=== PATIENT | male | born 1950 | race Caucasian/White ===

== ENCOUNTER 2020-05-01 17:50 | Emergency (ER) | payer OTHER ==
--- OUTSIDE RECORDS SUMMARY | 2020-05-01 17:53 | XMS REPORT | Continuity of Care Document ---
:1950 Author Organization [facility] Address [address] [place] [address] Care Team Providers Name Role Phone DO MARC ONEILL Primary Care Physician Allergies, Adverse Reactions, Alerts Allergen Type Severity Reaction Last Updated Verified Status Codeine Allergy Severe March 10, Yes Active ([id number]) 2015 Medications Medication Status Dose Units Route Sig Qty Days Start End Instruct ions Date Date Budesonide Active 0.5 RESPIRAT Twice 1 Septembe ORY Daily r 28th, (INHALAT For 2019 ION) Resp 5:20pm for Copd Dapagliflozin Active 1 ORAL Daily 30 30 * Docusate Active 1 ORAL Twice 60 30 Septembe Sodium A Day r 28, for 2019 Consti 5:20pm pation Doxycycline Active 1 ORAL Twice 20 10 Septembe Hyclate A Day r 28, for 2019 Pneumo 5:20pm chris Insulin Active 10 SUBCUTAN Bedtim Detemir EOUS e Ipratropium Active 1 RESPIRAT Every 30 Septembe Zahl/[place] ORY 6 r 7th, rol (INHALAT Hours 2015 ION) For 2:19pm Resp Losartan Active 1 ORAL Twice 60 30 Septembe Potassium A Day r 28, 2019 Hypert 5:20pm ension Metformin Hcl Active 500 ORAL Twice A Day Pantoprazole * Active 40 ORAL Daily 30 30 Pioglitazone Active 1 ORAL Daily 30 30 Hcl Tramadol Hcl Active 100 ORAL Every 15 30 6 Hours As Needed as needed for Pain Citalopram * Discontin 20 ORAL Daily Septemb ued er 2019 Glimepiride Discontin 2 ORAL Before Septemb ued Breakf er ast 2019 Lactulose Discontin 15 ORAL Once 300 Septembe Septemb ued Daily r 7th, er as 2015, 2:19pm 2019 for Consti pation Levofloxacin Discontin 500 ORAL Daily 7 Septembe Septem b ued r 7th, er 2015, 2:19pm 2019 Lisinopril Discontin 40 ORAL Daily Septemb ued er 2019 Losartan Discontin 1 ORAL Daily 30 30 Septemb Potassium & ued er Hydrochlo 2019 Metoprolol Discontin 100 ORAL Once Septemb Succinate ued Daily er 2019 Metoprolol Discontin 25 ORAL Twice [place] Tartrate ued A Day 2015 Nicotine Discontin 1 TOPICAL Once 21 Septembe Septemb ued Daily r 7th, er 2015, 2:19pm 2019 Olmesartan/Hct Discontin 1 ORAL Daily February z 20/12.5 Mg * ued 2015 Omeprazole Discontin 20 ORAL Once Septemb ued Daily er 2019 Pantoprazole Discontin 40 ORAL Twice 60 Septembe Septem b Sodium ued A Day r 7th, er 2015, 2:19pm 2019 Sulfamethoxazo Discontin 1 ORAL Every February le/Tmp 800/160 ued 07 04, Mg Hours 2015 Tramadol Hcl Discontin 50 ORAL Every 30 May Septem b ued 4 rd, er Hours 2014, 2:32pm 2019 Tramadol Hcl Discontin 50 ORAL Every 30 Septembe Septem b ued 4 r 7th, er Hours 2015, As 2:20pm 2019 Needed Problems Active Problems Medical Problem Onset Date Status Sebaceous cyst Active Ileus following gastrointestinal Active surgery Postoperative hypoxia Active Pleural effusion Active Pulmonary nodule/lesion, solitary Active Abdominal pain Active Obstipation Active COPD (chronic obstructive pulmonary Acti ve disease) HTN (hypertension) Active HLD (hyperlipidemia) Active CAD (coronary artery disease) Active DM (diabetes mellitus) Active Urine retention Active Hematuria Active SOB (shortness of breath) Active Hypertensive emergency Active Edema Active Hypokalemia Resolved Hypocalcemia Active [place] Active Hypophosphatemia Active Protein-calorie malnutrition, severe Act tracy UTI (urinary tract infection) Active Advanced care planning/counseling Active discussion Tobacco abuse Active Tobacco abuse counseling Active SANTINO on CPAP Active Weight loss, non-intentional Active Poor appetite Active Hepatitis C Active Dizziness Active Unsteady gait Active Urinary retention Active Loculated pleural effusion Active Hx laparoscopic cholecystectomy Active S/P laparoscopic cholecystectomy Active Inactive/Resolved Problems Medical Problem Onset Date Status Adrenal nodule Resolved Hyponatremia Resolved Chronic abdominal pain Resolved Pleural effusion on right Resolved Pneumonia Resolved Procedures Procedure Date Performed Status X-ray of chest, single view April 10, 2020 completed Computed tomography of thorax April 10, 2020 completed with contrast Computed tomography of abdomen April 10, 2020 complete d and pelvis with contrast Computed tomography of head April 10, 2020 completed without contrast US guided thoracentesis April 11, 2020 completed X-ray of chest, single view April 11, 2020 completed Magnetic resonance imaging of April 12, 2020 completed brain without contrast Relevant Diagnostic Tests and/or Laboratory Data Laboratory Results Test Date/Time Result Interpretation Reference Result Comment Performing Range Site White Blood March 6.9 4.0-12.3 [facility], [address] Count 2019 [place] [id number] 4:30am Red Blood March 3.91 3.80-5.80 [facility], [address] Count 2019 [facility] [address] 4:30am Hemoglobin March 10.5 11.7-17.2 [facility], [address] 2019 [facility] [address] 4:30am Hematocrit March 32.6 35.0-51.0 [facility], [address] 2019 [facility] [address]24 4:30am Mean March 83.4 83-100 [facility], [address] Corpuscular 2019 [facility] [address] Volume 4:30am Mean March 26.9 26.8-33.4 [facility], [address] Corpuscular 2019 [facility] [address] Hemoglobin 4:30am Mean March 32.2 30-35 [facility], [address] Corpuscular 2019 [facility] [address] Hemoglobin 4:30am Concent Red Cell March 14.5 12.0-14.0 [facility], [address] Distributio 2019 [facility] [address] n Width 4:30am Platelet March 225 175-450 [facility], [address] Count 2019 [place] [id number] 4:30am Mean Lin 8.1 9.4-12.6 [facility], [address] Platelet 2019 [place] [address] Volume 4:30am Neutrophils Lin 64.5 44.7-82.4 [facility], [address] (%) (Auto) 2019 [place] [address] 4:30am Immature Lin 0.7 0.0-0.4 [facility], [address] Granulocyte 2019 [place] [address] % (Auto) 4:30am Lymphocytes Lin 17.8 10.0-50.0 [facility], [address] (%) (Auto) 2019 [place] [address] 4:30am Monocytes Lin 14.9 3.9-13.4 [facility], [address] (%) (Auto) 2019 [place] [address] 4:30am Eosinophils Lin 1.8 0.0-6.4 [facility], [address] (%) (Auto) 2019 [place] [address] 4:30am Basophils Lin 0.3 0.2-1.2 [facility], [address] (%) (Auto) 2019 [place] [address] 4:30am Neutrophils Lin 4.42 1.78-5.38 [facility], [address] # (Auto) 2019 [place] [address] 4:30am Absolute Lin 0.1 0.0-0.03 [facility], [address] Immature 2019 [place] [address] Granulocyte 4:30am (auto Lymphocytes Lin 1.2 1.32-3.57 [facility], [address] # (Auto) 2019 [place] [address] 4:30am Monocytes # Lin 1.02 0.30-0.82 [facility], [address] (Auto) 2019 [place] [address] 4:30am Eosinophils Lin 0.12 0.04-0.54 [facility], [address] # (Auto) 2019 [place] [address] 4:30am Basophils # Lin 0.02 0.01-0.08 [facility], [address] (Auto) 2019 [place] [address] 4:30am Nucleated Lin 0 0-0.2 [facility], [address] Red Blood 2019 [place] [address] Cells % 4:30am Nucleated March 0 0 [facility], [address] Red Blood 2019 [facility] [address] Cells # 4:30am Erythrocyte March 57 0.00-20 [facility], [address] Sedimentati 2019 [facility] [place] [address] on Rate 7:17pm D-Dimer March 1588 <500 Results have [facility], [address] [place] [address] 3:44pm broadcasted to patient's location and called to (CAT IN E.R.). By ELKE SHELL 04/10/20 @1904 Prothrombin March 11.4 10.3-12.3 THERAPEUTIC [facility], [address] Time 2019 LEVEL: 1.5 to [place] [id number] 3:44pm 1.9 times normal range of PT Prothromb March 1.06 Recommended [facility], [address] Time 2019 [place] [address] Internation 3:44pm range for al Ratio patients receiving warfarin (coumadin) therapy: INR is 2.0 to 3.0Recommended range for patients with mechanical prosthetic heart valves: INR is 2.5 to 3.5 Activated March 36.4 22.5-37.0 [facility], [address] Partial 2019 [place] [address] Thromboplas 3:44pm t Time Body Fluid March 89 [facility], [address] Glucose 2019 [facility] 80116 5:09pm Body Fluid March 4.4 [facility], [address] Total 2019 [facility] [address] Protein 5:09pm Body Fluid Lin PLEURAL [facility], [address] Source 2019 [place] [address] 5:09pm Body Fluid March LIGHT YELLOW COLORLESS [facility], [address] Color 2019 [place] [address] 5:09pm Body Fluid March CLEAR CLEAR [facility], [address] Appearance 2019 [place] [address] 5:09pm Body Fluid March 2.851 [facility], [address] WBC 2019 [facility] 84458 5:09pm Body Fluid Lin 0.002 [facility], [address] RBC 2019 [facility] 43147 5:09pm Body Fluid Lin 15.8 [facility], [address] Polynuclear 2019 [facility] [place] [address] WBCs (%) 5:09pm Body Fluid Lin 0.5 [facility], [address] Polynuclear [address] [place] [address] WBCs (#) 5:09pm Body Fluid March 84.2 [facility], [address] [facility] [address] Mononuclear [address] [place] [address] WBCs (%) 5:09pm Body Fluid Lin 2.4 [facility], [address] Mononuclear [address] [place] [address] WBCs 5:09pm Fluid Total Lin 2.9 [facility], [address] Nucleated 2019 [facility] 395[address] Cells 5:09pm (Auto) Body Fluid March 18 [facility], [address] Neutrophils 2019 [place] [address] 5:09pm Body Fluid March 73 [facility], 104 [facility] Lymphocytes 2019 [facility] [place] [address] 5:09pm Body Fluid March 4 0-0 [facility], [address] [facility] [address] Eosinophils 2019 [facility] [place] [address] 5:09pm Body Fluid March 5 0-0 [facility], [address] Monocytes 2019 [place] [address] 5:09pm Body Fluid March YES [facility], 104 [facility] Diff 2019 [facility] [address] Pathologist 5:09pm Review Urine Color March LIGHT YELLOW [facility], [address] [facility] [address] 2019 [facility] 42557 5:47pm Urine March CLEAR CLEAR [facility], 104 [facility] Appearance 2019 [facility] 67206 5:47pm Urine March 4+ (1000 NEGATIVE [facility], 104 [facility] Glucose 2019 mg/dL) [facility] [address] (UA) 5:47pm Urine Lin NEGATIVE NEGATIVE [facility], 104 [facility] Bilirubin 2019 [facility] 61203 5:47pm Urine Lin NEGATIVE NEGATIVE [facility], 104 [facility] Ketones 2019 [facility] 81109 5:47pm Urine Lin 1.033 1.003-1.030 [facility], 10 4 [facility] Specific 2019 [facility] [address] [place] 5:47pm Urine Blood March NEGATIVE NEGATIVE [facility], 10 4 [facility] [address] 2019 [facility] [address]676 5:47pm Urine pH March 7.000 5-9 [facility], [address] 2019 [facility] 62841 5:47pm Urine Lin TRACE NEGATIVE [facility], [address] Protein 2019 [facility] 45566 5:47pm Urine Lin 2.0-3.0 0.2-1.0 [facility], [address] Urobilinoge 2019 [facility] 08184 n 5:47pm Urine Lin NEGATIVE NEGATIVE [facility], [address] Nitrate 2019 [facility] 43883 5:47pm Urine Lin NEGATIVE NEGATIVE [facility], [address] [facility] [address] Leukocyte 2019 [facility] [address] Esterase 5:47pm Urine RBC Lin <1 0-5 [facility], [address] [facility] [address] 2019 [facility] 29038 5:47pm Urine WBC Lin <1 0-5 [facility], [address] 2019 [facility] [address]807 5:47pm Urine Lin <1 0-5 [facility], [address] [facility] [address] Epithelial 2019 [facility] [address] Cells 5:47pm Urine Lin None None Detect [facility], [address] Bacteria 2019 Detected [facility] 67147 5:47pm Urine Casts March None None Detect [facility], [address] [facility] [address] 2019 Detected [facility] 34870 5:47pm Urine Lin NO [facility], 104 [facility] Culture 2019 [facility] [address] Reflexed 5:47pm POC March 124 70.0 - 110 [facility], [address] Capillary 2019 [facility] [address] Blood 4:39pm Glucose (Chem) Lactic Acid March 1.79 0.5-2.2 [facility], [address] Level 2019 [facility] 64523 6:50am Procalciton March 0.1 0.0-0.8 The change of [facility] , [address] in 2019 PCT [facility] [address]18[address] 3:44pm concentration over time providesprogno stic information about the risk of mortality [id number] days for patients diagnosed with severe sepsis or septicshock coming from the emergency department, ICU, othermedical wards, or directly from outside the hospital. Datasupports the use of PCT determinations from the day severesepsis or septic shock is first diagnosed (Day 0) or the daythereafter (Day 1) and the fourth day after diagnosis(Day 4) for the classification of patients into higher andlower risk for mortality within 28 days according to theworkflow below:PCT Day 0(or Day 1) - PCT Day 4delta PCT = ____ X 100%PCT Day 0 (or Day 1)A decrease of PCT levels below or equal to 80% defines apositive delta PCT test result representing a higherrisk for 28-day all-cause mortality of patients diagnosedwith severe sepsis or septic shock.A decreased of PCT levels of more than 80% defines anegative delta PCT result representing a lower risk [id number] all-cause mortality of patients diagnosed withsevere sepsis or septic shock.To determine delta PCT results from the absolute PCTconcentrati ons of a patient obtained on the day severesepsis or septic shock was first diagnosed (or 24 hourslater) and on Day 4, go to [email or web address] m. Random March 102 82-115 [facility], [address] Glucose 2019 [place] [id number] 4:30am Blood Urea March 13 8-23 [facility], [address] Nitrogen 2019 [facility] 95821 4:30am Serum March 265 280-300 [facility], [address] Osmolality 2019 [place] [id number] 4:30am Creatinine March 0.8 0.70-1.20 [facility], [address] 2019 [place] [address] 4:30am Glomerular March > 60.00 GFR RESULTS [facility], [address] Filtration 2019 ARE REPORTED [place] [id number] Rate Calc 4:30am IN mL/min/1.73m2. Normal GFR: >60mL/minModer ately decreased GFR: 30-59 mL/minSeverely decreased GFR: 15-29 mL/minKidney Failure (or Dialysis): <15 mL/minThe calculated eGFR is not valid for patients younger than 18 years or older than 75 years. BUN/Creatin March 16.3 12-20 [facility], [address] ine Ratio 2019 [place] [id number] 4:30am Sodium March 132 135-145 [facility], [address] Level 2019 [place] [address] 4:30am Potassium Lin 4.2 3.5-5.2 [facility], 104 [facility] Level 2019 [place] [address] 4:30am Chloride March 95 98-108 [facility], 104 [facility] Level 2019 [place] [address] 4:30am Carbon March 29 21-32 [facility], 104 [facility] Dioxide 2019 [place] [address] Level 4:30am Anion Gap Lin 12.2 12-20 [facility], 104 [facility] 2019 [place] [address] 4:30am Calcium Lin 9.3 8.8-10.2 [facility], 104 [facility] Level 2019 [place] [address] 4:30am Phosphorus Lin 2.9 2.5-4.5 [facility], 104 [facility] Level 2019 [place] [address] 3:25am Magnesium Lin 1.5 1.6-2.4 [facility], 104 [facility] Level 2019 [place] [address] 3:25am Total Lin 6.1 6.6-8.7 [facility], 104 [facility] Protein 2019 [place] [address] 3:25am Albumin Lin 3.2 3.5-5.2 [facility], [address] [place] [address] ST 2019 [place] [address] 3:25am Globulin Lin 2.9 [facility], [address] [place] [address] 2019 [place] [address] 3:25am Albumin/Angelina Lin 1.1 >1.0 [facility], [address] bulin Ratio 2019 [place] [id number] 3:25am Total Lin < 0.3 0.0-1.2 [facility], 104 [facility] Bilirubin 2019 [place] [address] 3:25am Direct Lin < 0.20 0.0-0.3 [facility], 104 [facility] Bilirubin 2019 [place] [address] 4:30am Aspartate March 13 15-40 [facility], 104 [facility] Amino 2019 [place] [address] Transf 3:25am (AST/SGOT) Alanine March 10 0-41 [facility], 104 [facility] Aminotransf 2019 [place] 6[address]374 erase 3:25am (ALT/SGPT) Lipase March 16 13-60 [facility], [address] 2019 [facility] [address]647 3:44pm Lactate March 122 135-225 [facility], [address] Dehydrogena 2019 [facility] [address] se 4:30am Ammonia Lin < 10.0 16-60 [facility], 104 [facility] 2019 [facility] 07445 4:25pm Hemoglobin March 5.4 4.0-6.0 [facility], [address] A1c 2019 [facility] 74303 4:30am NT-Pro-B-Ty March 125 0-125 [facility], [address] pe 2019 [facility] [address] Natriuretic 3:25am Peptide C-Reactive March 66.3 0.0-5.0 High [facility], [address] Protein 2019 Sensitivity [facility] [address] High 4:30am C-Reactive Sensitivity Protein (CCRP) Expected Values: < 1.0 mg/L Low risk1.0 - 3.0 mg/L Moderate risk> 3.0 mg/L High riskTo convert CCRP to CRP for use as an inflammatory marker, divide the CCRP by 10Normal range for CRP 0.0 - 0.7 mg/dL Total March 88 40-130 [facility], [address] Alkaline 2019 [facility] [address] Phosphatase 3:25am Cholesterol March 156 150-200 [facility], [address] Level 2019 [facility] 62503 4:30am Triglycerid March 139 <150 [facility], [address] es Level 2019 [facility] 44625 4:30am HDL March 46 >55 HDL EXPECTED [facility], 04 [facility] Cholesterol 2019 VALUES:FEMALES [facility] 46990 4:30am : >65 mg/dL NO RISK 45-65 mg/dL MODERATE RISK <45 mg/dL HIGH RISKMALES: >55 mg/dL NO RISK 35-55 mg/dL MODERATE RISK <35 mg/dL HIGH RISK LDL March <100 LDL Expected [facility], 07 22 [facility] Cholesterol 2019 Values:Optimal [facility] 30236 4:30am <100 mg/dLNear optimal/above optimal 100-129 mg/dLBorderlin e high 130-159 mg/dLHigh 160-189 mg/dLVery high >190 mg/dL Coronary Lin 3.391 [facility], [address] [place] [address] 2019 [facility] [address] Disease 4:30am CHOLESTEROL Risk Ratio [facility] ([facility]) guidelines for classificaton, testing and management of cholesterol levels in adults over 20 years of age. This new classification creates three categories of risk for coronary heart disease, regardless of age or sex, according to total and LDL cholesterols levels: Based on total cholesterol levelDesirable <200 mg/dlBorderlin e-high 200-239 mg/dlHigh >=240 mg/dl Based on cholesterol ratioCHD RISK CHOL/HDL RATIO--------- --------- MALE FEMALE0.5 x Average 3.4 3.31.0 x Average 5.0 4.42.0 x Average 9.6 7.13.0 x Average 13.5 11.0 Ferritin Lin 216.9 30-400 [facility], 104 [facility] 2019 [facility] 93437 4:30am Thyroid Lin 1.41 0.36-3.74 [facility], [address] [place] [address] 2019 [facility] [address] Hormone 6:40am (TSH) Rheumatoid Lin < 10 0-14 [facility], [address] [place] [address] 2019 [facility] 20286 7:17pm TB Test March . The [facility] A# [id number], [address] [place] [address] (QFT) 2019 QuantiFERON-TB [facility] [address] Positive 7:17pm Gold Plus Criteria result is determined bysubtracting the Nil value from either TB antigen (Ag) tube.The mitogen tube serves as a control for the test. TB Test March 0.04 . [facility] A# [id number], 1050 [facility] 145 (QFT) [address] [facility] [address] Antigen 7:17pm TB Test March 0.04 . [facility] A# [id number], [address] [place] [address] (QFT) [address] [facility] [address] Antigen 2 7:17pm TB Test March 0.03 . [facility] A# [id number], 1050 [facility], [address] (QFT) Nil [place] [address] 7:17pm TB Test March >10.00 . [facility] A# [id number], 10[address] [facility], [address] (QFT) [place] [address] Mitogen 7:17pm TB Test March Negative Negative The specimen [facility] A# [id number], [address] [facility], [address] (QFT) 2019 [place] [address] Interpretat 7:17pm QuantiFERON ion testing was incubatedby the ordering institution. Specific procedures outlinedin our Directory of Services and in the package insert forthe QuantiFERON Gold (In Tube) test must be followed toenable for proper stimulation of cells for the productionof interferon gamma.Performe d at: [facility] - [facility] [id number] [id number] Director: Darion Baird MD, Phone: [phone] Rapid March NONREACTIVE NONREACTIVE [facility], [address] Plasma 2019 [facility] [address] Reagin 9:13am Body Fluid March 197 NO ESTABLISHED [facility] , [address] Lactate 2019 [facility] [place] [address] Dehydrogena 5:09pm se Urine March Negative Negative Presumptive [facility] A# [id number], [address] [facility], [address] Legionella 2019 [place] [address] Antigen 5:47pm L. pneumophila serogroup 1 antigenin urine, suggesting no recent or current infection.Legi onnaires' disease cannot be ruled out since otherserogroup s and species may also cause disease.Perfor med at: - [facility] [id number] [place], [place] [id number] Director: Jose Vogt MD, Phone: [phone] Creatine March 79 20-200 [facility], [address] Kinase 2019 [facility] 62289 3:44pm Troponin I March < 0.30 0.0-0.5 Published [facility], [address] 2019 clinical [facility] [address]502 3:44pm studies have shown elevations of cTnI in patients with myocardial injury, as seen in unstable angina pectoris, cardiac contusions, and heart transplants. Elevations have also been seen in patients with rhabdomyolysis and polymyositis.E levated troponin levels point to myocardial injury, but are not necessarily indicative of an ischemic mechanism. The term GA should be used when there is evidence of cardiac damage, as detected by marker proteins in a clinical setting consistent with myocardial ischemia. If the clinical circumstance suggests that an ischemic mechanism is unlikely, other causes of cardiac injury should be considered.For diagnostic purposes, the results should always be assessed in conjunction with the patient's medical history, clinical examination and other findings. Microbiology Results Procedure Source Result Collection Result Result Performin g Date/Time Date/Time Comment Site Blood Culture BLOOD FINAL March [facility], [address] REPORT. 2019 [facility] [address] 4:25pm 4:27pm Diagnostic Imaging Reports Report Dictated Date/Time Dictated By Status April 10, 2020 MARTY TAO MD completed 4:06pm Patient: VEGA RAYO MR#: [id number] [birth year] : 1950 Order[address] DrPrieto: DAWN HACKETT Pt Status: [facility] ER Pt Location: ER Date/Time: 04/10/20 1544 Primary Care Physician: SIGRID ONEILL DO Technologist(s): GRACE PECK Procedure(s): [id number] RAD/CHEST 1 VIEW Signed EXAMINATION: XR CHEST 1 VIEW. INDICATION: 70-year-old male with dyspn ea. COMPARISON: Chest radiograph dated 03/28. FINDINGS: The cardiomediastinal silhouette appear s normal. Mild calcified atherosclerotic disease of the thoracic aorta. Interval development of right greater than left patchy opacities. Moderate right pleural effusion. No pneumothorax. Surgical anchors are noted in the right humeral h ead. Visualized soft tissues are unremarkable. IMPRESSION: Interval development of right greater t martino left patchy opacities and moderate right pleural effusion, concerning for p neumonia. Electronically signed by: Marty Tao MD 04/10/2020 4:06 PM CDT Transcribed By: [facility] [employer] SIGNED < electronically signed by MARTY TAO MD> [id number] MARTY TAO MD April 10, 2020 MARY LY MD completed 5:53pm Patient: VEGA RAYO MR#: [id number] 92 : 1950 Ordering DrPrieto: DAWN HACKETT Pt Status: REG ER Pt Location: M ER Date/Time: 04/10/20 1640 Primary Care Physician: SIGRID ONEILL DO Technologist(s): MIKA GALAVIZ Procedure(s): [id number] CT/CT ABD & PELVIS W Signed EXAM DESCRIPTION: CT ABD PELVIS W CLINICAL HISTORY: 70 years Male abd pain, abnormal ches t x-ray, hyponatremia COMPARISON: Prior study dated July 16, 2011. TECHNIQUE: Images were obtained in axial, sagittal , and coronal planes. Intravenous contrast was administered. This exam was performed according to our departmental dose-optimization program which includes use of Automated Exposure Control, adjustment of the mA and/or kV according to patient size and/ or use of iterative reconstruction technique. FINDINGS: Decreased attenuation involving liver i n region of ligamentum teres peripherally likely fatty replacement. S pleen is prominent in size measuring 12.7 cm in greatest dimension. Prior cho lecystectomy.. Lobular appearing adrenal glands bilaterally. 2.7 cm mass right ad renal gland. 2.4 cm mass left adrenal gland. Right pleural effusion with suspected p leural thickening and irregularity.. Infiltrate and consolidation as well as atelectatic change right lower lobe. Additional extensive ill-defined nodular infiltrates lower lungs bilaterally. Calcification abdominal aorta with no d ilatation seen. Unremarkable portal vein. No adenopathy or abnormal intraper itoneal fluid collections seen. No obstructing renal or ureteral calcul i bilaterally. No hydronephrosis bilaterally. Moderate perinephric strand ing bilaterally. Unremarkable bladder. Enlarged prostate gland. Appendix within normal limits. No bowel obstruction, perforation, or infla mmation. No acute osseous abnormality. IMPRESSION: Moderate perinephric stranding bilatera lly. Clinical correlation suggested to further exclude inflammatory process. Right pleural effusion with suspected p leural thickening and irregularity posteriorly. Right lower lobe infiltrate and atelectatic change as well as consolidation. Extensive infiltrates zara gs bilaterally. The findings are consistent with but not specific for aty pical pneumonia including viral infection. Bilateral adrenal nodules possibly myol ipomas. The findings are stable when correlated with the prior study dated 2010. Electronically signed by: Mary Ly MD 04/10/2020 5:53 PM CDT Transcribed By: RUTHIE MONTEIRO SIGNED < electronically signed by MARY LY MD> [id number] MARY LY MD April 10, 2020 ZION BONNER MD completed 7:57pm Patient: VEGA RAYO MR#: [id number] 92 : 1950 Ordering DrPrieto: DAWN HACKETT Pt Status: ADM IN Pt Location: M M2 Date/Time: 04/10/201849 Primary Care Physician: SIGRID ONEILL DO Technologist(s): CALIN BRADLEY Procedure(s): [id number] CT/CT HEAD W/O CONTRAST Signed CT HEAD WITHOUT IV CONTRAST HISTORY: Altered mental status. COMPARISON: None. TECHNIQUE: CT scan of the brain was per formed without IV contrast. This exam was performed according to our [facility] dose-optimization program, which includes automated exposure control, adj ustment of the mA and/or kV according to patient size and/or use of iterative rec onstruction technique. FINDINGS: There are scattered areas of hypoattenu ation within the periventricular white matter, which likely represent chronic m icrovascular ischemia. No evidence of acute infarction, intracranial hemorrhag e, extra-axial fluid collection, or midline shift. No air-fluid levels are s een in the paranasal sinuses to suggest acute sinusitis. No depressed skull frac ture. IMPRESSION: 1. No acute intracranial findings. 2. Senescent changes with chronic micr ovascular ischemia. Electronically signed by: Zion Bonner MD 04/10/2020 7:57 PM CDT - 9427 Transcribed By: RUTHIE MONTEIRO SIGNED < electronically signed by ZION BONNER MD> [id number] ZION BONNER MD April 11, 2020 MARTY TAO MD completed 1:58pm Patient: VEGA RAYO MR#: [id number] 92 : [address] ROHINI GRANT MD Pt Status: ADM IN Pt Location: M M2 Date/Time: 04/11/20 1321 Primary Care Physician: SIGRID ONEILL DO Technologist(s): TERESA SCHILLING Procedure(s): [id number] US/U/S GUIDANCE FOR THORACENTE SIS Signed EXAMINATION: US THORACENTESIS. INDICATION: 70-year-old male with pleur al effusion. COMPARISON: CT chest dated 04/10/2020. FINDINGS: Limited grayscale ultrasound of the terri ateral chest was performed. This demonstrates a highly loculated moderate right pleural effusion. No significant left pleural effusion. IMPRESSION: Highly loculated moderate right pleural effusion, suggestive of an exudative effusion. Correlation with thoracentesis is suggested. Electronically signed by: Marty Tao MD 04/11/2020 1:58 PM CDT Transcribed By: [employer] SIGNED < electronically signed by MARTY TAO MD> [id number] MARTY TAO MD April 12, 2020 MARY LY MD completed 12:04am Patient: VEGA RAYO MR#: [id number] 92 : [address] STEPHANIE VELÁSQUEZ MD Pt Status: ADM IN [facility]#: [id number] Pt Location: M2 Date/Time: 04/11/20 1709 Primary Care Physician: SIGRID ONEILL DO Technologist(s): MIKA GALAVIZ Procedure(s): [id number] RAD/CHEST 1 VIEW Signed EXAM DESCRIPTION: CHEST 1 VIEW CLINICAL HISTORY: 70 years Male thoracentesis COMPARISON: Prior study dated April 10, 2020 TECHNIQUE: AP view of the chest was obtained. FINDINGS: Cardiac silhouette is enlarged. Central vessels are indistinct. Interval right thoracentesis. Right ple ural effusion has decreased when correlated with the prior study. Residua l pleural fluid noted. No pneumothorax. Patchy airspace opacities lung gibson b ilaterally decreased on the right and unchanged on the left. No effusion on le ft. IMPRESSION: Interval right thoracentesis. Decreased right pleural effusion with improved aeration right lung. No pneumothorax. Remaining findings unchanged. Electronically signed by: Mary Ly MD 04/12/2020 12:04 AM CDT Transcribed By: RUTHIE MONTEIRO SIGNED < electronically signed by MARY LY MD> [id number] MARY LY MD April 12, 2020 CHANTALE JIM MD completed 3:28pm Patient: VEGA RAYO MR#: [id number] 92 : 1950 Ordering DrPrieto: AIMEE FRYE Pt Status: ADM IN Pt Location: M M2 Date/Time: 04/12/20 1117 Primary Care Physician: SIGRID ONEILL DO Technologist(s): MRI [employer]PERATIONS Procedure(s): [id number] MRI/MRI BRAIN WITHOUT CONTRAST Signed EXAM: MRI BRAIN WITHOUT CONTRAST HISTORY: dizziness, unsteady gait. COMPARISON: Head CT from 04/10/2020. TECHNIQUE: Multiplanar, multi-sequence MR imaging of the brain without contrast was performed. FINDINGS: Parenchyma: No mass, hemorrhage or acu te vascular insults. Mild periventri cular and deep white matter T2/FLAIR hyp erintensities are likely due to chronic small vessel ischemic changes. Mild system consultant marcos small vessel ischemic changes in the hina. Extra-axial spaces: No mass or fluid c ollection. Ventricles: Normal in size and configu ration. No hydrocephalus. Vessels: Normal flow voids in major art eries and veins. Sellar/Suprasellar region: No abnormal ities. Craniocervical junction: No abnormaliti es. Scalp: No abnormalities. Bone marrow: No signal abnormalities. Paranasal sinuses/Mastoids: Clear. IMPRESSION: 1. No acute intracranial abnormality. 2. Mild chronic small vessel ischemic c hanges. Electronically signed by: Chantale nixon MD 04/12/2020 3:28 PM CDT Transcribed By: RUTHIE MONTEIRO SIGNED < electronically signed by CHANTALE JIM MD> [id number] CHANTALE JIM MD Health Concerns Health Concerns may be documented in an alternate section. Advance Directives Advance Directive Response Recorded Date/Time Advance Directives Yes March 07, 2016 7: 22am Advance Directive on File No March 8:05pm Name of Surrogate/Decision SPOUSE-HILARY RAYO March 4:09pm Maker Patient/Family Given Education No April 10, 2020 8:05pm Material R/T Directives? Chief Complaint and Reason for Visit Chief Complaint PNEUMONIA,ADRENAL NODULE,HYP ONATREMIA,PLEURAL EFFU Reason for Visit COPD (chronic obstructive pu lmonary disease) HTN (hypertension) HLD (hyperlipidemia) CAD (coronary artery disease ) DM (diabetes mellitus) Sebaceous cyst Ileus following gastrointest inal surgery Postoperative hypoxia Pleural effusion Pulmonary nodule/lesion, vini itary Advanced care planning/couns james discussion Tobacco abuse Tobacco abuse counseling SANTINO on CPAP Weight loss, non-intentional Poor appetite Hepatitis C Dizziness Unsteady gait Urinary retention Loculated pleural effusion Encounters Encounter Location(s) Arrival/Admit Date Discharge/Depart Date Provider(s) Discharged [place] April 10, April 15, 2020 ELLIE Brooks , [place] [id number] 6:37pm 6:02pm ZENAIDA Johnson MD Ctr Recent Diagnosis Onset Date COPD (chronic obstructive pulmonary disease) HTN (hypertension) HLD (hyperlipidemia) CAD (coronary artery disease) DM (diabetes mellitus) Sebaceous cyst Ileus following gastrointestinal surgery Postoperative hypoxia Pleural effusion Pulmonary nodule/lesion, solitary Advanced care planning/counseling discussion Tobacco abuse Tobacco abuse counseling SANTINO on CPAP Weight loss, non-intentional Poor appetite Hepatitis C Dizziness Unsteady gait Urinary retention Loculated pleural effusion Assessments Diagnosis Onset Date Resolution Status COPD (chronic obstructive Active pulmonary disease) HTN (hypertension) Active HLD (hyperlipidemia) Active CAD (coronary artery Active disease) DM (diabetes mellitus) Active Sebaceous cyst Active Ileus following Active gastrointestinal surgery Postoperative hypoxia Active Pleural effusion Active Pulmonary nodule/lesion, Active solitary Advanced care Active planning/counseling discussion Tobacco abuse Active Tobacco abuse counseling Active SANTINO on CPAP Active Weight loss, non-intentional Act tracy Poor appetite Active Hepatitis C Active Dizziness Active Unsteady gait Active Urinary retention Active Loculated pleural effusion Activ e Functional Status No Functional Status information available Goals Acute Goals -OK TO DC IV AND DC HOME -FOLLOW-UP WITH PCP IN 1-2 WEEKS -FOLLOW-UP WITH PULMONARY IN 1-2 WEEKS -PLEASE MAKE SURE ALL DIAGNOSTIC STUDIES ARE AVAILABLE AND HAVE BEEN REVIEWED WITH PATIENT PRIOR TO DISCHARGE -RETURN TO THE ER IF symptoms worsen -CALL DR. FULLER AT [phone] IF ANY QU ESTIONS REGARDING HOSPITAL STAY -PLEASE CALL THE FLOOR AT [phone] I F ANY MEDICATION OR NURSING QUESTIONS Immunizations No Immunization Information Available Mental Status No Mental Status Information Available Medical Equipment No Medical Equipment Information available Insurance Providers Guarantor Vega Rayo Address [address] [place] [id number] Contact Info. Home Phone: Payer Policy Id Coverage Id Subscriber's Subscriber Id Effective E xpiration Name Date Date Medicare [id number] Vega Rayo [id number] 44 Plan of Treatment Future Tests Future scheduled test information is unavailable Pending Tests Test Name Date ordered Gram Stain April 10, 2020 6:35pm Differential Comment April 11, 2020 5:09pm Sputum Culture April 10, 2020 6:35pm Arterial Blood pH April 11, 2020 6:16pm Arterial Blood Partial Pressure CO2 April 11 6:16pm Arterial Blood Partial Pressure O2 April 11 0 6:16pm Arterial Blood HCO3 April 11, 2020 6:16pm Arterial Blood Base Excess April 11, 2020 6:16pm Arterial Blood Total CO2 April 11, 2020 6:16pm Arterial Blood Oxygen Saturation April 11, 2020 6:16pm Oxygen Content April 11, 2020 6:16pm STRAIGHT INOC,NO SLIDE April 12, 2020 11:30am TISSUE GRINDING April 12, 2020 11:30am CONCENTRATION April 12, 2020 11:30am TISSUE GRIND/DIGEST April 12, 2020 11:30am INTERNAL QC AFB POS April 12, 2020 11:30am AFB ID April 12, 2020 11:30am Future Visits Future appointment information is unavailable Referrals to Other Providers Referral information is unavailable Future Procedures Future procedure information is unavailable Future Medications Future medication information is unavailable Patient Instructions Doxycycline delayed-release tablets Budesonide; Formoterol Inhalation Losartan tablets Pleural Effusion Docusate capsules Community-Acquired Pneumonia, Adult Social History Smoking Status Status Date of Observation Smokes tobacco daily (finding) April 10, 2020 8: 05pm Observation Status Observation Response Date of Response Alcohol abuse April 12, 2020 10:05am Hx Alcohol Use Y - 4-5 BEERS PER WEEK, 4 March 8:16pm WHISKY DRINKS PER WEEK Hx Physical Abuse No April 10, 2020 8:16pm Assigned Sex Male Vital Signs Vital Reading Result Collection Date/Time Weight 163.50 [lb_av] April 12, 2020 5:17am BMI (Body Mass Index) 24.9 kg/m2 April 12 5:17am Hospital Discharge Instructions Additional Instructions Instructions Physician Documentation [place] follow up instructions * If you have any questions or concerns, please contact [phone] and ask for the hospitalist on duty. If you are having a medical emergency, please report to the nearest emergency room in your area. * Access your patient portal or follow up with your PCP regarding any procedures or tests that have not yet been resulted. Follow up with: PCP Follow up appointment in: 7 days Activity on discharge: as tolerated Diet on discharge: cardiac Condition on discharge: stable
--- NOTE | 2020-05-01 19:21 | RAD REPORT ---
EXAM DESCRIPTION: RADChest Single View05/01/2020 7:02 pm CLINICAL HISTORY: cough COMPARISON: 2016 FINDINGS: Consolidation mid and lower right lung. Mild patchy opacities within the left lung The heart is mildly enlarged IMPRESSION: Large consolidation right lung with moderate patchy left lung opacities probably pneumon ia
[2020-05-01 19:37] LABS: Absolute Lymphocytes (CBC) 1.3 K/uL (0.7-4.9); Basophils % 0.6 % (0-1.3); Hematocrit 31.2 % (39.6-49.0); Lymphocytes % 18.3 % (15.3-44.8); MPV 6.3 fL (7.6-11.3); RBC Red Blood Cell Count 3.97 M/uL (4.33-5.43)
[2020-05-01 19:49] LABS: ALT/SGPT 15 U/L (12-78); AST/SGOT 12 U/L (15-37); Albumin 2.7 g/dL (3.4-5.0); Alkaline Phosphatase 104 U/L (45-117); BUN Blood Urea Nitrogen 13 mg/dL (7-18); Bicarbonate 28 mmol/L (21-32); Bilirubin Direct 0.2 mg/dL (0-0.2); Bilirubin Total 0.5 mg/dL (0.2-1.0); Glucose Level 95 mg/dL (74-106); Magnesium 1.5 mg/dL (1.8-2.4); NT PRO-BNP 396 pg/mL (<125); Potassium 3.8 mmol/L (3.5-5.1); Sodium Level 137 mmol/L (136-145); Troponin (Emerg Dept Use Only) < 0.02 ng/mL (0.0-0.045)
[2020-05-01 19:57] LABS: Protime INR 1.09
[2020-05-01 20:14] LABS: Urine Blood NEGATIVE (NEG); Urine Glucose 2+ (NEG); Urine Protein 1+ (NEG)
--- NOTE | 2020-05-01 20:23 | RAD REPORT ---
EXAM DESCRIPTION: CT - Chest For Pe Angio - 05/01/2020 8:04 pm CLINICAL HISTORY: Shortness of breath COMPARISON: None. TECHNIQUE: Dynamically enhanced axial 3 mm thick images of the chest were obtained during administra tion of <100> mL Isovue 370 IV contrast. Coronal and oblique reconstruction images were generated and reviewed. Exam utilizes a protocol for optimal evaluation of pulmonary arterial tree. Maximum intensity projections 3D imaging was utilized All CT scans are performed using dose optimization technique as appropriate and may include automated exposure control or mA/KV adjustment according to patient size. FINDINGS: A pulmonary embolus is not seen. A thoracic aortic aneurysm is not noted. . A pericardial effusion is not seen. Right lower lobe consolidation. Additional patchy alveolar opacities the lungs bilaterally. Moderate loculated right pleural effusion. Minimal left pleural effusion IMPRESSION: Negative for a pulmonary embolism. Right lower lobe consolidation. Additional moderate alveolar opacities bilaterally consistent with pn eumonia Moderate loculated right pleural effusion
[2020-05-01] MEDS ORDERED: PIPER/TAZO/NS 3.375gm 3.375 GM/100 ML BAG ONE (21:04)
[2020-05-01 21:05] LABS: Urine Bacteria <20 /HPF (NONE SEEN); Urine RBC <5 /HPF (NONE SEEN); Urine Urothelial Cells <5 /HPF (NONE SEEN)
[2020-05-01 21:06] LABS: Urine Culture Reflex Order NOT NEEDED
--- NOTE | 2020-05-01 21:38 | ER ---
Nurse's Notes [facility] Name: Vega Rayo Age: 70 yrs Sex: Male : 1950 Arrival Date: 05/01/2020 Time: 17:54 Bed 19 Private MD: Diagnosis: Pleural effusion in conditions classified elsewhere-right lung;Pneumonia due to other specified bacteria Presentation: 05/01 18:12 Chief complaint: Spouse and/or significant other states: Scheduled for Endoscopy ca1 Wednesday. He said it is hard for him to breathe since Wednesday and today. Went to a physician today to get cleared for the procedure on Wednesday. The doctor listened to his lungs and said you need to go to the ER. No cough out of the ordinary and he had pneumonia on 04/14/2020, but negative with Covid-19. Last Covid-19 test was 04/29/2020, negative. The abdominal pain and has been going on since November and Wednesday's endoscopy would be the 2nd one. Coronavirus screen: Client denies travel out of the [place] in the last 14 days. shortness of breath, Client presents with at least one sign or symptom that may indicate coronavirus-19. Standard/surgical mask placed on the client. Provider contacted for isolation considerations. The client reports previous COVID testing was negative. Date of collection: April 29, 2020. Ebola Screen: Patient negative for fever greater than or equal to 101.5 degrees Fahrenheit, and additional compatible Ebola Virus Disease symptoms Patient denies exposure to infectious person. Patient denies travel to an Ebola-affected area in the 21 days before illness onset. No symptoms or risks identified at this time. Initial Sepsis Screen: Does the patient meet any 2 criteria? No. Patient's initial sepsis screen is negative. Does the patient have a suspected source of infection? No. Patient's initial sepsis screen is negative. Risk Assessment: Do you want to hurt yourself or someone else? Patient reports no desire to harm self or others. Onset of symptoms was May 01, 2020. 18:12 Method Of Arrival: Wheelchair ca1 18:12 Acuity: DAYRON 3 ca1 Historical: - Allergies: 18:20 Codeine; ca1 - PMHx: 18:20 Diabetes - NIDDM; Hypertension; GI Bleed; ca1 - PSHx: 18:20 Cholecystectomy; ca1 - Immunization history:: Adult Immunizations up to date, Pneumococcal vaccine is up to date, Flu vaccine is up to date. - Social history:: Smoking status: Patient reports the use of cigarette tobacco products, smokes one-half pack cigarettes per day. Screenin:58 Abuse screen: Denies threats or abuse. Nutritional screening: No deficits noted. em Tuberculosis screening: No symptoms or risk factors identified. Fall Risk None identified. Assessment: 18:55 General: Appears in no apparent distress. comfortable, Behavior is calm, cooperative, em appropriate for age, Denies fever. Pain: Denies pain. Neuro: Level of Consciousness is awake, alert, obeys commands, Oriented to person, place, time, situation, Appropriate for age. Cardiovascular: Capillary refill < 3 seconds Patient's skin is warm and dry. Respiratory: Airway is patent Respiratory effort is even, unlabored, Respiratory pattern is regular, symmetrical. GI: Bowel sounds present X 4 quads. Abd is soft and non tender X 4 quads. Derm: Skin is intact, is healthy with good turgor, Skin is pink, warm \T\ dry. Musculoskeletal: Capillary refill < 3 seconds, Range of motion: intact in all extremities. 20:00 Reassessment: Patient and/or family updated on plan of care and expected duration. Pain fu level reassessed. Patient is alert, oriented x 3, equal unlabored respirations, skin warm/dry/pink. still complaining of SOB with exertion. 21:00 Reassessment: Patient appears in no apparent distress at this time. Patient and/or fu family updated on plan of care and expected duration. Pain level reassessed. Patient is alert, oriented x 3, equal unlabored respirations, skin warm/dry/pink. 22:15 Reassessment: Report called to Liza Tesfaye RN at [facility]. fu Vital Signs: 18:12 BP 130 / 79; Pulse 100; Resp 18 S; Temp 97(TE); Pulse Ox 93% on R/A; Weight 76.2 kg ca1 (R); Height 5 ft. 8 in. (172.72 cm) (R); Pain 0/10; 20:08 BP 156 / 78; Pulse 100; Resp 16; Temp 98.8; Pulse Ox 89% on R/A; Pain 0/10; fu 21:00 BP 135 / 63; Pulse 98; Resp 18; Pulse Ox 91% on R/A; Pain 0/10; fu 22:00 BP 127 / 70; Pulse 114; Resp 16; Pulse Ox 93% on NC; Pain 0/10; fu 18:12 Body Mass Index 25.54 (76.20 kg, 172.72 cm) ca1 ED Course: 17:54 Patient arrived in ED. ds1 18:19 Triage completed. ca1 18:20 Jones Sanchez PA is PHCP. cp 18:20 Sarbjit Mcguire MD is Attending Physician. cp 18:20 Arm band placed on right wrist. ca1 18:40 Deshaun June, [facility] is Primary Nurse. em 18:58 Patient has correct armband on for positive identification. Placed in gown. Bed in low em position. Call light in reach. Pulse ox on. NIBP on. 19:02 XRAY Chest (1 view) In Process Unspecified. EDMS 19:15 Initial lab(s) drawn, by me, sent to lab. Inserted saline lock: 20 gauge in right jp3 antecubital area, using aseptic technique. Blood collected. 19:15 Urine collected: clean catch specimen, clear, colette colored. Patient maintains SpO2 jp3 saturation greater than 95% on room air. 19:21 Warm blanket given. Verbal reassurance given. jp3 20:04 CT Chest For PE Angio In Process Unspecified. EDMS 20:51 initiated transfer with Deepa Herrera from [facility]. 2 21:31 administrative approval given by Deepa Herrera/ patient has been accepted to [address] 10 tower bed 22/ Dr. Burnette has accepted the patient in transfer/ report to be called to [phone]. 21:53 Mahad Ortega MD is Attending Physician. cp 22:00 No provider procedures requiring assistance completed. fu 22:30 Patient transferred, IV remains in place. fu Administered Medications: 20:58 Drug: Zosyn 3.375 grams Route: IVPB; Infused Over: 60 mins; Site: right antecubital; fu 21:58 Follow up: Response: No adverse reaction fu Outcome: 21:38 ER care complete, transfer ordered by . cp 22:30 Transferred by ground EMS to [facility]. fu 22:30 Condition: good 22:30 Instructed on the need for transfer, Demonstrated understanding of instructions. 22:49 Patient left the ED. mw2 Signatures: Dispatcher [employer] Deshaun Junior, RN RN Kaur Borja ds1 Jones Sanchez PA PA cp Umadhay, Felix, RN RN fu [place], MyKena mw2 Juan Triplett jp3 Kristy Carreon RN RN ca1
--- NOTE | 2020-05-01 21:38 | EDPHYS ---
Physician Documentation [facility] Name: Vega Rayo Age: 70 yrs Sex: Male : 1950 Arrival Date: 05/01/2020 Time: 17:54 Bed 19 Private MD: ED Physician Mahad Ortega HPI: 05/01 18:45 This 70 yrs old Male presents to ER via Wheelchair with complaints of cp Shortness of breath. 18:45 The patient presents with abdominal pain. cp 18:45 Onset: The symptoms/episode began/occurred chronic. Associated signs and symptoms: cp Pertinent positives: shortness of breath. Patient reports he was referred to ED for evaluation by physician's office after being evaluated for scheduled endoscopy. Patient reports increasing shortness of breath with exertion. Patient reports recent hospitalization 04-14-2020 for pneumonia with right lung pleural effusion. Patient was hospitalized at [facility] where pleural effusion was drained. Historical: - Allergies: 18:20 Codeine; ca1 - PMHx: 18:20 Diabetes - NIDDM; Hypertension; GI Bleed; ca1 - PSHx: 18:20 Cholecystectomy; ca1 - Immunization history:: Adult Immunizations up to date, Pneumococcal vaccine is up to date, Flu vaccine is up to date. - Social history:: Smoking status: Patient reports the use of cigarette tobacco products, smokes one-half pack cigarettes per day. ROS: 18:50 Constitutional: Negative for body aches, chills, fever, poor PO intake. cp 18:50 Eyes: Negative for injury, pain, redness, and discharge. cp 18:50 ENT: Negative for ear pain, sore throat, difficulty swallowing, difficulty handling secretions. 18:50 Cardiovascular: Negative for chest pain, edema, palpitations. 18:50 Respiratory: Positive for shortness of breath, on exertion. Negative for cough, wheezing. 18:50 Abdomen/GI: Negative for abdominal pain, nausea, vomiting, and diarrhea. 18:50 Back: Negative for pain at rest, pain with movement. 18:50 Skin: Negative for rash. 18:50 Neuro: Negative for altered mental status, headache, syncope, weakness. 18:50 All other systems are negative. Exam: 18:55 Constitutional: The patient appears in no acute distress, alert, awake, cp non-diaphoretic, non-toxic, well developed, well nourished. 18:55 Head/Face: Normocephalic, atraumatic. cp 18:55 Eyes: Periorbital structures: appear normal, Conjunctiva: normal, no exudate, no injection, Sclera: no appreciated abnormality, Lids and lashes: appear normal, bilaterally. 18:55 ENT: External ear(s): are unremarkable, Nose: is normal, Mouth: Lips: moist, Oral mucosa: moist, Posterior pharynx: Airway: no evidence of obstruction, patent. 18:55 Neck: ROM/movement: is normal, is supple, without pain, no range of motions limitations. 18:55 Chest/axilla: Inspection: normal, Palpation: is normal, no crepitus, no tenderness. 18:55 Cardiovascular: Rate: tachycardic, Rhythm: regular, Edema: is not appreciated, JVD: is not appreciated. 18:55 Respiratory: the patient does not display signs of respiratory distress, Respirations: normal, no use of accessory muscles, no retractions, labored breathing, is not present, Breath sounds: decreased breath sounds, that are severe, are heard in the right posterior middle lobe and right posterior lower lobe, stridor, is not appreciated, wheezing: is not appreciated. 18:55 Abdomen/GI: Inspection: abdomen appears normal, Palpation: abdomen is soft and non-tender, in all quadrants. 18:55 Back: pain, is absent, ROM is normal. 18:55 Skin: no rash present. 18:55 Neuro: Orientation: to person, place \T\ time. Mentation: is normal, Motor: moves all fours, strength is normal. 19:45 ECG was reviewed by the Attending Physician. cp Vital Signs: 18:12 BP 130 / 79; Pulse 100; Resp 18 S; Temp 97(TE); Pulse Ox 93% on R/A; Weight 76.2 kg ca1 (R); Height 5 ft. 8 in. (172.72 cm) (R); Pain 0/10; 20:08 BP 156 / 78; Pulse 100; Resp 16; Temp 98.8; Pulse Ox 89% on R/A; Pain 0/10; fu 21:00 BP 135 / 63; Pulse 98; Resp 18; Pulse Ox 91% on R/A; Pain 0/10; fu 22:00 BP 127 / 70; Pulse 114; Resp 16; Pulse Ox 93% on NC; Pain 0/10; fu 18:12 Body Mass Index 25.54 (76.20 kg, 172.72 cm) ca1 MDM: 18:25 Patient medically screened. 20:00 Differential diagnosis: sepsis, pneumonia, pleural effusion, pneumothorax. 21:23 Data reviewed: vital signs, nurses notes, lab test result(s), EKG, radiologic studies, CT scan, plain films. 21:35 Physician consultation: was contacted at 21:35, regarding regarding transfer, to [facility]. patient's condition, will accept patient as transfer to cardiothoracic services. 05/01 19:04 Order name: Basic Metabolic Panel; Complete Time: 20:10 05/01 19:04 Order name: CBC with Diff; Complete Time: 20:10 05/01 20:10 Interpretation: Normal except: RBC 3.97; HGB 10.3; HCT 31.2; MCV 78.8; MCH 26.1; RDW cp 15.7; MPV 6.3; MN% 15.4. 05/01 19:04 Order name: LFT's; Complete Time: 20:10 05/01 20:21 Interpretation: Normal except: AST 12; ALB 2.7; GLOB 4.3; A/G 0.6. 05/01 19:04 Order name: Magnesium; Complete Time: 20:10 05/01 19:04 Order name: NT PRO-BNP; Complete Time: 20:10 05/01 20:10 Interpretation: Abnormal: NT PRO-BNP 396. 05/01 19:04 Order name: PT-INR; Complete Time: 20:10 05/01 18:43 Order name: XRAY Chest (1 view); Complete Time: 19:28 05/01 19:28 Interpretation: Report review. 05/01 19:04 Order name: Troponin (emerg Dept Use Only); Complete Time: 20:10 05/01 19:04 Order name: EKG; Complete Time: 19:05 05/01 19:04 Order name: Cardiac monitoring; Complete Time: 19:21 05/01 19:29 Order name: CT Chest For PE Angio; Complete Time: 20:32 05/01 19:32 Order name: Urine Dipstick--Ancillary (enter results); Complete Time: 20:21 mw2 05/01 20:21 Interpretation: Normal except: UKET 2+; UPROT 1+. 05/01 19:49 Order name: Urine Microscopic Only; Complete Time: 21:06 fu 05/01 21:06 Interpretation: Reviewed. 05/01 19:04 Order name: EKG - Nurse/Tech; Complete Time: 19:21 cp 05/01 19:04 Order name: IV Saline Lock; Complete Time: 19:21 cp 05/01 19:04 Order name: Labs collected and sent; Complete Time: 19:21 cp 05/01 19:04 Order name: O2 Per Protocol; Complete Time: 19:21 cp 05/01 19:04 Order name: O2 Sat Monitoring; Complete Time: 19:21 cp EC:45 Rate is 103 beats/min. Rhythm is regular. NV interval is normal. QRS interval is cp normal. QT interval is normal. Interpreted by me. Reviewed by me. Administered Medications: 20:58 Drug: Zosyn 3.375 grams Route: IVPB; Infused Over: 60 mins; Site: right antecubital; fu 21:58 Follow up: Response: No adverse reaction fu Disposition: 05/02 07:06 Co-signature as Attending Physician, Mahad Ortega MD. [email or web address] Disposition: 05/01/20 21:38 Transfer ordered to [facility]. Diagnosis are Pleural effusion in conditions classified elsewhere - right lung, Pneumonia due to other specified bacteria. - Reason for transfer: Higher level of care. - Accepting physician is DR Kwon. - Condition is Stable. - Problem is an ongoing problem. - Symptoms have improved. Signatures: Dispatcher [employer] EDMS Jones Sanchez PA PA cp Umadhay, Felix RN Lexie Carpio [email or web address] Kristy Carreon RN RN ca1 Holmes, Maurice, MD MD 7 Corrections: (The following items were deleted from the chart) 05/01 22:49 21:38 05/01/2020 21:38 Transfer ordered to [facility]. mw2 Diagnosis is Pleural effusion in conditions classified elsewhere - right lung; Pneumonia due to other specified bacteria. Reason for transfer: Higher level of care. Accepting physician is DR Kwon. Condition is Stable. Problem is an ongoing problem. Symptoms have improved. cp
[2020-05-01 23:12] VITALS: BP 156/78; TEMP 98.8; O2SAT 89
--- NOTE | 2020-05-02 07:04 | EKG ---
Test Date: 2020-05-01 Test Time: 19:38:17 Email Producer: HUSEYIN MEASUREMENT RESULTS: Intervals: Rate: 103 NM: 132 QRSD: 72 QT: 338 QTc: 442 [place]: P: 50 NM: 132 QRS: 13 T: 78 INTERPRETIVE STATEMENTS: Sinus tachycardia Otherwise normal ECG Compared to ECG 04/11/2016 10:48:00 Sinus rhythm no longer present ST (T wave) deviation no longer present Electronically Signed On 05-02-20 07:03:30 CDT by Angel Patel
== END 2020-05-01 22:49 | disposition short-term general hospital (02) ==
LOC: ER 17:50
DX: J15.8 Pneumonia due to other specified bacteria (principal); J91.8 Pleural effusion in other conditions classified elsewhere; I10 Essential (primary) hypertension; F17.210 Nicotine dependence, cigarettes, uncomplicated; Z88.5 Allergy status to narcotic agent
CPT/HCPCS: 93005; 85025; 80048; 36415; 83735; 85610; 80076; 84484; 83880; 71275; 71045; 96374; 99285; Q9967; J2543; 81003; 81015

== ENCOUNTER 2020-06-07 14:50 | Day surgery (SDC) | payer OTHER ==
--- OUTSIDE RECORDS SUMMARY | 2020-06-07 14:54 | XMS REPORT | Clinical Summary ---
:1950 Author Organization [facility] Address [address] [place] [address] Care Team Providers Name Role Phone Drew Adams Unavailable Allergies Active Allergy Reactions Severity Noted Date Comments Codeine Rash Medium 05/02/2020 Medications Medication Sig Dispensed Refills Start Date End Date Status traMADoL (ULTRAM) Take 50 mg by mouth 0 03/12/2020 Active 50 mg tablet every 4 (four) hours as needed. pantoprazole Take 40 mg by mouth 0 02/23/2020 Active (PROTONIX) 40 MG 2 (two) times daily. tablet metoprolol tartrate Take 25 mg by mouth 0 02/15/2020 Active (LOPRESSOR) 100 MG 2 (two) times daily. tablet metFORMIN Take 500 mg by mouth 0 04/30/2020 Active (GLUCOPHAGE) 1000 2 (two) times daily. MG tablet docusate sodium Take 100 mg by mouth 0 04/15/2020 Active (COLACE) 100 MG as needed. capsule citalopram (CeleXA) Take 20 mg by mouth 0 02/27/2020 Active 20 MG tablet daily. nitroglycerin Take 0.4 mg by mouth 0 Active (NITROSTAT) 0.4 MG as needed. SL tablet dapagliflozin Take 10 mg by mouth 0 Active (Farxiga) 10 mg daily. tablet insulin detemir Inject 5 Units 0 Active U-100 (LEVEMIR) 100 subcutaneously unit/mL nightly. injectionIndication s: type 2 diabetes mellitus nicotine (NICODERM Place 1 patch onto 0 Active CQ) 21 mg/24 hr the skin daily. patchIndications: smoking cessation acetaminophen Take 2 tablets 30 tablet 0 05/16/2020 (TYLENOL) 500 MG (1,000 mg total) by 0 tablet mouth every 6 (six) hours for 10 days. gabapentin Take 1 capsule (300 30 capsule 0 05/16/2020 02 (NEURONTIN) 300 MG mg total) by mouth 3 0 capsule (three) times daily for 10 days. traMADoL (ULTRAM) Take 1 tablet (50 mg 30 tablet 0 05/16/2020 50 mg tablet total) by mouth 0 every 6 (six) hours as needed for up to 10 days. Max Daily Amount: 200 mg furosemide (LASIX) Take 1 tablet (20 mg 5 tablet 0 05/16/2020 20 MG tablet total) by mouth 0 daily for 5 days. potassium chloride Take 1 tablet (20 10 tablet 0 05/16/2020 SA (K-DUR,KLOR-CON) mEq total) by mouth 0 20 MEQ tablet 2 (two) times daily for 5 days. Active Problems Problem Noted Date Fluid overload 05/11/2020 Acute blood loss anemia 05/10/2020 Nicotine addiction 05/10/2020 Hypokalemia 05/10/2020 Hypomagnesemia 05/10/2020 Acute post-operative pain 05/10/2020 Anxiety 05/10/2020 Acute respiratory insufficiency 05/09/2020 Acute respiratory acidosis 05/09/2020 Empyema 05/02/2020 Encounters Date Type Specialty Care Team Description 05/27/2020 Hospital Encounter Radiology [place] Bustos Empyema (HCC) [place] 05/17/2020 Outside Orders Central Scheduling eGneva Bustos Empyem a (HCC) (Primary [place]aria Dx) 05/09/2020 Surgery Emmett Burnette THORACOSCOPY MD [place] (VATS),DECORTIC ATION 05/09/2020 Anesthesia Event Basilio Hodges MD Tra, Lorie Campuzano 05/09/2020 Orders Only General Internal Medicine 05/02/2020 Travel 05/01/2020 - Hospital Encounter Intensive Care Emmett Burnette Empyema ([facility]); 05/16/2020 MD [place] Preoperative ca rdiovascular examination; Essential hyper tension; Smoking; Periumbilical a bdominal pain; Acute respirato ry acidosis; Acute respirato ry insufficiency; Abnormal CT of the abdomen; Acute blood los s anemia; Acute post-oper ative pain; Hyperglycemia; Anxiety after 06/07/2019 Family History Medical History Relation Name Comments Hypertension Brother Alcohol abuse Father Cancer Father Hypertension Father Stroke Paternal Grandfather Relation Name Status Comments Brother Father Paternal Grandfather Social History Tobacco Use Types Packs/Day Years Used Date Former Smoker 50 Quit: 07/19/19 20 Smokeless Tobacco: Never Used Tobacco Cessation: Counseling Given: No Alcohol Use Drinks/Week oz/Week Comments Not Currently drank since 1964 stopped this september Sex Assigned at Date Recorded Not on file Last Filed Vital Signs Vital Sign Reading Time Taken Comments Blood Pressure 121/64 05/16/2020 2:00 PM CDT Pulse 90 05/16/2020 3:10 PM CDT Temperature 36.9 C (98.5 F) 05/16/2020 12:00 PM CDT Respiratory Rate 20 05/16/2020 3:10 PM CDT Oxygen Saturation 93% 05/16/2020 3:10 PM CDT Inhaled Oxygen Concentration 40% 05/10/2020 11:00 AM CDT Weight 76.7 kg (169 lb 1.5 oz) 05/16/2020 6:00 AM CDT Height 175.3 cm (5' 9") 05/02/2020 8:53 AM CDT Body Mass Index 24.97 05/02/2020 8:53 AM CDT Plan of Treatment Health Maintenance Due Date Last Done Comments PNEUMOCOCCAL 65+ YRS (1 of 1 - 2015 [id number]) MEDICARE ANNUAL WELLNESS (YEAR 2 or 03/20/2016 FIRST YEAR if no IPPE) INFLUENZA VACCINE (#1) 2020 05/14/2017, 04/23/2015, 07/10/2014 COLON CANCER SCREENING COLONOSCOPY 09/16/2021 09/17/2011 Procedures Procedure Name Priority Date/Time Associated Comments Diagnosis XR CHEST 2 VIEWS Routine 05/27/2020 10:10 Empyema (HCC) Result s for this AM [employer] procedure are i n the results section. XR CHEST 1 VIEW Routine 05/16/2020 12:04 Results for this PORTABLE/BEDSIDE PM CDT procedure a re in the results section. POCT-GLUCOSE METER Routine 05/16/2020 11:42 Resul ts for this AM CDT procedure are i n the results section. POCT-GLUCOSE METER Routine 05/16/2020 7:26 Resul ts for this AM CDT procedure are i n the results section. CBC W/PLT COUNT & Routine 05/16/2020 7:03 Result s for this AUTO DIFFERENTIAL AM CDT procedure are in the results section. CBC W/PLT COUNT & Routine 05/16/2020 7:03 Result s for this AUTO DIFFERENTIAL AM CDT procedure are in the results section. XR CHEST 1 VIEW Routine 05/16/2020 4:44 Results for this PORTABLE/BEDSIDE AM CDT procedure a re in the results section. MAGNESIUM Routine 05/16/2020 4:28 Results for this AM CDT procedure are i n the results section. BASIC METABOLIC PANEL Routine 05/16/2020 4:28 Re sults for this (7) AM CDT procedure are i n the results section. SARS-COV2/RT-PCR BALJINDER 05/16/2020 4:27 Results for this ([facility]) AM CDT procedure are in the results section. POCT-GLUCOSE METER Routine 05/15/2020 9:57 Resul ts for this PM CDT procedure are i n the results section. POCT-GLUCOSE METER Routine 05/15/2020 4:30 Resul ts for this PM CDT procedure are i n the results section. XR CHEST 1 VIEW Routine 05/15/2020 1:00 Results for this PORTABLE/BEDSIDE PM CDT procedure a re in the results section. POCT-GLUCOSE METER Routine 05/15/2020 11:23 Resul ts for this AM CDT procedure are i n the results section. ECG 12-LEAD Routine 05/15/2020 10:02 AM CDT Procedure Note - Interface, External Ris In - 05/15/2020 11:07 AM CDT Ventricular Rate 91 BPM Atrial Rate 91 BPM P-R Interval 136 ms QRS Duration 68 ms Q-T Interval 364 ms QTC Calculation(Bazett) 447 ms P Chatham 41 degrees R Chatham 11 degrees T Chatham 26 degrees Sinus rhythm with Premature supraventricular complexes Otherwise normal ECG When compared with ECG of 15:59, Previous ECG has undetermine d rhythm, needs review ECG 12-LEAD Routine 05/15/2020 10:02 AM CDT Resu lts for this procedure are i n the results section . POCT-GLUCOSE METER Routine 05/15/2020 7:28 AM CDT Results for this procedure are i n the results section . CBC W/PLT COUNT & AUTO Routine 05/15/2020 4:09 AM CDT Results for this DIFFERENTIAL procedure are i n the results section . MAGNESIUM Routine 05/15/2020 4:09 AM CDT Resu lts for this procedure are i n the results section . BASIC METABOLIC PANEL (7) Routine 05/15/2020 4:09 AM CDT Results for this procedure are i n the results section . CBC W/PLT COUNT & AUTO Routine 05/15/2020 4:09 AM CDT Results for this DIFFERENTIAL procedure are i n the results section . POCT-GLUCOSE METER Routine 05/14/2020 9:46 PM CDT Results for this procedure are i n the results section . POCT-GLUCOSE METER Routine 05/14/2020 4:47 PM CDT Results for this procedure are i n the results section . XR CHEST 1 VIEW STAT 05/14/2020 10:07 AM CDT R esults for this PORTABLE/BEDSIDE procedure a re in the results section . CBC W/PLT COUNT & AUTO Routine 05/14/2020 3:28 AM CDT Results for this DIFFERENTIAL procedure are i n the results section . MAGNESIUM Routine 05/14/2020 3:28 AM CDT Resu lts for this procedure are i n the results section . BASIC METABOLIC PANEL (7) Routine 05/14/2020 3:28 AM CDT Results for this procedure are i n the results section . CBC W/PLT COUNT & AUTO Routine 05/14/2020 3:28 AM CDT Results for this DIFFERENTIAL procedure are i n the results section . POCT-GLUCOSE METER Routine 05/13/2020 10:10 PM CDT Results for this procedure are i n the results section . POCT-GLUCOSE METER Routine 05/13/2020 4:29 PM CDT Results for this procedure are i n the results section . POCT-GLUCOSE METER Routine 05/13/2020 11:28 AM CDT Results for this procedure are i n the results section . POCT-GLUCOSE METER Routine 05/13/2020 9:14 AM CDT Results for this procedure are i n the results section . XR CHEST 1 VIEW Routine 05/13/2020 7:00 AM CDT R esults for this PORTABLE/BEDSIDE procedure a re in the results section . CBC W/PLT COUNT & AUTO Routine 05/13/2020 3:41 AM CDT Results for this DIFFERENTIAL procedure are i n the results section . PROTEIN, TOTAL Routine 05/13/2020 3:41 AM CDT Re sults for this procedure are i n the results section . ALBUMIN Routine 05/13/2020 3:41 AM CDT Resu lts for this procedure are i n the results section . PREALBUMIN Routine 05/13/2020 3:41 AM CDT Resu lts for this procedure are i n the results section . MAGNESIUM Routine 05/13/2020 3:41 AM CDT Resu lts for this procedure are i n the results section . BASIC METABOLIC PANEL (7) Routine 05/13/2020 3:41 AM CDT Results for this procedure are i n the results section . CBC W/PLT COUNT & AUTO Routine 05/13/2020 3:41 AM CDT Results for this DIFFERENTIAL procedure are i n the results section . MAGNESIUM Routine 05/13/2020 12:52 AM CDT Resu lts for this procedure are i n the results section . POTASSIUM Routine 05/13/2020 12:52 AM CDT Resu lts for this procedure are i n the results section . POCT-GLUCOSE METER Routine 05/12/2020 10:16 PM CDT Results for this procedure are i n the results section . MAGNESIUM Routine 05/12/2020 5:00 PM CDT Resu lts for this procedure are i n the results section . POTASSIUM Routine 05/12/2020 5:00 PM CDT Resu lts for this procedure are i n the results section . POCT-GLUCOSE METER Routine 05/12/2020 4:41 PM CDT Results for this procedure are i n the results section . POCT-GLUCOSE METER Routine 05/12/2020 8:41 AM CDT Results for this procedure are i n the results section . XR CHEST 1 VIEW Routine 05/12/2020 5:14 AM CDT R esults for this PORTABLE/BEDSIDE procedure a re in the results section . CBC W/PLT COUNT & AUTO Routine 05/12/2020 3:09 AM CDT Results for this DIFFERENTIAL procedure are i n the results section . BLOOD GAS, ARTERIAL Routine 05/12/2020 3:09 AM CDT Results for this procedure are i n the results section . MAGNESIUM Routine 05/12/2020 3:09 AM CDT Resu lts for this procedure are i n the results section . BASIC METABOLIC PANEL (7) Routine 05/12/2020 3:09 AM CDT Results for this procedure are i n the results section . CBC W/PLT COUNT & AUTO Routine 05/12/2020 3:09 AM CDT Results for this DIFFERENTIAL procedure are i n the results section . PREPARE LEUKO-REDUCED RBC Routine 05/11/2020 11:54 PM CDT Results for this procedure are i n the results section . POCT-GLUCOSE METER Routine 05/11/2020 9:14 PM CDT Results for this procedure are i n the results section . POCT-GLUCOSE METER Routine 05/11/2020 11:55 AM CDT Results for this procedure are i n the results section . MAGNESIUM Routine 05/11/2020 11:51 AM CDT Resu lts for this procedure are i n the results section . POTASSIUM Routine 05/11/2020 11:51 AM CDT Resu lts for this procedure are i n the results section . POCT-GLUCOSE METER Routine 05/11/2020 8:01 AM CDT Results for this procedure are i n the results section . BLOOD GAS, ARTERIAL Routine 05/11/2020 3:03 AM CDT Results for this procedure are i n the results section . CBC W/PLT COUNT & AUTO Routine 05/11/2020 2:57 AM CDT Results for this DIFFERENTIAL procedure are i n the results section . MAGNESIUM Routine 05/11/2020 2:57 AM CDT Resu lts for this procedure are i n the results section . BASIC METABOLIC PANEL (7) Routine 05/11/2020 2:57 AM CDT Results for this procedure are i n the results section . CBC W/PLT COUNT & AUTO Routine 05/11/2020 2:57 AM CDT Results for this DIFFERENTIAL procedure are i n the results section . XR CHEST 1 VIEW Routine 05/11/2020 1:37 AM CDT R esults for this PORTABLE/BEDSIDE procedure a re in the results section . POCT-GLUCOSE METER Routine 05/10/2020 9:12 PM CDT Results for this procedure are i n the results section . POCT-GLUCOSE METER Routine 05/10/2020 5:52 PM CDT Results for this procedure are i n the results section . BLOOD GAS, ARTERIAL STAT 05/10/2020 3:49 PM CDT Results for this procedure are i n the results section . POCT-GLUCOSE METER Routine 05/10/2020 12:33 PM CDT Results for this procedure are i n the results section . CBC W/PLT COUNT & AUTO BALJINDER 05/10/2020 10:29 AM CDT Results for this DIFFERENTIAL procedure are i n the results section . BLOOD GAS, ARTERIAL Routine 05/10/2020 10:29 AM CDT Results for this procedure are i n the results section . CBC W/PLT COUNT & AUTO BALJINDER 05/10/2020 10:29 AM CDT Results for this DIFFERENTIAL procedure are i n the results section . TRANSFUSE LEUKO-REDUCED RED Routine 05/10/2020 9:21 AM CDT BLOOD CELLS CBC W/PLT COUNT & AUTO Routine 05/10/2020 3:34 AM CDT Results for this DIFFERENTIAL procedure are i n the results section . BLOOD GAS, ARTERIAL Routine 05/10/2020 3:34 AM CDT Results for this procedure are i n the results section . MAGNESIUM Routine 05/10/2020 3:34 AM CDT Resu lts for this procedure are i n the results section . CBC W/PLT COUNT & AUTO Routine 05/10/2020 3:34 AM CDT Results for this DIFFERENTIAL procedure are i n the results section . COMPREHENSIVE METABOLIC STAT 05/10/2020 3:34 AM CDT Results for this PANEL procedure are i n the results section . XR CHEST 1 VIEW Routine 05/10/2020 2:35 AM CDT R esults for this PORTABLE/BEDSIDE procedure a re in the results section . POCT-GLUCOSE METER Routine 05/10/2020 1:21 AM CDT Results for this procedure are i n the results section . POCT-GLUCOSE METER Routine 05/09/2020 9:50 PM CDT Results for this procedure are i n the results section . XR ABDOMEN / KUB 1 VIEW STAT 05/09/2020 5:33 PM CDT Results for this procedure are i n the results section . BLOOD GAS, ARTERIAL Timed 05/09/2020 5:01 PM CDT Results for this procedure are i n the results section . ECG 12-LEAD Routine 05/09/2020 3:59 PM CDT Procedure Note - Interface, External Ris In - 05/09/2020 4:16 PM CDT Ventricular Rate 97 BPM Atrial Rate 153 BPM P-R Interval 136 ms QRS Duration 68 ms Q-T Interval 370 ms QTC Calculation(Bazett) 469 ms P Chatham 32 degrees R Chatham 28 degrees T Chatham 56 degrees Sinus tachycardia with 2nd d egree A-V block (Mobitz II) with Premature supraventricular complexes ST abnormality, possible dig italis effect Abnormal ECG When compared with ECG of 06:10, Previous ECG has undetermine d rhythm, needs review ST no longer depressed in An terior leads ECG 12-LEAD STAT 05/09/2020 3:59 PM Results for this CDT procedure are i n the results section. XR CHEST 1 VIEW STAT 05/09/2020 3:33 PM Resul ts for this PORTABLE/BEDSIDE CDT procedure a re in the results section. BLOOD GAS, ARTERIAL STAT 05/09/2020 3:31 PM R esults for this CDT procedure are i n the results section. CBC W/PLT COUNT & STAT 05/09/2020 3:30 PM Res ults for this AUTO DIFFERENTIAL CDT procedure are in the results section. BASIC METABOLIC PANEL STAT Add-on 05/09/2020 3:30 PM Results for this (7) CDT procedure are i n the results section. TROPONIN I Routine 05/09/2020 3:30 PM Results for this CDT procedure are i n the results section. APTT STAT 05/09/2020 3:30 PM Results for this CDT procedure are i n the results section. PROTHROMBIN TIME/INR STAT 05/09/2020 3:30 PM Results for this CDT procedure are i n the results section. CBC W/PLT COUNT & STAT 05/09/2020 3:30 PM Res ults for this AUTO DIFFERENTIAL CDT procedure are in the results section. CALCIUM, IONIZED STAT 05/09/2020 3:30 PM Resu lts for this CDT procedure are i n the results section. PHOSPHORUS STAT 05/09/2020 3:30 PM Results for this CDT procedure are i n the results section. MAGNESIUM STAT 05/09/2020 3:30 PM Results for this CDT procedure are i n the results section. HGB/HCT (H&H) - STAT STAT 05/09/2020 12:10 PM Results for this LAB CDT procedure are i n the results section. GLUCOSE-STAT LAB STAT 05/09/2020 12:10 PM Resu lts for this CDT procedure are i n the results section. POTASSIUM-STAT LAB STAT 05/09/2020 12:10 PM Re sults for this CDT procedure are i n the results section. SODIUM NA-STAT LAB STAT 05/09/2020 12:10 PM Re sults for this CDT procedure are i n the results section. BLOOD GAS, ARTERIAL STAT 05/09/2020 12:10 PM R esults for this CDT procedure are i n the results section. BLOOD GAS, ARTERIAL STAT 05/09/2020 12:10 PM R esults for this CDT procedure are i n the results section. CALCIUM, IONIZED STAT 05/09/2020 12:10 PM Resu lts for this CDT procedure are i n the results section. AFB CULTURE + SMEAR Routine 05/09/2020 11:56 AM (NON-SPUTUM) CDT SURGICALLY OBTAINED Routine 05/09/2020 11:56 AM R esults for this CULTURE + GRAM STAIN CDT procedu re are in the results section. FUNGUS CULTURE + Routine 05/09/2020 11:56 AM Resu lts for this SMEAR CDT procedure are i n the results section. AFB CULTURE + SMEAR Routine 05/09/2020 11:28 AM (NON-SPUTUM) CDT SURGICALLY OBTAINED Routine 05/09/2020 11:28 AM R esults for this CULTURE + GRAM STAIN CDT procedu re are in the results section. FUNGUS CULTURE + Routine 05/09/2020 11:28 AM Resu lts for this SMEAR CDT procedure are i n the results section. TISSUE EXAM AP Routine 05/09/2020 11:28 AM Results for this CDT procedure are i n the results section. THORACOSCOPY 05/09/2020 9:37 AM Acute empyema (VATS),DECORTICATION CDT ([facility]) Special Needs (ICU BED) POCT-GLUCOSE METER Routine 05/09/2020 8:08 AM CDT Results for this procedure are i n the results section . CBC W/PLT COUNT & AUTO Routine 05/09/2020 3:53 AM CDT Results for this DIFFERENTIAL procedure are i n the results section . MAGNESIUM Routine 05/09/2020 3:53 AM CDT Resu lts for this procedure are i n the results section . BASIC METABOLIC PANEL (7) Routine 05/09/2020 3:53 AM CDT Results for this procedure are i n the results section . CBC W/PLT COUNT & AUTO Routine 05/09/2020 3:53 AM CDT Results for this DIFFERENTIAL procedure are i n the results section . POCT-GLUCOSE METER Routine 05/08/2020 9:20 PM CDT Results for this procedure are i n the results section . TYPE AND SCREEN, AUTOMATED Routine 05/08/2020 9:01 PM CDT Results for this procedure are i n the results section . POCT-GLUCOSE METER Routine 05/08/2020 10:02 AM CDT Results for this procedure are i n the results section . SARS-COV2/RT-PCR ([facility] BALJINDER 05/08/2020 8:34 AM CDT Results for this REF LABS) procedure are i n the results section . POCT-GLUCOSE METER Routine 05/08/2020 8:18 AM CDT Results for this procedure are i n the results section . XR CHEST 1 VIEW Routine 05/08/2020 7:04 AM CDT R esults for this PORTABLE/BEDSIDE procedure a re in the results section . H. PYLORI ANTIGEN, STOOL Routine 05/08/2020 4:30 AM CDT Results for this procedure are i n the results section . CBC W/PLT COUNT & AUTO Routine 05/08/2020 3:38 AM CDT Results for this DIFFERENTIAL procedure are i n the results section . CARBOHYDRATE ANTIGEN 19-9 Routine 05/08/2020 3:38 AM CDT Results for this (CA 19-9) procedure are i n the results section . MAGNESIUM Routine 05/08/2020 3:38 AM CDT Resu lts for this procedure are i n the results section . BASIC METABOLIC PANEL (7) Routine 05/08/2020 3:38 AM CDT Results for this procedure are i n the results section . CBC W/PLT COUNT & AUTO Routine 05/08/2020 3:38 AM CDT Results for this DIFFERENTIAL procedure are i n the results section . POCT-GLUCOSE METER Routine 05/07/2020 9:02 PM CDT Results for this procedure are i n the results section . CT ABDOMEN/PELVIS WITH & Routine 05/07/2020 3:00 PM CDT Results for this WITHOUT IV CONTRAST procedur e are in the results section . POCT-GLUCOSE METER Routine 05/07/2020 12:53 PM CDT Results for this procedure are i n the results section . XR CHEST 1 VIEW Routine 05/07/2020 8:07 AM CDT R esults for this PORTABLE/BEDSIDE procedure a re in the results section . POCT-GLUCOSE METER Routine 05/07/2020 7:13 AM CDT Results for this procedure are i n the results section . CBC W/PLT COUNT & AUTO Routine 05/07/2020 3:40 AM CDT Results for this DIFFERENTIAL procedure are i n the results section . MAGNESIUM Routine 05/07/2020 3:40 AM CDT Resu lts for this procedure are i n the results section . BASIC METABOLIC PANEL (7) Routine 05/07/2020 3:40 AM CDT Results for this procedure are i n the results section . CBC W/PLT COUNT & AUTO Routine 05/07/2020 3:40 AM CDT Results for this DIFFERENTIAL procedure are i n the results section . POCT-GLUCOSE METER Routine 05/06/2020 8:10 PM CDT Results for this procedure are i n the results section . POCT-GLUCOSE METER Routine 05/06/2020 4:33 PM CDT Results for this procedure are i n the results section . POCT-GLUCOSE METER Routine 05/06/2020 11:02 AM CDT Results for this procedure are i n the results section . XR ABDOMEN / KUB 1 VIEW BALJINDER 05/06/2020 9:33 AM CDT Results for this procedure are i n the results section . POCT-GLUCOSE METER Routine 05/06/2020 7:24 AM CDT Results for this procedure are i n the results section . XR CHEST 1 VIEW Routine 05/06/2020 6:57 AM CDT R esults for this PORTABLE/BEDSIDE procedure a re in the results section . CBC W/PLT COUNT & AUTO Routine 05/06/2020 3:38 AM CDT Results for this DIFFERENTIAL procedure are i n the results section . FERRITIN Add-On 05/06/2020 3:38 AM CDT Resu lts for this procedure are i n the results section . IRON, TIBC, % SAT. (WITHOUT Add-On 05/06/2020 3:38 AM CDT Results for this FERRITIN) procedure are i n the results section . PROTEIN, TOTAL Routine 05/06/2020 3:38 AM CDT Re sults for this procedure are i n the results section . ALBUMIN Routine 05/06/2020 3:38 AM CDT Resu lts for this procedure are i n the results section . PREALBUMIN Routine 05/06/2020 3:38 AM CDT Resu lts for this procedure are i n the results section . MAGNESIUM Routine 05/06/2020 3:38 AM CDT Resu lts for this procedure are i n the results section . BASIC METABOLIC PANEL (7) Routine 05/06/2020 3:38 AM CDT Results for this procedure are i n the results section . CBC W/PLT COUNT & AUTO Routine 05/06/2020 3:38 AM CDT Results for this DIFFERENTIAL procedure are i n the results section . POCT-GLUCOSE METER Routine 05/05/2020 9:25 PM CDT Results for this procedure are i n the results section . POCT-GLUCOSE METER Routine 05/05/2020 4:45 PM CDT Results for this procedure are i n the results section . 2D ECHO W/ DOPPLER BALJINDER 05/05/2020 1:55 PM CDT Results for this (CW/PW/COLOR) procedure are in the results section . POCT-GLUCOSE METER Routine 05/05/2020 11:51 AM CDT Results for this procedure are i n the results section . POCT-GLUCOSE METER Routine 05/05/2020 7:47 AM CDT Results for this procedure are i n the results section . XR CHEST 1 VIEW Routine 05/05/2020 7:19 AM CDT R esults for this PORTABLE/BEDSIDE procedure a re in the results section . CBC W/PLT COUNT & AUTO Routine 05/05/2020 5:18 AM CDT Results for this DIFFERENTIAL procedure are i n the results section . LACTATE DEHYDROGENASE (LDH) Add-On 05/05/2020 5:18 AM CDT Results for this procedure are i n the results section . PROTEIN, TOTAL Add-On 05/05/2020 5:18 AM CDT Re sults for this procedure are i n the results section . MAGNESIUM Routine 05/05/2020 5:18 AM CDT Resu lts for this procedure are i n the results section . BASIC METABOLIC PANEL (7) Routine 05/05/2020 5:18 AM CDT Results for this procedure are i n the results section . CBC W/PLT COUNT & AUTO Routine 05/05/2020 5:18 AM CDT Results for this DIFFERENTIAL procedure are i n the results section . POCT-GLUCOSE METER Routine 05/04/2020 8:50 PM CDT Results for this procedure are i n the results section . POCT-GLUCOSE METER Routine 05/04/2020 4:54 PM CDT Results for this procedure are i n the results section . CT CHEST WITHOUT IV Routine 05/04/2020 3:50 PM CDT Results for this CONTRAST procedure are i n the results section . CYTOLOGY AP Routine 05/04/2020 11:17 AM CDT Resu lts for this procedure are i n the results section . URINALYSIS W/ REFLEX URINE Routine 05/04/2020 11:15 AM CDT Results for this CULTURE procedure are i n the results section . BODY FLUID CELL COUNT WITH BALJINDER 05/04/2020 11:15 AM CDT Results for this DIFFERENTIAL procedure are i n the results section . POCT-GLUCOSE METER Routine 05/04/2020 7:28 AM CDT Results for this procedure are i n the results section . XR CHEST 1 VIEW STAT 05/04/2020 6:57 AM CDT R esults for this PORTABLE/BEDSIDE procedure a re in the results section . CBC W/PLT COUNT & AUTO Routine 05/04/2020 4:55 AM CDT Results for this DIFFERENTIAL procedure are i n the results section . MAGNESIUM Routine 05/04/2020 4:55 AM CDT Resu lts for this procedure are i n the results section . BASIC METABOLIC PANEL (7) Routine 05/04/2020 4:55 AM CDT Results for this procedure are i n the results section . CBC W/PLT COUNT & AUTO Routine 05/04/2020 4:55 AM CDT Results for this DIFFERENTIAL procedure are i n the results section . POCT-GLUCOSE METER Routine 05/03/2020 9:00 PM CDT Results for this procedure are i n the results section . POCT-GLUCOSE METER Routine 05/03/2020 4:26 PM CDT Results for this procedure are i n the results section . LACTATE DEHYDROGENASE (LD), Routine 05/03/2020 1:12 PM CDT Results for this PLEURAL FLUID procedure are in the results section . PROTEIN, TOTAL, PLEURAL Routine 05/03/2020 1:12 PM CDT Results for this FLUID procedure are i n the results section . BODY FLUID CULTURE + GRAM Routine 05/03/2020 1:12 PM CDT Results for this STAIN procedure are i n the results section . CBC W/PLT COUNT & AUTO Routine 05/03/2020 11:23 AM CDT Results for this DIFFERENTIAL procedure are i n the results section . MAGNESIUM Routine 05/03/2020 11:23 AM CDT Resu lts for this procedure are i n the results section . BASIC METABOLIC PANEL (7) Routine 05/03/2020 11:23 AM CDT Results for this procedure are i n the results section . CBC W/PLT COUNT & AUTO Routine 05/03/2020 11:23 AM CDT Results for this DIFFERENTIAL procedure are i n the results section . LIPASE Routine 05/03/2020 11:23 AM CDT Resu lts for this procedure are i n the results section . AMYLASE Routine 05/03/2020 11:23 AM CDT Resu lts for this procedure are i n the results section . XR CHEST 1 VIEW STAT 05/03/2020 10:24 AM CDT R esults for this PORTABLE/BEDSIDE procedure a re in the results section . US DRAINAGE CHEST WITH TUBE BALJINDER 05/03/2020 9:45 AM CDT Results for this INSERTION procedure are i n the results section . POCT-GLUCOSE METER Routine 05/02/2020 9:08 PM CDT Results for this procedure are i n the results section . CT CHEST WITH IV CONTRAST STAT 05/02/2020 8:40 PM CDT Results for this procedure are i n the results section . CT ABDOMEN/PELVIS WITH IV STAT 05/02/2020 8:40 PM CDT Results for this CONTRAST procedure are i n the results section . POCT-GLUCOSE METER Routine 05/02/2020 5:01 PM CDT Results for this procedure are i n the results section . POCT-GLUCOSE METER Routine 05/02/2020 12:53 PM CDT Results for this procedure are i n the results section . SARS-COV2/RT-PCR ([facility] & BALJINDER 05/02/2020 7:19 AM CDT Results for this REF LABS) procedure are i n the results section . ECG 12-LEAD Routine 05/02/2020 6:10 AM CDT Resu lts for this procedure are i n the results section . ABORH, MANUAL STAT 05/02/2020 3:17 AM CDT Res ults for this procedure are i n the results section . CBC W/PLT COUNT & AUTO Routine 05/02/2020 1:30 AM CDT Results for this DIFFERENTIAL procedure are i n the results section . TYPE AND SCREEN, AUTOMATED Routine 05/02/2020 1:30 AM CDT Results for this procedure are i n the results section . PT/APTT Routine 05/02/2020 1:30 AM CDT Resu lts for this procedure are i n the results section . HEMOGLOBIN A1C Routine 05/02/2020 1:30 AM CDT Re sults for this procedure are i n the results section . CBC W/PLT COUNT & AUTO Routine 05/02/2020 1:30 AM CDT Results for this DIFFERENTIAL procedure are i n the results section . PHOSPHORUS Routine 05/02/2020 1:30 AM CDT Resu lts for this procedure are i n the results section . COMPREHENSIVE METABOLIC Routine 05/02/2020 1:30 AM CDT Results for this PANEL procedure are i n the results section . MAGNESIUM Routine 05/02/2020 1:30 AM CDT Resu lts for this procedure are i n the results section . XR CHEST 1 VIEW STAT 05/02/2020 12:52 AM CDT R esults for this PORTABLE/BEDSIDE procedure a re in the results section . 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 Less extensive patchy airspace opacities are again seen on the left. PLEURA: Opacity at the right lung base c ompatible with pleural effusion, increased from last exam. No p neumothorax. HEART AND MEDIASTINUM: Heart size normal . BONES AND SOFT TISSUES: No acute finding s. Surgical anchors again seen in the right humeral head. Upper ab domen unremarkable. IMPRESSION: Stable airspace opacities in both lungs, greater on the right. Small right pleural effusion is increased sinc e last exam. No pneumothorax. Signed: Eriberto Junior MD Report Verified Date/Time: 05/27/2020 12:06:04 Reading Location: [facility] Reading [place] [address] Procedure Note Interface, External Ris In - 05/27/2020 12:08 PM MOBILE ELECTRONICS INSTALLER FINAL REPORT EXAM: RAD, CHEST, 2 VIEWS, PA and latera l INDICATION: Empyema COMPARISON: Chest x-ray, 05/16/2020 FINDINGS: LINES/TUBES: None LUNGS: There are extensive airspace opac ities in the right lung. Less extensive patchy airspace opacities are again seen on the left. PLEURA: Opacity at the right lung base c ompatible with pleural effusion, increased from last exam. No p neumothorax. HEART AND MEDIASTINUM: Heart size normal . BONES AND SOFT TISSUES: No acute finding s. Surgical anchors again seen in the right humeral head. Upper ab domen unremarkable. IMPRESSION: Stable airspace opacities in both lungs, greater on the right. Small right pleural effusion is increased sinc e last exam. No pneumothorax. Signed: Eriberto Junior MD Report Verified Date/Time: 05/27/2020 1 2:06:04 Reading Location: [facility] Reading Michelle m 3 - B01.625 Performing Organization Address [facility] Phone Number GE RIS XR chest 1 view portable / bedside (05/16/2020 12:04 PM CDT)Only the most recent of16 resultswithin the time period is included. Specimen Narrative Performed At FINAL REPORT [employer] RAD, CHEST, 1 VIEW, NON DEPT INDICATION: CT removal COMPARISON: Prior day's exam FINDINGS: Portable frontal view of the c hest. IMPRESSION: Support Lines: Interval removal of chest tube Lungs and pleura: Unchanged airspace and pleural opacities. No pneumothorax. Heart and mediastinum: Stable contours. Stable surgical changes. Additional findings: None. Signed: Katie Ritter MD Report Verified Date/Time: 05/16/2020 12:35:56 Reading Location: [facility] Reading Room Procedure Note Interface, External Ris In - 05/16/2020 12:38 PM CDT FINAL REPORT RAD, CHEST, 1 VIEW, NON DEPT INDICATION: CT removal COMPARISON: Prior day's exam FINDINGS: Portable frontal view of the c hest. IMPRESSION: Support Lines: Interval removal of chest tube Lungs and pleura: Unchanged airspace and pleural opacities. No pneumothorax. Heart and mediastinum: Stable contours. Stable surgical changes. Additional findings: None. Signed: Katie Ritter MD Report Verified Date/Time: 05/16/2020 1 2:35:56 Reading Location: [facility] Reading Room Performing Organization Address City/[facility] Phone Number GE vidIQ POC-Glucose meter (05/16/2020 11:42 AM CDT)Only the most recent of46 results within the time period is included. POC-Glucose Meter 120 (H) 70 - 110 mg/dL [facility] Comment: [facility] : TESTED AT [facility] [address] [facility], [address] CENTER : Block And Case Maker/Junior Bookkeeper ID = [id number] for ZORAN SPENCER Specimen Blood Performing Organization Address City/State/Zipcode Phone Number [address] [phone] CENTER CBC with platelet count + automated diff (05/16/2020 7:03 AM CDT)Only the most recent of17 resultswithin the time period is included. Pathologist Sig nature WBC 9.6 3.5 - 10.5 [facility] K/L [facility] RBC 3.80 (L) 4.63 - 6.08 [facility] M/L [facility] Hemoglobin 9.7 (L) 13.7 - 17.5 [facility] GM/DL [facility] Hematocrit 31.7 (L) 40.1 - 51.0 % [facility] MCV 83.4 79.0 - 92.2 fL [facility] MCH 25.5 (L) 25.7 - 32.2 pg [facility] MCHC 30.6 (L) 32.3 - 36.5 [facility] GM/DL [facility] RDW 15.9 (H) 11.6 - 14.4 % [facility] Platelets 348 150 - 450 K/CU [facility] MPV 7.9 (L) 9.4 - 12.4 fL [facility] nRBC 0 0 - 0 /100 WBC [facility] % Neutros 66 % [facility] % Lymphs 19 % [facility] % Monos 13 % [facility] % Eos 1 % [facility] % Baso 0 % [facility] # Neutros 6.34 (H) 1.78 - 5.38 [facility] # Lymphs 1.79 1.32 - 3.57 [facility]/L [facility] # Monos 1.26 (H) 0.30 - 0.82 [facility]/L [facility] # Eos 0.07 0.04 - 0.54 [facility]/L [facility] # Baso 0.03 0.01 - 0.08 [facility] Immature 1 0 - 1 % [facility] Granulocytes-Relative [facility] Specimen Blood Performing Organization Address City/[facility]/Zipcode Phone Number [address] [address] CENTER Magnesium (05/16/2020 4:28 AM CDT)Only the most recent of19 resultswithin the time period is included. Pathologist Sig nature Magnesium 1.8Comment: Specimen 1.6 - 2.6 mg/dL [facility] slightly hemolyzed [facility] Specimen Blood Narrative Performed At Block And Case Maker SARAH Solis [facility] Performing Organization Address City/[facility]/Zipcode Phone Number [address] [address] CENTER Basic Metabolic Panel (05/16/2020 4:28 AM CDT)Only the most recent of14 results within the time period is included. Sodium 137 136 - 145 meq/L [facility] Potassium 4.2Comment: Specimen 3.5 - 5.1 meq/L [facility] Chloride 103 98 - 107 meq/L [facility] CO2 21 (L) 22 - 29 meq/L [facility] BUN 11 7 - 21 mg/dL [facility] Creatinine 0.72Comment: 0.57 - 1.25 [facility] Specimen slightly mg/dL [facility] hemolyzed [place] Glucose 103 70 - 105 mg/dL [facility] Calcium 8.7 8.4 - 10.2 [facility] mg/dL [facility] EGFR 108Comment: mL/min/1.[address] [facility] ESTIMATED GFR IS NOT [facility] ACCURATE CENTER CREATININE CLEARANCE IN PREDICTING GLOMERULAR FILTRATION RATE. ESTIMATED GFR IS NOT APPLICABLE FOR DIALYSIS PATIENTS. Specimen Blood Narrative Performed At Block And Case Maker ID - BRYAN M [facility] Performing Organization Address City/State/Zipcode Phone Number [facility] [address] [place] [address] CENTER SARS-CoV2/RT-PCR (Asymptomatic ONLY) (05/16/2020 4:27 AM CDT)Only the most recent of3 resultswithin the time period is included. SARS-COV2/RT-PCR Not Detected Not Detected, [facility] Negative, See NON-INTERFACED external report REFERENCE LABS for linked test SARS-COV-2 [facility] PERFORMING LAB NON-INTERFACED REFERENCE LABS Specimen Other - Nasopharyngeal wall structure (b sofía structure) Narrative Performed At This result has an attachment that is no t available. Negative results do not preclude SARS-CoV-2 infection and should not be used as the sole basis for [facility] NON-INTERFACED REFERENCE LABS tient management decisions. Negative res ults must be combined with clinical observations, patient history, and epidemiological information. A false negative result may occur if a specimen is improperly collected, transported or handled. The limit of detection for this assay is 250 copies/mL . This SARS CoV-2 test is a rapid, real-ti me RT-PCR test intended for the qualitative detection of nucleic acid from SARS-CoV-2 in a nasopharyngeal swab specimen collected from individuals suspected of COVID-19 by their healthcare provider. This test has not been Food and Drug Adm inistration (FDA) cleared or approved and has been authorized by FDA under an Emergency Use Authorization (EUA). This EUA will be effective until the declaration that circumstances exist justifying the authorization of the emergency use of in vitro diagnostic tests for detection and/or diagnosis of COVID-19 is terminated under Section 564(b)(2) of the Act or the EUA is revoked under Section 564(g) of the Act. Fact Sheet for Healthcare Providers: https://www.SeeMore Interactive/Documents/Xpert%20Xpress%20SARS%20CoV-2/Fact%20Sheets/30 2-3802%72GBNP-GMH-5%20HEALTHCARE%20PROVIDERS%20FACT%20SHEET.pdf Fact Sheet for Healthcare Patients: https://www.SeeMore Interactive/Documents/Xpert%20Xpress%20SARS%20CoV-2/Fact%20Sheets/30 2-3801%67FWIK-OZC-9%20PATIENT%20FACT%20SHEET.pdf Performing Laboratory: [facility] [address] [place] [address]. [place] [address] Performing Organization Address City/State/Zipcode Phone Number [facility] NON-INTERFACED REFERENCE LABS ECG 12 lead (05/15/2020 10:02 AM CDT)Only the most recent of3 resultswithin the time period is included. Specimen Narrative Performed At This result has an attachment that is no t available. Ventricular Rate 91 BPM GE MUSE Atrial Rate 91 BPM P-R Interval 136 ms QRS Duration 68 ms Q-T Interval 364 ms QTC Calculation(Bazett) 447 ms P Chatham 41 degrees R Chatham 11 degrees T Chatham 26 degrees Sinus rhythm with Premature supraventricular complexes Otherwise normal ECG When compared with ECG of 09-MAY-2020 15:59, Previous ECG has undetermined rhythm, needs review Confirmed by MD Ocampo Roberto ([id number]) on 04/19 1:45:01 PM Procedure Note Interface, External Ris In - 05/15/2020 1:45 PM CDT Ventricular Rate 91 BPM Atrial Rate 91 BPM P-R Interval 136 ms QRS Duration 68 ms Q-T Interval 364 ms QTC Calculation(Bazett) 447 ms P [place]atham 41 degrees R Chatham 11 degrees T [place] 26 degrees Sinus rhythm with Premature supraventric ular complexes Otherwise normal ECG When compared with ECG of 09-MAY-2020 15 :59, Previous ECG has undetermined rhythm, ne eds review Confirmed by MD Ocampo Roberto ([id number]) on 05/15/2020 1:45:01 PM Performing Organization Address City/[facility]/Zipcode Phone Number GE MUSE Protein, total (05/13/2020 3:41 AM CDT)Only the most recent of3 resultswithin the time period is included. Pathologist Sig nature Protein, Total 5.3 (L) 6.0 - 8.3 gm/dL [facility] Specimen Blood Narrative Performed At Block And Case Maker ID - [facility] Performing Organization Address [facility] Phone Number [address] [address] CENTER Prealbumin (05/13/2020 3:41 AM CDT)Only the most recent of2 resultswithin the time period is included. Pathologist Sig nature Prealbumin 8 (L) 14 - 45 mg/dL [facility] [place] Specimen Blood Narrative Performed At Block And Case Maker ID - VASILIY Owens [facility] Performing Organization Address [facility] Phone Number [address] [address] CENTER Albumin (05/13/2020 3:41 AM CDT)Only the most recent of2 resultswithin the time period is included. Pathologist Sig nature Albumin 2.6 (L) 3.5 - 5.0 g/dL [facility] Specimen Blood Narrative Performed At Block And Case Maker ID - VASILIY L [facility] Performing Organization Address [facility] Centercode Phone Number [address] [address] CENTER Potassium (05/13/2020 12:52 AM CDT)Only the most recent of3 resultswithin the time period is included. Pathologist Sig nature Potassium 3.6 3.5 - 5.1 meq/L [facility] Specimen Blood Narrative Performed At Block And Case Maker ID - PIAYA L [facility] Performing Organization Address City/State/Zipcode Phone Number [facility] [address] [place] [address] CENTER Blood gas, arterial (05/12/2020 3:09 AM CDT)Only the most recent of8 results within the time period is included. Pathologist Sig nature pH, Arterial 7.49 (H) 7.35 - 7.45 [facility] pCO2, Arterial 38 35 - 45 mm Hg [facility] pO2, Arterial 106 (H) 80 - 90 mm Hg [facility] O2 Sat, Arterial 98.2 (H) 96.0 - 97.0 % [facility] HCO3, Arterial 28 21 - 29 mmol/L [facility] Base Excess, Arterial 4.2 (H) -2.0 - 3.0 [facility] mmol/L [facility] Patient Temperature 36.9 [facility] FIO2 36.0 [facility] Specimen Blood, Arterial Performing Organization Address City/[facility] Centercode Phone Number [address] [address] [place] Prepare Leuko-Red RBC (05/11/2020 11:54 PM CDT) Pathologist Sig nature CROSSMATCH COMPATIBLE SAFETRACE TX Unit ABO O Neg SAFETRACE TX UNIT NUMBER [id number] SAFETRACE TX Status TX_TIMEINCHART SAFETRACE TX Blood Bank Product RED BLOOD CELLS SAFETRACE TX PRODUCT CODE [id number] [facility] [place] Specimen Other Performing Organization Address City/State/Zipcode Phone Number SAFETRACE TX Transfuse Leuko-Red RBC (05/10/2020 9:21 AM CDT)Comprehensive metabolic panel (05/10/2020 3:34 AM CDT)Only the most recent of2 resultswithin the time period is included. Protein, Total 4.5 (L) 6.0 - 8.3 [facility] gm/dL [facility] Albumin 2.5 (L) 3.5 - 5.0 [facility] g/dL [facility] Alkaline 59 40 - 150 U/L [facility] Phosphatase [facility] Total Bilirubin 0.6 0.2 - 1.2 [facility] mg/dL [facility] Sodium 136 136 - 145 [facility] meq/L [facility] Potassium 4.3 3.5 - 5.1 [facility] meq/L [facility] Chloride 103 98 - 107 [facility] meq/L [facility] CO2 24 22 - 29 meq/L [facility] BUN 11 7 - 21 mg/dL [facility] Creatinine 0.67 0.57 - 1.25 [facility] mg/dL [facility] Glucose 104 70 - 105 [facility] mg/dL [facility] Calcium 8.1 (L) 8.4 - 10.2 [facility] mg/dL [facility] AST 11 5 - 34 U/L [facility] ALT 8 6 - 55 U/L [facility] EGFR 117Comment: mL/min/1.73 [facility] ESTIMATED GFR IS sq [facility] NOT [facility] CREATININE CLEARANCE IN PREDICTING GLOMERULAR FILTRATION RATE. ESTIMATED GFR IS NOT APPLICABLE FOR DIALYSIS PATIENTS. Specimen Blood Narrative Performed At Block And Case Maker ID - LANAMK [facility] Performing Organization Address City/State/Zipcode Phone Number [facility] [address] [place] [address] CENTER XR abdomen / KUB 1 view (05/09/2020 5:33 PM CDT)Only the most recent of2 resultswithin the time period is included. Specimen Narrative Performed At FINAL REPORT GE RIS TECHNIQUE: RAD, ABDOMEN/KUB, 1 VIEW AP INDICATION: ogt COMPARISON: None. FINDINGS: OG tube tip terminates over the gastric fundus. Bowel gas pattern is nonobstructive. There are bibasilar pleu ral-parenchymal opacities. There are right-sided chest tubes.. IMPRESSION: OG tube tip terminates over the gastric fundus.. Signed: Liban Cohen MD Report Verified Date/Time: 05/09/2020 19:02:01 Reading Location: [address] Reading Room Procedure Note Interface, External Ris In - 05/09/2020 7:04 PM CDT FINAL REPORT TECHNIQUE: RAD, ABDOMEN/KUB, 1 VIEW AP INDICATION: ogt COMPARISON: None. FINDINGS: OG tube tip terminates over the gastric fundus. Bowel gas pattern is nonobstructive. There are bibasilar pleu ral-parenchymal opacities. There are right-sided chest tubes.. IMPRESSION: OG tube tip terminates over the gastric fundus.. Signed: Liban Cohen MD Report Verified Date/Time: 05/09/2020 1 9:02:01 Reading Location: [address] Reading Room Performing Organization Address City/[facility]/Zipcode Phone Number [facility] Calcium, Ionized (05/09/2020 3:30 PM CDT)Only the most recent of2 resultswithin the time period is included. Pathologist Sig nature Calcium, Ion 1.12 1.12 - 1.27 mmol/L [facility] pH, Blood 7.27 [facility] Specimen Blood Performing Organization Address City/[facility]/Zipcode Phone Number [facility] [address] [place] [address] CENTER Troponin I (05/09/2020 3:30 PM CDT) Pathologist Sig nature Troponin I <0.01 0.00 - 0.03 ng/mL [facility] Specimen Blood Narrative Performed At Troponin I (TnI) levels must be interpreted [facility] in the context of the presenting symptoms and the clinical findings. Elevated TnI levels indicate myocardial damage, but are not specific for ischemic heart disease. Elevated TnI levels are seen in patients with other cardiac conditions (including myocarditis and congestive heart failure), and slight TnI elevations occur in patients with other conditions, including sepsis, renal failure, acidosis, acute neurological disease, and persistent tachyarrhythmia. Block And Case Maker ID - BS Performing Organization Address [facility] Centercode Phone Number [address] [address] CENTER aPTT (05/09/2020 3:30 PM CDT) Pathologist Sig nature PTT 33.5 22.5 - 36.0 seconds [facility] Specimen Blood Performing Organization Address [facility] Phone Number [address] [address] [place] Prothrombin time/INR (05/09/2020 3:30 PM CDT) Pathologist Sig nature Protime 14.5 (H) 11.9 - 14.2 seconds [facility] INR 1.16 <=5.90 [facility] Specimen Blood Narrative Performed At Effective 12/14/2018: PT Reference Range [facility] Change New: 11.9-14.2 Previous: 11.7-14.7 RECOMMENDED COUMADIN/WARFARIN INR THERAPY RANGES STANDARD DOSE: 2.0-3.0 Includes: PROPHYLAXIS for venous thrombosis, systemic embolization; TREATMENT for venous thrombosis and/or pulmonary embolus. HIGH RISK: Target INR is 2.5-3.5 for patients wiht mechanical heart valves. Performing Organization Address [facility] Phone Number [address] [address] CENTER Phosphorus (05/09/2020 3:30 PM CDT)Only the most recent of2 resultswithin the time period is included. Pathologist Sig nature Phosphorus 4.9 (H) 2.3 - 4.7 mg/dL [facility] Specimen Blood Narrative Performed At Block And Case Maker ID - BS [facility] Performing Organization Address City/[facility] Centercode Phone Number [address] [address] CENTER Potassium-Stat Lab (05/09/2020 12:10 PM CDT) Pathologist Sig nature Potassium 4.0 3.6 - 5.5 meq/L [facility] Specimen Blood, Arterial Performing Organization Address City/[facility] Phone Number [address] [address] CENTER Sodium Na-Stat Lab (05/09/2020 12:10 PM CDT) Pathologist Sig nature Sodium 132 (L) 136 - 145 meq/L [facility] Specimen Blood, Arterial Performing Organization Address [facility] Campus/[facility] Phone Number [address] [address] [place] Glucose-Stat Lab (05/09/2020 12:10 PM CDT) Pathologist Sig nature Glucose 132 (H) 70 - 110 mg/dL [facility] Specimen Blood, Arterial Performing Organization Address [facility] Phone Number [address] [address] [place] HGB/HCT (H&H)-Stat Lab (05/09/2020 12:10 PM CDT) Pathologist Sig nature Hemoglobin 9.2 (L) 13.0 - 16.8 GM/DL [facility] Hematocrit 27.0 (L) 40.0 - 50.0 % [facility] Specimen Blood, Arterial Performing Organization Address [facility] Phone Number [address] [address] C[place] Surgically obtained culture + gram stain (05/09/2020 11:56 AM CDT)Only the most recent of2 resultswithin the time period is included. Result No growth [facility] Gram Stain Result <1+ WBCs [facility] Gram Stain Result No organisms seen [facility] Specimen Tissue - Pleural membrane structure (bod y structure) Performing Organization Address City/State/Zipcode Phone Number [facility] [address] [place] [address] [place] Fungus culture + smear (05/09/2020 11:56 AM CDT)Only the most recent of2 resultswithin the time period is included. Pathologist Sig nature Result No fungus isolated [facility] in 28 days [facility] Fungus Smear <1+ budding yeast [facility] Specimen Tissue - Pleural membrane structure (bod y structure) Narrative Performed At Possible artifact seen [facility] Performing Organization Address City/[facility] Phone Number [address] [address] [place] Tissue Exam (05/09/2020 11:28 AM CDT) Case Report Surgical Pathology Report Case: [id number] [facility] Authorizing Provider: Emmett Burnette MD Collected: 05/09/2020 11:28 AM [facility] Ordering Location: [facility] Received: 05/09/2020 03:32 PM [facility] PERIOPERATIVE SERVICES Pathologist: Omkar Castellanos MD Specimens: A) - Pleura, R IGHT PARIETAL PLEURA B) - Pleu ra, RIGHT PARIETAL PLEURA #2 C) - Pleu ra, VICERAL PLEURA ADDENDUM REASON FOR ADDENDUM: TO REPO RT IMMUNOSTAIN PERFORMED AT PROPATH LABORATORY [facility] electronically RESULT: [facility] signed by PAM Mendenhall-A: NEGATIVE. Vick mendoza MD on 05/22/2020 at 11 :11 The diagnosis remains unchanged. AM DIAGNOSIS A. PARIETAL PLEURA, RIGHT, PLEURECTOMY: C [facility] Electronically - METASTATIC ADENOCARCINOMA, PRIMARY SITE UNDE TERMINED (SEE COMMENT) [facility] signed by KATHYA Castellanos [place] Will Espitia on B. PARIETAL PLEURA, RIGHT#2, PLEURECTOMY: 05/14/2020 at 12:16 - METASTATIC ADENOCARCINOMA, PRIMARY SITE UNDETERMIN ED (SEE COMMENT) PM C. VISCERAL PLEURA, DECORTICATION: - METASTATIC ADENOCARCINOMA, PRIMARY SITE UNDETERMIN ED (SEE COMMENT) Signing Pathologist Direct Phone Line: COMMENT A-C. 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 Immunostains show the tumor to be positive for CK7, CDX2(weak, patchy), Napsin-A(nonspecific staining; will be repeat [facility] ed at [facility] laboratory); while negative for TTF1 and CK20. [facility] The immunoprofile is non-spe cific. Potential primary sites include lung, pancreatico-biliary tract, upper GI tract amongst others. Clinical and radiologic correlation is recommended to determine the primary site. CPT Code(s) 23285V7 [facility] [address] [facility] [id number] MEDICAL CENTER CLINICAL HISTORY Acute empyema [facility] SPECIMEN SOURCE A, B and C. Pleura [facility] GROSS DESCRIPTION A. Received in formalin labe led with the patient's name, accession number and "right parietal pleura" is a 2.5 x 1.4 x 0.2 cm benton-white fibromembranous soft tissue, which is entirely submitted in A1. [facility] B. Received in formalin labe led with the patient's name, accession number and "right parietal pleura #2" is a 6.3 x 4.0 x 1.0 cm aggregate of benton-white, focally hemorrhagic fibromembranous tissue. Rn Intake sections are submitted in B1-B3. [facility] C. Received in formalin labe led with the patient's name, accession number and "visceral pleura" is a 6.2 x 3.5 x 0.3 cm benton-white, focally hemorrhagic fibromembranous tissue. Rn Intake sections are submitted in C1-C3. PA/pl MICROSCOPIC Performed. [facility] The interpretation of this c ase included the use of immunohistochemistry or special stains. [facility] Control Slides Examined: In -house known positive controls were evaluated along with the test tissue. These control slides run alongside of the patients sample show appropriate staining. [facility] tracy and negative controls when available are evaluated Immunohistochemistry dottie cruz testing was performed at [facility], Pathology Laboratory where it was developed and its performance characteristics were determined. It has not be en cleared or approved by [facility] U.S. Food and Drug Administration. The FDA has determined that such clearance or approval is not necessary. The test is used for clinical purposes. It should not be regarde d as investigational or for research. This laboratory is certified under the Clinical Laboratory Improvement Amendments of 1988 (CLIA-88) as qualified to perform high complexity clinical laboratory testing. Specimen Tissue - Pleural membrane structure (bod y structure) Tissue specimen (specimen) - Pleural mem brane structure (body structure) Tissue specimen (specimen) - Pleural mem brane structure (body structure) Performing Organization Address City/State/Zipcode Phone Number [facility] [address] [place] [address] C[place] Type and screen, automated (05/08/2020 9:01 PM CDT)Only the most recent of2 resultswithin the time period is included. Pathologist Sig nature ABO/RH AUTOMATED O NEGATIVE [facility] Ab Scrn NEGATIVE [facility] Specimen Blood Performing Organization Address City/[facility]/Zipcode Phone Number [facility] [address] [place] [address] [facility] H. pylori antigen, stool (05/08/2020 4:30 AM CDT) H. pylori Not detected Not detected [facility] Antigen Comment: [facility]POR[facility] Antimicrobials, proton pump inhibitors, and bismuth p reparations inhibit H. pylori and ingestion up to two weeks prior to testing may cause false negative results. If clinically indica ace the test should be repeated on a new specimen obtained two weeks after discontinuing treatment. Specimen Stool - Rectum structure (body structure ) Narrative Performed At Performing Lab [facility] *[facility], [address] [place] [id number] Aquilino Horne MD, PhD Performing Organization Address City/[facility]/Zipcode Phone Number [place] [address] [facility] Carbohydrate antigen 19-9 (CA 19-9) (05/08/2020 3:38 AM CDT) CA 19-9 5924 (H) <34 U/mL [facility] Comment: INCORPORATED This test was performed using the Siemens Chemilumines cent method. Values obtained from different assay methods cannot be used interchangeably. CA19-9 levels, regardless of value, should not be inte rpreted as absolute evidence of the presence or absence of disease. Specimen Blood Narrative Performed At Performing Lab [facility] EZ [facility] [address] [place] [address] Augusto Henao MD, PhD, MAGAN Performing Organization Address [facility] Cent[facility] Phone Number [place] [address] [address] [facility] CT abdomen/pelvis without & with IV contrast (05/07/2020 3:00 PM CDT) Specimen Narrative Performed At FINAL REPORT [facility] TECHNIQUE: CT of the abdomen and pelvis WITHOUT and WITH intravenous contrast and WITHOUT oral contrast. Dose modulation, iterative reconstruction, and/or weight-based adju stment of the mA/kV was utilized to reduce the radiation dose to as low as reasonably achievable. INDICATION: Unlisted Reason for Exam adrenal mass noted on CT. COMPARISON: Chest CTs dating back to . FINDINGS: LOWER THORAX: A small right pleural effu levi with some intermixed gas is unchanged. There is hypoenhancement o f the right lower lobe. The multiple patchy opacities in the left soheila ng are concerning for pneumonia as well. HEPATOBILIARY: No focal hepatic lesions. Cystectomy. No biliary ductal dilatation . SPLEEN: 13.2 cm splenomegaly. PANCREAS: No focal masses or ductal dila tation. ADRENALS: A right adrenal nodule measure s 1.4 cm and less than 10 Hounsfield units, consistent with an shruti noma. A left adrenal nodule measures less than 10 Hounsfield units a nd 2 cm, consistent with an adenoma. KIDNEYS/URETERS: No hydronephrosis, ston es, or masses. 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 PELVIC ORGANS/BLADDER: Unremarkable. PERITONEUM/RETROPERITONEUM: There is mil d fat stranding in the upper abdomen with fluid which extends down th e peritoneal reflections into the pelvis. This may be due to volume ov erload and/or anasarca. Small, fat filled left direct inguinal h ernia. LYMPH NODES: No lymphadenopathy. There a re prominent but nonenlarged periportal lymph nodes. VESSELS: Moderate severe aortoiliac athe rosclerosis with at least moderate narrowing at the origin of the right common iliac artery. GI TRACT: No distention or wall thickeni ng. BONES AND SOFT TISSUES: Diffuse anasarca . IMPRESSION: 1.The bilateral adrenal nodules measure up to 2 cm and are consistent with adenomas. 2.The hypoenhancement of the right lower lobe and patchy opacities in the left lung are concerning for pneumon ia. 3.Mild splenomegaly. 4.The prominent periportal lymph nodes a re nonspecific but most likely reactive. Signed: Edmond Beltre MD Report Verified Date/Time: 05/07/2020 14:57:19 Reading Location: [facility] [employer] Reading Room - [place] [address] Procedure Note Interface, External Ris In - 05/07/2020 3:01 PM CDT FINAL REPORT TECHNIQUE: CT of the abdomen and pelvis WITHOUT and WITH intravenous contrast and WITHOUT oral contrast. Dose modulation, iterative reconstruction, and/or weight-based adju stment of the mA/kV was utilized to reduce the radiation dose to as low as reasonably achievable. INDICATION: Unlisted Reason for Exam adrenal mass noted on CT. COMPARISON: Chest CTs dating back to . FINDINGS: LOWER THORAX: A small right pleural effu levi with some intermixed gas is unchanged. There is hypoenhancement o f the right lower lobe. The multiple patchy opacities in the left soheila ng are concerning for pneumonia as well. HEPATOBILIARY: No focal hepatic lesions. Cystectomy. No biliary ductal dilatation . SPLEEN: 13.2 cm splenomegaly. PANCREAS: No focal masses or ductal dila tation. ADRENALS: A right adrenal nodule measure s 1.4 cm and less than 10 Hounsfield units, consistent with an shruti noma. A left adrenal nodule measures less than 10 Hounsfield units a nd 2 cm, consistent with an adenoma. KIDNEYS/URETERS: No hydronephrosis, ston es, or masses. 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 PELVIC ORGANS/BLADDER: Unremarkable. PERITONEUM/RETROPERITONEUM: There is mil d fat stranding in the upper abdomen with fluid which extends down th e peritoneal reflections into the pelvis. This may be due to volume ov erload and/or anasarca. Small, fat filled left direct inguinal h ernia. LYMPH NODES: No lymphadenopathy. There a re prominent but nonenlarged periportal lymph nodes. VESSELS: Moderate severe aortoiliac athe rosclerosis with at least moderate narrowing at the origin of the right common iliac artery. GI TRACT: No distention or wall thickeni ng. BONES AND SOFT TISSUES: Diffuse anasarca . IMPRESSION: 1.The bilateral adrenal nodules measure up to 2 cm and are consistent with adenomas. 2.The hypoenhancement of the right lower lobe and patchy opacities in the left lung are concerning for pneumon ia. 3.Mild splenomegaly. 4.The prominent periportal lymph nodes a re nonspecific but most likely reactive. Signed: Edmond Beltre MD Report Verified Date/Time: 05/07/2020 1 4:57:19 Reading Location: [facility] Reading Room - [place] [address] Performing Organization Address City/[facility]/Zipcode Phone Number [facility] Iron, TIBC, % sat. (without ferritin) (05/06/2020 3:38 AM CDT) Pathologist Sig nature Iron 25.0 (L) 40.0 - 160.0 [facility] ug/dL [facility] TIBC 230 (L) 250 - 450 ug/dL [facility] Iron % Saturation 11 (L) 20 - 55 % [facility] Specimen Blood Narrative Performed At Block And Case Maker ID - EDASI [facility] Performing Organization Address City/[facility]/Zipcode Phone Number [address] [place] [address] CENTER Ferritin (05/06/2020 3:38 AM CDT) Pathologist Sig nature Ferritin 218.48 5.00 - 275.00 ng/mL [facility] Specimen Blood Narrative Performed At Block And Case Maker ID - OMEGA [facility] Performing Organization Address City/State/Zipcode Phone Number [address] [address] [place] 2D Echo W/Doppler(CW/PW/Color) (05/05/2020 1:55 PM CDT) Pathologist Sig nature Ejection Fraction [facility] ECHO HEARTLAB [employer]CK [facility] Specimen Narrative Performed At Transthoracic Echocardiography Report (T TE) [facility] Demographics Patient Name VEGA RAYO Date of Study 05/05/2020 Gender Male Visit Number [id number] Race Unknown Room Number 1022 Number Date of 1950 Referring Physician Emmett Burnette MD Age 70 year(s) 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 Clinical History Diabetes Hypertension Tobacco abuse HGB 10 HCT 32.6 % Contrast Medium: Definity. Amount - 3 ml Height: 69 inches Weight: 76.2 kg (168 lbs) BSA: 1.92 m^2 BMI: 24.81 kg/m^2 HR: 69 bpm BP: 141/67 mmHg Summary 1. Normal left ventricular chamber size. Normal wall thickness. Normal overall left ventricular systolic function. No apparent segmental wall motion abnormalities. Estimated LVEF by qualitative assessment is normal (>60%) . LA size is normal . 2. Normal right ventricle structure and function. RA cavity size is normal . Unable to estimate peak systolic PA pressure; inadequate TR velocity signal. 3. Aortic valve sclerosis without stenosis. Mild AoV cusp thickening. Mild AoV cusp calcification. AoV calcification primarily involves the non- coronary cusp(s). Previous Study No prior exam available for comparison. Signature Findings Left Ventricle LV endocardium is adequately visualized with IV ultrasound enhancing agent. Normal left ventricular chamber size. Normal wall thickness. Normal overall left ventricular systolic function. No appare nt segmental wall motion abnormalities. Estimated LVEF by qualitative assessment is normal (>60%) . Left Atrium LA size is normal . Right Ventricle Normal right ventricle structure and function. Right Atrium RA cavity size is normal . Aortic Valve Mild AoV cusp thickening. Mild AoV cusp calcification. AoV calcification primarily involves the non - coronary cusp(s). No evidence of aortic regurgitation. Mitral Valve Mild MV leaflet thickening. Trace mitral regurgitation. Tricuspid Valve A trace of tricuspid regurgitation. Unable to estimate peak systolic PA pressure; inadequate TR velocity signal. Pulmonic Valve Normal PV structure and function by limited views and Doppler. Aorta Aortic root size (SInus of Valsalva diameter) is norm al . Pericardium No evidence of pericardial effusion. IVC/SVC/PA/PV/Pleural The estimated RA pressure by IVC dynamics 5-10mmHg . Chambers/Structures Left Atrium LA Volume: 41.31 ml LA Area: 15.68 cm^2 LA Vol. Index: 22 ml/m^2 Left Ventricle LVIDd: 4.2 cm LVEDV:78.71 ml LV Septum Diastolic: 0.69 cm LV PW Diastolic: 0.63 cm LVEDV Hill's:87.74 ml LVESV Hill's:22.93 ml LVEF Hill's: 73.9 % LVEDVI: 46 ml/m^2 LVESVI: 12 ml/m^ 2 LVOT Diameter: 2.05 cm Doppler/Quantitative Measurements Mitral Valve MV Peak E-Wave: 0.84 m/s MV Peak A-Wave: 0.64 m/s E/A Ratio: 1.32 Peak Gradient: 2.85 mmHg Deceleration Time: 178.9 msec MV Robbie. Peak: Tissue Doppler E' Lateral Velocity: 0.06 m/s Aortic Valve Peak Velocity: 1.03 m/s Mean Velocity: 0.64 m/s Peak Gradient: 4.23 mmHg Mean Gradient: 1.91 mmHg AV Area (continuity): 3.59 cm^2 AV VTI: 19.19 cm AV DVI: 1.09 LVOT Peak Velocity: 1.09 m/s Peak Gradient: 4.74 mmHg Mean Velocity: 0.66 m/s Mean Gradient: 2.25 mmHg LVOT Diameter: 2.05 cm LVOT VTI: 20.89 cm LVOT Area: 3.3 cm^2 LVOT SV:68.92 ml LVOT CO: 4.76 l/min LVOT CI: 2.48 l/min/m^2 Procedure Note Interface, External Ris In - 05/06/2020 11:31 AM CDT Transthoracic Echocardiography Report (TTE) Demographics Patient Name VEGA RAYO Date of S ayleendy 05/05/2020 Gender Male Visit Number [id number] Race Unknown Room Numb er 1022 Number Date of 1950 Referring Physician Emmett Burnette MD Age 70 year(s) 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 Clinical History Diabetes Hypertension Tobacco abuse HGB 10 HCT 32.6 % Contrast Medium: Definity. Amount - 3 ml Height: 69 inches Weight: 76.2 kg (168 l bs) BSA: 1.92 m^2 BMI: 24.81 kg/m^2 HR: 69 bpm BP: 141/67 mmHg Summary 1. Normal left ventricular chamber size . Normal wall thickness. Normal overall left ventricular systolic funct ion. No apparent segmental wall motion abnormalities. Estimated LVEF by qualitative assessment is normal (>60%) . LA size is normal . 2. Normal right ventricle structure and function. RA cavity size is normal . Unable to estimate peak systolic PA p ressure; inadequate TR velocity signal. 3. Aortic valve sclerosis without steno sis. Mild AoV cusp thickening. Mild AoV cusp calcification. AoV calcificati on primarily involves the non- coronary cusp(s). Previous Study No prior exam available for comparison. Signature Findings Left Ventricle LV endocardium i s adequately visualized with IV ultrasound enhan cing agent. Normal left ventricular chamber size. No rmal wall thickness. Normal overall left ventricular systolic function. No apparent segmental wall m otion abnormalities. Estimated LVEF by qualitative a ssessment is normal (>60%) . Left Atrium LA size is yvonne l . Right Ventricle Normal right chelsea tricle structure and function. Right Atrium RA cavity size i s normal . Aortic Valve Mild AoV cusp th ickening. Mild AoV cusp ca lcification. AoV calcificatio n primarily involves the non- coronary cusp(s) . No evidence of a ortic regurgitation. Mitral Valve Mild MV leaflet thickening. Trace mitral reg urgitation. Tricuspid Valve A trace of tricu spid regurgitation. Unable to estima te peak systolic PA pressure; inadequate TR ve locity signal. Pulmonic Valve Normal PV struct ure and function by limited views and Doppler. Aorta Aortic root size (SInus of Valsalva diameter) is normal . Pericardium No evidence of p ericardial effusion. IVC/SVC/PA/PV/Pleural The estimated RA pressure by IVC dynamics 5-10mmHg . Chambers/Structures Left Atrium LA Volume: 41.31 ml LA Area: 15.68 cm^2 LA Vol. Index: 22 ml/m^2 Left Ventricle LVIDd: 4.2 cm LVEDV:78.71 ml LV Septum Diastolic: 0.69 cm LV PW Diastolic: 0.63 cm LVEDV Hill's:87.74 ml LVESV Hill's:22.93 ml LVEF Hill's: 73.9 % LVEDVI: 46 ml/m^2 LVESVI: 12 ml/m^2 LVOT Diameter: 2.05 cm Doppler/Quantitative Measurements Mitral Valve MV Peak E-Wave: 0.84 m/s M V Peak A-Wave: 0.64 m/s E /A Ratio: 1.32 P eak Gradient: 2.85 mmHg D eceleration Time: 178.9 msec MV Robbie. Peak: Tissue Doppler E' Lateral Velocity: 0.06 m/s Aortic Valve Peak Velocity: 1.03 m/s Mean Velocity: 0.64 m/s Peak Gradient: 4.23 mmHg Mean Gradient: 1.91 mmHg AV Area (continuity): 3.59 cm^2 AV VTI: 19.19 cm AV DVI: 1.09 LVOT Peak Velocity: 1.09 m/s Pea k Gradient: 4.74 mmHg Mean Velocity: 0.66 m/s Rea n Gradient: 2.25 mmHg LVOT Diameter: 2.05 cm LVO T VTI: 20.89 cm LVOT Area: 3.3 cm^2 LVO T SV:68.92 ml LVOT CO: 4.76 l/min LVO T CI: 2.48 l/min/m^2 Performing Organization Address City/[facility]/Zipcode Phone Number [facility] ECHO HEARTLAB [facility] CPACS Lactate dehydrogenase (LDH) (05/05/2020 5:18 AM CDT) Pathologist Sig nature LDH 449 (H) 125 - 220 U/L [facility] Specimen Blood - Entire right upper arm (body str ucture) Narrative Performed At Block And Case Maker ID - OMEGA [facility] Performing Organization Address City/State/Zipcode Phone Number [facility] [address] [place] [address] chest without IV contrast (05/04/2020 3:50 PM CDT) Specimen Narrative Performed At FINAL REPORT GE RIS CT of the Chest dated 05/04/2020 COMPARISON: May 02, 2020 CLINICAL INFORMATION: Unlisted Reason fo r Exam eval for trapped lung after pleural effu levi drainage - ChT on water seal during exam Comment: Axial images of the chest wer e obtained from thoracic inlet to the upper abdomen without intravenous contrast. This exam was performed according to our departmental dose-optimization program, which include s automated exposure control, adjustment of the mA and/or kV according to patient size and/or use of interactive reconstruction technique. Since prior examination, there is interv al placement of a pigtail chest tube in the right pleural space. T here is interval decrease in size of a loculated right pleural effusi on. Air bubbles are seen in the right pleural space. There is trace left pleural effusion. Heart is normal in size. Great vessels are unremarkable. No adenopathy in the mediastinum or perihil ar region. Trachea and mainstem bronchi are patent. Numerous of groundglass and airspace dis ease are seen in both lungs suggestive of infectious process. This i s stable as compared to the prior study. Subsegmental atelectasis is seen in the right mid and both lobes. Visualized upper abdomen demonstrates no focal lesion. Impression: 1. Interval placement of a right chest t ube with interval decrease in size of the loculated right pleural effu levi. 2. Free air in the right lower pleural s pace thought to represent post procedure changes. 3. Trace left pleural effusion. 4. Stable groundglass and airspace disea se in both lungs. Signed: Drew Wilson MD Report Verified Date/Time: 05/04/2020 16:45:07 Reading Location: [facility] [id number] [facility] Reading Room Procedure Note Interface, External Ris In - 05/04/2020 4:47 PM CDT FINAL REPORT CT of the Chest dated 05/04/2020 COMPARISON: May 02, 2020 CLINICAL INFORMATION: Unlisted Reason fo r Exam eval for trapped lung after pleural effu levi drainage - ChT on water seal during exam Comment: Axial images of the chest were obtained from thoracic inlet to the upper abdomen without intravenous contrast. This exam was performed according to our departmental dose-optimization program, which include s automated exposure control, adjustment of the mA and/or kV according to patient size and/or use of interactive reconstruction technique. Since prior examination, there is interv al placement of a pigtail chest tube in the right pleural space. T here is interval decrease in size of a loculated right pleural effusi on. Air bubbles are seen in the right pleural space. There is trace left pleural effusion. Heart is normal in size. Great vessels are unremarkable. No adenopathy in the mediastinum or perihil ar region. Trachea and mainstem bronchi are patent. Numerous of groundglass and airspace dis ease are seen in both lungs suggestive of infectious process. This i s stable as compared to the prior study. Subsegmental atelectasis is seen in the right mid and both lobes. Visualized upper abdomen demonstrates no focal lesion. Impression: 1. Interval placement of a right chest t ube with interval decrease in size of the loculated right pleural effu levi. 2. Free air in the right lower pleural s pace thought to represent post procedure changes. 3. Trace left pleural effusion. 4. Stable groundglass and airspace disea se in both lungs. Signed: Drew Wilson MD Report Verified Date/Time: 05/04/2020 1 6:45:07 Reading Location: [address] Reading Room Performing Organization Address City/State/Zipcode Phone Number [facility] Cytology (05/04/2020 11:17 AM CDT) Case Report Medical Cytology Report Case: [id number] [facility] Authorizing Provider: Katie Calzada, Collected: 05/04/2020 11:17 AM [facility] Ordering Location: [address] Received: 05/06/2020 09:04 AM Service Pathologist: Randy Pickard MD Specimen: Pleural, Righ t DIAGNOSIS PLEURAL, RIGHT, FLUID (CYTOSPINS): [facility] Electronically - 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) [facility] signed by Melly, - NEGATIVE FOR [facility] Randy Wesley MD Signing Pathologist Direct Phone Line: [phone] on 05/06/2020 at 12:21 PM CPT Code(s) [address] [facility] CLINICAL DATA Right pleural [facility] effusion [facility] SPECIMEN SOURCE PLEURAL, RIGHT, [facility] FLUID [facility] GROSS DESCRIPTION Received 5 ml yellow [facility] fluid; prepared 4 [facility] cytospins [facility] [place] [facility] Performed. [facility] DESCRIPTION [facility] STATEMENT OF Satisfactory [facility] ADEQUACY [facility] Gross assessment [facility] was performed at [facility] Department of MEDICAL CENTER Pathology, [address] [place] [id number], Technical component [facility] was performed at [facility] Department of MEDICAL CENTER Pathology, [address] [place] [id number], Professional [facility] component was [facility] performed at Department of MEDICAL CENTER Pathology, [address] [place] [id number], Specimen Body Fluid - Structure of right pleural cavity (body structure) Narrative Performed At This result has an attachment that is no t available. Performing Organization Address City/State/Zipcode Phone Number [address] [phone] CENTER Urinalysis w/Microscopic + Reflex to Culture (05/04/2020 11:15 AM CDT) Color, UA Yellow [facility] Clarity, UA Clear [facility] Specific Prole, 1.024 1.001 - 1.035 [facility] pH, UA 5.5 5.0 - 8.0 [facility] Protein, UA 20 mg/dL (A) Negative [facility] Glucose, UA >1000 mg/dL (A) Negative [facility] Ketones, UA 20 mg/dL (A) Negative [facility] Bilirubin, UA Negative Negative [facility] Blood, UA Negative Negative [facility] Nitrite, UA Negative Negative [facility] Leukocytes, UA Negative Negative [facility] Urobilinogen, UA 0.2 0.2 - 1.0 mg/dL [facility] RBC, UA 0 /HPF [facility] WBC, UA 2 /HPF [facility] Mucus Rare [facility] Hyaline Casts, UA 1 /LPF [facility] Specimen Source [facility] Specimen Urine - Urine specimen collection, clean catch (procedure) Narrative Performed At Block And Case Maker ID - [auto] [facility] Block And Case Maker ID - tech Performing Organization Address City/State/Zipcode Phone Number [facility] [address] [place] [address] CENTER Body fluid cell count with differential (05/04/2020 11:15 AM CDT) Appearance Slightly Hazy (A) Clear [facility] Color Yellow (A) Colorless, [facility] RBCs 398 (H) <=1 /cu mm [facility] Adjusted WBC Count 84 (H) <=5 /cu mm [facility] Lining Cells 0 <=1 /cu mm [facility] % Segs 28 % [facility] % Lymphs 37 % [facility] % Monos 36 % [facility] % Eos 0 % [facility] % Baso 0 % [facility] Container Body EDTA Tube [facility] Specimen Body Fluid - Structure of right pleural cavity (body structure) Narrative Performed At Degenerated WBCs present [facility] Performing Organization Address City/State/Zipcode Phone Number [facility] [address] [place] [address] CENTER Protein, Total, Pleural Fluid (05/03/2020 1:12 PM CDT) Pathologist Sig nature PROTEIN, TOTAL, 3.4 g/dL [facility] Specimen Body Fluid - Structure of right pleural cavity (body structure) Performing Organization Address City/[facility] Phone Number [place] [address] [address] [facility] Lactate Dehydrogenase (LD), Pleural Fluid (05/03/2020 1:12 PM CDT) Lactate 484 See Note: [facility] Dehydrogenase (LD), Comment: U/L [facility] Pleural Fluid Reference Range: TRANSUDATE: <113 EXUDATE: >113 Specimen Body Fluid - Structure of right pleural cavity (body structure) Narrative Performed At Performing Lab [facility] EZ [facility] [address] [place] [address] Augusto Henao MD, PhD, MAGAN Performing Organization Address [facility] Centerconm Phone Number [place] [address] [address] [facility] Body fluid culture + gram stain (05/03/2020 1:12 PM CDT) Result No growth [facility] Gram Stain Result 1+ WBCs [facility] Gram Stain Result No organisms seen [facility] Specimen Body Fluid - Structure of right pleural cavity (body structure) Performing Organization Address City/[facility]/Zipcode Phone Number [address] [address] CENTER Lipase (05/03/2020 11:23 AM CDT) Pathologist Sig nature Lipase 5 (L) 8 - 78 U/L [facility] Specimen Blood Narrative Performed At Block And Case Maker ID - PABLO [facility] Performing Organization Address City/[facility] Centercode Phone Number [facility] [address] [place] [address] [place] Amylase (05/03/2020 11:23 AM CDT) Pathologist Sig nature Amylase 31 25 - 125 U/L [facility] Specimen Blood Narrative Performed At Block And Case Maker ID - [email or web address] [facility] Performing Organization Address [facility] Centercode Phone Number [facility] [address] [place] [address] [place] US drainage chest with tube insertion (05/03/2020 9:45 AM CDT) Specimen Narrative Performed At FINAL REPORT [facility] Ultrasound guided right chest tube place ment Clinical History: Right pleural effusi on/empyema. Modality: Ultrasound. Sedation: None. District Fire Management Officer: Mary Fierro PA-C Supervising physician: Stefanie Owens M.D. Estimated Blood Loss: 1cc Specimen: clear yellow fluid. Technique: Informed consent was obtain ed. The risks of pain, bleeding, infection, lung collapse/pneum othorax, injury to adjacent structures, and adverse medication react ions were discussed with the patient. The patient's right hemithora x was scanned from the back, with the patient in a left lateral decub itus position. After the largest fluid pocket area was marked, th e skin was prepped and draped in the usual sterile manner. The area was anesthetized with 2% lidocaine, a 8 Hungarian drain was advanced into the pleural space under ultrasound guidance. The catheter was at tached to chest tube, secured with a suture, and bandage placed. There was no evidence of immediate complication. Post procedure chest x-r ay is pending. Impression: Successful and uncomplicated ultrasound guided right chest tube placement. Signed: Stefanie Owens MD Report Verified Date/Time: 05/03/2020 11:26:06 Reading Location: [facility] B1 [id number] [facility] Procedure Note Interface, External Ris In - 05/03/2020 11:28 AM CDT FINAL REPORT Ultrasound guided right chest tube place ment Clinical History: Right pleural effusio n/empyema. Modality: Ultrasound. Sedation: None. District Fire Management Officer: Mary Fierro PA-C Supervising physician: Stefanie Owens M.D. Estimated Blood Loss: 1cc Specimen: clear yellow fluid. Technique: Informed consent was obtaine d. The risks of pain, bleeding, infection, lung collapse/pneum othorax, injury to adjacent structures, and adverse medication react ions were discussed with the patient. The patient's right hemithorax was scanned from the back, with the patient in a left lateral decub itus position. After the largest fluid pocket area was marked, th e skin was prepped and draped in the usual sterile manner. The area w as anesthetized with 2% lidocaine, a 8 Hungarian drain was advanced into the pleural space under ultrasound guidance. The catheter was at tached to chest tube, secured with a suture, and bandage placed. There was no evidence of immediate complication. Post procedure chest x-ra y is pending. Impression: Successful and uncomplicated ultrasound guided right chest tube placement. Signed: Stefanie Owens MD Report Verified Date/Time: 05/03/2020 1 1:26:06 Reading Location: [facility] [id number] [facility] Reading Room Performing Organization Address City/State/Zipcode Phone Number [facility] CT abdomen/pelvis with IV contrast (05/02/2020 8:40 PM CDT) Specimen Narrative Performed At FINAL REPORT [facility] CLINICAL HISTORY: Recurrent right pleura l effusion, history of pneumonia, abdominal pain FINDINGS: Multiple axial images of the chest, abdo men and pelvis were performed after the uncomplicated administration o f IV contrast. Oral contrast was given. This exam was performed according to our departmental dose-optimization program, which include s automated exposure control, adjustment of the mA and/or kV according to patient size and/or use of the iterative reconstruction techniqu e. Comparison: None. Chest: Lung parenchyma and pleural spaces: Ther e is a moderate right pleural effusion with regions of thickened pleur al enhancement and lobulation/nondependent accumulation sug gesting loculation. There is heterogeneous consolidation of a significant portion of the right mid and lower lung along with patc hy groundglass and consolidative opacification elsewhere th roughout both lungs. There are multiple subsolid /groundglass nodul es throughout both lungs. An example in the left upper lobe measures 7 to 8 mm. There is diffuse, mild interstitial coar sening. Tracheobronchial tree: There is mild per ibronchial thickening in the perihilar lungs. Pulmonary vasculature: No significant fi ndings. Cardiac contours and great vessels: Athe rosclerotic calcifications of the coronary arteries, aorta and great v essels arising from the arch. Mediastinum: No significant findings. Lymph Nodes: No adenopathy in the medias tinum or rock. There are several slightly prominent but subcentim eter mediastinal lymph nodes. Skeleton: No acute abnormality. No lytic or blastic lesions in the thoracic skeleton. Abdomen and pelvis: Liver: No significant findings. Gallbladder and biliary tree: Previous c holecystectomy Spleen: No significant findings. Adrenal Glands: Indeterminate density, 2 .4 x 2.0 cm left adrenal nodule. Kidneys and ureters: No significant find ings. Stomach and Duodenum: Subtle fat strandi ng adjacent to the pancreatic head and second portion of the duodenum. Pancreas: There is subtle fat stranding adjacent to the pancreatic head and second portion of the duodenum. No retroperitoneal organized fluid collection. There are some promine nt lymph nodes in the peripancreatic/portal hepatic region. An example has a short axis diameter of 1.3 cm. Bowel: No bowel obstruction or pneumatos is intestinalis. There is mild circumferential mural thickening of the rectum. Appendix: Normal. Bladder: No significant findings. Major vascular structures: Atherosclerot ic calcifications Reproductive organs: No significant find ings. Other: Mild perinephric fat stranding an d nonorganized fluid with extension to the dependent pelvis. Fat filled inguinal hernias. Skeleton: No acute bony abnormality. No lytic or blastic skeletal lesions. IMPRESSION: Moderate, complex right pleural effusion with evidence of pleural thickening and suspected loculation. Thi s may reflect an empyema or malignant effusion. Bilateral pulmonary opacities, including subcentimeter nodular opacification, possibly reflecting multi focal infection. Alternative considerations include a neoplastic or i nflammatory process. Nonspecific interstitial coarsening and peribronchial thickening, possibly interstitial edema or secondary to an infectious or inflammatory process. Lymphangitic carci nomatosis is an alternative consideration. - - Comparison to recent previous outsid e chest imaging would be helpful, if available. 2.4 x 2.0 cm indeterminate density left adrenal nodule. Given the above described findings metastatic dise ase is not definitively excluded. Evaluation with adrenal mass p rotocol CT or MRI is recommended if old examinations are not available elsewhere to demonstrate stability over time. Subtle peripancreatic and periduodenal f at stranding, nonspecific. This could reflect pancreatitis or duode nitis given the patient's history of abdominal pain. Please correl ate with serology. Endoscopy can be performed if duodenitis is favore d. Prominent peripancreatic and shawanda hepat ic lymph nodes are nonspecific and may be reactive though m etastatic disease is a consideration. These can be followed up, as indicated. Mild circumferential mural thickening of the rectum may relate to relative decompression. An infectious or inflammatory process are considerations. An underlying neoplastic process can be excluded with colonoscopy. Signed: Paul Skaggs MD Report Verified Date/Time: 05/02/2020 21:55:07 Procedure Note Interface, External Ris In - 05/02/2020 9:57 PM CDT FINAL REPORT CLINICAL HISTORY: Recurrent right pleura l effusion, history of pneumonia, abdominal pain FINDINGS: Multiple axial images of the chest, abdo men and pelvis were performed after the uncomplicated administration o f IV contrast. Oral contrast was given. This exam was performed according to our departmental dose-optimization program, which include s automated exposure control, adjustment of the mA and/or kV according to patient size and/or use of the iterative reconstruction techniqu e. Comparison: None. Chest: Lung parenchyma and pleural spaces: Ther e is a moderate right pleural effusion with regions of thickened pleur al enhancement and lobulation/nondependent accumulation sug gesting loculation. There is heterogeneous consolidation of a significant portion of the right mid and lower lung along with patc hy groundglass and consolidative opacification elsewhere th roughout both lungs. There are multiple subsolid /groundglass nodul es throughout both lungs. An example in the left upper lobe measures 7 to 8 mm. There is diffuse, mild interstitial coar sening. Tracheobronchial tree: There is mild per ibronchial thickening in the perihilar lungs. Pulmonary vasculature: No significant fi ndings. Cardiac contours and great vessels: Athe rosclerotic calcifications of the coronary arteries, aorta and great v essels arising from the arch. Mediastinum: No significant findings. Lymph Nodes: No adenopathy in the medias tinum or rock. There are several slightly prominent but subcentim eter mediastinal lymph nodes. Skeleton: No acute abnormality. No lytic or blastic lesions in the thoracic skeleton. Abdomen and pelvis: Liver: No significant findings. Gallbladder and biliary tree: Previous c holecystectomy Spleen: No significant findings. Adrenal Glands: Indeterminate density, 2 .4 x 2.0 cm left adrenal nodule. Kidneys and ureters: No significant find ings. Stomach and Duodenum: Subtle fat strandi ng adjacent to the pancreatic head and second portion of the duodenum. Pancreas: There is subtle fat stranding adjacent to the pancreatic head and second portion of the duodenum. No retroperitoneal organized fluid collection. There are some promine nt lymph nodes in the peripancreatic/portal hepatic region. An example has a short axis diameter of 1.3 cm. Bowel: No bowel obstruction or pneumatos is intestinalis. There is mild circumferential mural thickening of the rectum. Appendix: Normal. Bladder: No significant findings. Major vascular structures: Atherosclerot ic calcifications Reproductive organs: No significant find ings. Other: Mild perinephric fat stranding an d nonorganized fluid with extension to the dependent pelvis. Fat filled inguinal hernias. Skeleton: No acute bony abnormality. No lytic or blastic skeletal lesions. IMPRESSION: Moderate, complex right pleural effusion with evidence of pleural thickening and suspected loculation. Thi s may reflect an empyema or malignant effusion. Bilateral pulmonary opacities, including subcentimeter nodular opacification, possibly reflecting multi focal infection. Alternative considerations include a neoplastic or i nflammatory process. Nonspecific interstitial coarsening and peribronchial thickening, possibly interstitial edema or secondary to an infectious or inflammatory process. Lymphangitic carci nomatosis is an alternative consideration. - - Comparison to recent previous outsid e chest imaging would be helpful, if available. 2.4 x 2.0 cm indeterminate density left adrenal nodule. Given the above described findings metastatic dise ase is not definitively excluded. Evaluation with adrenal mass p rotocol CT or MRI is recommended if old examinations are not available elsewhere to demonstrate stability over time. Subtle peripancreatic and periduodenal f at stranding, nonspecific. This could reflect pancreatitis or duode nitis given the patient's history of abdominal pain. Please correl ate with serology. Endoscopy can be performed if duodenitis is favore d. Prominent peripancreatic and shawanda hepat ic lymph nodes are nonspecific and may be reactive though m etastatic disease is a consideration. These can be followed up, as indicated. Mild circumferential mural thickening of the rectum may relate to relative decompression. An infectious or inflammatory process are considerations. An underlying neoplastic process can be excluded with colonoscopy. Signed: Paul Skaggs MD Report Verified Date/Time: 05/02/2020 2 1:55:07 Performing Organization Address City/State/Zipcode Phone Number [facility] chest with IV contrast (05/02/2020 8:40 PM CDT) Specimen Narrative Performed At FINAL REPORT [facility] [employer] CLINICAL HISTORY: Recurrent right pleura l effusion, history of pneumonia, abdominal pain FINDINGS: Multiple axial images of the chest, abdo men and pelvis were performed after the uncomplicated administration o f IV contrast. Oral contrast was given. This exam was performed according to our departmental dose-optimization program, which include s automated exposure control, adjustment of the mA and/or kV according to patient size and/or use of the iterative reconstruction techniqu e. Comparison: None. Chest: Lung parenchyma and pleural spaces: Ther e is a moderate right pleural effusion with regions of thickened pleur al enhancement and lobulation/nondependent accumulation sug gesting loculation. There is heterogeneous consolidation of a significant portion of the right mid and lower lung along with patc hy groundglass and consolidative opacification elsewhere th roughout both lungs. There are multiple subsolid /groundglass nodul es throughout both lungs. An example in the left upper lobe measures 7 to 8 mm. There is diffuse, mild interstitial coar sening. Tracheobronchial tree: There is mild per ibronchial thickening in the perihilar lungs. Pulmonary vasculature: No significant fi ndings. Cardiac contours and great vessels: Athe rosclerotic calcifications of the coronary arteries, aorta and great v essels arising from the arch. Mediastinum: No significant findings. Lymph Nodes: No adenopathy in the medias tinum or rock. There are several slightly prominent but subcentim eter mediastinal lymph nodes. Skeleton: No acute abnormality. No lytic or blastic lesions in the thoracic skeleton. Abdomen and pelvis: Liver: No significant findings. Gallbladder and biliary tree: Previous c holecystectomy Spleen: No significant findings. Adrenal Glands: Indeterminate density, 2 .4 x 2.0 cm left adrenal nodule. Kidneys and ureters: No significant find ings. Stomach and Duodenum: Subtle fat strandi ng adjacent to the pancreatic head and second portion of the duodenum. Pancreas: There is subtle fat stranding adjacent to the pancreatic head and second portion of the duodenum. No retroperitoneal organized fluid collection. There are some promine nt lymph nodes in the peripancreatic/portal hepatic region. An example has a short axis diameter of 1.3 cm. Bowel: No bowel obstruction or pneumatos is intestinalis. There is mild circumferential mural thickening of the rectum. Appendix: Normal. Bladder: No significant findings. Major vascular structures: Atherosclerot ic calcifications Reproductive organs: No significant find ings. Other: Mild perinephric fat stranding an d nonorganized fluid with extension to the dependent pelvis. Fat filled inguinal hernias. Skeleton: No acute bony abnormality. No lytic or blastic skeletal lesions. IMPRESSION: Moderate, complex right pleural effusion with evidence of pleural thickening and suspected loculation. Thi s may reflect an empyema or malignant effusion. Bilateral pulmonary opacities, including subcentimeter nodular opacification, possibly reflecting multi focal infection. Alternative considerations include a neoplastic or i nflammatory process. Nonspecific interstitial coarsening and peribronchial thickening, possibly interstitial edema or secondary to an infectious or inflammatory process. Lymphangitic carci nomatosis is an alternative consideration. - - Comparison to recent previous outsid e chest imaging would be helpful, if available. 2.4 x 2.0 cm indeterminate density left adrenal nodule. Given the above described findings metastatic dise ase is not definitively excluded. Evaluation with adrenal mass p rotocol CT or MRI is recommended if old examinations are not available elsewhere to demonstrate stability over time. Subtle peripancreatic and periduodenal f at stranding, nonspecific. This could reflect pancreatitis or duode nitis given the patient's history of abdominal pain. Please correl ate with serology. Endoscopy can be performed if duodenitis is favore d. Prominent peripancreatic and shawanda hepat ic lymph nodes are nonspecific and may be reactive though m etastatic disease is a consideration. These can be followed up, as indicated. Mild circumferential mural thickening of the rectum may relate to relative decompression. An infectious or inflammatory process are considerations. An underlying neoplastic process can be excluded with colonoscopy. Signed: Paul Skaggs MD Report Verified Date/Time: 05/02/2020 21:55:07 Procedure Note Interface, External Ris In - 05/02/2020 9:57 PM CDT FINAL REPORT CLINICAL HISTORY: Recurrent right pleura l effusion, history of pneumonia, abdominal pain FINDINGS: Multiple axial images of the chest, abdo men and pelvis were performed after the uncomplicated administration o f IV contrast. Oral contrast was given. This exam was performed according to our departmental dose-optimization program, which include s automated exposure control, adjustment of the mA and/or kV according to patient size and/or use of the iterative reconstruction techniqu e. Comparison: None. Chest: Lung parenchyma and pleural spaces: Ther e is a moderate right pleural effusion with regions of thickened pleur al enhancement and lobulation/nondependent accumulation sug gesting loculation. There is heterogeneous consolidation of a significant portion of the right mid and lower lung along with patc hy groundglass and consolidative opacification elsewhere th roughout both lungs. There are multiple subsolid /groundglass nodul es throughout both lungs. An example in the left upper lobe measures 7 to 8 mm. There is diffuse, mild interstitial coar sening. Tracheobronchial tree: There is mild per ibronchial thickening in the perihilar lungs. Pulmonary vasculature: No significant fi ndings. Cardiac contours and great vessels: Athe rosclerotic calcifications of the coronary arteries, aorta and great v essels arising from the arch. Mediastinum: No significant findings. Lymph Nodes: No adenopathy in the medias tinum or rock. There are several slightly prominent but subcentim eter mediastinal lymph nodes. Skeleton: No acute abnormality. No lytic or blastic lesions in the thoracic skeleton. Abdomen and pelvis: Liver: No significant findings. Gallbladder and biliary tree: Previous c holecystectomy Spleen: No significant findings. Adrenal Glands: Indeterminate density, 2 .4 x 2.0 cm left adrenal nodule. Kidneys and ureters: No significant find ings. Stomach and Duodenum: Subtle fat strandi ng adjacent to the pancreatic head and second portion of the duodenum. Pancreas: There is subtle fat stranding adjacent to the pancreatic head and second portion of the duodenum. No retroperitoneal organized fluid collection. There are some promine nt lymph nodes in the peripancreatic/portal hepatic region. An example has a short axis diameter of 1.3 cm. Bowel: No bowel obstruction or pneumatos is intestinalis. There is mild circumferential mural thickening of the rectum. Appendix: Normal. Bladder: No significant findings. Major vascular structures: Atherosclerot ic calcifications Reproductive organs: No significant find ings. Other: Mild perinephric fat stranding an d nonorganized fluid with extension to the dependent pelvis. Fat filled inguinal hernias. Skeleton: No acute bony abnormality. No lytic or blastic skeletal lesions. IMPRESSION: Moderate, complex right pleural effusion with evidence of pleural thickening and suspected loculation. Thi s may reflect an empyema or malignant effusion. Bilateral pulmonary opacities, including subcentimeter nodular opacification, possibly reflecting multi focal infection. Alternative considerations include a neoplastic or i nflammatory process. Nonspecific interstitial coarsening and peribronchial thickening, possibly interstitial edema or secondary to an infectious or inflammatory process. Lymphangitic carci nomatosis is an alternative consideration. - - Comparison to recent previous outsid e chest imaging would be helpful, if available. 2.4 x 2.0 cm indeterminate density left adrenal nodule. Given the above described findings metastatic dise ase is not definitively excluded. Evaluation with adrenal mass p rotocol CT or MRI is recommended if old examinations are not available elsewhere to demonstrate stability over time. Subtle peripancreatic and periduodenal f at stranding, nonspecific. This could reflect pancreatitis or duode nitis given the patient's history of abdominal pain. Please correl ate with serology. Endoscopy can be performed if duodenitis is favore d. Prominent peripancreatic and shawanda hepat ic lymph nodes are nonspecific and may be reactive though m etastatic disease is a consideration. These can be followed up, as indicated. Mild circumferential mural thickening of the rectum may relate to relative decompression. An infectious or inflammatory process are considerations. An underlying neoplastic process can be excluded with colonoscopy. Signed: Paul Skaggs MD Report Verified Date/Time: 05/02/2020 2 1:55:07 Performing Organization Address City/State/Zipcode Phone Number helene LOMBARDO (05/02/2020 3:17 AM CDT) Pathologist Sig nature ABO Grouping O [facility] [place] Rh Factor NEG [facility] Spec[facility] Blood Performing Organization Address City/State/Zipcode Phone Number [facility] [address] [place] [phone] PT/aPTT (05/02/2020 1:30 AM CDT) Pathologist Sig nature Protime 14.3 (H) 11.9 - 14.2 seconds [facility] INR 1.14 <=5.90 [facility] PTT 31.3 22.5 - 36.0 seconds [facility] Specimen Blood Narrative Performed At Effective 12/14/2018: PT Reference Range [facility] Change New: 11.9-14.2 Previous: 11.7-14.7 RECOMMENDED COUMADIN/WARFARIN INR THERAPY RANGES STANDARD DOSE: 2.0-3.0 Includes: PROPHYLAXIS for venous thrombosis, systemic embolization; TREATMENT for venous thrombosis and/or pulmonary embolus. HIGH RISK: Target INR is 2.5-3.5 for patients wiht mechanical heart valves. Performing Organization Address City/State/Zipcode Phone Number [address] [address] [facility] Hemoglobin A1c (05/02/2020 1:30 AM CDT) Pathologist Sig nature Hemoglobin A1C 5.0 4.3 - 6.1 % [facility] Specimen Blood Narrative Performed At Block And Case Maker ID - ADMIN [facility] Performing Organization Address City/State/Zipcode Phone Number [facility] [address] [place], [place] [phone] after 06/07/2019 Insurance Payer Benefit Plan / Subscriber ID Effective Dates Phone Addre ss Type Group MEDICARE MEDICARE A B [id number] 2015-Present Medicare [employer] [place] [id number] 2019-Present Medigap SUPPLEMENT/INDIV IDUAL [id number] (Home) ANNA SNYDER [id number] Advance Directives For more information, please contact: [phone] Code Status Date Activated Date Inactivated Comments Full Code 05/02/2020 12:38 AM 05/16/2020 6:26 PM This code status was determined by: Patient
--- OUTSIDE RECORDS SUMMARY | 2020-06-07 14:58 | XMS REPORT | Continuity of Care Document ---
:1950 Author Organization [facility] t Address [address] [place] [address] Care Team Providers Name Role Phone Daria Bustos Attending Clinician Vasile JACKSON Attending Clinician ADRIANNA STARKS Attending Clinician Unavailable Adrianna Starks MD Attending Clinician Moose Hodges MD Attending Clinician Tatianna Ospina Attending Clinician Unavailable ADRIANNA STARKS Admitting Clinician Unavailable Payers Payer Name Policy Type Policy Effective Date Expiration Date Sour ce Number MEDICAREMEDICARE A [id number] 2015 NEGRITA Maravilla [id number] 2014-P 00:00:00 - [facility] [id number] 2019 NEGRITA Gamboa SUPPLEMENT/INDIVIDUALM 00:00:00 - Medical [facility] [id number] 2019- PresentMedigap Problems Condition Condition Condition Status Onset Resolution Last Treating Co mments Source Name Details Category Date Date Treatment Clinician Date Fluid Fluid Disease Active 2019-[address] [facility] overload [facility] 0-24 [facility] [place] Acute Acute Disease Active 2019-[address] [facility] blood loss blood loss 0-23 [facility] kes - anemia anemia 00:00: Medical 00 [place] Nicotine Nicotine Disease Active 2019-[facility] addiction addiction [facility] - 00[facility]: Medical 00 [place] Hypokalemi Hypokalemi Disease Active 2019-[address] a a 0-23 [facility] Medical 00 [place] Hypomagnes Hypomagnes Disease Active 2019-[address] emia emia 0-23 [facility] - 00:[facility]: Medical 00 [place] Acute Acute Disease Active 2019-[address] [facility] post-opera post-opera 0-23 She kes - tive pain tive pain 00:00: Medi moira 00 [place] Anxiety Anxiety Disease Active 2019-[address] [facility] 0-23 [facility] - [facility]: Medical 00 [place] Acute Acute Disease Active 2019-[address] [facility] respirator respirator 0-22 She kes - y y 00:00: Medical insufficie insufficie 00 Ce nter ncy ncy Acute Acute Disease Active 2019-[address] [facility] respirator respirator 0-22 She kes - y acidosis y acidosis 00:00: Me dical 00 [place] Empyema Empyema Disease Active 2019-[address] [facility] 0-15 [facility] - 00:[facility]: Medical 00 Center Allergies, Adverse Reactions, Alerts Allergy Allergy Status Severity Reaction(s) Onset Inactive Treating Comm ents Source Name Type Date Date Clinician Codeine Drug Active Rash 2019-[address] [facility] Allergy 0-15 [facility]: Medical 00 [place] Family History Family Member Diagnosis Comments Start Date Stop Date Source Natural brother Hypertension [facility] Natural father Alcohol abuse [facility] Natural father Cancer [facility] Natural father Hypertension [facility] Paternal grandfather Stroke [facility] Social History Social Habit Start Date Stop Date Quantity Comments Source Sex Assigned At [facility] Tobacco use and 2020-05-10 2020-05-10 Never used [facility] - exposure 00:00:00 00:00:00 Medical [place] Alcohol intake 2020-05-10 2020-05-10 Ex-drinker [facility] es - 00:00:00 00:00:00 (finding) Medical Center Alcohol Comment 2020-05-02 2020-05-02 drank since [address] [facility] - 00:[facility]00 00[facility] er september History of 2019-07-[address] [facility] es - tobacco use 00:00:00 Medical Lash[place] r Smoking Status Start Date Stop Date Source Former smoker 2020-05-10 00:00:00 2020-05-10 00:00:[address] [facility] Medications Ordered Filled Start Stop Current Ordering Indication Dosage Frequency Signature Comments Components Source Medication Medication Date Date Medication? Clinician (SIG) Name Name nitroglycer 2019-07 Yes .4mg Take 0.[address] in 0-29 mg by [facility] - (NITROSTAT) 16:26: mouth as Me dical 0.4 MG SL 51 needed. Center tablet dapaglifloz 2019-07 Yes 10mg QD Take [address] in 0-29 by mouth [facility] - (Farxiga) 16:26: daily. Medica l 10 mg 51 Center tablet insulin 2019-07 Yes type 2 5U QD Inject [address] detemir 0-29 diabetes Units [facility] - U-100 16:26: mellitus subcutaneo Me dical (LEVEMIR) 51 usly Center 100 unit/mL nightly. injection nicotine 2019-07 Yes smoking 1{patch Q24H Place [address] (NICODERM 0-29 cessation } patch onto [facility] - CQ) 21 16:26: the skin Medical mg/24 hr 51 daily. Center patch acetaminoph 2019-07- No 1000mg Take [address] en -08 tablets [facility] - (TYLENOL) 00:00: 23:59 (1,000 mg Me dical 500 MG 00 :00 total) by Center tablet mouth every 6 (six) hours for 10 days. gabapentin 2019-07- No 300mg [id number] Take [address] (NEURONTIN) 005-26 [id number] capsule [facility] - 300 MG 00:00: 23:59 3D (300 mg Medical capsule 00 :00 total) by Center mouth 3 (three) times daily for 10 days. traMADoL 2019-07- No 50mg Take [address] [facility] (ULTRAM) 50 05-26 tablet (50 L ukes - mg tablet 00:00: 23:59 mg total) Me dical 00 :00 by mouth Center every 6 (six) hours as needed for up to 10 days. Max Daily Amount: 200 mg furosemide 2019-07- No 20mg QD Take [address] [facility] (LASIX) 20 0-16 06-03 tablet (20 She kes - MG tablet 00:00: 23:59 mg total) Me dical 00 :00 by mouth Center daily for 5 days. potassium 2019-07- No 20meq Q.5D Take [address] chloride SA 0-16 06- tablet (20 L ukes - (K-DUR,KLOR 00:00: 23:59 mEq total) Medical -CON) 20 00 :00 by mouth 2 Cente r MEQ tablet (two) times daily for 5 days. metFORMIN 2019-07 Yes 500mg Q.5D Take [address] (GLUCOPHAGE 0-13 mg by [facility] - ) 1000 MG 00:00: mouth 2 Medic al tablet 00 (two) Center times daily. docusate 2020-0 Yes 100mg Take [address] [facility] sodium 9-28 mg by [facility] - (COLACE) 00:00: mouth as Medic al 100 MG 00 needed. Center capsule traMADoL 2020-0 Yes 50mg Take [address] (ULTRAM) 50 8-25 by mouth Luke s - mg tablet 00:00: every 4 Medic al 00 (four) Center hours as needed. citalopram 2020-0 Yes 20mg QD Take [address] (CeleXA) 20 8-11 by mouth Luke s - MG tablet 00:00: daily. Medica l 00 Center pantoprazol 2020-0 Yes 40mg Q.5D Take [address] [facility] e 8-07 by mouth 2 [facility] - (PROTONIX) 00:00: (two) Medica l 40 MG 00 times Center tablet daily. metoprolol 2020-0 Yes 25mg Q.5D Take [address] tartrate 7-30 by mouth 2 [facility] - (LOPRESSOR) 00:00: (two) Medic al 100 MG 00 times Center tablet daily. Vital Signs Vital Name Observation Time Observation Value Comments Source Heart rate 2020-05-16 15:10:00 90 /min [facility] Respiratory rate 2020-05-16 15:10:00 20 /min [facility] Oxygen saturation in 2020-05-16 15:10:00 93 /min [facility] Arterial blood by Medical Ce nter Pulse oximetry Systolic blood 2020-05-16 14:00:00 121 mm[Hg] [facility] Diastolic blood 2020-05-16 14:00:00 64 mm[Hg] [facility] Body temperature 2020-05-16 12:00:00 36.94 Pati [facility] Body weight 2020-05-16 06:00:00 76.7 kg [facility] BMI 2020-05-16 06:00:00 24.97 kg/m2 [facility] Body height 2020-05-02 08:53:00 175.3 cm [facility] Procedures Procedure Date / Time Performing Clinician Source Performed XR CHEST 2 VIEWS 2020-05-27 10:10:00 Geneva Bustos [facility] XR CHEST 1 VIEW 2020-05-16 12:04:00 Lee Ann Gee [facility]/BEDSIDE [facility] POCT-GLUCOSE METER 2020-05-16 11:42:00 Emmett Starks [facility] POCT-GLUCOSE METER 2020-05-16 07:26:00 Emmett Starks [facility] CBC W/PLT COUNT & AUTO 2020-05-16 07:03:[address] [facility] XR CHEST 1 VIEW 2020-05-16 04:44:00 Lee Ann Gee [facility]/BEDSIDE [facility] BASIC METABOLIC PANEL (7) 2020-05-16 04:28:00 Juan Carlos Nash [facility] MAGNESIUM 2020-05-16 04:28:00 Juan Carlos Nash [facility] SARS-COV2/RT-PCR ([facility] & 2020-05-16 04:27:00 Juan Carlos Nash [facility] - REF LABS) [facility] POCT-GLUCOSE METER 2020-05-15 21:57:00 Emmett Starks [facility] POCT-GLUCOSE METER 2020-05-15 16:30:00 Emmett Starks [facility] XR CHEST 1 VIEW 2020-05-15 13:00:[address] [facility] PORTABLE/BEDSIDE [facility] POCT-GLUCOSE METER 2020-05-15 11:23:00 Emmett Starks [facility] ECG 12-LEAD 2020-05-15 10:02:40 Unknown, Hl7 Doctor [facility] POCT-GLUCOSE METER 2020-05-15 07:28:00 Emmett Starks [facility] BASIC METABOLIC PANEL (7) 2020-05-15 04:09:00 Gul [facility] MAGNESIUM 2020-05-15 04:09:00 Gul [facility] CBC W/PLT COUNT & AUTO 2020-05-15 04:09:00 Guchiquis [facility] POCT-GLUCOSE METER 2020-05-14 21:46:00 Emmett Starks [facility] POCT-GLUCOSE METER 2020-05-14 16:47:00 Emmett Starks [facility] XR CHEST 1 VIEW 2020-05-14 10:07:[address] [facility] PORTABLE/BEDSIDE [facility] BASIC METABOLIC PANEL (7) 2020-05-14 03:28:00 Gul [facility] MAGNESIUM 2020-05-14 03:28:00 Gul, [facility] CBC W/PLT COUNT & AUTO 2020-05-14 03:28:00 Guchiquis [facility] POCT-GLUCOSE METER 2020-05-13 22:10:00 Emmett Starks [facility] POCT-GLUCOSE METER 2020-05-13 16:29:00 Emmett Starks [facility] POCT-GLUCOSE METER 2020-05-13 11:28:00 Emmett Starks [facility] POCT-GLUCOSE METER 2020-05-13 09:14:00 Emmett Starks [facility] XR CHEST 1 VIEW 2020-05-13 07:00:00 Jacy Morrell [facility] - PORTABLE/BEDSIDE [facility] BASIC METABOLIC PANEL (7) 2020-05-13 03:41:00 Gul, [facility] MAGNESIUM 2020-05-13 03:41:00 Gul, [facility] PREALBUMIN 2020-05-13 03:41:00 Gul, [facility] ALBUMIN 2020-05-13 03:41:00 Gul, [facility] PROTEIN, TOTAL 2020-05-13 03:41:00 Gul, [facility] CBC W/PLT COUNT & AUTO 2020-05-13 03:41:00 Jim Sage [facility] POTASSIUM 2020-05-13 00:52:00 Gul, [facility] MAGNESIUM 2020-05-13 00:52:00 Gul, [facility] POCT-GLUCOSE METER 2020-05-12 22:16:00 Emmett Starks [facility] POTASSIUM 2020-05-12 17:00:00 Gul, [facility] MAGNESIUM 2020-05-12 17:00:00 Gul, [facility] POCT-GLUCOSE METER 2020-05-12 16:41:00 Emmett Starks [facility] POCT-GLUCOSE METER 2020-05-12 08:41:00 Emmett Starks [facility] XR CHEST 1 VIEW 2020-05-12 05:14:00 Jacy Morrell [facility] - PORTABLE/BEDSIDE [facility] BASIC METABOLIC PANEL (7) 2020-05-12 03:09:00 [facility] 2020-05-12 03:09[facility]00 [facility]LOOD [facility], ARTERIAL 2020-05-12 03:09:00 Chu [facility] CBC W/PLT COUNT & AUTO 2020-05-12 03:09:00 Jim Sage Rodriguez [facility] [place] [place] PREPARE LEUKO-REDUCED RBC 2020-05-11 23:54:00 Jacy Morrell [facility] POCT-GLUCOSE METER 2020-05-11 21:14:00 Emmett Starks [facility] POCT-GLUCOSE METER 2020-05-11 11:55:00 Emmett Starks [facility] POTASSIUM 2020-05-11 11:51:[facility] 2020-05[facility]11 11:51[facility]00 [facility] PO[facility]-GLUCOSE METER 2020-05-11 08:01:00 Emmett Starks [facility] BLOOD GAS, ARTERIAL 2020-05-11 03:03:00 Chu [facility] BASIC METABOLIC PANEL (7) 2020-05-11 02:57:00 MatheuschiquisJuan Carlos [facility] MAGNESIUM 2020-05-11 02:57:00 Charity [facility] CBC W/PLT COUNT & AUTO 2020-05-11 02:57:00 Jim Sage Rodriguez [facility] [place] XR CHEST 1 VIEW 2020-05-11 01:37:[address] [facility] PORTABLE/BEDSIDE [facility] POCT-GLUCOSE METER 2020-05-10 21:12:00 Emmett Starks [facility] POCT-GLUCOSE METER 2020-05-10 17:52:00 Emmett Starks [facility] BLOOD GAS, ARTERIAL 2020-05-10 15:49:00 Yeni Bass [facility] POCT-GLUCOSE METER 2020-05-10 12:33:00 Emmett Starks [facility] BLOOD GAS, ARTERIAL 2020-05-10 10:29:00 Jayden Neftalisasha Morris [facility] CBC W/PLT COUNT & AUTO 2020-05-10 10:29:[address] [facility] TRANSFUSE LEUKO-REDUCED 2020-05-10 09:21:55 Jacy Morrell [facility] - RED BLOOD CELLS [facility] COMPREHENSIVE METABOLIC 2020-05-10 03:34:[address] [facility] MAGNESIUM 2020-05-10 03:34:00 Juan Carlos Nash [facility] BLOOD GAS, ARTERIAL 2020-05-10 03:34:00 Jim Sage [facility] CBC W/PLT COUNT & AUTO 2020-05-10 03:34:00 Jim Sage [facility] XR CHEST 1 VIEW 2020-05-10 02:35:00 Jacy Morrell [facility] - PORTABLE/BEDSIDE [facility] POCT-GLUCOSE METER 2020-05-10 01:21:00 Emmett Starks [facility] POCT-GLUCOSE METER 2020-05-09 21:50:00 Emmett Starks [facility] XR ABDOMEN / KUB 1 VIEW 2020-05-09 17:33:00 Yeni Bass [facility] BLOOD GAS, ARTERIAL 2020-05-09 17:01:00 [facility]AD 2020-05-09 15:59:36 Unknown, Hl7 [facility] XR CHEST 1 VIEW 2020-05-09 15:33:00 Jim Sage [facility] - PORTABLE/BEDSIDE [facility] BLOOD GAS, ARTERIAL 2020-05-09 15:31:00 [facility] 2020-05-09 15:30:00 Chu, [facility] PHOSPHORUS 2020-05-09 15:30:00 Chu, [facility] CALCIUM, IONIZED 2020-05-09 15:30:00 Chu, [facility] PROTHROMBIN TIME/INR 2020-05-09 15:30:00 Chu, [facility] APTT 2020-05-09 15:30:00 Chu, [facility] TROPONIN I 2020-05-09 15:30:00 Piero Gigi [facility] BASIC METABOLIC PANEL (7) 2020-05-09 15:30:00 Gigi Harry [facility] CBC W/PLT COUNT & AUTO 2020-05-09 15:30:00 Chu [facility] CALCIUM, IONIZED 2020-05-09 12:10:45 Basilio Hodges [facility] BLOOD GAS, ARTERIAL 2020-05-09 12:10:45 [facility] Hodges [facility] SODIUM NA-STAT LAB 2020-05-09 12:10:45 Basilio Hodges [facility] POTASSIUM-STAT LAB 2020-05-09 12:10:45 Basilio Hodges [facility] GLUCOSE-STAT LAB 2020-05-09 12:10:45 Basilio Hodges [facility] HGB/HCT (H&H) - STAT LAB 2020-05-09 12:10:45 Basilio Hodges Perfec to [facility] FUNGUS CULTURE + SMEAR 2020-05-09 11:56:07 Emmett Starks [facility] SURGICALLY OBTAINED 2020-05-09 11:56:07 Emmett Starks [facility] - CULTURE + GRAM STAIN Medical [facility] ter [employer] CULTURE + SMEAR 2020-05-09 11:56:07 Emmett Starks [facility] - (NON-SPUTUM) [facility] FUNGUS CULTURE + SMEAR 2020-05-09 11:28:12 Emmett Starks [facility] SURGICALLY OBTAINED 2020-05-09 11:28:12 Vasile, Emmett Wesley [facility] - CULTURE + GRAM STAIN [facility] [employer] CULTURE + SMEAR 2020-05-09 11:28:12 Emmett Starks [facility] (NON-SPUTUM) [facility] TISSUE EXAM 2020-05-09 11:28:00 Vasile, Emmett Wesley [facility] THORACOSCOPY 2020-05-09 09:37:00 Vasile, Emmett Wesley [facility] - (VATS),DECORTICATION [facility] POCT-GLUCOSE METER 2020-05-09 08:08:00 Emmett Starks [facility] BASIC METABOLIC PANEL (7) 2020-05-09 03:53:00 GulJuan [facility] MAGNESIUM 2020-05-09 03:53:00 Gul, [facility] CBC W/PLT COUNT & AUTO 2020-05-09 03:53:00 Yeni Bass [facility] - DIFFERENTIAL [facility] POCT-GLUCOSE METER 2020-05-08 21:20:00 Emmett Starks [facility] TYPE AND SCREEN, 2020-05-08 21:01:00 Emmett Starks [facility] POCT-GLUCOSE METER 2020-05-08 10:02:00 Emmett Starks [facility] SARS-COV2/RT-PCR ([facility] & 2020-05-08 08:34:00 Yeni Bass I [facility] - REF LABS) [facility] POCT-GLUCOSE METER 2020-05-08 08:18:00 Emmett Starks [facility] XR CHEST 1 VIEW 2020-05-08 07:04:00 Jim Sage [facility] - PORTABLE/BEDSIDE Medical Center H. PYLORI ANTIGEN, STOOL 2020-05-08 04:30:00 Nadiya Harry [facility] BASIC METABOLIC PANEL (7) 2020-05-08 03:38:00 Gul, Juan Carlos [facility] MAGNESIUM 2020-05-08 03:38:00 Gul, [facility] CARBOHYDRATE ANTIGEN 19-9 2020-05-08 03:38:[address] [facility] (CA 19-9) [facility] CBC W/PLT COUNT & AUTO 2020-05-08 03:38:[address] [facility] DIFFERENTIAL [facility] POCT-GLUCOSE METER 2020-05-07 21:02:00 Emmett Starks [facility] CT ABDOMEN/PELVIS WITH & 2020-05-07 15:00:[address] [facility] WITHOUT IV CONTRAST Medical Cent er POCT-GLUCOSE METER 2020-05-07 12:53:00 Emmett Starks [facility] XR CHEST 1 VIEW 2020-05-07 08:07:00 Jim Sage [facility] - PORTABLE/BEDSIDE [facility] Center POCT-GLUCOSE METER 2020-05-07 07:13:00 Emmett Starks [facility] BASIC METABOLIC PANEL (7) 2020-05-07 03:40:00 Guchiquis, [facility] MAGNESIUM 2020-05-07 03:40:00 Charity [facility] CBC W/PLT COUNT & AUTO 2020-05-07 03:40:[address] [facility] DIFFERENTIAL [facility] POCT-GLUCOSE METER 2020-05-06 20:10:00 Emmett Starks [facility] POCT-GLUCOSE METER 2020-05-06 16:33:00 Emmett Starks [facility] POCT-GLUCOSE METER 2020-05-06 11:02:00 Vasile Emmett [facility] XR ABDOMEN / KUB 1 VIEW 2020-05-06 09:33:00 Nadiya Harry [facility] POCT-GLUCOSE METER 2020-05-06 07:24:00 Emmett Starks [facility] XR CHEST 1 VIEW 2020-05-06 06:57:00 Jim Sage [facility] PORTABLE/BEDSIDE [facility] BASIC METABOLIC PANEL (7) 2020-05-06 03:38:00 Gul, [facility] MAGNESIUM 2020-05-06 03:38:00 Gul, [facility] PREALBUMIN 2020-05-06 03:38:00 Gul, [facility] ALBUMIN 2020-05-06 03:38:00 Gul, [facility] PROTEIN, TOTAL 2020-05-06 03:38:00 Gul, [facility] IRON, TIBC, % SAT. 2020-05-06 03:38:[address] [facility] (WITHOUT FERRITIN) [facility] r FERRITIN 2020-05-06 03:38:00 Nadiya Harry [facility] CBC W/PLT COUNT & AUTO 2020-05-06 03:38:00 Yeni Bass [facility] POCT-GLUCOSE METER 2020-05-05 21:25:00 Emmett Starks [facility] POCT-GLUCOSE METER 2020-05-05 16:45:00 Emmett Starks [facility] 2D ECHO W/ DOPPLER 2020-05-05 13:55:02 Jim Sage [facility] (CW/PW/COLOR) [facility] POCT-GLUCOSE METER 2020-05-05 11:51:00 Emmett Starks [facility] POCT-GLUCOSE METER 2020-05-05 07:47:00 Emmett Starks [facility] XR CHEST 1 VIEW 2020-05-05 07:19:00 Jim Sage [facility] PORTABLE/BEDSIDE [facility] BASIC METABOLIC PANEL (7) 2020-05-05 05:18:00 Gul, [facility] MAGNESIUM 2020-05-05 05:18:00 Gul, [facility] PROTEIN, TOTAL 2020-05-05 05:18:00 Chu, [facility] LACTATE DEHYDROGENASE 2020-05-05 05:18:00 Chu, [facility] ([facility]) [facility] CBC W/PLT COUNT & AUTO 2020-05-05 05:18:00 Yeni Bass [facility] - DIFFERENTIAL [facility] POCT-GLUCOSE METER 2020-05-04 20:50:00 Emmett Starks [facility] POCT-GLUCOSE METER 2020-05-04 16:54:00 Emmett Starks [facility] CT CHEST WITHOUT IV 2020-05-04 15:50:00 [facility] CYTOLOGY 2020-05-04 11:17:00 [facility] BODY FLUID CELL COUNT 2020-05-04 11:15:00 Yeni Bass [facility] - WITH DIFFERENTIAL [facility] URINALYSIS W/ REFLEX 2020-05-04 11:15:[address] [facility] URINE [facility] POCT-GLUCOSE METER 2020-05-04 07:28:00 Emmett Starks [facility] XR CHEST 1 VIEW 2020-05-04 06:57:00 Yeni Bass [facility] PORTABLE/BEDSIDE [facility] BASIC METABOLIC PANEL (7) 2020-05-04 04:55:00 [facility] 2020-05-04 04:55:00 Gul [facility] CBC W/PLT COUNT & AUTO 2020-05-04 04:55:00 Yeni Bass [facility] - DIFFERENTIAL [facility] POCT-GLUCOSE METER 2020-05-03 21:00:00 Emmett Starks [facility] POCT-GLUCOSE METER 2020-05-03 16:26:00 Emmett Starks [facility] BODY FLUID CULTURE + GRAM 2020-05-03 13:12:00 Emmett Starks [facility] PROTEIN, TOTAL, PLEURAL 2020-05-03 13:12:00 Emmett Starks [facility] LACTATE DEHYDROGENASE 2020-05-03 13:12:00 Emmett Starks I [facility] - (LD), PLEURAL FLUID Medical [facility] er AMYLASE 2020-05-03 11:23:[facility] 2020-05-03 11:23:00 [facility] BASIC METABOLIC PANEL (7) 2020-05-03 11:23:00 GulJuan Carlos [facility] MAGNESIUM 2020-05-03 11:23:00 GulJuan Carlos [facility] CBC W/PLT COUNT & AUTO 2020-05-03 11:23:00 Shelia [facility] XR CHEST 1 VIEW 2020-05-03 10:24:[address] [facility] PORTABLE/BEDSIDE Medical [place] US DRAINAGE CHEST WITH 2020-05-03 09:45:[address] [facility] TUBE INSERTION [facility] POCT-GLUCOSE METER 2020-05-02 21:08:00 Emmett Starks [facility] CT ABDOMEN/PELVIS WITH IV 2020-05-02 20:40:[address] [facility] CONTRAST [facility] CHEST WITH IV CONTRAST 2020-05-02 20:40:00 Lee Ann Gee [facility] POCT-GLUCOSE METER 2020-05-02 17:01:00 Emmett Starks [facility] POCT-GLUCOSE METER 2020-05-02 12:53:00 Emmett Starks [facility] SARS-COV2/RT-PCR ([facility] & 2020-05-02 07:19:00 Juan Carlos Nash [facility] - REF LABS) [facility] ECG 12-LEAD 2020-05-02 06:10:13 Cekmecelioglu, [facility] ABORH, MANUAL 2020-05-02 03:17:00 Sosa Edwards [facility] MAGNESIUM 2020-05-02 01:30:00 [facility]se[facility] COMPREHENSIVE METABOLIC 2020-05-02 01:30:00 Fannieupper [facility] medical centermarylinseiling [facility] seiling[facility]essica [facility] PANEL [facility] PHOSPHORUS 2020-05-02 01:30:[address] [facility] [facility] HEMOGLOBIN A1C 2020-05-02 01:30:00 [facility] PT/APTT 2020-05-02 01:30:00 [facility] TYPE AND SCREEN, 2020-05-02 01:30:[address] [facility] [facility] AUTOMATED [facility] CBC W/PLT COUNT & AUTO 2020-05-02 01:30:00 [facility] DIFFERENTIAL [facility] XR CHEST 1 VIEW 2020-05-02 00:52:00 [facility] PORTABLE/BEDSIDE [facility] Center Plan of Care Planned Activity Planned Date Details Comments Source Future Scheduled 2021-09-[address] [facility] - Test 00:00:00 malignant neoplasm of Medica l Center colon (procedure) [code = 263581760] Future Scheduled 2020-03-19 INFLUENZA VACCINE (#1) [facility] 00:00:00 [code = INFLUENZA Medical Ce nter VACCINE (#1)] Future Scheduled 2016-03-[address] [facility] - Test 00:00:00 WELLNESS (YEAR 2 or Medical Center FIRST YEAR if no IPPE) [code = MEDICARE ANNUAL WELLNESS (YEAR 2 or FIRST YEAR if no IPPE)] Future Scheduled 2015 PNEUMOCOCCAL 65+ YRS [facility] - Test 00:00:00 (1 of 1 - Medical Center [id number] PCV13) [code = PNEUMOCOCCAL 65+ YRS (1 of 1 - [id number]_Pgbfxzc PCV13)] Encounters Start End Encounter Admission Attending Care Care Encounter Source Date/Time Date/Time Type Type Clinicians Facility Department ID 2020-05-27 2020-05-27 Office Emmett Starks [facility] [id number] 10:28:37 12:23:36 Visit AMBULATOR [id number] Y [id number] Results Test Description Test Time Test Comments Results Result Comments Source Fungus culture + smear 2020-06-07 09:54:00 Test Item Value Reference Range Interpretation Comme nts Result (test code = 6463-4) No fungus isolated in 28 days Fungus Smear (test code = 1406) <1+ budding yeast GREG (test code = GREG) Possible artifact [facility] [id number] 09:54:00 Test Item Value Reference Range Interpretation Comments CULTURE (BEAKER) (test No fungus isolated in code = 1095) 28 days FUNGUS SMEAR (BEAKER) <1+ budding yeast (test code = 1406) Possible artifact seenFUNGUS CULTURE + [id number] 09:50:00 Test Item Value Reference Range Interpretation Comments CULTURE (BEAKER) (test No fungus isolated in code = 1095) 28 days FUNGUS SMEAR (BEAKER) No fungal elements seen (test code = 1406) SARS-CoV2/RT-PCR (Asymptomatic ONLY)2020-05-28 08:24:00 Test Item Value Reference Range Interpretation Comments SARS-COV2/RT-PCR Not Detected Not Detected, (test code = Negative, See 21462-5) external report for linked test SARS-COV-2 [facility] PERFORMING LAB (test code = 05913-7) GREG (test code = Negative results do not GREG) preclude SARS-CoV-2 infection and should not be used as the sole basis for patient management decisions. Negative results must be combined with clinical observations, patient history, and epidemiological information. A false negative result may occur if a specimen is improperly collected, transported or handled. The limit of detection for this assay is 250 copies/mL. This SARS CoV-2 test is a rapid, real-time RT-PCR test intended for the qualitative detection of nucleic acid from SARS-CoV-2 in a nasopharyngeal swab specimen collected from individuals suspected of COVID-19 by their healthcare provider. This test has not been Food and Drug Administration (FDA) cleared or approved and has been [...] of the Act. Fact Sheet for Healthcare Providers:https://www.YouTube/Documents/Xper t%20Xpress%20SARS%20CoV- 2/Fact%20Sheets/3023802 %98XHKO-PEA-5%20HEALTHCA RE%20PROVIDERS%20FACT%20 SHEET.pdf Fact Sheet for Healthcare Patients:https://www.SERPs/Documents/Xpert %20Xpress%20SARS%20CoV-2 /Fact%20Sheets/3023801% 34MXYH-MSS-2%20PATIENT%2 0FACT%20SHEET.pdf Performing Laboratory:[address]/RT-PCR ([facility])2020-05-28 08:24:00 Test Item Value Reference Range Interpretation Comments SARS-COV2/RT-PCR (test Not Detected Not Detected, Negative, code = 9217751) See external report for linked test SARS-COV-2 PERFORMING LAB [facility] (test code = 4436536) Negative results do not preclude SARS-CoV-2 infection and should not be used as the sole basis for patient management decisions. Negative results must be combined with clinical observations, patient history, and epidemiological information. A false negative result may occur if a specimen is improperly collected, transported or handled.The limit of detection for this assay is 250 copies/mL.This SARS CoV-2 test is a rapid, real-time RT-PCR test intended for the qualitative detection of nucleic acid from SARS-CoV-2 in a nasopharyngeal swab specimen collected from individuals suspected of COVID-19 by their healthcare provider.This test has not been Food and Drug Administration (FDA) cleared or approved and has been authorized by FDA under an Emergency Use Authorization (EUA). This EUA will be effective until the declaration that circumstances exist justifying the authorization of the emergency use of in vitro diagnostic tests for detection and/or diagnosis of COVID-19 is terminated under Section 564(b)(2) of the Act or the EUA is revoked under Section 564(g) of the Act.Fact Sheet for Healthcare Pro viders:https://www.Flyr/Documents/Xpert%20Xpress%20SARS%20CoV-2/Fact%20Sh eets/302-3802%46GMBS-WKW-6%20HEALTHCARE%20PROVIDERS%20FACT%20SHEET.pdfFact Sheet for Healthcare Patients:https://www.Artvalue.com/Documents/Xpert%20Xpress%20SARS%20CoV-2/Fact%20Sheets/302-3801%20SARS-COV -2%20PATIENT%20FACT%20SHEET.pdfPerforming Laboratory:[facility], [place] [address]MVC, CHEST, 2 [id number] 12:06:00 Reason for Exam:->Empyema [facility] : 1950 Sex: MFINAL REPORT EXAM: RAD, CHEST, 2 VIEWS, PA and lateralINDICATION: EmpyemaCOMPARISON: Chest x-ray, 05/16/2020 FINDINGS:LINES/TUBES: None LUNGS: There are extensive airspace opacities in the right lung. Less extensive patchy airspace opacities are again seen on the left. PLEURA: Opacity at the right lung base compatible with pleural effusion, increased from last exam. No pneu mothorax. HEART AND MEDIASTINUM: Heart size normal. BONES AND SOFT TISSUES: No acute findings. Surgical anchors again seen in the right humeral head. Upper abdomen unremarkable. IMPRESSION:Stable airspace opacities in both lungs, greater on the right. Small right pleural effusion is increased since last exam. No pneumothorax. Signed: John Junior MDReport Verified Date/Time: 05/27/2020 12:06:04 Reading Location: [facility] Reading Room [address] [place] [address] Electronically signed by: JOHN JUNIOR MDon 05/27/2020 12:06 PMXR Chest 2 [id number] 12:06:00Interface, External Ris In - 05/27/2020 12:08 PM CSTFINAL REPORT EXAM: RAD, CHEST, 2 VIEWS, PA and lateralINDICATION: EmpyemaCOMPARISON: Chest x-ray, 05/16/2020 FINDINGS:LINES/TUB ES: None LUNGS: There are extensive airspace opacities in the right lung. Less extensive patchy airspace opacities are again seen on the left. PLEURA: Opacity at the right lung base compatible with pleural effusion, increased from last exam. No pneumothorax. HEART AND MEDIASTINUM: Heart size normal. BONES AND SOFT TISSUES: No acute findings. Surgical anchors again seen in the right humeral head. Upper abdomen unremarkable. IMPRESSION:Stable airspace opacities in both lungs, greater on the right. Small right pleural effusion is increased since last exam. No pneumothorax. Signed: John Junior MDReport Verified Date/Time: 05/27/2020 12:06:04 Reading Location: [facility] Reading Room [address] [place] [address] [facility] CenterTissu [id number] 11:11:00 Test Item Value Reference Range Interpretation Comments Case Report (test code Surgical Pathology = 104) Report Case: [id number] Authorizing Provider: Emmett Starks MD Collected: 05/09/2020 11:28 AM Ordering Location: [facility] Received: 05/09/2020 03:32 PM PERIOPERATIVE SERVICES Pathologist: Omkar Castellanos MD Specimens: A) - Pleura, RIGHT PARIETAL PLEURA B) - Pleura, RIGHT PARIETAL PLEURA #2 C) - Pleura, VICERAL PLEURA ADDENDUM (test code = [id number] 3381) ct3qzx3WsqOFuzHEeFWrytB UaifIurq93tSE7wK96XP5aE SCvRzK1EYNdswW7Qvk2PWIk PJDycNBwS753w9mdc2zeyuW cfVE3uGmaKMSzQHOkCEfrSQ FqUmGvJzKYF74XZOKDAfXAM YQRZoSWAIjpZL7rWsQJD1LD AWnRKMOJY0PEXYxOIJLZCqQ YAe2XGDKNPBTOQo1RVOLHKK cSXd2NKFRUSmsgyKRxVJQzh mVKAKKKVTX5ODChzeKGUHLB GZ8pORmcEoJELUZBGpJwPMP hclxwYXJcYiBUaGUgZGlhZ2 2zd9liDKEbjQDhsdWykP1ev CPxU2RfTxprRGDhXxEydINd fQ== DIAGNOSIS (test code = s5cwuEQeNOKux0rdGKIotUZ 3220) uZzEwMzNcZnRuYmpcdWMxIH tccnRmMVxlcGljOTIwMFxhb oPtJAUqdLVpU5LwlrbhQFzk FF5oME6hfTrvmSIvqEXiOVL sLoJab8tkz644jXYck7maVN BNdiaklHw7cQaxV37tw4N0V fgxR25zqIXmUHjjbCZhyvmc czIwIEEuIFBBUklFVEFMIFB MRVVSQSwgUklHSFQsIFBMRV RDGSGXU87EGdzkNYRoSF2pT O8BARIYXSYQNQPpUGPOYf9S ZWGDOT9XSIGjRQPTKZ7QRiq oW2gWXWLFJbIOTVMWLHeEZO EyOMEOUUZQZ28ZOP6DTCqwA XJccGFyIEIuIFBBUklFVEFM IFBMRVVSQSwgUklHSFQjMiw rMIsFGKQMD7LJFSs7GZPbfc AgLSAgTUVUQVNUQVRJQyBBR YGPL9OVCcUTXq6QRDodIAEE TUFSWSBTSVRFIFVOREVURVJ FAQ7LXLUsM8LVBODSRT8XBb QpXHBhclxwYXJkXHBhciBDL iBWSVNDRVJBTCBQTEVVUkEs LUMLO43IIVoDOTJNB530IFA hciAgLSAgTUVUQVNUQVRJQy SEKJXRL4VSCoYNAv8LFMdaY FJJTUFSWSBTSVRFIFVOREVU GSYVBK7DBNOmC7ABHETVJC5 UAvFcXLGihf36YNP3LtHmi7 B9VKD0LENqSVFnj6rcKOKyl GFuZzEwMzNcZnRuYmpcdWMx AFUzCfFmj8ltx333bSRlo3q tOWGkQnQ3aXNsMYPmyNCmG2 73SEZkZUrxi6ygi8KtTPHuu BNck7K9ICZEfyuzbHe3zQwl O67hf2A6CthyW4xpKFXaUEA uL5TbIC6bCIVhWfd3QGZ3UD R8LXEqSQVtG6MrOA9aPDJmq HQiOCl9n3oygXpsEBBqLIH1 b2gjJXwbhnTiWF1qwg8acEi 7s5qudwYsTENdXDUipVMLTD RmA2UmlSadDz5aaMc9lUrfE zsmYUB8Szw8VV3gcd07isw8 fUaxNLErhkmkKtB2JRenXIB xzxibLYl1ZKneSPBmdXA3TU FyaXXiV1LfYCFrQD7hwfs2S HC7JCbxXEEpCpY9PANmmQCm WJZciMoyZCgbp930NNR9OgZ bBW0kG3Fbc9X6pL6xvAJfIX XaxDLiXfOqKRHucr0mcXQeY Mkmy9QpXLM2eoX5wFTbxTIp RHGjUiY1MAckAC7iyr00LAO oRXF0pc5bpYTfaDthuaDerV CtVMqmE9OrENDrj960WBKiR 2ZlFQZmn2K8hcSlVnSgHZNo zQM5thK1OYBgYC0gvjhkj5x oOVreJVnzXZRvbhZ2tiD4HW RwlOXsI1LqjA4oNMJvPS0bu qhbr0chWOK5ZKeoEOVzOVU0 WfIgYOJxr3Kznzz5JrHhu6P rlMYhZAqkT62ns857BLOuyy KiB6mxhRAvurdzfPBqaumvR UyjwmC3RGIgARxfsakbEPKs YVprK8loUnGeFZPeeUjcLHr vf2XkDTXhAVLuMvGpzNErWE RaMks9VQTbrBErPSFbBfPxR 5nhwhjkOePCEPXqi0rxX6fa xZXQvHPnQ2SfAKjiqcTvJAh gQCvrDNOiOQV5OP8uASChHK Bhcn19 COMMENT (test code = l2ffaKVyFPImzOQ0FtHfUZP 3352) du3igj0RgjKXmaEFySLodtB PefqZuur04aRY8eJ19MP4jG VMlIlT6BUHbkyI6Sio6ANYc RNZwcKAuT208f0dda0ptoyJ rlSG5uDygIJEbSOFfWYzzGB PmZnSlQT8KUaWJYMT5zH2rg iMydX58AKWtXG6qS9AeN4hx w09sFUnzmUgrGm4oEZjoiDR hrY1ygCIrPfYzgXQaNDEkaF 48x6b5gV7yAIApONObgGF1p wBnSEmoeGYjy1J5DRzwgdFo mE25BINxVOX9kP5airE9ozE kFXUjb6NocGc8NTWag2HoZ7 j3XGUGWThgSUngBXjrAFWrt PEvdFkuRI6edICunl6SPQ6v fsZmTRXpXsilJFI8LYnjvF7 sOoX1eHziHMHcSECxsNOlzH QuAUZ4IPPcv8TstKpndJMgq 7BezY8kmEy6EHaxlUdxEP1b W5Z1aQWuPWAjrmGZHYRsPHJ uZCBDSzIwLiBccGFyXHBhci LTfSOmrE7qlI5niIQdOvdkP POqepVzn13fe1UqK5yslSBb IFBvdGVudGlhbCBwcmltYXJ 8SSEqeGBzEUvjE8u1FZOqcO XxOxhadBLdS9GrZLSnP25rI xecuULhaZZ0tfEniZetwIVw ZSNaX2tpzPUvY5CvEX6ksym jhPYprBwsrgMtDFCedM0cQ3 AvERJkOITgAIZau8koG4ffY GSaqqGxfIJ5bP2qMDpuCUCl S65qaUJpHRWcBBDmRAMsmPM bqXraTRU0oNHphWWvjWSngB BzaXRlLlxwYXJ9 CPT Code(s) (test code j9obwMPyRHOisMS1DwOxIJH = 3357) wp6ixe5LvdFUaeSPeGPczdN KgvsNxgy36yUH3rI02AB2pU SAyKlU7KFJqyxI1Fvq5DCXn KPTmkBIaP080t4dic0wagrL waWI7xMqxQMXrTDRgCPbeOJ EiMpQkDOqzVZFHX2exJVSwG HdoRXMifYNdEHd2UpMprNFe cGFyfQ== CLINICAL HISTORY (test s0osvGPeDAIqwBG0SaGaPHL code = 3356) dw7kmq6EvaQSkdAOuOIvtjT PpikXpce97vTC8oS10CA1qR IFzHcE8HREvejN0Wiz0PDYf NMApfIAuQ320t4oao8mythC tfFH9hVkhQYHlLROcIFcfSO MpAdNiEYR7bFIdNZ6jwYMlR SBccGFyfQ== SPECIMEN SOURCE (test j0lplERaZQNmySR7YfRvTAX code = 3377) jv7yts7XngXBhcHRyPNfinR OkgqJxmu33hVK2eH85WQ8dJ NJiOpF6JXZgfpI1Ebn9MAIc OAXbfWGbI919y8apr1bjotN lgKB5cXznUKUdTLBtAGxfWN PuRlIfJKjdLbColiToEy3wZ GxldXJhXHBhcn0= GROSS DESCRIPTION x8xopECaMQDauAW4NxMqYQD (test code = 3366) kn1ibt1IflJTqkAJdNUsmlD RnqpJagf24oIV4cR70AI7kG XHgPpP6BQNcbvA6Huh5KRMz UYWsgUUbV787k3ejc8tzuxX cpHO7sUtgPODcIDOeYJluWK QrHbWaYC8zKxWlQCv4NSAmw C6aRt2fiLJbtB9myCGiRBrk TTF1zQLpGUZpTCQzSROiTS9 1A6YrjxCkKLquIOHzFPMmbN 3cLV11qSUotuBcvcRgEtXsE 5j9HHPtiyfohVKtQZEsXDSr YSIgaXMgYSAyLjUgeCAxLjQ qjTInGrMvK58rD5AkwL28qQ i4SVXyuTFrt73xmORvDZ8im BEuc02szVD0cUIxrJUyVTif qHYqGAvuPYIajSwxQPp2YXW 5Ll8hlBVeREFbucGDJM3rCM XkeihwEQUsHx9uGdFbSXv9J HXpyG3bJe8npJLxvK4hqZBz KNntMJK8jQQvFJFkNFGkOGW uHJ99A7FlwfBfTBdtARIhMH IrhJ3eGC14lPAiezVthsDaA hYiJ5e6SJMlphntnKYqHRSp EKTyFBWhKqRwgMGpKRK2QkW idOI7CoDszMYjNjCsL87hZN ghxmNtDFHeDE9uAYudIUcmg 5tfeEUbVHNdM2XfpYbaxDWs p0NgvEFpxKEtKtkfjm8hJQ5 aqvBll6UxCHZxy1X5RJ4cOc OldlRvMU42NYIvduUfx6Drq HzpdnLhNDFoHYG4Ow4mkHYm MGWrtcJXKB7CRc0tGIeqARA kjHBiZXUtKNWwU7RtbvSgWF axGDLbqx9blRrwDDhhCwHiH RZjy8o7mMF9uPBueZA5mZIp mKyaEB9foZYrKKMfO9Aua6f eueYstK7rXKLvDU7oZCV1eP RlNGFmeCTpkKH7sdVqCXoqB CSpRw7wAOtyJs28NTvaUK5t UBMoQKbiUYcxt8dwmFWnCQP oB7TzqCtveWWqd4AwzLTueE SmYppdhr9xVC9zmvCur0OvA ZRxy5T6VY9kTjFuzqYtEF51 SVYoazCxh5TmeGalpfNmBIX kAPC0Ed5piJEbAZTkogKFTX 4OKx4rCFEOB4OaATyoWHX4 MICROSCOPIC l7ixdXUgRHMyjUF8SmXrKSP DESCRIPTION (test code gy2hjk0IdvZVuaVXrGHomxY = 3371) LgwhPyxp36cVS6dV41IX9fA USgBjH4KDLlzkW5Wye9DIEs FEVasNIaI343u2yhr5rhyaN dlLH5dBvtYRInFYKoTXwqPH IwHpBlKXIwMz7vnJKoLkhzK XJccGFyfQ== SPECIAL STUDIES (test u3khfKTcCBGsi0vwOQZtfNI code = 3376) uZzEwMzNcZnRuYmpcdWMxIH gcufTxPVcsw4YsR6ZnXrArK FxhbnNpXGRlZmxhbmcxMDMz DSJ7dzEmFLDuUPvqTNRiFEj wZo0fnXAxeKofBdIuJSEyy3 drnoTCsnilkWn7r0thHEExA cC8mBHaJOhbU2fpavOifMIp A5RtiOHvaTb7z0qrHlZpQhK 4iALbIZjmM7noysCtrLOdIK TdUZd6oK62OFAslM1ykOJnK XqcgqNsOiG9OZguSKEkMrA6 VNBfeTXkKLPtV3ktGDAnWSb pKPMwLZsseTPcEID2uJetv0 A0dPKoaPGdhJbsKjTbWpPeX jCFi3OxPMs6cCshJ7WkOCAs NvY7gMCiZRMwVIsjVORdSPE akvM2qHybluRqv69vrXUaMO YwXGZzMjBcbGkwXHJpMCBDb 7OoqDavXJQ1oHr5zUjcUpjf LVC9Uho5KY2kiy27cly7oZx kBETnmotaAqH1FUqjOUUrng fyYFq8GXtjUGUwbWC9XMTji CPoB3CqKREeOB2qkdp3JMD4 KZimCIFqXcA9LEIwvCQkMPV doCbjMIwui248LUL8NeUeSQ 2pX8Qmb8D1nV7uuQUqSJVmh QLcExDzNALfze2odIXqLBdi b6LgGPO4tjN9rVOhgSYnQBI zON64Zqvax2EzWggxx1IeW0 7bfLT3VWpzp9hwUJ8zLdN9k uFfRLlao7mcyD3bUdY2OSal DS5yTD3iSXOcjW8ldydjVLX nYnJkcmhlYWRccGdicmRyZm 2yjAlfFXX8OErnA2eilX6wO gX7EZhdV1xesC9nGNi6VYdp jVN2YHMsmK7gVL3penbzf0m aABugPSftRAFptzP7xfO9OI HecPQtY2EecN8kNIVaEP7cw rgxw8hkOGP6SXjpLYBdYIZ7 TxEoAZBel3Uwvaj3PyHft3L ohKNbNItyX95jj536UUCznm HdB2knjYRmmjdzqHQncilhA LkukoF5REHzNBFrXNraEQWf XGZzMjJcbGFuZzEwMzNcaGl jaFxmMVxkYmNoXGYxXGxvY2 hjShVbL0WsXMHrSyIkZPbmU HupvOQolQCfvSL7bP1gZQ5p XPZsiAJvN8PrMNGwfxUwbPW pCSZ2gBTbuMZoOW8oHQxnhK Qoa2iti9XcE4nfaUfeuKI9B K2qBKRiDHWvEUaqe3PfmS7v LlxwbGFpblxmMVxmczIyXGx xaeoqBCKiRIfiT3iwWvBkDO XeiYpkFLhfn8IsESLhSSFwM llbldMjRDz2otWkIASzgljc SUWmpXbuzJ6uLlEoRcOpTlm kAJ9nRXVlF0souQLcESJyGD RhS8vzTfRlqY9usHrrLSvdT bFaKcEpMpWXm499jn4kWRXe pEHyhdYEtBXapE5qFKrmESi rZEtonPTeLEklh9tsZCHzz4 l5dDFpFOZcckNwf9hhLAslj wAsIZCubKPgwXPtZYNwg84r QCbfvAbvuHslLVEuj0TvhCi ae3IjHpDvVHpho0SkP44wrW JvbCBzbGlkZXMgcnVuIGFsb 47tj1zePLRcNxX4kWUtvMB3 mYJvyOObm1JjiKfqNIObd0q uJVEbvt2uyxfgvSCtw0QvpU 5pbmcuIEludGVybmFsIHBvc 5h7lUOiLRAvLIFnEIwnbPx1 GOLzp105bj6aiiK0rICjXOO 2YWlsYWJsZSBhcmUgZXZhbH VhdGVkXHBsYWluXGYxXGZzM jJcbGFuZzEwMzNcaGljaFxm OCiqTsKpRQAeVDueG4orAuT vM7ReJLChRePjmJWbI0brcM FyXHBsYWluXGYxXGZzMjJcb GFuZzEwMzNcaGljaFxmMVxk OiXfEVFlQHdpB7jtLqKbC0D yXGZzMjIgIFxwbGFpblxmMV xmczIyXGxhbmcxMDMzXGhpY 0wlFgHkMTLqcWlhQEdme4Vz YNThUMIcRmmdcbIkLPu8caP oXHBhclxwbGFpblxmMVxmcz WrSWvhvtghPHMeEDxfK0frF iKaEWKvfOkkBEgqj6GrEEMm OYOiVfghjsXkTRfhlXGkz4b xf0DmC1wopCtjkBC5DLUrK7 kjkFGemJN6DXO0sS1hSLzmy fAhHWYqv8XdCJZgMQZvMsD7 aR6tSDU7WmNAnXkkUFMuWCw uXGYxXGZzMjJcbGFuZzEwMz NcaGljaFxmMVxkYmNoXGYxX JxtT5gsUcEsU9GwNONxPuCq iRjfHTrnKXk4CkjlkOFhdnm mMVxmczIyXGxhbmcxMDMzXG puW7bqHaKwNHBdwJxeNXcwu 2NoXGYxXGNmMlxmczIyIHMg OVEhvAMeeJDVWV80IYOvZMJ scMydyQ2yoNVOECQkajQ4i9 N7MXvjRJFsJQt3OGufluQjK AQjcX9pMSSlHT9uUTc2hkNw KXPhj7CtIW2yGXQvcJKyCGC 1ETWnd5UtO4Lhr1MwYWQsGA Lnuz0gccLyYyVAjRUmHIBzq x17KVLlWH9tD3nhAPLyZDOv ynQnxZZem1VsORHcdZC6gSJ mLS6HLiMSt27dXPFlURNAch BhQUXbwOmmrBE3kbB0vH4dS iBUaGUgRkRBIGhhcyBkZXRl tu8rfzPfSFRwCTHat2BzqRO kqKMaxuHkP5Nxy7TzCIZdki 28OGnxiHDzyt66CY9rT9Kus 0XjpC6bNSegOZLuq5JdoEXc cQJkJBGgw2OpY6vcimymHSh opUYreH3ySNUhDDu5YPYtf2 WwIYVqx3ThRwBlwuVaMCXaC DFsAUOrvE67QJM8lAzjbRqh ioYbPE8aANNeurAeHMQjNNQ ifK6sKEwokhRrTPUrupT0x6 N9TGotRPJakfVqBjvyKGE5g mSedgY1rSTdF1hicfxwRSpd FCXlc7BsfH1utILLsAQpn3O xnDQobMULmHDiNX6cdnLtEX 4bRIY1AVjxFDKYIYHiKTjqI EPmVKC4USviYebxQUP7teEq NPEqc1VmEZirT1adP76zrUk zvLt2bLNmoRiudRZeaGWpPZ NicpG7e6U3IVRkg8YjarknO HBsYWluXGYyXGZzMjJcbGFu ZzEwMzNcaGljaFxmMlxkYmN qJZTsAAhaV7xcIrTiLsHsYm hjDIM8gA== [facility] [id number] 11:11:00Surgical Pathology Report Case: [id number] Authorizing Provider: Emmett Starks MD Collected: 05/09/2020 11:28 AM Ordering Location: [facility] Received: 05/09/2020 03:32 PM PERIOPERATIVE SERVICES Pathologist: Omkar Castellanos MD Specimens: A) - Pleura, RIGHT PARIETAL PLEURA B) -Pleura, RIGHT PARIETAL PLEURA #2 C) - Pleura, VICERAL PLEURA REASON FOR ADDENDUM: TOREPORT IMMUNOSTAIN PERFORMED AT [facility] LABORATORYRESULT:NAPSIN-A: NEGATIVE.The diagnosis remains unchanged.Addendum electronically signed by Omkar Castellanos MD on 05/22/2020 at 11:11 AMA. PARIETAL PLEURA, RIGHT, PLEURECTOMY: - METASTATIC ADENOCARCINOMA, PRIMARY SITE UNDETERMINED (SEE COMMENT)B.PARIETAL PLEURA, RIGHT#2, PLEURECTOMY: - METASTATIC ADENOCARCINOMA, PRIMARY SITE UNDETERMINED (SEE COMMENT)C. VISCERAL PLEURA, DECORTICATION: - METASTATIC ADENOCARCINOMA, PRIMARY SITE UNDETERMINED (SEE COMMENT) Signing Pathologist Direct Phone Line: [phone] signed by Omkar Castellanos MD on 05/14/2020 at 12:16 PMA-C. Sections show adenocarcinoma with focal mucinous features involving the pleura. Immunostains show the tumor to be positive for CK7, CDX2(weak, patchy), Napsin-A(nonspecific staining; will be repeated at [facility] laboratory); while negative for TTF1 and CK20. The immunoprofile is non- specific. Potential primary sites include lung, pancreatico-biliary tract,upper GI tract amongst others. Clinical and radiologic correlation is recommended to determine the primary site.[id number] empyema A, B and C. PleuraA. Received in formalin labeled with the patient's name, accession number and "right parietal pleura" is a 2.5 x 1.4 x 0.2 cm benton-white fibromembranous soft tissue, which is entirely submitted in A1. B. Received in formalin labeled with the patient's name, accession number and "right parietal pleura #2" is a 6.3 x 4.0 x 1.0 cm aggregate of benton-white, focally hemorrhagic fibromembranous tissue. Telephone Interceptor Operator sections are submitted in B1-B3. C. Received in formalin labeled with the patient's name, accession number and "visceral pleura"is a 6.2 x 3.5 x 0.3 cm benton-white, focally hemorrhagic fibromembranous tissue. Telephone Interceptor Operator sections are submitted in C1-C3. PA/pl Performed.The interpretation of this case included the use of immunohistochemistry or special stains.Control Slides Examined: In-house known positive controls were evaluated along with the test tissue. These control slides run alongside of the patients sample show appropriate staining. Internal positive and negative controls when available are evaluated Immunohistochemistry technical testing was performed at [facility], Pathology Laboratory where it was developed and its performance characteristics were determined. It has not been cleared or approved by the U.S. Food and Drug Administration. The FDA has determined that such clearance or approval is not necessary. The test is used for clinical purposes. It should not be regarded as investigational or for research. This laboratory is certified under the Clinical Laboratory Improvement Amendments of 1988 (CLIA-88) as qualified to perform high complexity clinical laboratory testing.RAD, CHEST, 1 VIEW, NON [id number] 12:35:00Reason for exam:->[facility]ST[facility] : 1950 Sex: MFINAL REPORT RAD, CHEST, 1 VIEW, NON DEPT INDICATION: CT removal COMPARISON: Prior day's exam FINDINGS: Portable frontal view of the chest. IMPRESSION: Support Lines: Interval removal of chest tube Lungs and pleura: Unchanged airspace and pleural opacities. No pneumothorax.Heart and mediastinum: Stable contours. Stable surgical changes.Additional findings: None. Signed: Yeni Crabtree Verified Date/Time: 05/16/2020 12:35:56 Reading Location: [facility] Radiology Reading Room XR chest 1 view portable / bedside 2020-05-16 12:35:00Interface, External Ris In - 05/16/2020 12:38 PM CDTFINAL REPORT RAD, CHEST, 1 VIEW, NON DEPT INDICATION: CT removal COMPARISON: Prior day's exam FINDINGS: Portable frontal view of the chest. IMPRESSION: Support Lines: Interval removal of chest tube Lungs and pleura: Unchanged airspace and pleural opacities. No pneumothorax.Heart and mediastinum: Stable contours. Stable surgical changes.Additional findings: None. Signed: Yeni Buckley Verified Date/Time: 05/16/2020 12:35:56 Reading Location: [facility] Radiology Reading [facility] [id number] 11:54:00 Test Item Value Reference Range Interpretation Comments POC-Glucose Meter (test 120 mg/dL 70-110 H : TE STED AT [facility] code = 1538) [address] [facility], 770 30: Stove Mounter/Techni sherri ID = [id number] for ZORAN SPENCER Lab Interpretation (test Abnormal code = 06011-3) [facility] [id number] 11:54:00 Test Item Value Reference Range Interpretation Comments POC-GLUCOSE METER 120 mg/dL 70-110 H : TESTED A T [facility] 6720 (BEAKER) (test code = ZANE Maynard [facility], 1538) [address]: Stove Mounter/Techni sherri ID = [id number] for ZORAN HERRMANN POCT-GLUCOSE [id number] 07:37:00 Test Item Value Reference Range Interpretation Comments POC-GLUCOSE METER 107 mg/dL 70-110 : TESTED A T [facility] 67[address] (BEAKER) (test code = ZANE Maynard [facility], 1538) [address]25: Stove Mounter/Techni sherri ID = [id number] for ZORAN HERRMANN CBC with platelet count + automated [id number] 07:17:00 Test Item Value Reference Range Interpretation Comments WBC (test code = 6690-2) 9.6 3.5- 10.5 K/L RBC (test code = 789-8) 3.80 4.63- 6.08 M/L L MCHC (test code = 786-4) 30.6 32.3- 36.5 GM/DL L Hematocrit (test code = 4544-3) 31.7 % 40.1-51 L MCV (test code = 787-2) 83.4 fL 79-92.2 MCH (test code = 785-6) 25.5 pg 25.7-32.2 L RDW (test code = 788-0) 15.9 % 11.6-14.4 H Platelets (test code = 777-3) 348 150- 450 K/CU MM MPV (test code = 08734-2) 7.9 fL 9.4-12.4 L nRBC (test code = 413) 0 0- 0 /100 WBC % Neutros (test code = 429) 66 % % Lymphs (test code = 430) 19 % % Monos (test code = 431) 13 % % Eos (test code = 432) 1 % % Baso (test code = 437) 0 % # Neutros (test code = 670) 6.34 1.78- 5.38 K/L H # Lymphs (test code = 414) 1.79 1.32- 3.57 K/L # Monos (test code = 415) 1.26 0.30- 0.82 K/L H # Eos (test code = 416) 0.07 0.04- 0.54 K/L # Baso (test code = 417) 0.03 0.01- 0.08 K/L Immature Granulocytes-Relative 1 % 0-1 (test code = 2801) Lab Interpretation (test code = Abnormal 69066-5) [facility]/PLT [facility] & AUTO [id number] 07:17:00 Test Item Value Reference Range Interpretation Comments WHITE BLOOD CELL COUNT (BEAKER) 9.6 K/ L 3.5-10.5 (test code = 775) RED BLOOD CELL COUNT (BEAKER) 3.80 M/ L 4.63-6.08 L (test code = 761) HEMOGLOBIN (BEAKER) (test code = 9.7 GM/DL 13.7-17.5 L 410) HEMATOCRIT (BEAKER) (test code = 31.7 % 40.1-51.0 L 411) MEAN CORPUSCULAR VOLUME (BEAKER) 83.4 fL 79.0-92.2 (test code = 753) MEAN CORPUSCULAR HEMOGLOBIN 25.5 pg 25.7-32.2 L (BEAKER) (test code = 751) MEAN CORPUSCULAR HEMOGLOBIN CONC 30.6 GM/DL 32.3-36.5 L (BEAKER) (test code = 752) RED CELL DISTRIBUTION WIDTH 15.9 % 11.6-14.4 H (BEAKER) (test code = 412) PLATELET COUNT (BEAKER) (test 348 K/CU MM 150-450 code = 756) MEAN PLATELET VOLUME (BEAKER) 7.9 fL 9.4-12.4 L (test code = 754) NUCLEATED RED BLOOD CELLS 0 /100 WBC 0-0 (BEAKER) (test code = 413) NEUTROPHILS RELATIVE PERCENT 66 % (BEAKER) (test code = 429) LYMPHOCYTES RELATIVE PERCENT 19 % (BEAKER) (test code = 430) MONOCYTES RELATIVE PERCENT 13 % (BEAKER) (test code = 431) EOSINOPHILS RELATIVE PERCENT 1 % (BEAKER) (test code = 432) BASOPHILS RELATIVE PERCENT 0 % (BEAKER) (test code = 437) NEUTROPHILS ABSOLUTE COUNT 6.34 K/ L 1.78-5.38 H (BEAKER) (test code = 670) LYMPHOCYTES ABSOLUTE COUNT 1.79 K/ L 1.32-3.57 (BEAKER) (test code = 414) MONOCYTES ABSOLUTE COUNT (BEAKER) 1.26 K/ L 0.30-0.82 H (test code = 415) EOSINOPHILS ABSOLUTE COUNT 0.07 K/ L 0.04-0.54 (BEAKER) (test code = 416) BASOPHILS ABSOLUTE COUNT (BEAKER) 0.03 K/ L 0.01-0.08 (test code = 417) IMMATURE GRANULOCYTES-RELATIVE 1 % 0-1 PERCENT (BEAKER) (test code = 2801) Basic Metabolic [id number] 05:35:00 Test Item Value Reference Range Interpretation Comments Sodium (test code = 137 meq/L 899-206 9624-2) Potassium (test code = 4.2 meq/L 3.5-5.1 Speci men slightly 2823-3) hemolyzed Chloride (test code = 103 meq/L 98-107 2075-0) CO2 (test code = 21 meq/L 22-29 L 2028-9) BUN (test code = 11 mg/dL 7-21 3094-0) Creatinine (test code 0.72 mg/dL 0.57-1.25 Specim en slightly = 2160-0) hemolyzed Glucose (test code = 103 mg/dL 70-105 2345-7) Calcium (test code = 8.7 mg/dL 8.4-10.2 53653-8) EGFR (test code = 108 mL/min/1.73 [place] [address]-4) NOT ACCURATE CREATININE CLEARANCE IN PREDICTING GLOMERULAR FILTRATION RATE . ESTIMATED GFR I S NOT APPLICABLE FOR DIALYSIS PATIENTS. GREG (test code = GREG) Stove Mounter ID - BRYAN Lab Interpretation Abnormal (test code = 35189-0) [facility]00 Test Item Value Reference Range Interpretation Comments Magnesium (test code = 1.8 mg/dL 1.6-2.6 Speci men 24301-6) slightly hemolyzed GREG (test code = GREG) Stove Mounter ID - BRYAN Lab Interpretation Normal (test code = 71549-2) [facility] 05:35[facility]00 Test Item Value Reference Range Interpretation Comments MAGNESIUM (BEAKER) 1.8 mg/dL 1.6-2.6 Specimen slightly (test code = 627) hemolyzed Stove Mounter ID - BRYAN MBASIC METABOLIC [id number] 05:35:00 Test Item Value Reference Range Interpretation Comments SODIUM (BEAKER) 137 meq/L 136-145 (test code = 381) POTASSIUM (BEAKER) 4.2 meq/L 3.5-5.1 Specimen slightly (test code = 379) hemolyzed CHLORIDE (BEAKER) 103 meq/L 98-107 (test code = 382) CO2 (BEAKER) (test 21 meq/L 22-29 L code = 355) BLOOD UREA NITROGEN 11 mg/dL 7-21 (BEAKER) (test code = 354) CREATININE (BEAKER) 0.72 mg/dL 0.57-1.25 Specimen slightly (test code = 358) hemolyzed GLUCOSE RANDOM 103 mg/dL 70-105 (BEAKER) (test code = 652) CALCIUM (BEAKER) 8.7 mg/dL 8.4-10.2 (test code = 697) EGFR (BEAKER) (test 108 mL/min/1.73 ESTIM ATED GFR IS code = 1092) sq m NOT ACCURATE CREATININE CLEARANCE IN PREDICTING GLOMERULAR FILTRATION RATE . ESTIMATED GFR I S NOT APPLICABLE FOR DIALYSIS PATIEN TS. Stove Mounter ID - BRYAN MRAD, CHEST, 1 VIEW, NON [id number] 04:47:00Reason for exam:->chest tube [facility] : 1950 Sex: MFINAL REPORT CLINICAL INDICATION: Chest tube Comparison: 05/15/2020 The cardiomediastinal contours are stable. Central pulmonary vascular prominence and right greater than left parenchymal and pleural opacities are unchanged. There is no pneumothorax. A right chest tube remains in place. Signed: Jaxon Riosepkodi Verified Date/Time: 05/16/2020 04:47:16 POCT-GLUCOSE METER 2020-05-15 22:09:00 Test Item Value Reference Range Interpretation Comments POC-GLUCOSE METER 104 mg/dL 70-110 : TESTED A T [facility] 67[address] (GUNNER) (test code = ZANE [place], 1538) [address]: Stove Mounter/Techni sherri ID = [id number] for Negrita Gabriel POCT-GLUCOSE [id number] 16:44:00 Test Item Value Reference Range Interpretation Comments POC-GLUCOSE METER 140 mg/dL 70-110 H : TESTED A T [facility] [address] (GUNNER) (test code = ZANE May[place], 1538) [address]: Stove Mounter/Techni sherri ID = [id number] for LISA ENCARNACION ECG 12 [id number] 13:45:03Interface, External Ris In - 05/15/2020 1:45 PM CDTVentricular Rate 91 BPMAtrial Rate 91 BPMP-R Interval 136 msQRS Duration 68 msQ-T Interval 364 msQTC Calculation(Elin) 447 msP Burnett 41 degreesR Burnett 11 degreesT Burnett 26 degreesSinus rhythm with Premature supraventricular complexesOtherwise normal ECGWhen compared with ECG of 09-MAY-2020 15:59,Previous ECG has undetermined rhythm, needs reviewConfirmed by MD Terrence, Froy ([id number]) on 05/15/2020 1:45:01 [facility], 1 V[facility], NON [id number] 13:06:00Reason for exam:->CT clampedST[facility] : 1950 Sex: MFINAL REPORT RAD, CHEST, 1 VIEW, NON DEPT INDICATION: CT clamped COMPARISON: Prior day's exam FINDINGS: Portable frontal view of the chest. IMPRESSION: Support Lines: Rightchest tube. Lungs and pleura: Bibasilar airspace disease, slightly decreased in the interim small right basilar pneumothorax.Heart and mediastinum: Stable contours. Stable surgical changes.Additional findings: None. Signed: Yeni Buckley Verified Date/Time: 05/15/2020 13:06:55 Reading Location: [facility] Radiology Reading Room POCT-GLUCOSE [id number] 11:37:00 Test Item Value Reference Range Interpretation Comments POC-GLUCOSE METER 144 mg/dL 70-110 H : TESTED A T [facility] 6720 (BEAKER) (test code = [facility] [employer] [facility], 1538) [address]: Stove Mounter/Techni sherri ID = [id number] for DE NNIS, LISA POCT-GLUCOSE [id number] 07:41:00 Test Item Value Reference Range Interpretation Comments POC-GLUCOSE METER 134 mg/dL 70-110 H : TESTED A T [facility] 6720 (BEAKER) (test code = [employer] [facility], 1538) [address]: Stove Mounter/Techni sherri ID = [id number] for DE NNIS, LISA BASIC METABOLIC [id number] 05:01:00 Test Item Value Reference Range Interpretation Comments SODIUM (BEAKER) 139 meq/L 136-145 (test code = 381) POTASSIUM (BEAKER) 4.0 meq/L 3.5-5.1 (test code = 379) CHLORIDE (BEAKER) 102 meq/L 98-107 (test code = 382) CO2 (BEAKER) (test 26 meq/L 22-29 code = 355) BLOOD UREA NITROGEN 11 mg/dL 7-21 (BEAKER) (test code = 354) CREATININE (BEAKER) 0.77 mg/dL 0.57-1.25 (test code = 358) GLUCOSE RANDOM 131 mg/dL 70-105 H (BEAKER) (test code = 652) CALCIUM (BEAKER) 8.6 mg/dL 8.4-10.2 (test code = 697) EGFR (BEAKER) (test 100 mL/min/1.73 ESTIM ATED GFR IS code = 1092) sq m NOT ACCURATE CREATININE CLEARANCE IN PREDICTING GLOMERULAR FILTRATION RATE . ESTIMATED GFR I S NOT APPLICABLE FOR DIALYSIS PATIEN TS. Stove Mounter ID - [id number] 05:01:00 Test Item Value Reference Range Interpretation Comments MAGNESIUM (BEAKER) (test code = 1.7 mg/dL 1.6-2.6 627) Stove Mounter ID - EDASICBC W/PLT COUNT & AUTO [id number] 04:28:00 Test Item Value Reference Range Interpretation Comments WHITE BLOOD CELL COUNT (BEAKER) 6.5 K/ L 3.5-10.5 (test code = 775) RED BLOOD CELL COUNT (BEAKER) 3.31 M/ L 4.63-6.08 L (test code = 761) HEMOGLOBIN (BEAKER) (test code = 8.6 GM/DL 13.7-17.5 L 410) HEMATOCRIT (BEAKER) (test code = 27.8 % 40.1-51.0 L 411) MEAN CORPUSCULAR VOLUME (BEAKER) 84.0 fL 79.0-92.2 (test code = 753) MEAN CORPUSCULAR HEMOGLOBIN 26.0 pg 25.7-32.2 (BEAKER) (test code = 751) MEAN CORPUSCULAR HEMOGLOBIN CONC 30.9 GM/DL 32.3-36.5 L (BEAKER) (test code = 752) RED CELL DISTRIBUTION WIDTH 15.5 % 11.6-14.4 H (BEAKER) (test code = 412) PLATELET COUNT (BEAKER) (test 337 K/CU MM 150-450 code = 756) MEAN PLATELET VOLUME (BEAKER) 7.9 fL 9.4-12.4 L (test code = 754) NUCLEATED RED BLOOD CELLS 0 /100 WBC 0-0 (BEAKER) (test code = 413) NEUTROPHILS RELATIVE PERCENT 61 % (BEAKER) (test code = 429) LYMPHOCYTES RELATIVE PERCENT 21 % (BEAKER) (test code = 430) MONOCYTES RELATIVE PERCENT 15 % (BEAKER) (test code = 431) EOSINOPHILS RELATIVE PERCENT 1 % (BEAKER) (test code = 432) BASOPHILS RELATIVE PERCENT 0 % (BEAKER) (test code = 437) NEUTROPHILS ABSOLUTE COUNT 3.96 K/ L 1.78-5.38 (BEAKER) (test code = 670) LYMPHOCYTES ABSOLUTE COUNT 1.33 K/ L 1.32-3.57 (BEAKER) (test code = 414) MONOCYTES ABSOLUTE COUNT (BEAKER) 0.96 K/ L 0.30-0.82 H (test code = 415) EOSINOPHILS ABSOLUTE COUNT 0.09 K/ L 0.04-0.54 (BEAKER) (test code = 416) BASOPHILS ABSOLUTE COUNT (BEAKER) 0.02 K/ L 0.01-0.08 (test code = 417) IMMATURE GRANULOCYTES-RELATIVE 1 % 0-1 PERCENT (BEAKER) (test code = 2801) POCT-GLUCOSE [id number] 21:59:00 Test Item Value Reference Range Interpretation Comments POC-GLUCOSE METER 129 mg/dL 70-110 H : TESTED A T [facility] 6720 (BEAKER) (test code = [facility], 1538) [address]: Stove Mounter/Techni sherri ID = [id number] for Negrita Gabriel POCT-GLUCOSE [id number] 16:59:00 Test Item Value Reference Range Interpretation Comments POC-GLUCOSE METER 132 mg/dL 70-110 H : TESTED A T [facility] 67[address] (BEAKER) (test code = [facility], 1538) [address]: Stove Mounter/Techni sherri ID = [id number] for LISA ENCARNACION RAD, CHEST, 1 VIEW, NON [id number] 10:33:00Reason for exam:->Chest [facility] 1950 Sex: MFINAL REPORT RAD, CHEST, 1 VIEW, NON DEPT INDICATION: Chest tube COMPARISON: 05/13/2020 FINDINGS: Portable frontal view of the chest. IMPRESSION: Support Lines: Right chest tube. Lungs and pleura: Bibasilar airspace disease, slightly decreased in the interim small right basilar pneumothorax.Heart and mediastinum: Stable contours. Stable surgical changes.Additional findings: None. Signed: Yeni Buckleyeport Verified Date/Time: 05/14/2020 10:33:42 Reading Location:[facility] Radiology Reading Room BASIC METABOLIC [id number] 04:08:00 Test Item Value Reference Range Interpretation Comments SODIUM (BEAKER) 139 meq/L 136-145 (test code = 381) POTASSIUM (BEAKER) 4.2 meq/L 3.5-5.1 (test code = 379) CHLORIDE (BEAKER) 102 meq/L 98-107 (test code = 382) CO2 (BEAKER) (test 28 meq/L 22-29 code = 355) BLOOD UREA NITROGEN 12 mg/dL 7-21 (BEAKER) (test code = 354) CREATININE (BEAKER) 0.72 mg/dL 0.57-1.25 (test code = 358) GLUCOSE RANDOM 96 mg/dL 70-105 (BEAKER) (test code = 652) CALCIUM (BEAKER) 9.1 mg/dL 8.4-10.2 (test code = 697) EGFR (BEAKER) (test 108 mL/min/1.73 ESTIM ATED GFR IS code = 1092) sq m NOT ACCURATE CREATININE CLEARANCE IN PREDICTING GLOMERULAR FILTRATION RATE . ESTIMATED GFR I S NOT APPLICABLE FOR DIALYSIS PATIEN TS. Stove Mounter ID - [id number] 04:08:00 Test Item Value Reference Range Interpretation Comments MAGNESIUM (BEAKER) (test code = 1.8 mg/dL 1.6-2.6 627) Stove Mounter ID - edasiCBC W/PLT COUNT & AUTO [id number] 03:39:00 Test Item Value Reference Range Interpretation Comments WHITE BLOOD CELL COUNT (BEAKER) 6.6 K/ L 3.5-10.5 (test code = 775) RED BLOOD CELL COUNT (BEAKER) 3.37 M/ L 4.63-6.08 L (test code = 761) HEMOGLOBIN (BEAKER) (test code = 8.9 GM/DL 13.7-17.5 L 410) HEMATOCRIT (BEAKER) (test code = 29.1 % 40.1-51.0 L 411) MEAN CORPUSCULAR VOLUME (BEAKER) 86.4 fL 79.0-92.2 (test code = 753) MEAN CORPUSCULAR HEMOGLOBIN 26.4 pg 25.7-32.2 (BEAKER) (test code = 751) MEAN CORPUSCULAR HEMOGLOBIN CONC 30.6 GM/DL 32.3-36.5 L (BEAKER) (test code = 752) RED CELL DISTRIBUTION WIDTH 15.5 % 11.6-14.4 H (BEAKER) (test code = 412) PLATELET COUNT (BEAKER) (test 335 K/CU MM 150-450 code = 756) MEAN PLATELET VOLUME (BEAKER) 8.0 fL 9.4-12.4 L (test code = 754) NUCLEATED RED BLOOD CELLS 0 /100 WBC 0-0 (BEAKER) (test code = 413) NEUTROPHILS RELATIVE PERCENT 59 % (BEAKER) (test code = 429) LYMPHOCYTES RELATIVE PERCENT 24 % (BEAKER) (test code = 430) MONOCYTES RELATIVE PERCENT 14 % (BEAKER) (test code = 431) EOSINOPHILS RELATIVE PERCENT 2 % (BEAKER) (test code = 432) BASOPHILS RELATIVE PERCENT 0 % (BEAKER) (test code = 437) NEUTROPHILS ABSOLUTE COUNT 3.88 K/ L 1.78-5.38 (BEAKER) (test code = 670) LYMPHOCYTES ABSOLUTE COUNT 1.55 K/ L 1.32-3.57 (BEAKER) (test code = 414) MONOCYTES ABSOLUTE COUNT (BEAKER) 0.92 K/ L 0.30-0.82 H (test code = 415) EOSINOPHILS ABSOLUTE COUNT 0.13 K/ L 0.04-0.54 (BEAKER) (test code = 416) BASOPHILS ABSOLUTE COUNT (BEAKER) 0.01 K/ L 0.01-0.08 (test code = 417) IMMATURE GRANULOCYTES-RELATIVE 1 % 0-1 PERCENT (BEAKER) (test code = 2801) POCT-GLUCOSE [id number] 22:24:00 Test Item Value Reference Range Interpretation Comments POC-GLUCOSE METER 178 mg/dL 70-110 H : TESTED A T [facility] 67[address] (BEAKER) (test code = [place], 153) [address]: Stove Mounter/Techni sherri ID = [id number] for JAMIA OSPINA POCT-GLUCOSE [id number] 17:00:00 Test Item Value Reference Range Interpretation Comments POC-GLUCOSE METER 106 mg/dL 70-110 : TESTED A T [facility] 6720 (BEAKER) (test code = ZANE Maynard [facility], 153) [address]: Stove Mounter/Techni sherri ID = [id number] for CHELSEY MIGUEL H. pylori antigen, [id number] 13:25:00 Test Item Value Reference Range Interpretation Comments H. pylori Not detected Not detected Antimicrobial s, proton Antigen (test pump inhibitor s, and code = bismuth 2055617) preparationsinh ibit H. pylori and masoud stion up to two weeks pr ior to testing may cau se false negative result s. If clinically al cated the test should be repeated on a new specim en obtained two we eks after discontinuing t reatment. GREG (test Performing Lab code = GREG) *[facility], [address] [place] [id number] Aquilino Horne MD, PhD [facility] DiegoPOCT-GLUCOSE [id number] 11:42:00 Test Item Value Reference Range Interpretation Comments POC-GLUCOSE METER 169 mg/dL 70-110 H : TESTED A T [facility] 6720 (BEAKER) (test code = ZANE Maynard [facility], 153) [address]: Stove Mounter/Techni sherri ID = [id number] for CHELSEY MIGUEL POCT-GLUCOSE [id number] 10:06:00 Test Item Value Reference Range Interpretation Comments POC-GLUCOSE METER 94 mg/dL 70-110 : TESTED A T [facility] 6720 (BEAKER) (test code = ZANE Maynard [facility], 153) [address]: Stove Mounter/Techni sherri ID = [id number] for CHELSEY MARC RAD, CHEST, 1 VIEW, NON [id number] 07:44:00Reason for exam:->Support LinesShould this be performed at the bedside?->Yes [facility] : 1950 Sex: MFINAL REPORT RAD, CHEST, 1 VIEW, NON DEPT INDICATION: Support Lines COMPARISON: Prior day's exam FINDINGS: Portable frontal view of the chest. IMPRESSION: Support Lines: Right chest tube Lungs and pleura: Bilateral interstitial and airspace disease is unchanged. Small bilateral effusions. Small right lateral and basilar pneumothorax is unchangedHeart and mediastinum: Stable contours. Stable surgical changes.Additional findings: None. Signed: Yeni Buckley MDReport Verified Date/Time: 05/13/2020 07:44:36 Reading Location: [facility] Radiology Reading Room [id number] 04:42:00 Test Item Value Reference Range Interpretation Comments Prealbumin (test code = 8 mg/dL 14-45 L 11882-4) GREG (test code = GREG) Stove Mounter ID - PIAYA L Lab Interpretation (test Abnormal code = 48856-1) [facility] DiegoPREALBUMIN2020-10-26 04:42:00 Test Item Value Reference Range Interpretation Comments PREALBUMIN (BEAKER) (test code = 586) 8 mg/dL 14-45 L Stove Mounter ID - PIAYA [id number] 04:32:00 Test Item Value Reference Range Interpretation Comments Albumin (test code = 2.6 g/dL 3.5-5 L 85865-1) GREG (test code = GREG) Stove Mounter ID - PIAYA L Lab Interpretation (test Abnormal code = 92671-5) [facility] DiegoProtein, [id number] 04:32:00 Test Item Value Reference Range Interpretation Comments Protein, Total (test code 5.3 6.0- 8.3 gm/dL L = 2885-2) GREG (test code = GREG) Stove Mounter ID - JANINA L Lab Interpretation (test Abnormal code = 80274-1) [facility] DiegoBASIC METABOLIC [id number] 04:32:00 Test Item Value Reference Range Interpretation Comments SODIUM (BEAKER) 139 meq/L 136-145 (test code = 381) POTASSIUM (BEAKER) 3.6 meq/L 3.5-5.1 (test code = 379) CHLORIDE (BEAKER) 101 meq/L 98-107 (test code = 382) CO2 (BEAKER) (test 28 meq/L 22-29 code = 355) BLOOD UREA NITROGEN 12 mg/dL 7-21 (BEAKER) (test code = 354) CREATININE (BEAKER) 0.70 mg/dL 0.57-1.25 (test code = 358) GLUCOSE RANDOM 118 mg/dL 70-105 H (BEAKER) (test code = 652) CALCIUM (BEAKER) 8.5 mg/dL 8.4-10.2 (test code = 697) EGFR (BEAKER) (test 111 mL/min/1.73 ESTIM ATED GFR IS code = 1092) sq m NOT ACCURATE CREATININE CLEARANCE IN PREDICTING GLOMERULAR FILTRATION RATE . ESTIMATED GFR I S NOT APPLICABLE FOR DIALYSIS PATIEN TS. Stove Mounter ID - JANINA [id number] 04:32:00 Test Item Value Reference Range Interpretation Comments MAGNESIUM (BEAKER) (test code = 2.1 mg/dL 1.6-2.6 627) Stove Mounter ID - JANINA LPROTEIN, [id number] 04:32:00 Test Item Value Reference Range Interpretation Comments TOTAL PROTEIN (BEAKER) (test code = 5.3 gm/dL 6.0-8.3 L 770) Stove Mounter ID - JANINA [id number] 04:32:00 Test Item Value Reference Range Interpretation Comments ALBUMIN (BEAKER) (test code = 1145) 2.6 g/dL 3.5-5.0 L Stove Mounter ID - JANINA LCBC W/PLT COUNT & AUTO [id number] 04:18:00 Test Item Value Reference Range Interpretation Comments WHITE BLOOD CELL COUNT (BEAKER) 5.8 K/ L 3.5-10.5 (test code = 775) RED BLOOD CELL COUNT (BEAKER) 3.06 M/ L 4.63-6.08 L (test code = 761) HEMOGLOBIN (BEAKER) (test code = 7.9 GM/DL 13.7-17.5 L 410) HEMATOCRIT (BEAKER) (test code = 25.4 % 40.1-51.0 L 411) MEAN CORPUSCULAR VOLUME (BEAKER) 83.0 fL 79.0-92.2 (test code = 753) MEAN CORPUSCULAR HEMOGLOBIN 25.8 pg 25.7-32.2 (BEAKER) (test code = 751) MEAN CORPUSCULAR HEMOGLOBIN CONC 31.1 GM/DL 32.3-36.5 L (BEAKER) (test code = 752) RED CELL DISTRIBUTION WIDTH 15.7 % 11.6-14.4 H (BEAKER) (test code = 412) PLATELET COUNT (BEAKER) (test 316 K/CU MM 150-450 code = 756) MEAN PLATELET VOLUME (BEAKER) 8.3 fL 9.4-12.4 L (test code = 754) NUCLEATED RED BLOOD CELLS 0 /100 WBC 0-0 (BEAKER) (test code = 413) NEUTROPHILS RELATIVE PERCENT 60 % (BEAKER) (test code = 429) LYMPHOCYTES RELATIVE PERCENT 22 % (BEAKER) (test code = 430) MONOCYTES RELATIVE PERCENT 15 % (BEAKER) (test code = 431) EOSINOPHILS RELATIVE PERCENT 2 % (BEAKER) (test code = 432) BASOPHILS RELATIVE PERCENT 0 % (BEAKER) (test code = 437) NEUTROPHILS ABSOLUTE COUNT 3.50 K/ L 1.78-5.38 (BEAKER) (test code = 670) LYMPHOCYTES ABSOLUTE COUNT 1.28 K/ L 1.32-3.57 L (BEAKER) (test code = 414) MONOCYTES ABSOLUTE COUNT (BEAKER) 0.86 K/ L 0.30-0.82 H (test code = 415) EOSINOPHILS ABSOLUTE COUNT 0.11 K/ L 0.04-0.54 (BEAKER) (test code = 416) BASOPHILS ABSOLUTE COUNT (BEAKER) 0.02 K/ L 0.01-0.08 (test code = 417) IMMATURE GRANULOCYTES-RELATIVE 1 % 0-1 PERCENT (BEAKER) (test code = 2801) [id number] 01:29:00 Test Item Value Reference Range Interpretation Comments Potassium (test code = 3.6 meq/L 3.5-5.1 2823-3) GREG (test code = GREG) Stove Mounter ID - JANINA L Lab Interpretation (test Normal code = 50064-8) [facility] DiegoMAGNESIUM2020-10-26 01:29:00 Test Item Value Reference Range Interpretation Comments MAGNESIUM (BEAKER) (test code = 2.1 mg/dL 1.6-2.6 627) Stove Mounter ID - JANINA [id number] 01:29:00 Test Item Value Reference Range Interpretation Comments POTASSIUM (BEAKER) (test code = 3.6 meq/L 3.5-5.1 379) Stove Mounter ID - JANINA LPOCT-GLUCOSE [id number] 22:29:00 Test Item Value Reference Range Interpretation Comments POC-GLUCOSE METER 185 mg/dL 70-110 H : TESTED A T [facility] 6720 (BEAKER) (test code = [facility], 1538) [address]: Stove Mounter/Techni sherri ID = [id number] for EUGENIO BRITT [id number] 17:50:00 Test Item Value Reference Range Interpretation Comments MAGNESIUM (BEAKER) (test code = 1.9 mg/dL 1.6-2.6 627) Stove Mounter ID - [id number] 17:50:00 Test Item Value Reference Range Interpretation Comments POTASSIUM (BEAKER) (test code = 3.8 meq/L 3.5-5.1 379) Stove Mounter ID - DBPOCT-GLUCOSE [id number] 17:50:00 Test Item Value Reference Range Interpretation Comments POC-GLUCOSE METER 210 mg/dL 70-110 H : TESTED A T [facility] 6720 (BEAKER) (test code = [facility], 1538) [address]: Stove Mounter/Techni sherri ID = [id number] for VAISHALI CINTRON Surgically obtained culture + gram [id number] 17:36:00 Test Item Value Reference Range Interpretation Comments Result (test code = 6463-4) No growth Gram Stain Result (test No organisms seen code = 1123) [facility] GRAM [id number] 17:36:00 Test Item Value Reference Range Interpretation Comments CULTURE (BEAKER) (test code No growth = 1095) GRAM STAIN RESULT (BEAKER) <1+ WBCs (test code = 1123) GRAM STAIN RESULT (BEAKER) No organisms seen (test code = 70840) SURGICALLY OBTAINED CULTURE + GRAM [id number] 11:30:00 Test Item Value Reference Range Interpretation Comments CULTURE (BEAKER) (test code No growth = 1095) GRAM STAIN RESULT (BEAKER) <1+ WBCs (test code = 1123) GRAM STAIN RESULT (BEAKER) No organisms seen (test code = 05807) POCT-GLUCOSE [id number] 10:24:00 Test Item Value Reference Range Interpretation Comments POC-GLUCOSE METER 129 mg/dL 70-110 H : TESTED A T [facility] 6720 (BEAKER) (test code = [place], 1538) [address]: Stove Mounter/Techni sherri ID = [id number] for Miles vargas (V), Neena RAD, CHEST, 1 VIEW, NON [id number] 05:32:00Reason for exam:->Evaluate pulmonary congestionShould this be performed at the bedside?->Yes [facility] 1950 Sex: MFINAL REPORT CLINICAL INDICATION: Support lines. Comparison: 05/11/2020 The cardiomediastinal contours are stable. The lung volumes remain low. Central pulmonary vascular prominence and right greater than left parenchymal and right pleural opacities are unchanged. There is no pneumothorax. Right-sided chest tubes remain in place. Signed: Jaxon Rios MDReport Verified Date/Time: 05/12/2020 05:32:56 BASIC METABOLIC [id number] 04:03:00 Test Item Value Reference Range Interpretation Comments SODIUM (BEAKER) 136 meq/L 136-145 (test code = 381) POTASSIUM (BEAKER) 3.5 meq/L 3.5-5.1 (test code = 379) CHLORIDE (BEAKER) 101 meq/L 98-107 (test code = 382) CO2 (BEAKER) (test 25 meq/L 22-29 code = 355) BLOOD UREA NITROGEN 12 mg/dL 7-21 (BEAKER) (test code = 354) CREATININE (BEAKER) 0.69 mg/dL 0.57-1.25 (test code = 358) GLUCOSE RANDOM 133 mg/dL 70-105 H (BEAKER) (test code = 652) CALCIUM (BEAKER) 8.1 mg/dL 8.4-10.2 L (test code = 697) EGFR (BEAKER) (test 113 mL/min/1.73 ESTIM ATED GFR IS code = 1092) sq m NOT ACCURATE CREATININE CLEARANCE IN PREDICTING GLOMERULAR FILTRATION RATE . ESTIMATED GFR I S NOT APPLICABLE FOR DIALYSIS PATIEN TS. Stove Mounter ID - PIAYA [id number] 04:03:00 Test Item Value Reference Range Interpretation Comments MAGNESIUM (BEAKER) (test code = 1.7 mg/dL 1.6-2.6 627) Stove Mounter ID - PIAYA LCBC W/PLT COUNT & AUTO [id number] 03:32:00 Test Item Value Reference Range Interpretation Comments WHITE BLOOD CELL COUNT (BEAKER) 7.8 K/ L 3.5-10.5 (test code = 775) RED BLOOD CELL COUNT (BEAKER) 2.95 M/ L 4.63-6.08 L (test code = 761) HEMOGLOBIN (BEAKER) (test code = 7.7 GM/DL 13.7-17.5 L 410) HEMATOCRIT (BEAKER) (test code = 24.2 % 40.1-51.0 L 411) MEAN CORPUSCULAR VOLUME (BEAKER) 82.0 fL 79.0-92.2 (test code = 753) MEAN CORPUSCULAR HEMOGLOBIN 26.1 pg 25.7-32.2 (BEAKER) (test code = 751) MEAN CORPUSCULAR HEMOGLOBIN CONC 31.8 GM/DL 32.3-36.5 L (BEAKER) (test code = 752) RED CELL DISTRIBUTION WIDTH 15.4 % 11.6-14.4 H (BEAKER) (test code = 412) PLATELET COUNT (BEAKER) (test 311 K/CU MM 150-450 code = 756) MEAN PLATELET VOLUME (BEAKER) 8.5 fL 9.4-12.4 L (test code = 754) NUCLEATED RED BLOOD CELLS 0 /100 WBC 0-0 (BEAKER) (test code = 413) NEUTROPHILS RELATIVE PERCENT 63 % (BEAKER) (test code = 429) LYMPHOCYTES RELATIVE PERCENT 20 % (BEAKER) (test code = 430) MONOCYTES RELATIVE PERCENT 15 % (BEAKER) (test code = 431) EOSINOPHILS RELATIVE PERCENT 1 % (BEAKER) (test code = 432) BASOPHILS RELATIVE PERCENT 0 % (BEAKER) (test code = 437) NEUTROPHILS ABSOLUTE COUNT 4.93 K/ L 1.78-5.38 (BEAKER) (test code = 670) LYMPHOCYTES ABSOLUTE COUNT 1.57 K/ L 1.32-3.57 (BEAKER) (test code = 414) MONOCYTES ABSOLUTE COUNT (BEAKER) 1.13 K/ L 0.30-0.82 H (test code = 415) EOSINOPHILS ABSOLUTE COUNT 0.09 K/ L 0.04-0.54 (BEAKER) (test code = 416) BASOPHILS ABSOLUTE COUNT (BEAKER) 0.01 K/ L 0.01-0.08 (test code = 417) IMMATURE GRANULOCYTES-RELATIVE 1 % 0-1 PERCENT (BEAKER) (test code = 2801) Blood gas, [id number] 03:24:00 Test Item Value Reference Range Interpretation Comments pH, Arterial (test code = 2744-1) 7.49 7.35-7.45 H pCO2, Arterial (test code = 38 35- 45 mm Hg 2019-02) pO2, Arterial (test code = 2703-7) 106 80- 90 mm Hg H O2 Sat, Arterial (test code = 98.2 % 96-97 H 2707-6) HCO3, Arterial (test code = 28 mmol/L 21-29 1959-) Base Excess, Arterial (test code = 4.2 mmol/L -2-3 H 1925-01) Patient Temperature (test code = 36.9 8310-5) FIO2 (test code = 1819) 36 Lab Interpretation (test code = Abnormal 21872-6) [facility] [id number] 03:24:00 Test Item Value Reference Range Interpretation Comments PH ARTERIAL (BEAKER) (test code = 7.49 7.35-7.45 H 383) PCO2 ARTERIAL (BEAKER) (test code 38 mm Hg 35-45 = 384) PO2 ARTERIAL (BEAKER) (test code = 106 mm Hg 80-90 H 385) O2 SATURATION ARTERIAL (BEAKER) 98.2 % 96.0-97.0 H (test code = 386) HCO3 ARTERIAL (BEAKER) (test code 28 mmol/L 21-29 = 388) BASE EXCESS ARTERIAL (BEAKER) 4.2 mmol/L -2.0-3.0 H (test code = 387) PATIENT TEMPERATURE (BEAKER) (test 36.9 code = 1818) FIO2 (BEAKER) (test code = 1819) 36.0 Prepare Leuko-Red [id number] 23:54:00 Test Item Value Reference Range Interpretation Comments CROSSMATCH (test code = 2264) COMPATIBLE Unit ABO (test code = O Neg 1961903) UNIT NUMBER (test code = [id number] 934-0) Status (test code = 6647380) [facility]AN[facility] Product (test code RED BLOOD CELLS = 2263) PRODUCT CODE (test code = F6077J52 933-2) [facility] Diego[facility] [id number] 21:27:00 Test Item Value Reference Range Interpretation Comments POC-GLUCOSE METER 167 mg/dL 70-110 H : Notified RN/MD: (GUNNER) (test code = TESTED AT [facility] 2793 9786) [facility] [place] [place], [address]: Stove Mounter/Techni sherri ID = [id number] for Bryn Rodriguez Carbohydrate antigen 19-9 (CA 19-9)2020-05-11 19:41:00 Test Item Value Reference Interpretation Comments Range CA 19-9 (test code 5924 U/mL <34 H This fely t was = 51374-4) performed using the Siemens Chemiluminescen t method.Values obtained from different assay methods cannot be used interchangeably .CA19- 9 levels, regar dless of value, shoul d not be interpreted as absoluteevidenc e of the presence or absence of dise ase. GREG (test code = Performing Lab GREG) EZ [employer] [facility] [address] [place] [address] Augusto Henao MD, PhD, MAGAN Lab Interpretation Abnormal (test code = 02622-4) [facility] Diego[facility] [id number] 12:24:00 Test Item Value Reference Range Interpretation Comments POC-GLUCOSE METER 127 mg/dL 70-110 H : TESTED A T [facility] 6720 (BEAKER) (test code = [facility], 1538) [address]: Stove Mounter/Techni sherri ID = [id number] for Miles vargas (V)Neena [id number] 12:19:00 Test Item Value Reference Range Interpretation Comments MAGNESIUM (BEAKER) (test code = 2.0 mg/dL 1.6-2.6 627) Stove Mounter ID - JULIEN [id number] 12:19:00 Test Item Value Reference Range Interpretation Comments POTASSIUM (BEAKER) (test code = 4.2 meq/L 3.5-5.1 379) Stove Mounter ID - JULIEN CPOCT-GLUCOSE [id number] 08:16:00 Test Item Value Reference Range Interpretation Comments POC-GLUCOSE METER 121 mg/dL 70-110 H : TESTED A T [facility] 6720 (BEAKER) (test code = [facility] [place], 153) [address]: Stove Mounter/Techni sherri ID = [id number] for Miles vargas (V), Neena BASIC METABOLIC [id number] 03:46:00 Test Item Value Reference Range Interpretation Comments SODIUM (BEAKER) 135 meq/L 136-145 L (test code = 381) POTASSIUM (BEAKER) 3.9 meq/L 3.5-5.1 (test code = 379) CHLORIDE (BEAKER) 101 meq/L 98-107 (test code = 382) CO2 (BEAKER) (test 29 meq/L 22-29 code = 355) BLOOD UREA NITROGEN 9 mg/dL 7-21 (BEAKER) (test code = 354) CREATININE (BEAKER) 0.64 mg/dL 0.57-1.25 (test code = 358) GLUCOSE RANDOM 104 mg/dL 70-105 (BEAKER) (test code = 652) CALCIUM (BEAKER) 8.2 mg/dL 8.4-10.2 L (test code = 697) EGFR (BEAKER) (test 124 mL/min/1.73 ESTIM ATED GFR IS code = 1092) sq m NOT ACCURATE CREATININE CLEARANCE IN PREDICTING GLOMERULAR FILTRATION RATE . ESTIMATED GFR I S NOT APPLICABLE FOR DIALYSIS PATIEN TS. Stove Mounter ID - [id number] 03:46:00 Test Item Value Reference Range Interpretation Comments MAGNESIUM (BEAKER) (test code = 1.8 mg/dL 1.6-2.6 627) Stove Mounter ID - EDASICBC W/PLT COUNT & AUTO [id number] 03:39:00 Test Item Value Reference Range Interpretation Comments WHITE BLOOD CELL COUNT (BEAKER) 8.8 K/ L 3.5-10.5 (test code = 775) RED BLOOD CELL COUNT (BEAKER) 2.93 M/ L 4.63-6.08 L (test code = 761) HEMOGLOBIN (BEAKER) (test code = 7.8 GM/DL 13.7-17.5 L 410) HEMATOCRIT (BEAKER) (test code = 24.3 % 40.1-51.0 L 411) MEAN CORPUSCULAR VOLUME (BEAKER) 82.9 fL 79.0-92.2 (test code = 753) MEAN CORPUSCULAR HEMOGLOBIN 26.6 pg 25.7-32.2 (BEAKER) (test code = 751) MEAN CORPUSCULAR HEMOGLOBIN CONC 32.1 GM/DL 32.3-36.5 L (BEAKER) (test code = 752) RED CELL DISTRIBUTION WIDTH 15.2 % 11.6-14.4 H (BEAKER) (test code = 412) PLATELET COUNT (BEAKER) (test 283 K/CU MM 150-450 code = 756) MEAN PLATELET VOLUME (BEAKER) 8.7 fL 9.4-12.4 L (test code = 754) NUCLEATED RED BLOOD CELLS 0 /100 WBC 0-0 (BEAKER) (test code = 413) NEUTROPHILS RELATIVE PERCENT 70 % (BEAKER) (test code = 429) LYMPHOCYTES RELATIVE PERCENT 16 % (BEAKER) (test code = 430) MONOCYTES RELATIVE PERCENT 13 % (BEAKER) (test code = 431) EOSINOPHILS RELATIVE PERCENT 1 % (BEAKER) (test code = 432) BASOPHILS RELATIVE PERCENT 0 % (BEAKER) (test code = 437) NEUTROPHILS ABSOLUTE COUNT 6.13 K/ L 1.78-5.38 H (BEAKER) (test code = 670) LYMPHOCYTES ABSOLUTE COUNT 1.38 K/ L 1.32-3.57 (BEAKER) (test code = 414) MONOCYTES ABSOLUTE COUNT (BEAKER) 1.17 K/ L 0.30-0.82 H (test code = 415) EOSINOPHILS ABSOLUTE COUNT 0.05 K/ L 0.04-0.54 (BEAKER) (test code = 416) BASOPHILS ABSOLUTE COUNT (BEAKER) 0.01 K/ L 0.01-0.08 (test code = 417) IMMATURE GRANULOCYTES-RELATIVE 1 % 0-1 PERCENT (BEAKER) (test code = 2801) RAD, CHEST, 1 VIEW, NON [id number] 03:38:00Reason for exam:- >IntubatedShould this be performed at the bedside?->Yes [facility] 1950 Sex: MFINAL REPORT CLINICAL INDICATION: Support lines. Comparison: 05/10/2020 The cardiomediastinal contours are stable. Central pulmonary vascular congestion and bilateral parenchymal and pleural opacities are unchanged after extubation. There is no pneumothorax. Remaining support lines are stable. Signed: Jaxon Rios Verified Date/Time: 05/11/2020 03:38:25 BLOOD GAS, [id number] 03:36:00 Test Item Value Reference Range Interpretation Comments PH ARTERIAL (BEAKER) (test code = 7.46 7.35-7.45 H 383) PCO2 ARTERIAL (BEAKER) (test code 37 mm Hg 35-45 = 384) PO2 ARTERIAL (BEAKER) (test code = 94 mm Hg 80-90 H 385) O2 SATURATION ARTERIAL (BEAKER) 97.5 % 96.0-97.0 H (test code = 386) HCO3 ARTERIAL (BEAKER) (test code 26 mmol/L 21-29 = 388) BASE EXCESS ARTERIAL (BEAKER) 1.7 mmol/L -2.0-3.0 (test code = 387) PATIENT TEMPERATURE (BEAKER) (test 37.0 code = 1818) FIO2 (BEAKER) (test code = 1819) 36.0 POCT-GLUCOSE [id number] 21:27:00 Test Item Value Reference Range Interpretation Comments POC-GLUCOSE METER 152 mg/dL 70-110 H : TESTED A T [facility] 6720 (BEAKER) (test code = [facility], 1538) [address]: Stove Mounter/Techni sherri ID = [id number] for DO GILMORE JAMIA POCT-GLUCOSE [id number] 20:32:00 Test Item Value Reference Range Interpretation Comments POC-GLUCOSE METER 157 mg/dL 70-110 H : TESTED A T [facility] 6720 (BEAKER) (test code = [facility], 1538) [address]: Stove Mounter/Techni sherri ID = [id number] for THOMAS SRINIVAS MANUELIANNA BLOOD GAS, [id number] 15:57:00 Test Item Value Reference Range Interpretation Comments PH ARTERIAL (BEAKER) (test code = 7.41 7.35-7.45 383) PCO2 ARTERIAL (BEAKER) (test code 40 mm Hg 35-45 = 384) PO2 ARTERIAL (BEAKER) (test code = 75 mm Hg 80-90 L 385) O2 SATURATION ARTERIAL (BEAKER) 95.0 % 96.0-97.0 L (test code = 386) HCO3 ARTERIAL (BEAKER) (test code 25 mmol/L 21-29 = 388) BASE EXCESS ARTERIAL (BEAKER) 0.2 mmol/L -2.0-3.0 (test code = 387) PATIENT TEMPERATURE (BEAKER) (test 37.5 code = 1818) FIO2 (BEAKER) (test code = 1819) 36.0 POCT-GLUCOSE [id number] 12:50:00 Test Item Value Reference Range Interpretation Comments POC-GLUCOSE METER 120 mg/dL 70-110 H : TESTED A T [facility] 6720 (BEAKER) (test code = [facility] [place], 1538) [address]: Stove Mounter/Techni sherri ID = [id number] for [place] ANTONINA MANUEL CBC W/PLT COUNT & AUTO [id number] 10:44:00 Test Item Value Reference Range Interpretation Comments WHITE BLOOD CELL COUNT (BEAKER) 11.6 K/ L 3.5-10.5 H (test code = 775) RED BLOOD CELL COUNT (BEAKER) 3.20 M/ L 4.63-6.08 L (test code = 761) HEMOGLOBIN (BEAKER) (test code = 8.6 GM/DL 13.7-17.5 L 410) HEMATOCRIT (BEAKER) (test code = 26.8 % 40.1-51.0 L 411) MEAN CORPUSCULAR VOLUME (BEAKER) 83.8 fL 79.0-92.2 (test code = 753) MEAN CORPUSCULAR HEMOGLOBIN 26.9 pg 25.7-32.2 (BEAKER) (test code = 751) MEAN CORPUSCULAR HEMOGLOBIN CONC 32.1 GM/DL 32.3-36.5 L (BEAKER) (test code = 752) RED CELL DISTRIBUTION WIDTH 15.1 % 11.6-14.4 H (BEAKER) (test code = 412) PLATELET COUNT (BEAKER) (test 329 K/CU MM 150-450 code = 756) MEAN PLATELET VOLUME (BEAKER) 8.9 fL 9.4-12.4 L (test code = 754) NUCLEATED RED BLOOD CELLS 0 /100 WBC 0-0 (BEAKER) (test code = 413) NEUTROPHILS RELATIVE PERCENT 80 % (BEAKER) (test code = 429) LYMPHOCYTES RELATIVE PERCENT 7 % (BEAKER) (test code = 430) MONOCYTES RELATIVE PERCENT 12 % (BEAKER) (test code = 431) EOSINOPHILS RELATIVE PERCENT 0 % (BEAKER) (test code = 432) BASOPHILS RELATIVE PERCENT 0 % (BEAKER) (test code = 437) NEUTROPHILS ABSOLUTE COUNT 9.33 K/ L 1.78-5.38 H (BEAKER) (test code = 670) LYMPHOCYTES ABSOLUTE COUNT 0.81 K/ L 1.32-3.57 L (BEAKER) (test code = 414) MONOCYTES ABSOLUTE COUNT (BEAKER) 1.41 K/ L 0.30-0.82 H (test code = 415) EOSINOPHILS ABSOLUTE COUNT 0.02 K/ L 0.04-0.54 L (BEAKER) (test code = 416) BASOPHILS ABSOLUTE COUNT (BEAKER) 0.02 K/ L 0.01-0.08 (test code = 417) IMMATURE GRANULOCYTES-RELATIVE 0 % 0-1 PERCENT (BEAKER) (test code = 2801) BLOOD GAS, [id number] 10:35:00 Test Item Value Reference Range Interpretation Comments PH ARTERIAL (BEAKER) (test code = 7.40 7.35-7.45 383) PCO2 ARTERIAL (BEAKER) (test code 42 mm Hg 35-45 = 384) PO2 ARTERIAL (BEAKER) (test code = 71 mm Hg 80-90 L 385) O2 SATURATION ARTERIAL (BEAKER) 94.2 % 96.0-97.0 L (test code = 386) HCO3 ARTERIAL (BEAKER) (test code 25 mmol/L 21-29 = 388) BASE EXCESS ARTERIAL (BEAKER) 0.1 mmol/L -2.0-3.0 (test code = 387) PATIENT TEMPERATURE (BEAKER) (test 37.0 code = 1818) FIO2 (BEAKER) (test code = 1819) 36.0 Comprehensive metabolic [id number] 05:00:00 Test Item Value Reference Range Interpretation Comments Protein, Total (test 4.5 6.0- 8.3 gm/dL L code = 2885-2) Albumin (test code = 2.5 g/dL 3.5-5 L 02989-6) Alkaline Phosphatase 59 U/L 40-150 (test code = 6768-6) Total Bilirubin (test 0.6 mg/dL 0.2-1.2 code = 1975-2) Sodium (test code = 136 meq/L 300-136 0480-2) Potassium (test code = 4.3 meq/L 3.5-5.1 2823-3) Chloride (test code = 103 meq/L 98-107 5-0) CO2 (test code = 24 meq/L 22-29 8-9) BUN (test code = 11 mg/dL 7-21 3094-0) Creatinine (test code 0.67 mg/dL 0.57-1.25 = 2160-0) Glucose (test code = 104 mg/dL 70-105 2345-7) Calcium (test code = 8.1 mg/dL 8.4-10.2 L 15503-4) AST (test code = 11 U/L 5-34 1920-8) ALT (test code = 8 U/L 6-55 1742-6) EGFR (test code = 117 mL/min/1.73 [place] [address]-1) NOT ACCURATE CREATININE CLEARANCE IN PREDICTING GLOMERULAR FILTRATION RATE . ESTIMATED GFR I S NOT APPLICABLE FOR DIALYSIS PATIENTS. GREG (test code = GREG) Stove Mounter ID - EDASI Lab Interpretation Abnormal (test code = 40363-7) [facility] Diego[facility]PREHENSIVE METABOLIC [id number] 05:00:00 Test Item Value Reference Range Interpretation Comments TOTAL PROTEIN 4.5 gm/dL 6.0-8.3 L (BEAKER) (test code = 770) ALBUMIN (BEAKER) 2.5 g/dL 3.5-5.0 L (test code = 1145) ALKALINE PHOSPHATASE 59 U/L 40-150 (BEAKER) (test code = 346) BILIRUBIN TOTAL 0.6 mg/dL 0.2-1.2 (BEAKER) (test code = 377) SODIUM (BEAKER) (test 136 meq/L 136-145 code = 381) POTASSIUM (BEAKER) 4.3 meq/L 3.5-5.1 (test code = 379) CHLORIDE (BEAKER) 103 meq/L 98-107 (test code = 382) CO2 (BEAKER) (test 24 meq/L - code = 355) BLOOD UREA NITROGEN 11 mg/dL 7-21 (BEAKER) (test code = 354) CREATININE (BEAKER) 0.67 mg/dL 0.57-1.25 (test code = 358) GLUCOSE RANDOM 104 mg/dL 70-105 (BEAKER) (test code = 652) CALCIUM (BEAKER) 8.1 mg/dL 8.4-10.2 L (test code = 697) AST (SGOT) (BEAKER) 11 U/L 5-34 (test code = 353) ALT (SGPT) (BEAKER) 8 U/L 6-55 (test code = 347) EGFR (BEAKER) (test 117 ESTIMATE D GFR IS code = 1092) mL/min/1.73 sq NOT ACCURA TE m CREATININE CLEARANCE IN PREDICTING GLOMERULAR FILTRATION RATE . ESTIMATED GFR I S NOT APPLICABLE FOR DIALYSIS PATIEN TS. Stove Mounter ID - [id number] 05:00:00 Test Item Value Reference Range Interpretation Comments MAGNESIUM (BEAKER) (test code = 1.5 mg/dL 1.6-2.6 L 627) Stove Mounter ID - EDASICBC W/PLT COUNT & AUTO [id number] 04:17:00 Test Item Value Reference Range Interpretation Comments WHITE BLOOD CELL COUNT (BEAKER) 8.4 K/ L 3.5-10.5 (test code = 775) RED BLOOD CELL COUNT (BEAKER) 2.64 M/ L 4.63-6.08 L (test code = 761) HEMOGLOBIN (BEAKER) (test code = 6.7 GM/DL 13.7-17.5 L 410) HEMATOCRIT (BEAKER) (test code = 21.6 % 40.1-51.0 L 411) MEAN CORPUSCULAR VOLUME (BEAKER) 81.8 fL 79.0-92.2 (test code = 753) MEAN CORPUSCULAR HEMOGLOBIN 25.4 pg 25.7-32.2 L (BEAKER) (test code = 751) MEAN CORPUSCULAR HEMOGLOBIN CONC 31.0 GM/DL 32.3-36.5 L (BEAKER) (test code = 752) RED CELL DISTRIBUTION WIDTH 15.0 % 11.6-14.4 H (BEAKER) (test code = 412) PLATELET COUNT (BEAKER) (test 250 K/CU MM 150-450 code = 756) MEAN PLATELET VOLUME (BEAKER) 8.4 fL 9.4-12.4 L (test code = 754) NUCLEATED RED BLOOD CELLS 0 /100 WBC 0-0 (BEAKER) (test code = 413) NEUTROPHILS RELATIVE PERCENT 72 % (BEAKER) (test code = 429) LYMPHOCYTES RELATIVE PERCENT 14 % (BEAKER) (test code = 430) MONOCYTES RELATIVE PERCENT 14 % (BEAKER) (test code = 431) EOSINOPHILS RELATIVE PERCENT 0 % (BEAKER) (test code = 432) BASOPHILS RELATIVE PERCENT 0 % (BEAKER) (test code = 437) NEUTROPHILS ABSOLUTE COUNT 6.01 K/ L 1.78-5.38 H (BEAKER) (test code = 670) LYMPHOCYTES ABSOLUTE COUNT 1.15 K/ L 1.32-3.57 L (BEAKER) (test code = 414) MONOCYTES ABSOLUTE COUNT (BEAKER) 1.14 K/ L 0.30-0.82 H (test code = 415) EOSINOPHILS ABSOLUTE COUNT 0.03 K/ L 0.04-0.54 L (BEAKER) (test code = 416) BASOPHILS ABSOLUTE COUNT (BEAKER) 0.01 K/ L 0.01-0.08 (test code = 417) IMMATURE GRANULOCYTES-RELATIVE 1 % 0-1 PERCENT (BEAKER) (test code = 2801) BLOOD GAS, [id number] 04:03:00 Test Item Value Reference Range Interpretation Comments PH ARTERIAL (BEAKER) (test code = 7.50 7.35-7.45 H 383) PCO2 ARTERIAL (BEAKER) (test code 32 mm Hg 35-45 L = 384) PO2 ARTERIAL (BEAKER) (test code = 125 mm Hg 80-90 H 385) O2 SATURATION ARTERIAL (BEAKER) 98.7 % 96.0-97.0 H (test code = 386) HCO3 ARTERIAL (BEAKER) (test code 24 mmol/L 21-29 = 388) BASE EXCESS ARTERIAL (BEAKER) 1.1 mmol/L -2.0-3.0 (test code = 387) PATIENT TEMPERATURE (BEAKER) (test 37.2 code = 1818) FIO2 (BEAKER) (test code = 1819) 40.0 RAD, CHEST, 1 VIEW, NON [id number] 03:49:00Reason for exam:- >IntubatedShould this be performed at the bedside?->Yes [facility] : 1950 Sex: MFINAL REPORT RAD, CHEST, 1 VIEW, NON DEPT INDICATION: Intubated COMPARISON: 10 hours prior. FINDINGS: Portable frontal view of the chest. IMPRESSION: Support Lines: New enteric tube tip overlies the gastric fundus. ET tube terminates 5 cm above the tristen. Otherwise stable support apparatus. Lungs and pleura: Extensive bilateral airspace disease increased within the leftlung. Small layering pleural effusions are stable. No pneumothorax.Heart and mediastinum: Stable contours. Additional findings: None. Signed: Hossein Chaudhry MDReport Verified Date/Time: 05/10/2020 03:49:04 POCT-GLUCOSE [id number] 01:34:00 Test Item Value Reference Range Interpretation Comments POC-GLUCOSE METER 113 mg/dL 70-110 H : Notified RN/: (GUNNER) (test code = TESTED AT [facility] 6720 1538) [facility], [address]: Stove Mounter/Techni sherri ID = [id number] for Bryn Rodriguez POCT-GLUCOSE [id number] 22:02:00 Test Item Value Reference Range Interpretation Comments POC-GLUCOSE METER 115 mg/dL 70-110 H : TESTED A T [facility] 6720 (GUNNER) (test code = [facility], 1538) [address]: Stove Mounter/Techni sherri ID = [id number] for Kristine Butler RAD, ABDOMEN/KUB, 1 VIEW [id number] 19:02:00Reason for exam:->ogtShould this be performed at the bedside?->Yes [facility] : 1950 Sex: MFINAL REPORT TECHNIQUE: RAD, ABDOMEN/KUB, 1 VIEW AP INDICATION: ogt COMPARISON: None. FINDINGS:OG tube tip terminates over the gastric fundus. Bowel gas pattern is nonobstructive. There are bibasilar pleural-parenchymal opacities. There are right-sided chest tubes.. IMPRESSION:OG tube tip terminates over the gastric fundus.. Signed: Liban Cohen Verified D ate/Time: 05/09/2020 19:02:01 Reading Location: [facility] C013 Transitional Reading Room XR abdomen / KUB 1 [id number] 19:02:00Interface, External Ris In - 05/09/2020 7:04 PM CDTFINAL REPORT TECHNIQUE: RAD, ABDOMEN/KUB, 1 VIEW AP INDICATION: ogt COMPARISON: None. FINDINGS:OG tube tip terminates over thegastric fundus. Bowel gas pattern is nonobstructive. There are bibasilar pleural-parenchymal opacities. There are right-sided chest tubes.. IMPRESSION:OG tube tip terminates over the gastric fundus.. Signed: Liban Cohen MDRjaradort Verified Date/Time: 05/09/2020 19:02:01 Reading Location: [facility] C013T Transitional Reading [facility] 2020-05-09 17:20:00 Test Item Value Reference Range Interpretation Comments Troponin I (test code = <0.01 0-0.03 37588-5) GREG (test code = GREG) Troponin I (TnI) levels must be interpreted in the context of the presenting symptoms and the clinical findings. Elevated TnI levels indicate myocardial damage, but are not specific for ischemic heart disease. Elevated TnI levels are seen in patients with other cardiac conditions (including myocarditis and congestive heart failure), and slight TnI elevations occur in patients with other conditions, including sepsis, renal failure, acidosis, acute neurological disease, and persistent tachyarrhythmia.Opera tor ID - BS Lab Interpretation (test Normal code = 57697-6) [facility] Diego[facility], [id number] 17:20:00 Test Item Value Reference Range Interpretation Comments PH ARTERIAL (BEAKER) (test code = 7.36 7.35-7.45 383) PCO2 ARTERIAL (BEAKER) (test code 44 mm Hg 35-45 = 384) PO2 ARTERIAL (BEAKER) (test code 148 mm Hg 80-90 H = 385) O2 SATURATION ARTERIAL (BEAKER) 98.6 % 96.0-97.0 H (test code = 386) HCO3 ARTERIAL (BEAKER) (test code 24 mmol/L 21-29 = 388) BASE EXCESS ARTERIAL (BEAKER) -0.9 mmol/L -2.0-3.0 (test code = 387) PATIENT TEMPERATURE (BEAKER) 39.5 (test code = 1818) FIO2 (BEAKER) (test code = 1819) 60.0 TROPONIN [id number] 17:20:00 Test Item Value Reference Range Interpretation Comments TROPONIN I (BEAKER) (test code = 397) < ng/mL 0.00-0.03 Troponin I (TnI) levels must be interpreted in the context of the presenting symptoms and the clinical findings. Elevated TnI levels indicate myocardial damage, but are not specific for ischemic heart disease. Elevated TnI levels are seen in patients with other cardiac conditions (including myocarditis and congestive heart failure), and slight TnI elevations occur in patients with other conditions, including sepsis, renal failure, acidosis, acute neurological disease, and persistent tachyarrhythmia.Stove Mounter ID - BSBASIC METABOLIC PANEL 2020-05-09 17:16:00 Test Item Value Reference Range Interpretation Comments SODIUM (BEAKER) 136 meq/L 136-145 (test code = 381) POTASSIUM (BEAKER) 4.8 meq/L 3.5-5.1 (test code = 379) CHLORIDE (BEAKER) 104 meq/L 98-107 (test code = 382) CO2 (BEAKER) (test 24 meq/L 22-29 code = 355) BLOOD UREA NITROGEN 9 mg/dL 7-21 (BEAKER) (test code = 354) CREATININE (BEAKER) 0.66 mg/dL 0.57-1.25 (test code = 358) GLUCOSE RANDOM 179 mg/dL 70-105 H (BEAKER) (test code = 652) CALCIUM (BEAKER) 7.6 mg/dL 8.4-10.2 L (test code = 697) EGFR (BEAKER) (test 119 mL/min/1.73 ESTIM ATED GFR IS code = 1092) sq m NOT ACCURATE CREATININE CLEARANCE IN PREDICTING GLOMERULAR FILTRATION RATE . ESTIMATED GFR I S NOT APPLICABLE FOR DIALYSIS PATIEN TS. Stove Mounter ID - BSRAD, CHEST, 1 VIEW, NON [id number] 16:18:00On arrival to [facility] for exam:->post-opShould this be performed at the bedside?->Yes [facility] : 1950 Sex: MFINAL REPORT Chest, one view HISTORY: Postoperative Comparison: 05/08/2020 Findings: Lungs: Stable bilateral airspace disease. Heart: Normal in size. Pleura: Interval decrease in size of previous right pleural effusion. No pneumothorax is appreciated. Bones: Unremarkable. Lines/tubes: Interval insertion of right chest tubes and endotracheal tube. The endotracheal tube appears in satisfactory position. Signed: Jason Vasquez Verified Date/Time: 05/09/2020 16:18:53 Reading Location: [facility] Radiology Reading Room Phosphorus 2020-05-09 16:07:00 Test Item Value Reference Range Interpretation Comments Phosphorus (test code = 4.9 mg/dL 2.3-4.7 H 2777-1) GREG (test code = GREG) Stove Mounter ID - BS Lab Interpretation (test Abnormal code = 49441-5) [facility] Test Item Value Reference Range Interpretation Comments MAGNESIUM (BEAKER) (test code = 1.7 mg/dL 1.6-2.6 627) Stove Mounter ID - [id number] 16:07:00 Test Item Value Reference Range Interpretation Comments PHOSPHORUS (BEAKER) (test code = 4.9 mg/dL 2.3-4.7 H 604) Stove Mounter ID - [id number] 16:00:00 Test Item Value Reference Range Interpretation Comments PTT (test code = 39524-8) 33.5 22.5- 36.0 seconds Lab Interpretation (test code = Normal 66277-7) [facility] 16:[facility]:00 Test Item Value Reference Range Interpretation Comments PARTIAL THROMBOPLASTIN TIME 33.5 seconds 22.5-36.0 (BEAKER) (test code = 760) Prothrombin time/[id number] 15:59:00 Test Item Value Reference Range Interpretation Comments Protime (test code = 14.5 11.9- 14.2 H 5902-2) seconds INR (test code = 1.16 <=5.90 6301-6) GREG (test code = GREG) Effective 12/14/2018: PT Reference Range ChangeNew: 11.9-14.2 Previous: 11.7-14.7 RECOMMENDED COUMADIN/WARFARIN INR THERAPY RANGESSTANDARD DOSE: 2.0-3.0 Includes: PROPHYLAXIS for venous thrombosis, systemic embolization; TREATMENT for venous thrombosis and/or pulmonary embolus.HIGH RISK: Target INR is 2.5-3.5 for patients wiht mechanical heart valves. Lab Interpretation Abnormal (test code = 25237-7) [facility]/[id number] 15:59:00 Test Item Value Reference Range Interpretation Comments PROTIME (BEAKER) (test code = 14.5 seconds 11.9-14.2 H 759) INR (BEAKER) (test code = 370) 1.16 <=5.90 Effective 12/14/2018: PT Reference Range ChangeNew: 11.9-14.2 Previous: 11.7- 14.7RECOMMENDED COUMADIN/WARFARIN INR THERAPY RANGESSTANDARD DOSE: 2.0-3.0 Includes: PROPHYLAXIS for venous thrombosis, systemic embolization; TREATMENT for venous thrombosis and/or pulmonary embolus.HIGH RISK: Target INR is2.5-3.5 for patients wiht mechanical heart valves.CBC W/PLT COUNT & AUTO [id number] 15:52:00 Test Item Value Reference Range Interpretation Comments WHITE BLOOD CELL COUNT (BEAKER) 13.9 K/ L 3.5-10.5 H (test code = 775) RED BLOOD CELL COUNT (BEAKER) 3.34 M/ L 4.63-6.08 L (test code = 761) HEMOGLOBIN (BEAKER) (test code = 8.7 GM/DL 13.7-17.5 L 410) HEMATOCRIT (BEAKER) (test code = 27.6 % 40.1-51.0 L 411) MEAN CORPUSCULAR VOLUME (BEAKER) 82.6 fL 79.0-92.2 (test code = 753) MEAN CORPUSCULAR HEMOGLOBIN 26.0 pg 25.7-32.2 (BEAKER) (test code = 751) MEAN CORPUSCULAR HEMOGLOBIN CONC 31.5 GM/DL 32.3-36.5 L (BEAKER) (test code = 752) RED CELL DISTRIBUTION WIDTH 14.8 % 11.6-14.4 H (BEAKER) (test code = 412) PLATELET COUNT (BEAKER) (test 283 K/CU MM 150-450 code = 756) MEAN PLATELET VOLUME (BEAKER) 7.8 fL 9.4-12.4 L (test code = 754) NUCLEATED RED BLOOD CELLS 0 /100 WBC 0-0 (BEAKER) (test code = 413) NEUTROPHILS RELATIVE PERCENT 87 % (BEAKER) (test code = 429) LYMPHOCYTES RELATIVE PERCENT 3 % (BEAKER) (test code = 430) MONOCYTES RELATIVE PERCENT 10 % (BEAKER) (test code = 431) EOSINOPHILS RELATIVE PERCENT 0 % (BEAKER) (test code = 432) BASOPHILS RELATIVE PERCENT 0 % (BEAKER) (test code = 437) NEUTROPHILS ABSOLUTE COUNT 11.98 K/ L 1.78-5.38 H (BEAKER) (test code = 670) LYMPHOCYTES ABSOLUTE COUNT 0.42 K/ L 1.32-3.57 L (BEAKER) (test code = 414) MONOCYTES ABSOLUTE COUNT (BEAKER) 1.35 K/ L 0.30-0.82 H (test code = 415) EOSINOPHILS ABSOLUTE COUNT 0.01 K/ L 0.04-0.54 L (BEAKER) (test code = 416) BASOPHILS ABSOLUTE COUNT (BEAKER) 0.01 K/ L 0.01-0.08 (test code = 417) IMMATURE GRANULOCYTES-RELATIVE 1 % 0-1 PERCENT (BEAKER) (test code = 2801) BLOOD GAS, [id number] 15:43:00 Test Item Value Reference Range Interpretation Comments PH ARTERIAL (BEAKER) (test code = 7.27 7.35-7.45 L 383) PCO2 ARTERIAL (BEAKER) (test code 57 mm Hg 35-45 H = 384) PO2 ARTERIAL (BEAKER) (test code 102 mm Hg 80-90 H = 385) O2 SATURATION ARTERIAL (BEAKER) 97.0 % 96.0-97.0 (test code = 386) HCO3 ARTERIAL (BEAKER) (test code 26 mmol/L 21-29 = 388) BASE EXCESS ARTERIAL (BEAKER) -1.7 mmol/L -2.0-3.0 (test code = 387) PATIENT TEMPERATURE (BEAKER) 36.5 (test code = 1818) FIO2 (BEAKER) (test code = 1819) 60.0 Calcium, [id number] 15:42:00 Test Item Value Reference Range Interpretation Comments Calcium, Ion (test code = 1993-) 1.12 mmol/L 1.12-1.27 pH, Blood (test code = 36725-8) 7.27 [facility] [id number] 15:42:00 Test Item Value Reference Range Interpretation Comments CALCIUM IONIZED (BEAKER) (test 1.12 mmol/L 1.12-1.27 code = 698) PH, BLOOD (BEAKER) (test code = 7.27 1810) HGB/HCT (H&H)-Stat [id number] 12:39:00 Test Item Value Reference Range Interpretation Comments Hemoglobin (test code = 786-4) 9.2 13.0- 16.8 GM/DL L Hematocrit (test code = 4544-3) 27.0 % 40-50 L Lab Interpretation (test code = Abnormal 55181-9) [facility] Diego[facility]ucose-Stat [id number] 12:39:00 Test Item Value Reference Range Interpretation Comments Glucose (test code = 2345-7) 132 mg/dL 70-110 H Lab Interpretation (test code = Abnormal 27281-4) [facility] [id number] 12:39:00 Test Item Value Reference Range Interpretation Comments Sodium (test code = 2951-2) 132 meq/L 136-145 L Lab Interpretation (test code = Abnormal 54823-3) [facility] Diego[facility]assium-Stat [id number] 12:39:00 Test Item Value Reference Range Interpretation Comments Potassium (test code = 2823-3) 4.0 meq/L 3.6-5.5 Lab Interpretation (test code = Normal 35486-1) [facility] Diego[facility]OT[facility]SIUM-STAT [id number] 12:39:00 Test Item Value Reference Range Interpretation Comments POTASSIUM (BEAKER) (test code = 4.0 meq/L 3.6-5.5 379) BLOOD GAS, [id number] 12:39:00 Test Item Value Reference Range Interpretation Comments PH ARTERIAL (BEAKER) (test code = 7.31 7.35-7.45 L 383) PCO2 ARTERIAL (BEAKER) (test code 52 mm Hg 35-45 H = 384) PO2 ARTERIAL (BEAKER) (test code 91 mm Hg 80-90 H = 385) O2 SATURATION ARTERIAL (BEAKER) 96.7 % 96.0-97.0 (test code = 386) HCO3 ARTERIAL (BEAKER) (test code 26 mmol/L 21-29 = 388) BASE EXCESS ARTERIAL (BEAKER) -0.6 mmol/L -2.0-3.0 (test code = 387) PATIENT TEMPERATURE (BEAKER) 35.5 (test code = 1818) FIO2 (BEAKER) (test code = 1819) 100.0 SODIUM NA-STAT [id number] 12:39:00 Test Item Value Reference Range Interpretation Comments SODIUM (BEAKER) (test code = 381) 132 meq/L 136-145 L GLUCOSE-STAT [id number] 12:39:00 Test Item Value Reference Range Interpretation Comments GLUCOSE RANDOM (BEAKER) (test code 132 mg/dL 70-110 H = 652) HGB/HCT (H&H) - STAT [id number] 12:39:00 Test Item Value Reference Range Interpretation Comments HEMOGLOBIN (BEAKER) (test code = 9.2 GM/DL 13.0-16.8 L 410) HEMATOCRIT (BEAKER) (test code = 27.0 % 40.0-50.0 L 411) CALCIUM, [id number] 12:39:00 Test Item Value Reference Range Interpretation Comments CALCIUM IONIZED (BEAKER) (test 1.17 mmol/L 1.12-1.27 code = 698) PH, BLOOD (BEAKER) (test code = 7.29 1810) POCT-GLUCOSE [id number] 08:20:00 Test Item Value Reference Range Interpretation Comments POC-GLUCOSE METER 112 mg/dL 70-110 H : TESTED A T [facility] 6720 (BEAKER) (test code = [place]AMMY [place], 1538) [address]: Stove Mounter/Techni sherri ID = [id number] for Do Stas gilmore Type and screen, [id number] 06:12:00 Test Item Value Reference Range Interpretation Comments ABO/RH AUTOMATED (BEAKER) (test O NEGATIVE code = 2260) Ab Scrn (test code = 890-4) NEGATIVE [facility] [id number] 05:07:00 Test Item Value Reference Range Interpretation Comments SODIUM (BEAKER) 135 meq/L 136-145 L (test code = 381) POTASSIUM (BEAKER) 4.7 meq/L 3.5-5.1 (test code = 379) CHLORIDE (BEAKER) 97 meq/L 98-107 L (test code = 382) CO2 (BEAKER) (test 30 meq/L 22-29 H code = 355) BLOOD UREA NITROGEN 10 mg/dL 7-21 (BEAKER) (test code = 354) CREATININE (BEAKER) 0.70 mg/dL 0.57-1.25 (test code = 358) GLUCOSE RANDOM 124 mg/dL 70-105 H (BEAKER) (test code = 652) CALCIUM (BEAKER) 8.9 mg/dL 8.4-10.2 (test code = 697) EGFR (BEAKER) (test 111 mL/min/1.73 ESTIM ATED GFR IS code = 1092) sq m NOT ACCURATE CREATININE CLEARANCE IN PREDICTING GLOMERULAR FILTRATION RATE . ESTIMATED GFR I S NOT APPLICABLE FOR DIALYSIS PATIEN TS. Stove Mounter ID - BRYAN [id number] 05:07:00 Test Item Value Reference Range Interpretation Comments MAGNESIUM (BEAKER) (test code = 1.8 mg/dL 1.6-2.6 627) Stove Mounter ID - BRYAN MCBC W/PLT COUNT & AUTO [id number] 04:55:00 Test Item Value Reference Range Interpretation Comments WHITE BLOOD CELL COUNT (BEAKER) 7.2 K/ L 3.5-10.5 (test code = 775) RED BLOOD CELL COUNT (BEAKER) 3.96 M/ L 4.63-6.08 L (test code = 761) HEMOGLOBIN (BEAKER) (test code = 10.3 GM/DL 13.7-17.5 L 410) HEMATOCRIT (BEAKER) (test code = 32.3 % 40.1-51.0 L 411) MEAN CORPUSCULAR VOLUME (BEAKER) 81.6 fL 79.0-92.2 (test code = 753) MEAN CORPUSCULAR HEMOGLOBIN 26.0 pg 25.7-32.2 (BEAKER) (test code = 751) MEAN CORPUSCULAR HEMOGLOBIN CONC 31.9 GM/DL 32.3-36.5 L (BEAKER) (test code = 752) RED CELL DISTRIBUTION WIDTH 14.8 % 11.6-14.4 H (BEAKER) (test code = 412) PLATELET COUNT (BEAKER) (test 298 K/CU MM 150-450 code = 756) MEAN PLATELET VOLUME (BEAKER) 8.1 fL 9.4-12.4 L (test code = 754) NUCLEATED RED BLOOD CELLS 0 /100 WBC 0-0 (BEAKER) (test code = 413) NEUTROPHILS RELATIVE PERCENT 64 % (BEAKER) (test code = 429) LYMPHOCYTES RELATIVE PERCENT 17 % (BEAKER) (test code = 430) MONOCYTES RELATIVE PERCENT 17 % (BEAKER) (test code = 431) EOSINOPHILS RELATIVE PERCENT 1 % (BEAKER) (test code = 432) BASOPHILS RELATIVE PERCENT 0 % (BEAKER) (test code = 437) NEUTROPHILS ABSOLUTE COUNT 4.64 K/ L 1.78-5.38 (BEAKER) (test code = 670) LYMPHOCYTES ABSOLUTE COUNT 1.25 K/ L 1.32-3.57 L (BEAKER) (test code = 414) MONOCYTES ABSOLUTE COUNT (BEAKER) 1.19 K/ L 0.30-0.82 H (test code = 415) EOSINOPHILS ABSOLUTE COUNT 0.10 K/ L 0.04-0.54 (BEAKER) (test code = 416) BASOPHILS ABSOLUTE COUNT (BEAKER) 0.01 K/ L 0.01-0.08 (test code = 417) IMMATURE GRANULOCYTES-RELATIVE 1 % 0-1 PERCENT (BEAKER) (test code = 2801) POCT-GLUCOSE [id number] 21:32:00 Test Item Value Reference Range Interpretation Comments POC-GLUCOSE METER 150 mg/dL 70-110 H : TESTED A T [facility] 6720 (BEAKER) (test code = ZANE Maynard [facility], 1538) [address]: Stove Mounter/Techni sherri ID = [id number] for DAVID SIMEONYL SARS-COV2/RT-PCR ([facility])2020-05-08 13:23:00 Test Item Value Reference Range Interpretation Comments SARS-COV2/RT-PCR (test Negative Not Detected, Negative, code = 8398502) See external report for linked test SARS-COV-2 PERFORMING LAB [facility] DANIEL (test code = 1844318) Negative result for this test determines that SARS-CoV-2 RNA was not present in the specimen above the Limit of Detection (LOD). However, Negative results do not preclude SARS-CoV-2 infection and should not be used as the sole basis for treatment or patient management decisions. Negative results mustbe combined with clinical observations, patient history, and epidemiological information. A false negative result may occur if a specimen is improperly collected, transported or handled. A false negative result should be considered if patient's recent exposures or clinical presentation indicate that COVID-19 (SARS-CoV-2) is likely and diagnostic tests for other causes of illness are negative. Re-testing should be considered in cases of suspected false negatives.The limit of detection for this assay is 800 copies/mL.This SARS CoV-2 test is a real-time RT-PCR test intended for the qualitative detection of nucleic acid from SARS-CoV-2 in a nasopharyngeal swab specimen collected from individuals susp ected of COVID-19 by their healthcare provider.This test has not been Food and Drug Administration (FDA) cleared or approved. This is a modified version of an approved Emergency Use Authorization (EUA) and is in the process of review by the FDA. Once authorized by the FDA, the issued EUA will be effective until the declaration that circumstances exist justifying the authorization of the emergency use of in vitro diagnostic tests for detection and/or diagnosis of COVID-19 is terminated under Section 564(b)(2) of the Act or the EUA is revoked under Section 564(g) of the Act.Fact Sheet for Healthcare Providers:https://www.[employer]/sites/default/files/product/documents/Fact_Shee v_SV_Xukeaeybi_Svfx_CSGZ-SeP-2.pdfFact Sheet for Healthcare Patients:https://www.[employer]/sites/default/files/product/ documents/Ojqn_Ejvfu_Igkumqig_Sefm_WZTB-JvB-1.pdfPerforming Laboratory:[facility], [place] [address]IUAU-TEQMWYX METER 2020-05-08 10:15:00 Test Item Value Reference Range Interpretation Comments POC-GLUCOSE METER 122 mg/dL 70-110 H : [facility] ([place]) (test code = [facility], 153) [address]: Stove Mounter/Techni sherri ID = [id number] for Lela Cotton POCT-GLUCOSE [id number] 08:30:00 Test Item Value Reference Range Interpretation Comments POC-GLUCOSE METER 127 mg/dL 70-110 H : TESTED A T [facility] 6720 ([place]) (test code = CINDYDC Aleyda [facility], 1538) [address]: Stove Mounter/Techni sherri ID = [id number] for Lela Cotton RAD, CHEST, 1 VIEW, NON [id number] 08:28:00Reason for exam:->pleural effusionShould this be performed at the bedside?->Yes [facility] : 1950 Sex: MFINAL REPORT RAD, CHEST, 1 VIEW, NON DEPT INDICATION: pleural effusion COMPARISON: Prior day's exam FINDINGS: Portable frontal view of the chest. IMPRESSION: Support Lines: Stable. Lungs and pleura: Worsening airspace opacification laterally on the left. Persistent right effusion. No pneumothorax.Heart and mediastinum: Stable contours. Additional findings: None. Signed: JR Bar Robert MDReport Verified Date/Time: 05/08/2020 08:28:29 Reading Location: [facility] Radiology Reading Room BASIC METABOLIC PANEL 2020-05-08 05:46:00 Test Item Value Reference Range Interpretation Comments SODIUM (BEAKER) 136 meq/L 136-145 (test code = 381) POTASSIUM (BEAKER) 4.1 meq/L 3.5-5.1 (test code = 379) CHLORIDE (BEAKER) 98 meq/L 98-107 (test code = 382) CO2 (BEAKER) (test 29 meq/L 22-29 code = 355) BLOOD UREA NITROGEN 8 mg/dL 7-21 (BEAKER) (test code = 354) CREATININE (BEAKER) 0.64 mg/dL 0.57-1.25 (test code = 358) GLUCOSE RANDOM 95 mg/dL 70-105 (BEAKER) (test code = 652) CALCIUM (BEAKER) 8.5 mg/dL 8.4-10.2 (test code = 697) EGFR (BEAKER) (test 124 mL/min/1.73 ESTIM ATED GFR IS code = 1092) sq m NOT ACCURATE CREATININE CLEARANCE IN PREDICTING GLOMERULAR FILTRATION RATE . ESTIMATED GFR I S NOT APPLICABLE FOR DIALYSIS PATIEN TS. Stove Mounter ID - [id number] 05:46:00 Test Item Value Reference Range Interpretation Comments MAGNESIUM (BEAKER) (test code = 2.0 mg/dL 1.6-2.6 627) Stove Mounter ID - EDASICBC W/PLT COUNT & AUTO [id number] 05:36:00 Test Item Value Reference Range Interpretation Comments WHITE BLOOD CELL COUNT (BEAKER) 6.8 K/ L 3.5-10.5 (test code = 775) RED BLOOD CELL COUNT (BEAKER) 3.94 M/ L 4.63-6.08 L (test code = 761) HEMOGLOBIN (BEAKER) (test code = 10.1 GM/DL 13.7-17.5 L 410) HEMATOCRIT (BEAKER) (test code = 31.8 % 40.1-51.0 L 411) MEAN CORPUSCULAR VOLUME (BEAKER) 80.7 fL 79.0-92.2 (test code = 753) MEAN CORPUSCULAR HEMOGLOBIN 25.6 pg 25.7-32.2 L (BEAKER) (test code = 751) MEAN CORPUSCULAR HEMOGLOBIN CONC 31.8 GM/DL 32.3-36.5 L (BEAKER) (test code = 752) RED CELL DISTRIBUTION WIDTH 14.7 % 11.6-14.4 H (BEAKER) (test code = 412) PLATELET COUNT (BEAKER) (test 298 K/CU MM 150-450 code = 756) MEAN PLATELET VOLUME (BEAKER) 8.4 fL 9.4-12.4 L (test code = 754) NUCLEATED RED BLOOD CELLS 0 /100 WBC 0-0 (BEAKER) (test code = 413) NEUTROPHILS RELATIVE PERCENT 65 % (BEAKER) (test code = 429) LYMPHOCYTES RELATIVE PERCENT 18 % (BEAKER) (test code = 430) MONOCYTES RELATIVE PERCENT 16 % (BEAKER) (test code = 431) EOSINOPHILS RELATIVE PERCENT 1 % (BEAKER) (test code = 432) BASOPHILS RELATIVE PERCENT 0 % (BEAKER) (test code = 437) NEUTROPHILS ABSOLUTE COUNT 4.38 K/ L 1.78-5.38 (BEAKER) (test code = 670) LYMPHOCYTES ABSOLUTE COUNT 1.25 K/ L 1.32-3.57 L (BEAKER) (test code = 414) MONOCYTES ABSOLUTE COUNT (BEAKER) 1.07 K/ L 0.30-0.82 H (test code = 415) EOSINOPHILS ABSOLUTE COUNT 0.04 K/ L 0.04-0.54 (BEAKER) (test code = 416) BASOPHILS ABSOLUTE COUNT (BEAKER) 0.01 K/ L 0.01-0.08 (test code = 417) IMMATURE GRANULOCYTES-RELATIVE 1 % 0-1 PERCENT (BEAKER) (test code = 2801) POCT-GLUCOSE [id number] 21:16:00 Test Item Value Reference Range Interpretation Comments POC-GLUCOSE METER 117 mg/dL 70-110 H : TESTED A T [facility] 6720 (BEAKER) (test code = [facility] Aleyda [facility], 1538) [address]: Stove Mounter/Techni sherri ID = [id number] for Vivian Mcduffie Lactate Dehydrogenase (LD), Pleural [id number] 16:59:00 Test Item Value Reference Range Interpretation Comments Lactate 484 U/L See Note: Reference Dehydrogenase (LD), Range:TR ANSUDATE Pleural Fluid (test : <113E XUDATE: code = 90693-4) >113 GREG (test code = Performing Lab GREG) EZ [facility] [employer] [facility] [address] [place] [address] Augusto Henao MD, PhD, MAGAN [facility] without & with IV contrast 2020-05-07 14:57:00Interface, External Ris In 05/07/2020 3:01 PM CDTFINAL REPORT TECHNIQUE: CT of the abdomen and pelvis WITHOUT and WITH intravenous contrast and WITHOUT oral contrast. Dose modulation, iterative reconstruction, and/or weight-based adjustment of the mA/kV was utilized to reducethe radiation dose to as low as reasonably achievable. INDICATION: Unlisted Reason for Examadrenal mass noted on CT. COMPARISON: Chest CTs dating back to 05/02/2020. FINDINGS: LOWER THORAX: A small right pleural effusion with some intermixed gas is unchanged. There is hypoenhancement of the right lower lobe. The multiple patchy opacities in the left lung are concerning for pneumonia as well. HEPATOBILIARY: No focal hepatic lesions. Cystectomy. No biliary ductal dilatation.SPLEEN: 13.2 cm splenomegaly.PANCREAS: No focal masses or ductal dilatation. ADRENALS: A right adrenal nodule measures 1.4 cm and less than 10 Hounsfield units, consistent with an adenoma. A left adrenal nodule measures less than 10 Hounsfield units and 2 cm, consistent with an adenoma.KIDNEYS/URETERS: No hydronephrosis, stones, or masses. 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 PELVIC ORGANS/BLADDER: Unremarkable. PERITONEUM/RETROPERITONEUM: There is mild fat stranding in the upper abdomen with fluid which extends down the peritoneal reflections into the pelvis. This may be due to volume overload and/or anasarca. Small, fat filled left direct inguinal hernia. LYMPH NODES: No lymphadenopathy. There are prominent but nonenlarged periportal lymph nodes.VESSELS: Moderate severe aortoiliac atherosclerosis with at least moderate narrowing at the origin of the right common iliac artery. GI TRACT: No distention or wall thickening. BONES AND SOFT TISSUES: Diffuse anasarca. IMPRESSION: 1.The bilateral adrenal nodules measure up to 2 cm and are consistent with adenomas. 2.The hypoenhancement of the right lower lobe and patchy opacities in the left lung are concerningfor pneumonia. 3.Mild splenomegaly. 4.The prominent periportal lymph nodes are nonspecific but most l ikely reactive. Signed: Mary Monroy MDReport Verified Date/Time: 05/07/2020 14:57:19 Reading Location: [facility] Diagnostic Imaging Reading Room - [place] [address] [facility]CT, [id number] 14:57:00Unlisted Reason for Exam - Click Yes and Enter Reason Below->Yes ADRENAL PROTOCOL Unlisted Reasonfor Exam->adrenal mass [facility] on [facility] : 1950 Sex: MFINAL REPORT TECHNIQUE: CT of the abdomen and pelvis WITHOUT and WITH intravenous contrast and WITHOUT oral contrast. Dose modulation, iterative reconstruction, and/or weight-based adjustment of the mA/kV was utilized to reduce the radiation dose to as low as reasonably achievable. INDICATION: Unlisted Reason for Examadrenal mass noted on CT. COMPARISON: Chest CTs dating back to 05/02/2020. FINDINGS: LOWER THORAX: A small right pleural effusion with some intermixed gas isunchanged. There is hypoenhancement of the right lower lobe. The multiple patchy opacities in the left lung are concerning for pneumonia as well. HEPATOBILIARY: No focal hepatic lesions. Cystectomy. No biliary ductal dilatation.SPLEEN: 13.2 cm splenomegaly.PANCREAS: No focal masses or ductal dilatation. ADRENALS: A right adrenal nodule measures 1.4 cm and less than 10 Hounsfield units, consistent with an adenoma. A left adrenal nodule measures less than 10 Hounsfield units and 2 cm, consistent withan adenoma.KIDNEYS/URETERS: No hydronephrosis, stones, or masses. Duplicated right renal collecting system with ureters which likely insert separately on the bladder. PELVIC ORGANS/BLADDER: Unremarkable. PERITONEUM/RETROPERITONEUM: There is mild fat stranding in the upper abdomen with fluid which extends down the peritoneal reflections into the pelvis. This may be due to volume overload and/or anasarca. Small, fat filled left direct inguinal hernia. LYMPH NODES: No lymphadenopathy. There are prominent but nonenlarged periportal lymph nodes.VESSELS: Moderate severe aortoiliac atherosclerosis with atleast moderate narrowing at the origin of the right common iliac artery. GI TRACT: No distention or wall thickening. BONES AND SOFT TISSUES: Diffuse anasarca. IMPRESSION: 1.The bilateral adrenal nodules measure up to 2 cm and are consistent with adenomas. 2.The hypoenhancement of the right lower lobeand patchy opacities in the left lung are concerning for pneumonia. 3.Mild splenomegaly. 4.The prominent periportal lymph nodes are nonspecific but most likely reactive. Signed: Mary Monroy MDReport Verified Date/Time: 05/07/2020 14:57:19 Reading Location: [facility] Diagnostic Imaging Reading Room - [place] [address] POCT- GLUCOSE [id number] 13:05:00 Test Item Value Reference Range Interpretation Comments POC-GLUCOSE METER 97 mg/dL 70-110 : TESTED A T [facility] 67[facility] (test code = [place], 1538) [address]: Stove Mounter/Techni sherri ID = [id number] for LAWANDA BECKFORD RAD, CHEST, 1 VIEW, NON [id number] 08:26:00Reason for exam:->pleural effusionShould this be performed at the bedside?->Yes [facility] : 1950 Sex: MFINAL REPORT RAD, CHEST, 1 VIEW, NON DEPT INDICATION: pleural effusion COMPARISON: May 06, 2020 FINDINGS: Portable frontal view of the chest. IMPRESSION: Support Lines: Small caliber pigtail catheter remains at the right base laterally. Lungs and pleura: Congestive changes are present bilaterally, greater on the right. Only slight improvement in the right-sided effusion. No pneumothorax.Heart and mediastinum: Stable contours. Additional findings: None. Signed: JR Yosvany, Umm TALAVERAeport Verified Date/Time: 05/07/2020 08:26:47 Reading Location: [facility] Reading Room POCT-GLUCOSE METER 2020-05-07 07:24:00 Test Item Value Reference Range Interpretation Comments POC-GLUCOSE METER 104 mg/dL 70-110 : TESTED A T [facility] 6720 (BEAKER) (test code = [place], 1538) [address]: Stove Mounter/Techni sherri ID = [id number] for LAWANDA SANTOS BASIC METABOLIC [id number] 04:17:00 Test Item Value Reference Range Interpretation Comments SODIUM (BEAKER) 135 meq/L 136-145 L (test code = 381) POTASSIUM (BEAKER) 3.7 meq/L 3.5-5.1 (test code = 379) CHLORIDE (BEAKER) 99 meq/L 98-107 (test code = 382) CO2 (BEAKER) (test 27 meq/L 22-29 code = 355) BLOOD UREA NITROGEN 8 mg/dL 7-21 (BEAKER) (test code = 354) CREATININE (BEAKER) 0.60 mg/dL 0.57-1.25 (test code = 358) GLUCOSE RANDOM 104 mg/dL 70-105 (BEAKER) (test code = 652) CALCIUM (BEAKER) 8.4 mg/dL 8.4-10.2 (test code = 697) EGFR (BEAKER) (test 133 mL/min/1.73 ESTIM ATED GFR IS code = 1092) sq m NOT ACCURATE CREATININE CLEARANCE IN PREDICTING GLOMERULAR FILTRATION RATE . ESTIMATED GFR I S NOT APPLICABLE FOR DIALYSIS PATIEN TS. Stove Mounter ID - [id number] 04:17:00 Test Item Value Reference Range Interpretation Comments MAGNESIUM (BEAKER) (test code = 1.4 mg/dL 1.6-2.6 L 627) Stove Mounter ID - EDASICBC W/PLT COUNT & AUTO [id number] 04:15:00 Test Item Value Reference Range Interpretation Comments WHITE BLOOD CELL COUNT (BEAKER) 6.6 K/ L 3.5-10.5 (test code = 775) RED BLOOD CELL COUNT (BEAKER) 4.05 M/ L 4.63-6.08 L (test code = 761) HEMOGLOBIN (BEAKER) (test code = 10.5 GM/DL 13.7-17.5 L 410) HEMATOCRIT (BEAKER) (test code = 32.6 % 40.1-51.0 L 411) MEAN CORPUSCULAR VOLUME (BEAKER) 80.5 fL 79.0-92.2 (test code = 753) MEAN CORPUSCULAR HEMOGLOBIN 25.9 pg 25.7-32.2 (BEAKER) (test code = 751) MEAN CORPUSCULAR HEMOGLOBIN CONC 32.2 GM/DL 32.3-36.5 L (BEAKER) (test code = 752) RED CELL DISTRIBUTION WIDTH 14.7 % 11.6-14.4 H (BEAKER) (test code = 412) PLATELET COUNT (BEAKER) (test 246 K/CU MM 150-450 code = 756) MEAN PLATELET VOLUME (BEAKER) 7.9 fL 9.4-12.4 L (test code = 754) NUCLEATED RED BLOOD CELLS 0 /100 WBC 0-0 (BEAKER) (test code = 413) NEUTROPHILS RELATIVE PERCENT 65 % (BEAKER) (test code = 429) LYMPHOCYTES RELATIVE PERCENT 17 % (BEAKER) (test code = 430) MONOCYTES RELATIVE PERCENT 16 % (BEAKER) (test code = 431) EOSINOPHILS RELATIVE PERCENT 1 % (BEAKER) (test code = 432) BASOPHILS RELATIVE PERCENT 0 % (BEAKER) (test code = 437) NEUTROPHILS ABSOLUTE COUNT 4.30 K/ L 1.78-5.38 (BEAKER) (test code = 670) LYMPHOCYTES ABSOLUTE COUNT 1.15 K/ L 1.32-3.57 L (BEAKER) (test code = 414) MONOCYTES ABSOLUTE COUNT (BEAKER) 1.06 K/ L 0.30-0.82 H (test code = 415) EOSINOPHILS ABSOLUTE COUNT 0.04 K/ L 0.04-0.54 (BEAKER) (test code = 416) BASOPHILS ABSOLUTE COUNT (BEAKER) 0.02 K/ L 0.01-0.08 (test code = 417) IMMATURE GRANULOCYTES-RELATIVE 1 % 0-1 PERCENT (BEAKER) (test code = 2801) POCT-GLUCOSE [id number] 20:22:00 Test Item Value Reference Range Interpretation Comments POC-GLUCOSE METER 139 mg/dL 70-110 H : TESTED A T [facility] 6720 (BEAKER) (test code = ZANE Maynard [facility], 1538) [id number]: [employer] M[employer]/Techni sherri ID = [id number] for Vivian Mcduffie POCT-GLUCOSE [id number] 16:47:00 Test Item Value Reference Range Interpretation Comments POC-GLUCOSE METER 126 mg/dL 70-110 H : TESTED A T [facility] 6720 (BEAKER) (test code = ZANE Maynard [facility], 1538) [id number]: [employer]/Techni sherri ID = [id number] for OJ DEDRA, LORETTA Body fluid culture + gram [id number] 13:57:00 Test Item Value Reference Range Interpretation Comments Result (test code = 6463-4) No growth Gram Stain Result (test No organisms seen code = 1123) [facility] + GRAM [id number] 13:57:00 Test Item Value Reference Range Interpretation Comments CULTURE (BEAKER) (test code No growth = 1095) GRAM STAIN RESULT (BEAKER) 1+ WBCs (test code = 1123) GRAM STAIN RESULT (BEAKER) No organisms seen (test code = 06250) [id number] 12:21:00 Test Item Value Reference Range Interpretation Comments Case Report (test code Medical Cytology = 104) Report Case: [id number] Authorizing Provider: Yeni Bass, Collected: 05/04/2020 11:17 AM RESERVATION MANAGER Ordering Location: [address] Received: 05/06/2020 09:04 AM Service Pathologist: Randy Pickard MD Specimen: Pleural, Right DIAGNOSIS (test code = n3bnkIKnFIKpw4yoSJUbcU 3220) FuZzEwMzNcZnRuYmpcdWMx IHtccnRmMVxlcGljOTIwMF iatnSuFGOyzGXgP5Wgozns LAqiZJ2mYT4wgNgjaFEiqR MgLAThVaPua0yej222yTTn u1jlGGWRopoeeZh2tPmrP6 8ot6A4WqxwB98kdIKeMOly bGFpblxmczIwIFBMRVVSQU gaZPXOC2dJUTTTIAFSMHEy K6hWQ5MHFD0LNPsfzWLkOQ CxOA2lAVUNCM8LNF3LNnPU YODRB4JNRSELBFNtHNGMOc cFBANKCUUYPaQHXY2FTPWP VdnoQ4DYHQSvZBYRBy9VDD LlFYAjulXuJOCoFF0MO2VD TZNLQQSMKwYKNVsVO66KFm MYGAulHGL0j7lhbISuWEUs dGUxODAwMFxhbnNpXGRlZm trweuySGUiOUU0wpSqDJOk GOndFTDqXXgiHy1pgKLzrM mfMzMrPJJkk9ydrwHOjwjq vYj6w1bjQXSwUmJ1mCZnXY sqV9ffrvDbaBJuPHAlFVo3 vY63WVItqQ1jkXPkCDavzs BpHeN6FUjzWPNvTmG0JOZj bJZpHCZmU7swZKVmQLwkVF FmJBztiZNyBTF6dAmsq2V3 bGVzaGVldHtcZjBcZnMyMi HPs7PrYKg3nGseM9NwIXLg HtE1sNZyRJKpZGxqARCyVH CcwyX2lE19HJixalA2jUBp e8Oiu30au134rC5qeCWxXH H3GWFkTVRmbFAhCAZnXSZ5 JXFmcRNdJ7nnLJEcUI3pps qtJLykUDhaYGYvoAG0UTZp jYFuW0SfJUCiYYffVLLkul q2BpYgGh9gzDTkqSygEWbu k9yis8ivfATqZlf9ZKHrQx InWfggRCkhn0Mph6evPRWo do8aIFE2lNGthQsmv3I8nR WoRLSepJMoMJXoRS5ejXXs GWUdbK1eddktSCSqHvOfki yjNXPssKaprkXdZq0wnMbp QCV2PGhcL0suaW7uNcN3SO lqY7xizK5yLUp4TGdqYOLi gBY7qaN6NDMiwVRxA7AokT 7uHVBnLD0xhso5y7dfUAA0 USfeSQJfCsS4mpF5VWZnrE IcBZIsoXcfWUvdv471LPI8 JgRqLTIae9FjA5TpiMguO4 8mgEtuL10gHODveDqroN1x mXyqwL0hDhHjEbOiDWvieG npTF8iZEOoO6ztnJVvKOZq CRXzJ4dbPrTqsX9zuWkuSJ jmjqBqIAIoIfe3DFOqpDIg CXAiBoy5CDQzSSFcY57mdl bqIOP2sQ9la5uak4SfCNon FTH4JSAua85aWGpsccX1PH bvNn0bDTFbZrm7OftyyRDk fX0= CPT Code(s) (test code z3obwSZjRMAmrWG0GwQmXU = 3357) Qnk5toi0WwrSMpkNFrRNku fUUelqUydz39tLK9tT77PI 0yMLOcAvW8GQUhhdY9Rjx4 VEQdVXJayGBtP673c7hmr8 pzefGizKL0rZybTFNzODEj YWluXGZzMjAgODgxMDhccG FyfQ== CLINICAL DATA (test x6hruGVuIODeyFV4VrYcUI code = 3355) Zhn3ydp9YvnJTvrLLlIKqj pFPcwqJgdb41sBM2mR28UF 0uTVNdPqO5QYCjmnM9Vrp3 FYArBSUfwBFsT181c2yrf7 uuroFuhLV4iFheDDPpNFVx YWluXGZzMjAgUmlnaHQgcG draAMrxGXtWiD5b6tmerec YXJ9 SPECIMEN SOURCE (test j7lbyHKmAFAxcHW2GcFlUO code = 3377) Jho3qrs7QxwJAefRBxOJot kGBifnUyfc48dEW2mG43LW 4mIEAeIrP0SDDvylG7Hsh7 KRZcFRLotVMiW206z9zpb3 rtddNhtWU9sNzvHJOdSNOq YWluXGZzMjAgUExFVVJBTC wgUklHSFQsIEZMVUlEXHBh cn0= GROSS DESCRIPTION (test a9puyWXuMCAydUM1AiKtXU code = 3366) Qxp1aba0RizVVqtOWoFJyl uUYvuuNeju08hNH7sV37LR 2yHUWpAvS1RCOwiuC8Lkh4 YKDzTABmzOJjU700t6lnd6 zwnkIfqZJ8eUaiWWLhNXJq JLalBMOxLvJmEiHnCZn0RK DaDYNcuTA6FQido6zfMkp1 xHM1UMAwTYChdaJhNMIkU9 d1f0SnzM9qCXXjQqftYKC2 MICROSCOPIC DESCRIPTION d5ejoIKuFWKdoDE2RmExYJ (test code = 3371) Hws6zrt0FjuQKfsDFiQDhf pHOhpiKigl06kTA0zK77RG 5iCHAtLcM1ALRkezR7Pnu3 QBPgRKLynRBiU784q0qnw8 lnmrZrnJU3bYyrQQBpIPQt EFkpVXLhCxHeANKpMl9azN VkLiBccGFyfQ== STATEMENT OF ADEQUACY Satisfactory (test code = 2757) Gross assessment was [facility] performed at ([facility] code [facility], = 2777) Department of Pathology, [address] [place] [address], Technical component was [facility] performed at ([facility], = 2778) Department of Pathology, [address] [place] [address], Professional component [facility] was performed at ([facility], code = 2779) Department of Pathology, [address] [place] [address], [facility]2020-10-19 12:21:00Medical Cytology Report Case: [id number] Aut horizing Provider: Yeni Bass, Collected: 05/04/2020 11:17 AM RESERVATION MANAGER OrderingLocation: [address] Received: 05/06/2020 09:04 AM Service Pathologist: Randy Pickard MD Specimen: Pleural, Right PLEURAL, RIGHT, FLUID (CYTOSPINS): - PREDOMINANTLY ACELLULAR DEBRIS AND INFLAMMATORY CELLS (CHRONIC) - NEGATIVE FOR MALIGNANCY Signing Pathologist Direct Phone Line: [phone] signed by Randy Pickard MD on 05/06/2020 at 12:21 [id number] pleural effusionPLEURAL, RIGHT, FLUIDReceived 5 ml yellow fluid; prepared 4 cytospins Performed. [facility], Department of Pathology, [address] [place] [address], [facility]xuSt[facility], Department of Pathology, [address] [place] [address], DbdtfvSt. 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 Amount - 3 mlHeight: 69 inches Weight: 76.2 kg (168 lbs) BSA: 1.92 m^2 BMI: 24.81 kg/m^2HR: 69 bpm BP: 141/67 mmHg Summary 1. Normal left ventricular chamber size. Normal wall thickness. Normal overall left ventricular systolic function. No apparent segmental wall motion abnormalities. Estimated LVEF by qualitative assessment is normal (>60%) . LA size is normal . 2. Normal right ventricle structure and function. RA cavity size is normal . Unableto estimate peak systolic PA pressure; inadequate TR velocity signal. 3. Aortic valve sclerosis without stenosis. Mild AoV cusp thickening. Mild AoV cusp calcification. AoV calcification primarily involves the non- coronary cusp(s). Previous Study No prior exam available for comparison. Signature - Findings Left Ventricle LV endocardium is adequately [...] normal . Aortic Valve Mild AoV cusp thickening.Mild AoV cusp calcification. AoV calcification primarily involves the non- coronary cusp(s). No evidence of aortic regurgitation. Mitral Valve Mild MV leaflet thickening. Trace mitral regurgitation.Tricuspid Valve A trace of tricuspid regurgitation. Unable to estimatepeak systolic PA pressure; inadequate TR velocity signal. Pulmonic Valve Normal PV structure and function by limited views and Doppler. Aorta Aortic root size (SInus of Valsalva diameter) is normal . Pericardium No evidence of pericardial effusion. [...] LVOT CO: 4.76 l/min LVOT CI: 2.48 l/min/m^2CChildren's Hospital Los AngelesCT-GLUCOSE [id number] 11:15:00 Test Item Value Reference Range Interpretation Comments POC-GLUCOSE METER 131 mg/dL 70-110 H : TESTED A T [facility] 6720 (BEAKER) (test code = [place], 1538) [address]: Stove Mounter/Techni sherri ID = [id number] for OJ DEDRA, LORETTA RAD, ABDOMEN/KUB, 1 VIEW [id number] 10:45:00Reason for exam:->evaluate stool burdenST. MARY REGIONAL MEDICAL [facility]ENTERName: [facility] : 1950 Sex: MFINAL REPORT RAD, ABDOMEN/KUB, 1 VIEW AP CLINICAL INDICATION: evaluate stool burden COMPARISON: None TECHNIQUE: Two frontal radiographs of the abdomen. IMPRESSION: The bowel gas pattern is nonspecific, but nonobstructive. Moderate to large colonic stool burden, partiallyadmixed with contrast. The regional skeleton is intact. Signed: JR Bar Robert MDReport Verified Date/Time: 05/06/2020 10:45:37 Reading Location: [facility] Radiology Reading Room [id number] 09:26:00 Test Item Value Reference Range Interpretation Comments Ferritin (test code = 218.48 ng/mL 5-275 2276-4) GREG (test code = GREG) Stove Mounter ID - EDASI Lab Interpretation (test Normal code = 28083-1) [facility] DiegoFERRITIN2020-10-19 09:26:00 Test Item Value Reference Range Interpretation Comments FERRITIN (BEAKER) (test code = 218.48 ng/mL 5.00-275.00 361) Stove Mounter ID - EDASIIron, TIBC, % sat. (without ferritin)2020-05-06 09:06:00 Test Item Value Reference Range Interpretation Comments Iron (test code = 2498-4) 25.0 ug/dL 40-160 L TIBC (test code = 2500-7) 230 ug/dL 250-450 L Iron % Saturation (test 11 % 20-55 L code = 2502-3) GREG (test code = GREG) Stove Mounter ID - EDASI Lab Interpretation (test Abnormal code = 25997-0) [facility] DiegoIRON, TIBC, % SAT. (WITHOUT FERRITIN)2020-05-06 09:06:00 Test Item Value Reference Range Interpretation Comments IRON (BEAKER) (test code = 547) 25.0 ug/dL 40.0-160.0 L TOTAL IRON BINDING CAPACITY 230 ug/dL 250-450 L (BEAKER) (test code = 769) IRON % SATURATION (2) (BEAKER) 11 % 20-55 L (test code = 2590) Stove Mounter ID - EDASIPOCT-GLUCOSE [id number] 07:40:00 Test Item Value Reference Range Interpretation Comments POC-GLUCOSE METER 121 mg/dL 70-110 H : TESTED A T [facility] 6720 (BEAKER) (test code = [place], 1538) 37484: Stove Mounter/Techni sherri ID = [id number] for OJ DEDRA, LORETTA RAD, CHEST, 1 VIEW, NON [id number] 07:40:00Reason for exam:->pleural effusionShould this be performed at the bedside?->Yes [facility] : 1950 Sex: MFINAL REPORT RAD, CHEST, 1 VIEW, NON DEPT INDICATION: pleural effusion COMPARISON: Prior day's exam FINDINGS: Portable frontal view of the chest. IMPRESSION: Support Lines: Stable right pigtail catheter. Lungs and pleura: Increasing right effusion. Congestive interstitialchanges are again noted bilaterally. There is no discernible pneumothorax.Heart and mediastinum: Stable contours. Additional findings: None. Signed: JR Yosvany, Umm Landaverde Verified Date/Time: 05/06/2020 07:40:52 Reading Location: [facility] Radiology Reading Room [id number] 05:37:00 Test Item Value Reference Range Interpretation Comments PREALBUMIN (BEAKER) (test code = 12 mg/dL 14-45 L 586) Stove Mounter ID - DBBASIC METABOLIC [id number] 04:38:00 Test Item Value Reference Range Interpretation Comments SODIUM (BEAKER) 136 meq/L 136-145 (test code = 381) POTASSIUM (BEAKER) 4.2 meq/L 3.5-5.1 (test code = 379) CHLORIDE (BEAKER) 99 meq/L 98-107 (test code = 382) CO2 (BEAKER) (test 28 meq/L 22-29 code = 355) BLOOD UREA NITROGEN 8 mg/dL 7-21 (BEAKER) (test code = 354) CREATININE (BEAKER) 0.67 mg/dL 0.57-1.25 (test code = 358) GLUCOSE RANDOM 122 mg/dL 70-105 H (BEAKER) (test code = 652) CALCIUM (BEAKER) 9.0 mg/dL 8.4-10.2 (test code = 697) EGFR (BEAKER) (test 117 mL/min/1.73 ESTIM ATED GFR IS code = 1092) sq m NOT ACCURATE CREATININE CLEARANCE IN PREDICTING GLOMERULAR FILTRATION RATE . ESTIMATED GFR I S NOT APPLICABLE FOR DIALYSIS PATIEN TS. Stove Mounter ID - [id number] 04:38:00 Test Item Value Reference Range Interpretation Comments MAGNESIUM (BEAKER) (test code = 1.6 mg/dL 1.6-2.6 627) Stove Mounter ID - EDASIPROTEIN, [id number] 04:38:00 Test Item Value Reference Range Interpretation Comments TOTAL PROTEIN (BEAKER) (test code = 6.8 gm/dL 6.0-8.3 770) Stove Mounter ID - [id number] 04:38:00 Test Item Value Reference Range Interpretation Comments ALBUMIN (BEAKER) (test code = 1145) 3.5 g/dL 3.5-5.0 Stove Mounter ID - EDASICBC W/PLT COUNT & AUTO [id number] 04:09:00 Test Item Value Reference Range Interpretation Comments WHITE BLOOD CELL COUNT (BEAKER) 6.8 K/ L 3.5-10.5 (test code = 775) RED BLOOD CELL COUNT (BEAKER) 4.48 M/ L 4.63-6.08 L (test code = 761) HEMOGLOBIN (BEAKER) (test code = 11.5 GM/DL 13.7-17.5 L 410) HEMATOCRIT (BEAKER) (test code = 36.6 % 40.1-51.0 L 411) MEAN CORPUSCULAR VOLUME (BEAKER) 81.7 fL 79.0-92.2 (test code = 753) MEAN CORPUSCULAR HEMOGLOBIN 25.7 pg 25.7-32.2 (BEAKER) (test code = 751) MEAN CORPUSCULAR HEMOGLOBIN CONC 31.4 GM/DL 32.3-36.5 L (BEAKER) (test code = 752) RED CELL DISTRIBUTION WIDTH 14.9 % 11.6-14.4 H (BEAKER) (test code = 412) PLATELET COUNT (BEAKER) (test 315 K/CU MM 150-450 code = 756) MEAN PLATELET VOLUME (BEAKER) 8.2 fL 9.4-12.4 L (test code = 754) NUCLEATED RED BLOOD CELLS 0 /100 WBC 0-0 (BEAKER) (test code = 413) NEUTROPHILS RELATIVE PERCENT 71 % (BEAKER) (test code = 429) LYMPHOCYTES RELATIVE PERCENT 16 % (BEAKER) (test code = 430) MONOCYTES RELATIVE PERCENT 12 % (BEAKER) (test code = 431) EOSINOPHILS RELATIVE PERCENT 0 % (BEAKER) (test code = 432) BASOPHILS RELATIVE PERCENT 0 % (BEAKER) (test code = 437) NEUTROPHILS ABSOLUTE COUNT 4.81 K/ L 1.78-5.38 (BEAKER) (test code = 670) LYMPHOCYTES ABSOLUTE COUNT 1.07 K/ L 1.32-3.57 L (BEAKER) (test code = 414) MONOCYTES ABSOLUTE COUNT (BEAKER) 0.81 K/ L 0.30-0.82 (test code = 415) EOSINOPHILS ABSOLUTE COUNT 0.01 K/ L 0.04-0.54 L (BEAKER) (test code = 416) BASOPHILS ABSOLUTE COUNT (BEAKER) 0.02 K/ L 0.01-0.08 (test code = 417) IMMATURE GRANULOCYTES-RELATIVE 1 % 0-1 PERCENT (BEAKER) (test code = 2801) POCT-GLUCOSE [id number] 21:37:00 Test Item Value Reference Range Interpretation Comments POC-GLUCOSE METER 112 mg/dL 70-110 H : TESTED A T [facility] 6720 (BEAKER) (test code = [facility], 1538) 60148: Stove Mounter/Techni sherri ID = [id number] for Vivian Mcduffie POCT-GLUCOSE [id number] 17:01:00 Test Item Value Reference Range Interpretation Comments POC-GLUCOSE METER 93 mg/dL 70-110 : TESTED A T [facility] 6720 (BEAKER) (test code = [facility], 1538) 25562: Stove Mounter/Techni sherri ID = [id number] for CONSTANCE OKEEFE POCT-GLUCOSE [id number] 12:03:00 Test Item Value Reference Range Interpretation Comments POC-GLUCOSE METER 136 mg/dL 70-110 H : TESTED A T [facility] 6720 (BEAKER) (test code = [facility], 1538) 80243: Stove Mounter/Techni sherri ID = [id number] for CONSTANCE COUCH Lactate dehydrogenase (LDH)2020-05-05 11:15:00 Test Item Value Reference Range Interpretation Comments LDH (test code = 2532-0) 449 U/L 125-220 H GREG (test code = GREG) Stove Mounter ID - EDASI Lab Interpretation (test Abnormal code = 47777-4) [facility] DiegoPROTEIN, [id number] 11:15:00 Test Item Value Reference Range Interpretation Comments TOTAL PROTEIN (BEAKER) (test code = 5.8 gm/dL 6.0-8.3 L 770) Stove Mounter ID - EDASILACTATE DEHYDROGENASE (LDH)2020-05-05 11:15:00 Test Item Value Reference Range Interpretation Comments LACTATE DEHYDROGENASE (BEAKER) (test 449 U/L 125-220 H code = 635) Stove Mounter ID - EDASIPOCT-GLUCOSE [id number] 08:01:00 Test Item Value Reference Range Interpretation Comments POC-GLUCOSE METER 113 mg/dL 70-110 H : TESTED A T [facility] 6720 (BEAKER) (test code = [place], 1538) 709[address]: Stove Mounter/Techni sherri ID = [id number] for CONSTANCE COUCH RAD, CHEST, 1 VIEW, NON [id number] 08:01:00Reason for exam:->pleural effusionShould this be performed at the bedside?->Yes [facility] 1950 Sex: MFINAL REPORT X-ray chest AP portable COMPARISON: 05/04/2020 HISTORY: Pleural effusion FINDINGS:Technical adequacy: AdequateLines and Tubes: NoneCentral airways: UnremarkableHeart: Partially desilhouettedGreat vessels: Atherosclerotic aortaMediastinum: No changeLungs: Bilateral pulmonary airspace and interstitial opacities in a diffuse pattern right more than left unchangedPl eura: Right pleural effusion with possibility of fluid in the minor fissure unchanged. Right pleuraldrain unchanged.Skeletal structures: UnremarkableBody wall: UnremarkableUpper abdomen: Unremarkable Impression: No significant change Signed: Kelvin Lao Verified Date/Time: 05/05/2020 08:01:40 Reading Location: [facility] C0W Consult Reading Room BASIC METABOLIC [id number] 06:44:00 Test Item Value Reference Range Interpretation Comments SODIUM (BEAKER) 137 meq/L 136-145 (test code = 381) POTASSIUM (BEAKER) 4.4 meq/L 3.5-5.1 (test code = 379) CHLORIDE (BEAKER) 103 meq/L 98-107 (test code = 382) CO2 (BEAKER) (test 25 meq/L 22-29 code = 355) BLOOD UREA NITROGEN 8 mg/dL 7-21 (BEAKER) (test code = 354) CREATININE (BEAKER) 0.65 mg/dL 0.57-1.25 (test code = 358) GLUCOSE RANDOM 113 mg/dL 70-105 H (BEAKER) (test code = 652) CALCIUM (BEAKER) 8.2 mg/dL 8.4-10.2 L (test code = 697) EGFR (BEAKER) (test 121 mL/min/1.73 ESTIM ATED GFR IS code = 1092) sq m NOT ACCURATE CREATININE CLEARANCE IN PREDICTING GLOMERULAR FILTRATION RATE . ESTIMATED GFR I S NOT APPLICABLE FOR DIALYSIS PATIEN TS. Stove Mounter ID - [id number] 06:44:00 Test Item Value Reference Range Interpretation Comments MAGNESIUM (BEAKER) (test code = 1.8 mg/dL 1.6-2.6 627) Stove Mounter ID - EDASICBC W/PLT COUNT & AUTO [id number] 06:30:00 Test Item Value Reference Range Interpretation Comments WHITE BLOOD CELL COUNT (BEAKER) 7.5 K/ L 3.5-10.5 (test code = 775) RED BLOOD CELL COUNT (BEAKER) 3.92 M/ L 4.63-6.08 L (test code = 761) HEMOGLOBIN (BEAKER) (test code = 10.0 GM/DL 13.7-17.5 L 410) HEMATOCRIT (BEAKER) (test code = 32.6 % 40.1-51.0 L 411) MEAN CORPUSCULAR VOLUME (BEAKER) 83.2 fL 79.0-92.2 (test code = 753) MEAN CORPUSCULAR HEMOGLOBIN 25.5 pg 25.7-32.2 L (BEAKER) (test code = 751) MEAN CORPUSCULAR HEMOGLOBIN CONC 30.7 GM/DL 32.3-36.5 L (BEAKER) (test code = 752) RED CELL DISTRIBUTION WIDTH 15.2 % 11.6-14.4 H (BEAKER) (test code = 412) PLATELET COUNT (BEAKER) (test 295 K/CU MM 150-450 code = 756) MEAN PLATELET VOLUME (BEAKER) 8.1 fL 9.4-12.4 L (test code = 754) NUCLEATED RED BLOOD CELLS 0 /100 WBC 0-0 (BEAKER) (test code = 413) NEUTROPHILS RELATIVE PERCENT 66 % (BEAKER) (test code = 429) LYMPHOCYTES RELATIVE PERCENT 17 % (BEAKER) (test code = 430) MONOCYTES RELATIVE PERCENT 16 % (BEAKER) (test code = 431) EOSINOPHILS RELATIVE PERCENT 0 % (BEAKER) (test code = 432) BASOPHILS RELATIVE PERCENT 0 % (BEAKER) (test code = 437) NEUTROPHILS ABSOLUTE COUNT 5.00 K/ L 1.78-5.38 (BEAKER) (test code = 670) LYMPHOCYTES ABSOLUTE COUNT 1.27 K/ L 1.32-3.57 L (BEAKER) (test code = 414) MONOCYTES ABSOLUTE COUNT (BEAKER) 1.17 K/ L 0.30-0.82 H (test code = 415) EOSINOPHILS ABSOLUTE COUNT 0.03 K/ L 0.04-0.54 L (BEAKER) (test code = 416) BASOPHILS ABSOLUTE COUNT (BEAKER) 0.02 K/ L 0.01-0.08 (test code = 417) IMMATURE GRANULOCYTES-RELATIVE 0 % 0-1 PERCENT (BEAKER) (test code = 2801) POCT-GLUCOSE [id number] 21:03:00 Test Item Value Reference Range Interpretation Comments POC-GLUCOSE METER 119 mg/dL 70-110 H : TESTED A T [facility] 6720 (BEAKER) (test code = [place], 1538) 823[address]: Stove Mounter/Techni sherri ID = [id number] for ELLIE CONOR III, DORON POCT-GLUCOSE [id number] 17:06:00 Test Item Value Reference Range Interpretation Comments POC-GLUCOSE METER 105 mg/dL 70-110 : TESTED A T [facility] 6720 (BEAKER) ([place], [address]: code = 1538) Stove Mounter/Techni sherri ID = [id number] for MIREYA MUKHERJEE IN CT, CHEST, WITHOUT [id number] 16:45:00Keep ChT on water seal during examUnlisted Reason for Exam - Click Yes and Enter Reason Below->YesUnlisted Reason for Exam->eval for trapped lung after pleural effusion drainage - ChT on water seal during exam [facility] : 1950 Sex: MFINAL REPORT CT of the Chest dated 05/04/2020 COMPARISON: May 02, 2020 CLINICAL INFORMATION: Unlisted Reason for Exameval for trapped lung after pleural effusion drainage - ChT on water seal during exam Comment: Axial images of the chest were obtained from thoracic inlet to the upper abdomen without intravenous contrast. This exam was performed according to our departmental dose-optimization program, which includes automated exposure control, adjustment of the mA and/or kV according to patient size and/or use of interactive reconstruction technique. Since prior examination, there is interval placement of a pigtail chest tube in the right pleural space. There is interval decrease in size of a loculated right pleural effusion. Air bubbles are seen in the right pleural space. There is trace left pleural effusion. Heart is normal in size. Great vessels are unremarkable. No adenopathy in the mediastinum or perihilar region. Trachea and mainstem bronchi are patent. Numerous of groundglass and airspace disease are seen in both lungs suggestive of infectious process.This is stable as compared to the prior study. Subsegmental atelectasis is seen in the right mid andboth lobes. Visualized upper abdomen demonstrates no focal lesion. Impression: 1. Interval placementof a right chest tube with interval decrease in size of the loculated right pleural effusion.2. Freeair in the right lower pleural space thought to represent post procedure changes.3. Trace left pleural effusion.4. Stable groundglass and airspace disease in both lungs. Signed: Drew Wilson Verified Date/Time: 05/04/2020 16:45:07 Reading Location: [address] Ortho Consult Reading Room CT chest without IV [id number] 16:45:00Interface, External Ris In - 05/04/2020 4:[address] of the Chest dated 05/04/2020 COMPARISON: May 02, 2020 CLINICAL INFORMATION: Unlisted Reason for Examevalfor trapped lung after pleural effusion drainage - ChT on water seal during exam Comment: Axial images of the chest were obtained from thoracic inlet to the upper abdomen without intravenous contrast.This exam was performed according to our departmental dose-optimization program, which includes automated exposure control, adjustment of the mA and/or kV according to patient size and/or use of interactive reconstruction technique. Since prior examination, there is interval placement of a pigtail chest tube in the right pleural space. There is interval decrease in size of a loculated right pleural effusion. Air bubbles are seen in the right pleural space. There is trace left pleural effusion. Heartis normal in size. Great vessels are unremarkable. No adenopathy in the mediastinum or perihilar region. Trachea and mainstem bronchi are patent. Numerous of groundglass and airspace disease are seenin both lungs suggestive of infectious process. This is stable as compared to the prior study. Subsegmental atelectasis is seen in the right mid and both lobes. Visualized upper abdomen demonstrates nofocal lesion. Impression: 1. Interval placement of a right chest tube with interval decrease in sizeof the loculated right pleural effusion.2. Free air in the right lower pleural space thought to represent post procedure changes.3. Trace left pleural effusion.4. Stable groundglass and airspace disease in both lungs. Signed: Drew Wilson MDReport Verified Date/Time: 05/04/2020 16:45:07 Reading Location: [facility] B1 [id number] Ortho Consult Reading Room [facility], [facility] [id number] 15:44:00 Test Item Value Reference Range Interpretation Comments PROTEIN, TOTAL, PLEURAL FLUID (test 3.4 g/dL code = 2882-9) [facility] [id number] 15:44:00 Test Item Value Reference Range Interpretation Comments PROTEIN, TOTAL, PLEURAL FLUID 3.4 g/dL (BEAKER) (test code = 8226368) Body fluid cell count with [id number] 15:41:00 Test Item Value Reference Range Interpretation Comments Appearance (test code = Slightly Hazy Clear A 9335-1) Color (test code = Yellow Colorless, Straw A 6824-7) RBCs (test code = 398 <=1 /cu mm H 37973-1) Adjusted WBC Count (test 84 <=5 /cu mm H code = 77368-0) Lining Cells (test code 0 <=1 /cu mm = 80693-1) % Segs (test code = 28 % 82355-5) % Lymphs (test code = 37 % 99290-4) % Monos (test code = 36 % 75660-5) % Eos (test code = 0 % 89547-3) % Baso (test code = 0 % 04079-5) Container Body Fluid EDTA Tube (test code = 2873) GREG (test code = GREG) Degenerated WBCs present Lab Interpretation (test Abnormal code = 52386-6) [facility] DiegoBODY FLUID CELL COUNT WITH [id number] 15:41:00 Test Item Value Reference Range Interpretation Comments APPEARANCE FLUID (BEAKER) Slightly Hazy Clear A (test code = 510) COLOR FLUID (BEAKER) (test Yellow Colorless, Straw A code = 511) RBC FLUID (BEAKER) (test code 398 /cu mm <=1 H = 513) ADJUSTED WBC FLUID (BEAKER) 84 /cu mm <=5 H (test code = 1691) LINING CELLS (BEAKER) (test 0 /cu mm <=1 code = 1590) NEUTROPHILS FLUID (BEAKER) 28 % (test code = 1656) LYMPHS FLUID (BEAKER) (test 37 % code = 488) MONO/MACROPHAGE FLUID (BEAKER) 36 % (test code = 489) EOSINOPHILS FLUID (BEAKER) 0 % (test code = 491) BASO FLUID (BEAKER) (test code 0 % = 492) CONTAINER BODY FLUID (BEAKER) EDTA Tube (test code = 2873) Degenerated WBCs presentUrinalysis w/Microscopic + Reflex to [id number] 13:30:00 Test Item Value Reference Range Interpretation Comments Color, UA (test code = Yellow 5778-6) Clarity, UA (test code = Clear 5767-9) Specific [place], UA (test 1.024 1.001-1.035 code = 5811-5) pH, UA (test code = 5.5 5.0-8.0 5803-2) Protein, UA (test code = 20 mg/dL Negative A 62210-4) Glucose, UA (test code = >1000 mg/dL Negative A 365) Ketones, UA (test code = 20 mg/dL Negative A 2514-8) Bilirubin, UA (test code = Negative Negative 95680-2) Blood, UA (test code = Negative Negative 53769-8) Nitrite, UA (test code = Negative Negative 5802-4) Leukocytes, UA (test code Negative Negative = 5799-2) Urobilinogen, UA (test 0.2 mg/dL 0.2-1 code = 25998-5) RBC, UA (test code = 0 /HPF 67686-2) WBC, UA (test code = 2 /HPF 5821-4) Mucus (test code = 8247-9) Rare Hyaline Casts, UA (test 1 /LPF code = 56104-4) Specimen Source (test code = 2795) GREG (test code = GREG) Stove Mounter ID - [auto]Stove Mounter ID - tech Lab Interpretation (test Abnormal code = 77378-0) [facility] UR[facility] [id number] 13:30:00 Test Item Value Reference Range Interpretation Comments COLOR (BEAKER) (test code = 470) Yellow CLARITY (BEAKER) (test code = Clear 469) SPECIFIC GRAVITY UA (BEAKER) 1.024 1.001-1.035 (test code = 468) PH UA (BEAKER) (test code = 467) 5.5 5.0-8.0 PROTEIN UA (BEAKER) (test code = 20 mg/dL Negative A 464) GLUCOSE UA (BEAKER) (test code = >1000 mg/dL Negative A 365) KETONES UA (BEAKER) (test code = 20 mg/dL Negative A 371) BILIRUBIN UA (BEAKER) (test code Negative Negative = 462) BLOOD UA (BEAKER) (test code = Negative Negative 461) NITRITE UA (BEAKER) (test code = Negative Negative 465) LEUKOCYTE ESTERASE UA (BEAKER) Negative Negative (test code = 466) UROBILINOGEN UA (BEAKER) (test 0.2 mg/dL 0.2-1.0 code = 463) RBC UA (BEAKER) (test code = 519) 0 /HPF WBC UA (BEAKER) (test code = 520) 2 /HPF MUCUS (BEAKER) (test code = 1574) Rare HYALINE CASTS (BEAKER) (test code 1 /LPF = 514) SOURCE(BEAKER) (test code = 2795) Stove Mounter ID - [auto]Stove Mounter ID - techRAD, CHEST, 1 VIEW, NON [id number] 08:01:00Reason for exam:->cht in placeShould this be performed at the bedside?->YesST. [facility] : 1950 Sex: MFINAL REPORT Chest dated 05/04/2020 COMPARISON: 05/03/2020 Clinical Information: cht in place Comment: Since prior examination, there is interval improvement of the pulmonary parenchyma disease particularly on the left. There is pleural thickening versus loculated pleural effusion in the right hemithorax. Right chest tube remains in place. No pneumothorax is seen. Heart isnormal in size. Signed: Drew Wilsonort Verified Date/Time: 05/04/2020 08:01:18 Reading Location: [facility] [id number] Ortho Consult Reading Room POCT-GLUCOSE [id number] 07:40:00 Test Item Value Reference Range Interpretation Comments POC-GLUCOSE METER 113 mg/dL 70-110 H : TESTED A T [facility] (BEAKER) ([place], [address]: code = 1538) Stove Mounter/Techni sherri ID = [id number] for AYESHA MIREYA HOLDEN IN BASIC METABOLIC [id number] 06:43:00 Test Item Value Reference Range Interpretation Comments SODIUM (BEAKER) 136 meq/L 136-145 (test code = 381) POTASSIUM (BEAKER) 3.4 meq/L 3.5-5.1 L (test code = 379) CHLORIDE (BEAKER) 101 meq/L 98-107 (test code = 382) CO2 (BEAKER) (test 24 meq/L 22-29 code = 355) BLOOD UREA NITROGEN 8 mg/dL 7-21 (BEAKER) (test code = 354) CREATININE (BEAKER) 0.61 mg/dL 0.57-1.25 (test code = 358) GLUCOSE RANDOM 112 mg/dL 70-105 H (BEAKER) (test code = 652) CALCIUM (BEAKER) 8.2 mg/dL 8.4-10.2 L (test code = 697) EGFR (BEAKER) (test 131 mL/min/1.73 ESTIM ATED GFR IS code = 1092) sq m NOT ACCURATE CREATININE CLEARANCE IN PREDICTING GLOMERULAR FILTRATION RATE . ESTIMATED GFR I S NOT APPLICABLE FOR DIALYSIS PATIEN TS. Stove Mounter ID - [id number] 06:43:00 Test Item Value Reference Range Interpretation Comments MAGNESIUM (BEAKER) (test code = 2.0 mg/dL 1.6-2.6 627) Stove Mounter ID - EDASICBC W/PLT COUNT & AUTO [id number] 06:03:00 Test Item Value Reference Range Interpretation Comments WHITE BLOOD CELL COUNT (BEAKER) 7.0 K/ L 3.5-10.5 (test code = 775) RED BLOOD CELL COUNT (BEAKER) 4.05 M/ L 4.63-6.08 L (test code = 761) HEMOGLOBIN (BEAKER) (test code = 10.4 GM/DL 13.7-17.5 L 410) HEMATOCRIT (BEAKER) (test code = 32.5 % 40.1-51.0 L 411) MEAN CORPUSCULAR VOLUME (BEAKER) 80.2 fL 79.0-92.2 (test code = 753) MEAN CORPUSCULAR HEMOGLOBIN 25.7 pg 25.7-32.2 (BEAKER) (test code = 751) MEAN CORPUSCULAR HEMOGLOBIN CONC 32.0 GM/DL 32.3-36.5 L (BEAKER) (test code = 752) RED CELL DISTRIBUTION WIDTH 15.1 % 11.6-14.4 H (BEAKER) (test code = 412) PLATELET COUNT (BEAKER) (test 316 K/CU MM 150-450 code = 756) MEAN PLATELET VOLUME (BEAKER) 8.1 fL 9.4-12.4 L (test code = 754) NUCLEATED RED BLOOD CELLS 0 /100 WBC 0-0 (BEAKER) (test code = 413) NEUTROPHILS RELATIVE PERCENT 71 % (BEAKER) (test code = 429) LYMPHOCYTES RELATIVE PERCENT 14 % (BEAKER) (test code = 430) MONOCYTES RELATIVE PERCENT 15 % (BEAKER) (test code = 431) EOSINOPHILS RELATIVE PERCENT 0 % (BEAKER) (test code = 432) BASOPHILS RELATIVE PERCENT 0 % (BEAKER) (test code = 437) NEUTROPHILS ABSOLUTE COUNT 4.97 K/ L 1.78-5.38 (BEAKER) (test code = 670) LYMPHOCYTES ABSOLUTE COUNT 0.95 K/ L 1.32-3.57 L (BEAKER) (test code = 414) MONOCYTES ABSOLUTE COUNT (BEAKER) 1.04 K/ L 0.30-0.82 H (test code = 415) EOSINOPHILS ABSOLUTE COUNT 0.02 K/ L 0.04-0.54 L (BEAKER) (test code = 416) BASOPHILS ABSOLUTE COUNT (BEAKER) 0.01 K/ L 0.01-0.08 (test code = 417) IMMATURE GRANULOCYTES-RELATIVE 1 % 0-1 PERCENT (BEAKER) (test code = 2801) POCT-GLUCOSE [id number] 21:12:00 Test Item Value Reference Range Interpretation Comments POC-GLUCOSE METER 155 mg/dL 70-110 H : TESTED A T [facility] (BEAKER) (test code = [place], [address]) [address]: Stove Mounter/Techni sherri ID = [id number] for DORON RENEE III POCT-GLUCOSE [id number] 16:39:00 Test Item Value Reference Range Interpretation Comments POC-GLUCOSE METER 124 mg/dL 70-110 H : TESTED A T [facility] (BEAKER) (test code = [place], [address]) [address]: Stove Mounter/Techni sherri ID = [id number] for Stas Ospina [id number] 11:51:00 Test Item Value Reference Range Interpretation Comments Amylase (test code = 31 U/L 25-125 1798-8) GREG (test code = GREG) Stove Mounter ID - AAHAMID Lab Interpretation (test Normal code = 99534-0) [facility]2020[facility] 11:51:00 Test Item Value Reference Range Interpretation Comments Lipase (test code = 5 U/L 8-78 L 3040-3) GREG (test code = GREG) Stove Mounter ID - AAHAMID Lab Interpretation (test Abnormal code = 39938-6) [facility] DiegoMAGNESIUM2020-10-16 11:51:00 Test Item Value Reference Range Interpretation Comments MAGNESIUM (BEAKER) (test code = 1.5 mg/dL 1.6-2.6 L 627) Stove Mounter ID - [id number] 11:51:00 Test Item Value Reference Range Interpretation Comments AMYLASE (BEAKER) (test code = 349) 31 U/L 25-125 Stove Mounter ID - [id number] 11:51:00 Test Item Value Reference Range Interpretation Comments LIPASE (BEAKER) (test code = 749) 5 U/L 8-78 L Stove Mounter ID - AAHAMIDBASIC METABOLIC [id number] 11:51:00 Test Item Value Reference Range Interpretation Comments SODIUM (BEAKER) 135 meq/L 136-145 L (test code = 381) POTASSIUM (BEAKER) 3.8 meq/L 3.5-5.1 (test code = 379) CHLORIDE (BEAKER) 98 meq/L 98-107 (test code = 382) CO2 (BEAKER) (test 23 meq/L 22-29 code = 355) BLOOD UREA NITROGEN 8 mg/dL 7-21 (BEAKER) (test code = 354) CREATININE (BEAKER) 0.69 mg/dL 0.57-1.25 (test code = 358) GLUCOSE RANDOM 116 mg/dL 70-105 H (BEAKER) (test code = 652) CALCIUM (BEAKER) 9.3 mg/dL 8.4-10.2 (test code = 697) EGFR (BEAKER) (test 113 mL/min/1.73 ESTIM ATED GFR IS code = 1092) sq m NOT ACCURATE CREATININE CLEARANCE IN PREDICTING GLOMERULAR FILTRATION RATE . ESTIMATED GFR I S NOT APPLICABLE FOR DIALYSIS PATIEN TS. Stove Mounter ID - AAHAMIDCBC W/PLT COUNT & AUTO [id number] 11:31:00 Test Item Value Reference Range Interpretation Comments WHITE BLOOD CELL COUNT (BEAKER) 7.4 K/ L 3.5-10.5 (test code = 775) RED BLOOD CELL COUNT (BEAKER) 4.41 M/ L 4.63-6.08 L (test code = 761) HEMOGLOBIN (BEAKER) (test code = 11.3 GM/DL 13.7-17.5 L 410) HEMATOCRIT (BEAKER) (test code = 35.7 % 40.1-51.0 L 411) MEAN CORPUSCULAR VOLUME (BEAKER) 81.0 fL 79.0-92.2 (test code = 753) MEAN CORPUSCULAR HEMOGLOBIN 25.6 pg 25.7-32.2 L (BEAKER) (test code = 751) MEAN CORPUSCULAR HEMOGLOBIN CONC 31.7 GM/DL 32.3-36.5 L (BEAKER) (test code = 752) RED CELL DISTRIBUTION WIDTH 15.0 % 11.6-14.4 H (BEAKER) (test code = 412) PLATELET COUNT (BEAKER) (test 318 K/CU MM 150-450 code = 756) MEAN PLATELET VOLUME (BEAKER) 8.0 fL 9.4-12.4 L (test code = 754) NUCLEATED RED BLOOD CELLS 0 /100 WBC 0-0 (BEAKER) (test code = 413) NEUTROPHILS RELATIVE PERCENT 76 % (BEAKER) (test code = 429) LYMPHOCYTES RELATIVE PERCENT 11 % (BEAKER) (test code = 430) MONOCYTES RELATIVE PERCENT 12 % (BEAKER) (test code = 431) EOSINOPHILS RELATIVE PERCENT 0 % (BEAKER) (test code = 432) BASOPHILS RELATIVE PERCENT 0 % (BEAKER) (test code = 437) NEUTROPHILS ABSOLUTE COUNT 5.57 K/ L 1.78-5.38 H (BEAKER) (test code = 670) LYMPHOCYTES ABSOLUTE COUNT 0.81 K/ L 1.32-3.57 L (BEAKER) (test code = 414) MONOCYTES ABSOLUTE COUNT (BEAKER) 0.90 K/ L 0.30-0.82 H (test code = 415) EOSINOPHILS ABSOLUTE COUNT 0.00 K/ L 0.04-0.54 L (BEAKER) (test code = 416) BASOPHILS ABSOLUTE COUNT (BEAKER) 0.01 K/ L 0.01-0.08 (test code = 417) IMMATURE GRANULOCYTES-RELATIVE 1 % 0-1 PERCENT (BEAKER) (test code = 2801) U/S, DRAINAGE, CHEST, WITH TUBE [id number] 11:26:00Reason for exam:- >Right pleural effusion/[facility]pyema [facility] : 1950 Sex: MFINAL REPORT Ultrasound guided right chest tube placement Clinical History: Right pleural effusion/empyema. Modality: Ultrasound. Sedation: None. Agency Development Manager: Mary Fierro PA-C Supervising physician: Dejan Arias M.D. Estimated Blood Loss: 1cc Specimen: clear yellow fluid. Technique: Informed consent was obtained. The risks of pain, bleeding, in fection, lung collapse/pneumothorax, injury to adjacent structures, and adverse medication reactionswere discussed with the patient. The patient's right hemithorax was scanned from the back, with thepatient in a left lateral decubitus position. After the largest fluid pocket area was marked, the skin was prepped and draped in the usual sterile manner. The area was anesthetized with 2% lidocaine,a 8 Nauruan drain was advanced into the pleural space under ultrasound guidance. The catheter was attached to chest tube, secured with a suture, and bandage placed. There was no evidence of immediate complication. Post procedure chest x-ray is pending. Impression:Successful and uncomplicated ultrasound guided right chest tube placement. Signed: Dejan Arias MDReport Verified Date/Time: 05/03/2020 11:26:06 Reading Location: [place] [id number] Ultrasound Reading Room US drainage chest with tube [id number] 11:26:00 Interface, External Ris In - 05/03/2020 11:28 AM CDTFINAL REPORT Ultrasound guided right chest tube placement Clinical History: Right pleural effusion/empyema. Modality: Ultrasound. Sedation: None. Agency Development Manager: Mary Fierro PA-C Supervising physician: Dejan Arias M.D. Estimated Blood Loss: 1cc Specimen: clear yellow fluid. Technique: Informed consent was obtained. The risks of pain, bleeding, infection, lung collapse/pneumothorax, injury to adjacent structures, and adverse medication reactions were discussed with the patient. The patient's right hemithorax was scanned from the back, with the patient in a left lateral decubitus position. Afterthe largest fluid pocket area was marked, the skin was prepped and draped in the usual sterile manner. The area was anesthetized with 2% lidocaine, a 8 Nauruan drain was advanced into the pleural spaceunder ultrasound guidance. The catheter was attached to chest tube, secured with a suture, and bandage placed. There was no evidence of immediate complication. Post procedure chest x-ray is pending.Impression:Successful and uncomplicated ultrasound guided right chest tube placement. Signed: Dejan Arias MDReport Verified Date/Time: 05/03/2020 11:26:06 Reading Location: [facility] [id number] Ultrasound Reading [facility], [facility], 1 VIEW, NON [id number] 11:09:00Reason for exam:->s/p right chest tube placementShould this be performed at the bedside?->YesIn U/S [facility] : 1950 Sex: MFINAL REPORT CLINICAL HISTORY: s/p right chest tube placement TECHNIQUE: 1 view of the chest. COMPARISON: 05/02/2020 IMPRESSION: There has been interval placement of a smallbore pigtail catheter in the inferolateral right chest. The moderate right pleural effusion has decreased, but there is a new trace right apical pneumothorax. Multifocal bilateral lung opacities are otherwise unchanged. A trace left effusion is again seen. The cardiomediastinal silhouette is magnified by technique. Signed: Raf Quach MDReport Verified Date/Time: 05/03/2020 11:09:05 Reading Location: [facility] Radiology Reading Room CT, [id number] 21:55:00IV and PO contrastUnlisted Reason for Exam - Click Yes and Enter Reason Below->No [facility] : 1950 Sex: MFINAL REPORT CLINICAL HISTORY: Recurrent right pleural effusion, historyof pneumonia, abdominal pain FINDINGS: Multiple axial images of the chest, abdomen and pelvis were performed after the uncomplicated administration of IV contrast. Oral contrast was given. This exam was performed according to our departmental dose-optimization program, which includes automated exposure control, adjustment of the mA and/or kV according to patient size and/or use of the iterative reconstruction technique. Comparison: None. Chest: Lung parenchyma and pleural spaces: There is a moderate right pleural effusion with regions of thickened pleural enhancement and lobulation/nondependent accumulation suggesting loculation. There is heterogeneous consolidation of a significant portion of the right mid and lower lung along with patchy groundglass and consolidative opacification elsewhere throughout both lungs. There are multiple subsolid /groundglass nodules throughout both lungs. An example in the left upper lobe measures 7 to 8 mm. There is diffuse, mild interstitial coarsening. Tracheobronchial tree: There is mild peribronchial thickening in the perihilar lungs. Pulmonary vasculature:No significant findings. Cardiac contours and great vessels: Atherosclerotic calcifications of the coronary arteries, aorta and great vessels arising from the arch. Mediastinum: No significant findings. Lymph Nodes: No adenopathy in the mediastinum or rock. There are several slightly prominent but subcentimeter mediastinal lymph nodes. Skeleton: No acute abnormality. No lytic or blastic lesions in the thoracic skeleton. Abdomen and pelvis: Liver: No significant findings. Gallbladder and biliary tree: Previous cholecystectomy Spleen: No significant findings. Adrenal Glands: Indeterminate density, 2.4 x 2.0 cm left adrenal nodule. Kidneys and ureters: No significant findings. Stomach and Duodenum: Subtle fat stranding adjacent to the pancreatic head and second portion of the duodenum. Pancreas: There is subtle fat stranding adjacent to the pancreatic head and second portion of the duodenum. No retr operitoneal organized fluid collection. There are some prominent lymph nodes in the peripancreatic/portal hepatic region. An example has a short axis diameter of 1.3 cm. Bowel: No bowel obstruction or pneumatosis intestinalis. There is mild circumferential mural thickening of the rectum. Appendix: Normal. Bladder: No significant findings. Major vascular structures: Atherosclerotic calcifications Reproductive organs: No significant findings. Other: Mild perinephric fat stranding and nonorganized fluid with extension to the dependent pelvis. Fat filled inguinal hernias. Skeleton: No acute bony abnormality. No lytic or blastic skeletal lesions. IMPRESSION: Moderate, complex right pleural effusion with evidence of pleural thickening and suspected loculation. This may reflect an empyema or malignant effusion. Bilateral pulmonary opacities, including subcentimeter nodular opacification, possibly reflecting multifocal infection. Alternative considerations include a neoplastic or inflammatory process.Nonspecific interstitial coarsening and peribronchial thickening, possibly interstitial edema or secondary to an infectious or inflammatory process. Lymphangitic carcinomatosis is an alternative consideration. - - Comparison to recent previous outside chest imaging would be helpful, if available. 2.4 x 2.0 cm indeterminate density left adrenal nodule. Given the above described findings metastatic disease is not definitively excluded. Evaluation with adrenal mass protocol CT or MRI is recommended if old examinations are not available elsewhere to demonstrate stability over time. Subtle peripancreatic and periduodenal fat stranding, nonspecific. This could reflect pancreatitis or duodenitis given the patient's history of abdominal pain. Please correlate with serology. Endoscopy can be performed if duodenitis is favored. Prominent peripancreatic and shawanda hepatic lymph nodes are nonspecific and maybe reactive though metastatic disease is a consideration. These can be followed up, as indicated. Mild circumferential mural thickening of the rectum may relate to relative decompression. An infectiousor inflammatory process are considerations. An underlying neoplastic process can be excluded with colonoscopy. Signed: Jaxon Rios MDReport Verified Date/Time: 05/02/2020 21:55:07 CT, CHEST, WITH [id number] 21:55:00Unlisted Reason for Exam - Click Yes and Enter Reason Below->No [facility] : 1950 Sex: MFINAL REPORT CLINICAL HISTORY: Recurrent right pleural effusion, historyof pneumonia, abdominal pain FINDINGS: Multiple axial images of the chest, abdomen and pelvis were performed after the uncomplicated administration of IV contrast. Oral contrast was given. This exam was performed according to our departmental dose-optimization program, which includes automated exposure control, adjustment of the mA and/or kV according to patient size and/or use of the iterative reconstruction technique. Comparison: None. Chest: Lung parenchyma and pleural spaces: There is a moderate right pleural effusion with regions of thickened pleural enhancement and lobulation/nondependent accumulation suggesting loculation. There is heterogeneous consolidation of a significant portion of the right mid and lower lung along with patchy groundglass and consolidative opacification elsewhere throughout both lungs. There are multiple subsolid /groundglass nodules throughout both lungs. An example in the left upper lobe measures 7 to 8 mm. There is diffuse, mild interstitial coarsening. Tracheobronchial tree: There is mild peribronchial thickening in the perihilar lungs. Pulmonary vasculature:No significant findings. Cardiac contours and great vessels: Atherosclerotic calcifications of the coronary arteries, aorta and great vessels arising from the arch. Mediastinum: No significant findings. Lymph Nodes: No adenopathy in the mediastinum or rock. There are several slightly prominent but subcentimeter mediastinal lymph nodes. Skeleton: No acute abnormality. No lytic or blastic lesions in the thoracic skeleton. Abdomen and pelvis: Liver: No significant findings. Gallbladder and biliary tree: Previous cholecystectomy Spleen: No significant findings. Adrenal Glands: Indeterminate density, 2.4 x 2.0 cm left adrenal nodule. Kidneys and ureters: No significant findings. Stomach and Duodenum: Subtle fat stranding adjacent to the pancreatic head and second portion of the duodenum. Pancreas: There is subtle fat stranding adjacent to the pancreatic head and second portion of the duodenum. No retr operitoneal organized fluid collection. There are some prominent lymph nodes in the peripancreatic/portal hepatic region. An example has a short axis diameter of 1.3 cm. Bowel: No bowel obstruction or pneumatosis intestinalis. There is mild circumferential mural thickening of the rectum. Appendix: Normal. Bladder: No significant findings. Major vascular structures: Atherosclerotic calcifications Reproductive organs: No significant findings. Other: Mild perinephric fat stranding and nonorganized fluid with extension to the dependent pelvis. Fat filled inguinal hernias. Skeleton: No acute bony abnormality. No lytic or blastic skeletal lesions. IMPRESSION: Moderate, complex right pleural effusion with evidence of pleural thickening and suspected loculation. This may reflect an empyema or malignant effusion. Bilateral pulmonary opacities, including subcentimeter nodular opacification, possibly reflecting multifocal infection. Alternative considerations include a neoplastic or inflammatory process.Nonspecific interstitial coarsening and peribronchial thickening, possibly interstitial edema or secondary to an infectious or inflammatory process. Lymphangitic carcinomatosis is an alternative consideration. - - Comparison to recent previous outside chest imaging would be helpful, if available. 2.4 x 2.0 cm indeterminate density left adrenal nodule. Given the above described findings metastatic disease is not definitively excluded. Evaluation with adrenal mass protocol CT or MRI is recommended if old examinations are not available elsewhere to demonstrate stability over time. Subtle peripancreatic and periduodenal fat stranding, nonspecific. This could reflect pancreatitis or duodenitis given the patient's history of abdominal pain. Please correlate with serology. Endoscopy can be performed if duodenitis is favored. Prominent peripancreatic and shawanda hepatic lymph nodes are nonspecific and maybe reactive though metastatic disease is a consideration. These can be followed up, as indicated. Mild circumferential mural thickening of the rectum may relate to relative decompression. An infectiousor inflammatory process are considerations. An underlying neoplastic process can be excluded with colonoscopy. Signed: Jaxon Rios MDReport Verified Date/Time: 05/02/2020 21:55:07 CT chest with IV [id number] 21:55:00Interface, External Ris In - 05/02/2020 9:57 PM CDTFINAL REPORT CLINICAL HISTORY: Recurrent right pleural effusion, history of pneumonia, abdominal pain FINDINGS: Multiple axial images of the chest, abdomen and pelvis were performed after the uncomplicated administration of IVcontrast. Oral contrast was given. This exam was performed according to our departmental dose-optimization program, which includes automated exposure control, adjustment of the mA and/or kV according to patient size and/or use of the iterative reconstruction technique. Comparison: None. Chest: Lung parenchyma and pleural spaces: There is a moderate right pleural effusion with regions of thickened pleural enhancement and lobulation/nondependent accumulation suggesting loculation. There is heterogeneo us consolidation of a significant portion of the right mid and lower lung along with patchy groundglass and consolidative opacification elsewhere throughout both lungs. There are multiple subsolid /groundglass nodules throughout both lungs. An example in the left upper lobe measures 7 to 8 mm. There is diffuse, mild interstitial coarsening. Tracheobronchial tree: There is mild peribronchial thickening in the perihilar lungs. Pulmonary vasculature: No significant findings. Cardiac contours and great vessels: Atherosclerotic calcifications of the coronary arteries, aorta and great vessels arising from the arch. Mediastinum: No significant findings. Lymph Nodes: No adenopathy in the mediastinum or rock. There are several slightly prominent but subcentimeter mediastinal lymph nodes. Skeleton: No acute abnormality. No lytic or blastic lesions in the thoracic skeleton. Abdomen and pelvis: Liver: No significant findings. Gallbladder and biliary tree: Previous cholecystectomy Spleen: No significant findings. Adrenal Glands: Indeterminate density, 2.4 x 2.0 cm left adrenal nodule. Kidneys and ureters: No significant findings. Stomach and Duodenum: Subtle fat stranding adjacent to the pancreatic head and second portion of the duodenum. Pancreas: There is subtle fat stranding adjacent to the pancreatichead and second portion of the duodenum. No retroperitoneal organized fluid collection. There are some prominent lymph nodes in the peripancreatic/portal hepatic region. An example has a short axis diameter of 1.3 cm. Bowel: No bowel obstruction or pneumatosis intestinalis. There is mild circumferential mural thickening of the rectum. Appendix: Normal. Bladder: No significant findings. Major vascularstructures: Atherosclerotic calcifications Reproductive organs: No significant findings. Other: Mildperinephric fat stranding and nonorganized fluid with extension to the dependent pelvis. Fat filledinguinal hernias. Skeleton: No acute bony abnormality. No lytic or blastic skeletal lesions. IMPRESSION: Moderate, complex right pleural effusion with evidence of pleural thickening and suspected loculation. This may reflect an empyema or malignant effusion. Bilateral pulmonary opacities, including sub centimeter nodular opacification, possibly reflecting multifocal infection. Alternative considerations include a neoplastic or inflammatory process. Nonspecific interstitial coarsening and peribronchial thickening, possibly interstitial edema or secondary to an infectious or inflammatory process. Lymph angitic carcinomatosis is an alternative consideration. - - Comparison to recent previous outside chest imaging would be helpful, if available. 2.4 x 2.0 cm indeterminate density left adrenal nodule. Given the above described findings metastatic disease is not definitively excluded. Evaluation with adrenal mass protocol CT or MRI is recommended if old examinations are not available elsewhere to demonstrate stability over time. Subtle peripancreatic and periduodenal fat stranding, nonspecific. This could reflect pancreatitis or duodenitis given the patient's history of abdominal pain. Please correlate with serology. Endoscopy can be performed if duodenitis is favored. Prominent peripancreatic and shawanda hepatic lymph nodes are nonspecific and may be reactive though metastatic disease is a consideration. These can be followed up, as indicated. Mild circumferential mural thickening of the rectum mayrelate to relative decompression. An infectious or inflammatory process are considerations. An underlying neoplastic process can be excluded with colonoscopy. Signed: Jaxon Rios MDReport Verified Date/Time: 05/02/2020 21:55:07 [facility] 2020-05-02 21:55:00Interface, External Ris In - 05/02/2020 9:57 PM CDTFINAL REPORT CLINICAL HISTORY: Recurrent right pleural effusion, history of pneumonia, abdominal pain FINDINGS: Multiple axial images of the chest, abdomen and pelvis were performed after the uncomplicated administration of IVcontrast. Oral contrast was given. This exam was performed according to our departmental dose-optimization program, which includes automated exposure control, adjustment of the mA and/or kV according to patient size and/or use of the iterative reconstruction technique. Comparison: None. Chest: Lung parenchyma and pleural spaces: There is a moderate right pleural effusion with regions of thickened pleural enhancement and lobulation/nondependent accumulation suggesting loculation. There is heterogeneo us consolidation of a significant portion of the right mid and lower lung along with patchy groundglass and consolidative opacification elsewhere throughout both lungs. There are multiple subsolid /groundglass nodules throughout both lungs. An example in the left upper lobe measures 7 to 8 mm. There is diffuse, mild interstitial coarsening. Tracheobronchial tree: There is mild peribronchial thickening in the perihilar lungs. Pulmonary vasculature: No significant findings. Cardiac contours and great vessels: Atherosclerotic calcifications of the coronary arteries, aorta and great vessels arising from the arch. Mediastinum: No significant findings. Lymph Nodes: No adenopathy in the mediastinum or rock. There are several slightly prominent but subcentimeter mediastinal lymph nodes. Skeleton: No acute abnormality. No lytic or blastic lesions in the thoracic skeleton. Abdomen and pelvis: Liver: No significant findings. Gallbladder and biliary tree: Previous cholecystectomy Spleen: No significant findings. Adrenal Glands: Indeterminate density, 2.4 x 2.0 cm left adrenal nodule. Kidneys and ureters: No significant findings. Stomach and Duodenum: Subtle fat stranding adjacent to the pancreatic head and second portion of the duodenum. Pancreas: There is subtle fat stranding adjacent to the pancreatichead and second portion of the duodenum. No retroperitoneal organized fluid collection. There are some prominent lymph nodes in the peripancreatic/portal hepatic region. An example has a short axis diameter of 1.3 cm. Bowel: No bowel obstruction or pneumatosis intestinalis. There is mild circumferential mural thickening of the rectum. Appendix: Normal. Bladder: No significant findings. Major vascularstructures: Atherosclerotic calcifications Reproductive organs: No significant findings. Other: Mildperinephric fat stranding and nonorganized fluid with extension to the dependent pelvis. Fat filledinguinal hernias. Skeleton: No acute bony abnormality. No lytic or blastic skeletal lesions. IMPRESSION: Moderate, complex right pleural effusion with evidence of pleural thickening and suspected loculation. This may reflect an empyema or malignant effusion. Bilateral pulmonary opacities, including sub centimeter nodular opacification, possibly reflecting multifocal infection. Alternative considerations include a neoplastic or inflammatory process. Nonspecific interstitial coarsening and peribronchial thickening, possibly interstitial edema or secondary to an infectious or inflammatory process. Lymph angitic carcinomatosis is an alternative consideration. - - Comparison to recent previous outside chest imaging would be helpful, if available. 2.4 x 2.0 cm indeterminate density left adrenal nodule. Given the above described findings metastatic disease is not definitively excluded. Evaluation with adrenal mass protocol CT or MRI is recommended if old examinations are not available elsewhere to demonstrate stability over time. Subtle peripancreatic and periduodenal fat stranding, nonspecific. This could reflect pancreatitis or duodenitis given the patient's history of abdominal pain. Please correlate with serology. Endoscopy can be performed if duodenitis is favored. Prominent peripancreatic and shawanda hepatic lymph nodes are nonspecific and may be reactive though metastatic disease is a consideration. These can be followed up, as indicated. Mild circumferential mural thickening of the rectum mayrelate to relative decompression. An infectious or inflammatory process are considerations. An underlying neoplastic process can be excluded with colonoscopy. Signed: Jaxon Rios MDReport Verified Date/Time: 05/02/2020 21:55:07 [facility] [id number] 21:19:00 Test Item Value Reference Range Interpretation Comments POC-GLUCOSE METER 151 mg/dL 70-110 H : TESTED A T [facility] 6720 (Blurtt) (test code = [facility], 1538) [address]: Stove Mounter/Techni sherri ID = [id number] for KOURTNEY HAM POCT-GLUCOSE [id number] 17:13:00 Test Item Value Reference Range Interpretation Comments POC-GLUCOSE METER 145 mg/dL 70-110 H : TESTED A T [facility] 67[facility] (BEC[employer]aur) (test code = [facility] [employer] [facility], 1538) [address]: Stove Mounter/Techni sherri ID = [id number] for FERNANDO DRISCOLL SARS-COV2/RT-PCR ([facility])2020-05-02 13:46:00 Test Item Value Reference Range Interpretation Comments SARS-COV2/RT-PCR (test Negative Not Detected, Negative, code = 6714276) See external report for linked test SARS-COV-2 PERFORMING LAB [facility] DANIEL (test code = 8048020) Negative result for this test determines that SARS-CoV-2 RNA was not present in the specimen above the Limit of Detection (LOD). However, Negative results do not preclude SARS-CoV-2 infection and should not be used as the sole basis for treatment or patient management decisions. Negative results mustbe combined with clinical observations, patient history, and epidemiological information. A false negative result may occur if a specimen is improperly collected, transported or handled. A false negative result should be considered if patient's recent exposures or clinical presentation indicate that COVID-19 (SARS-CoV-2) is likely and diagnostic tests for other causes of illness are negative. Re-testing should be considered in cases of suspected false negatives.The limit of detection for this assay is 800 copies/mL.This SARS CoV-2 test is a real-time RT-PCR test intended for the qualitative detection of nucleic acid from SARS-CoV-2 in a nasopharyngeal swab specimen collected from individuals suspected of COVID-19 by their healthcare provider.This test has not been Food and Drug Administration (FDA) cleared or approved. This is a modified version of an approved Emergency Use Authorization (EUA) and is in the process of review by the FDA. Once authorized by the FDA, the issued EUA will be effective until the declaration that circumstances exist justifying the authorization of the emergency use of in vitro diagnostic tests for detection and/or diagnosis of COVID-19 is terminated under Section 564(b)(2) of the Act or the EUA is revoked under Section 564(g) of the Act.Fact Sheet for Healthcare Providers:https://www.[employer]/sites/default/files/product/documents/Fact_Shee y_HX_Kyfguteit_Jlqf_XQRV-IhW-6.pdfFact Sheet for Healthcare Patients:https://www.[employer]/sites/default/files/product/ documents/Lvbd_Smpre_Tagdrpmx_Pnmv_OZAA-XqG-2.pdfPerforming Laboratory:[facility], [place] [address]ATLS-ZAQLUCB METER 2020-05-02 13:05:00 Test Item Value Reference Range Interpretation Comments POC-GLUCOSE METER 104 mg/dL 70-110 : TESTED A T [facility] 6720 (BEAKER) (test code = [facility], 1538) [address]: Stove Mounter/Techni sherri ID = [id number] for FERNANDO DRISCOLL Hemoglobin [id number] 10:03:00 Test Item Value Reference Range Interpretation Comments Hemoglobin A1C (test code 5.0 % 4.3-6.1 = 4548-4) GREG (test code = GREG) Stove Mounter ID - ADMIN Lab Interpretation (test Normal code = 62891-4) [facility] DiegoHEMO[facility] [id number] 10:03:00 Test Item Value Reference Range Interpretation Comments HEMOGLOBIN A1C (BEAKER) (test code = 5.0 % 4.3-6.1 368) Stove Mounter ID - ADMINABBARB, [id number] 04:07:00 Test Item Value Reference Range Interpretation Comments ABO Grouping (test code = 2588) O Rh Factor (test code = 2589) NEG [facility] [id number] 02:13:00 Test Item Value Reference Range Interpretation Comments TOTAL PROTEIN 6.7 gm/dL 6.0-8.3 (BEAKER) (test code = 770) ALBUMIN (BEAKER) 3.5 g/dL 3.5-5.0 (test code = 1145) ALKALINE PHOSPHATASE 95 U/L 40-150 (BEAKER) (test code = 346) BILIRUBIN TOTAL 0.7 mg/dL 0.2-1.2 (BEAKER) (test code = 377) SODIUM (BEAKER) (test 134 meq/L 136-145 L code = 381) POTASSIUM (BEAKER) 3.5 meq/L 3.5-5.1 (test code = 379) CHLORIDE (BEAKER) 97 meq/L 98-107 L (test code = 382) CO2 (BEAKER) (test 24 meq/L 22-29 code = 355) BLOOD UREA NITROGEN 12 mg/dL 7-21 (BEAKER) (test code = 354) CREATININE (BEAKER) 0.76 mg/dL 0.57-1.25 (test code = 358) GLUCOSE RANDOM 112 mg/dL 70-105 H (BEAKER) (test code = 652) CALCIUM (BEAKER) 2.0 mg/dL 8.4-10.2 LL (test code = 697) AST (SGOT) (BEAKER) 11 U/L 5-34 (test code = 353) ALT (SGPT) (BEAKER) 11 U/L 6-55 (test code = 347) EGFR (BEAKER) (test 101 ESTIMATE D GFR IS code = 1092) mL/min/1.73 sq NOT ACCURA TE m CREATININE CLEARANCE IN PREDICTING GLOMERULAR FILTRATION RATE . ESTIMATED GFR I S NOT APPLICABLE FOR DIALYSIS PATIEN TS. Stove Mounter ID - BRYAN [id number] 02:06:00 Test Item Value Reference Range Interpretation Comments MAGNESIUM (BEAKER) (test code = 1.5 mg/dL 1.6-2.6 L 627) Stove Mounter ID - BRYAN [id number] 02:06:00 Test Item Value Reference Range Interpretation Comments PHOSPHORUS (BEAKER) (test code = 3.4 mg/dL 2.3-4.7 604) Stove Mounter ID - BRYAN [id number] 02:03:00 Test Item Value Reference Range Interpretation Comments Protime (test code = 14.3 11.9- 14.2 H 5902-2) seconds INR (test code = 1.14 <=5.90 6301-6) PTT (test code = 31.3 22.5- 36.0 89611-7) seconds GREG (test code = GREG) Effective 12/14/2018: PT Reference Range ChangeNew: 11.9-14.2 Previous: 11.7-14.7 RECOMMENDED COUMADIN/WARFARIN INR THERAPY RANGESSTANDARD DOSE: 2.0-3.0 Includes: PROPHYLAXIS for venous thrombosis, systemic embolization; TREATMENT for venous thrombosis and/or pulmonary embolus.HIGH RISK: Target INR is 2.5-3.5 for patients wiht mechanical heart valves. Lab Interpretation Abnormal (test code = 69292-0) [facility] DiegoPT/[id number] 02:03:00 Test Item Value Reference Range Interpretation Comments PROTIME (BEAKER) (test code = 14.3 seconds 11.9-14.2 H 759) INR (BEAKER) (test code = 370) 1.14 <=5.90 PARTIAL THROMBOPLASTIN TIME 31.3 seconds 22.5-36.0 (BEAKER) (test code = 760) Effective 12/14/2018: PT Reference Range ChangeNew: 11.9-14.2 Previous: 11.7- 14.7RECOMMENDED COUMADIN/WARFARIN INR THERAPY RANGESSTANDARD DOSE: 2.0-3.0 Includes: PROPHYLAXIS for venous thrombosis, systemic embolization; TREATMENT for venous thrombosis and/or pulmonary embolus.HIGH RISK: Target INR is2.5-3.5 for patients wiht mechanical heart valves.CBC W/PLT COUNT & AUTO [id number] 01:38:00 Test Item Value Reference Range Interpretation Comments WHITE BLOOD CELL COUNT (BEAKER) 6.5 K/ L 3.5-10.5 (test code = 775) RED BLOOD CELL COUNT (BEAKER) 3.97 M/ L 4.63-6.08 L (test code = 761) HEMOGLOBIN (BEAKER) (test code = 10.2 GM/DL 13.7-17.5 L 410) HEMATOCRIT (BEAKER) (test code = 32.4 % 40.1-51.0 L 411) MEAN CORPUSCULAR VOLUME (BEAKER) 81.6 fL 79.0-92.2 (test code = 753) MEAN CORPUSCULAR HEMOGLOBIN 25.7 pg 25.7-32.2 (BEAKER) (test code = 751) MEAN CORPUSCULAR HEMOGLOBIN CONC 31.5 GM/DL 32.3-36.5 L (BEAKER) (test code = 752) RED CELL DISTRIBUTION WIDTH 14.9 % 11.6-14.4 H (BEAKER) (test code = 412) PLATELET COUNT (BEAKER) (test 290 K/CU MM 150-450 code = 756) MEAN PLATELET VOLUME (BEAKER) 7.9 fL 9.4-12.4 L (test code = 754) NUCLEATED RED BLOOD CELLS 0 /100 WBC 0-0 (BEAKER) (test code = 413) NEUTROPHILS RELATIVE PERCENT 69 % (BEAKER) (test code = 429) LYMPHOCYTES RELATIVE PERCENT 15 % (BEAKER) (test code = 430) MONOCYTES RELATIVE PERCENT 15 % (BEAKER) (test code = 431) EOSINOPHILS RELATIVE PERCENT 0 % (BEAKER) (test code = 432) BASOPHILS RELATIVE PERCENT 0 % (BEAKER) (test code = 437) NEUTROPHILS ABSOLUTE COUNT 4.47 K/ L 1.78-5.38 (BEAKER) (test code = 670) LYMPHOCYTES ABSOLUTE COUNT 0.94 K/ L 1.32-3.57 L (BEAKER) (test code = 414) MONOCYTES ABSOLUTE COUNT (BEAKER) 0.94 K/ L 0.30-0.82 H (test code = 415) EOSINOPHILS ABSOLUTE COUNT 0.02 K/ L 0.04-0.54 L (BEAKER) (test code = 416) BASOPHILS ABSOLUTE COUNT (BEAKER) 0.01 K/ L 0.01-0.08 (test code = 417) IMMATURE GRANULOCYTES-RELATIVE 1 % 0-1 PERCENT (BEAKER) (test code = 2801) RAD, CHEST, 1 VIEW, NON [id number] 01:02:00Reason for exam:- >empyemaShould this be performed at the bedside?->Yes [facility] : 1950 Sex: MFINAL REPORT RAD, CHEST, 1 VIEW, NON DEPT INDICATION: empyema COMPARISON:Prior day's exam FINDINGS: Portable frontal view of the chest. IMPRESSION: Support Lines: None. Lungs and pleura: Moderate right pleural effusion with adjacent consolidation of the right lung. Additionally there are patchy heterogeneous peripherally predominant airspace opacities in the bilateral lungs. No left pleural effusion. No pneumothorax. Coarse interstitial lung markings bilaterally.Heart and mediastinum: Enlarged, exaggerated by technique. Atherosclerotic calcifications of the thoracic aorta.Additional findings: Osseous structures are grossly unremarkable. Signed: Sierra Zaldivarkodi Verified Date/Time: 05/02/2020 01:02:29
--- OUTSIDE RECORDS SUMMARY | 2020-06-07 14:59 | XMS REPORT | Continuity of Care Document ---
:1950 Author Organization [facility] Address [address] [place] [address] Care Team Providers Name Role Phone DO MARC ONEILL Primary Care Physician Allergies, Adverse Reactions, Alerts Allergen Type Severity Reaction Last Updated Verified Status Codeine Allergy Severe March 10, Yes Active ([id number]) 2015 Medications Medication Status Dose Units Route [...] Ipratropium Active 1 RESPIRAT Every 30 Septembe [place] ORY 6 r 7th, rol (INHALAT Hours [...] er 2019 Metoprolol Discontin 25 ORAL Twice Ambia Tartrate ued A Day 2015 Nicotine Discontin [...] Range Site White Blood March 6.9 4.0-12.3 [facility], [address] Count 2019 [place] [id number] 4:30am Red Blood March 3.91 3.80-5.80 [facility], [address] Count 2019 [facility] 76282 4:30am Hemoglobin March 10.5 11.7-17.2 [facility], [address] 2019 [facility] 96023 4:30am Hematocrit March 32.6 35.0-51.0 [facility], [address] 2019 [facility] 78476 4:30am Mean March 83.4 83-100 [facility], [address] Corpuscular 2019 [facility] 83[address] Volume 4:30am Mean March 26.9 26.8-33.4 [facility], [address] Corpuscular 2019 [facility] 71154 Hemoglobin 4:30am Mean March 32.2 30-35 [facility], [address] Corpuscular 2019 [facility] 24441 Hemoglobin 4:30am Concent Red Cell March 14.5 12.0-14.0 [facility], [address] Distributio 2019 [facility] 38805 n Width 4:30am Platelet March 225 175-450 [facility], [address] Count 2019 [place] 28526414 4:30am Mean Lin 8.1 9.4-12.6 [facility], [address] Platelet 2019 [place] [address] Volume 4:30am Neutrophils Lin 64.5 44.7-82.4 [facility], [address] (%) (Auto) 2019 [place] [address] 4:30am Immature Lin 0.7 0.0-0.4 [facility], [address] Granulocyte 2019 [place] [address] % (Auto) 4:30am Lymphocytes Lin 17.8 10.0-50.0 [facility], [address] (%) (Auto) 2019 [place] [address] 4:30am Monocytes Lin 14.9 3.9-13.4 [facility], [address] (%) (Auto) 2019 [place] [address] 4:30am Eosinophils Lin 1.8 0.0-6.4 [facility], [address] (%) (Auto) 2019 [place] [address] 4:30am Basophils Lin 0.3 0.2-1.2 [facility], [address] (%) (Auto) 2019 [place] [address] 4:30am Neutrophils Lin 4.42 1.78-5.38 [facility], [address] # (Auto) 2019 [place] [address] 4:30am Absolute Lin 0.1 0.0-0.03 [facility], [address] Immature 2019 [place] [address] Granulocyte 4:30am (auto Lymphocytes Lin 1.2 1.32-3.57 [facility], [address] # (Auto) 2019 [place] [address] 4:30am Monocytes # Lin 1.02 0.30-0.82 [facility], [address] (Auto) 2019 [place] [address] 4:30am Eosinophils Lin 0.12 0.04-0.54 [facility], [address] # (Auto) 2019 [place] [address] 4:30am Basophils # Lin 0.02 0.01-0.08 [facility], [address] (Auto) 2019 [place] [address] 4:30am Nucleated Lin 0 0-0.2 [facility], [address] Red Blood 2019 [place] [address] Cells % 4:30am Nucleated March 0 0 [facility], [address] Red Blood 2019 [facility] 550[address] Cells # 4:30am Erythrocyte March 57 0.00-20 [facility], [address] Sedimentati 2019 [place] [address] on Rate 7:17pm D-Dimer March 1588 <500 Results have [facility], [address] [place] [address] 3:44pm broadcasted to patient's location and called to (CAT IN E.R.). By ELKE SHELL 04/10/20 @1904 Prothrombin March 11.4 10.3-12.3 THERAPEUTIC [facility], [address] Time 2019 LEVEL: 1.5 to [place] [id number] 3:44pm 1.9 times normal range of PT Prothromb March 1.06 Recommended [facility], [address] Time 2019 therapeutic [place] [address] Internation 3:44pm range for al Ratio patients receiving warfarin (coumadin) therapy: INR is 2.0 to 3.0Recommended range for patients with mechanical prosthetic heart valves: INR is 2.5 to 3.5 Activated March 36.4 22.5-37.0 [facility], [address] Partial 2019 [place] [address] Thromboplas 3:44pm t Time Body Fluid March 89 [facility], [address] Glucose 2019 [facility] 61943 5:09pm Body Fluid March 4.4 [facility], [address] Total 2019 [facility] 67021 Protein 5:09pm Body Fluid Lin PLEURAL [facility], [address] Source 2019 [place] [address] 5:09pm Body Fluid March LIGHT YELLOW COLORLESS [facility], [address] Color 2019 [place] [address] 5:09pm Body Fluid March CLEAR CLEAR [facility], [address] Appearance 2019 [place] [address] 5:09pm Body Fluid March 2.851 [facility], [address] WBC 2019 [facility] 99876 5:09pm Body Fluid Lin 0.002 [facility], [address] RBC 2019 [facility] 19240 5:09pm Body Fluid Lin 15.8 [facility], [address] Polynuclear 2019 [place] [address] WBCs (%) 5:09pm Body Fluid Lin 0.5 [facility], [address] Polynuclear 2019 [place] [address] WBCs (#) 5:09pm Body Fluid March 84.2 [facility], [address] [facility] [address] Mononuclear 2019 [place] [address] WBCs (%) 5:09pm Body Fluid Lin 2.4 [facility], [address] Mononuclear [address] [place] [address] WBCs 5:09pm Fluid Total Lin 2.9 [facility], [address] Nucleated 2019 [facility] 72763 Cells 5:09pm (Auto) Body Fluid March 18 [facility], [address] Neutrophils 2019 [place] [address] 5:09pm Body Fluid March 73 [facility], [address] [facility] Lymphocytes 2019 [place] [address] 5:09pm Body Fluid March 4 0-0 [facility], [address] [facility] [address] Eosinophils 2019 [place] [address] 5:09pm Body Fluid March 5 0-0 [facility], [address] Monocytes 2019 [place] [address] 5:09pm Body Fluid March YES [facility] [address] [facility] Diff 2019 [facility] [address] Pathologist 5:09pm Review Urine Color March LIGHT YELLOW [facility] [address] [facility] [address] 2019 [facility] 07381 5:47pm Urine March CLEAR CLEAR [facility] [address] [facility] Appearance 2019 [facility] 09623 5:47pm Urine March 4+ (1000 NEGATIVE [facility], [address] [facility] Glucose 2019 mg/dL) [facility] 61918 (UA) 5:47pm Urine Lin NEGATIVE NEGATIVE [facility], [address] [facility] Bilirubin 2019 [facility] 66294 5:47pm Urine Iln NEGATIVE NEGATIVE [facility], [address] [facility] Ketones 2019 [facility] 09279 5:47pm Urine Lin 1.033 1.003-1.030 [facility], 10 [facility] Specific 2019 [facility] 82792 Terry 5:47pm Urine Blood March NEGATIVE NEGATIVE [facility], [address] [facility] [address] 2019 [facility] 56787 5:47pm Urine pH March 7.000 5-9 [facility], [address] 2019 [facility] 33863 5:47pm Urine Lin TRACE NEGATIVE [facility], [address] Protein 2019 [facility] 98404 5:47pm Urine Lin 2.0-3.0 0.2-1.0 [facility], [address] Urobilinoge 2019 [facility] 64509 n 5:47pm Urine Lin NEGATIVE NEGATIVE [facility], [address] Nitrate 2019 [facility] 62266 5:47pm Urine Lin NEGATIVE NEGATIVE [facility], [address] [facility] [address] Leukocyte 2019 [facility] 83956 Esterase 5:47pm Urine RBC Lin <1 0-5 [facility], [address] [facility] [address] 2019 [facility] 20813 5:47pm Urine WBC Lin <1 0-5 [facility], [address] 2019 [facility] 71208 5:47pm Urine Lin <1 0-5 [facility], [address] [facility] [address] Epithelial 2019 [facility] 16665 Cells 5:47pm Urine Lin None None Detect [facility], [address] Bacteria 2019 Detected [facility] 97053 5:47pm Urine Casts March None None Detect [facility], [address] [facility] [address] 2019 Detected [facility] 89898 5:47pm Urine Lin NO [facility], [address] [facility] Culture 2019 [facility] 92149 Reflexed 5:47pm POC March 124 70.0 - 110 [facility], [address] Capillary 2019 [facility] 80834 Blood 4:39pm Glucose (Chem) Lactic Acid March 1.79 0.5-2.2 [facility], [address] Level 2019 [facility] 47840 6:50am Procalciton March 0.1 0.0-0.8 The change of [facility] , [address] in 2019 PCT [facility] 92407 3:44pm concentration over time providesprogno stic information about the risk of mortality [id number] days for patients diagnosed with severe sepsis [...] delta PCT result representing a lower risk [id number] all-cause mortality of patients diagnosed withsevere sepsis or septic shock.To determine delta PCT results from the absolute PCTconcentrati ons of a patient obtained on the day severesepsis or septic shock was first diagnosed (or 24 hourslater) and on Day 4, go to [email or web address] m. Random March 102 82-115 [facility], [address] Glucose 2019 [place] 28526414 4:30am Blood Urea March 13 8-23 [facility], [address] Nitrogen 2019 [facility] 26271 4:30am Serum March 265 280-300 [facility], [address] Osmolality 2019 [place] 28526414 4:30am Creatinine March 0.8 0.70-1.20 [facility], [address] 2019 [place] [address] 4:30am Glomerular March > 60.00 GFR RESULTS [facility], [address] Filtration 2019 ARE RE[place]ED [place] [id number] Rate Calc 4:30am IN mL/min/1.73m2. Normal GFR: >60mL/minModer ately decreased GFR: 30-59 mL/minSeverely decreased GFR: 15-29 mL/minKidney Failure (or Dialysis): <15 mL/minThe calculated eGFR is not valid for patients younger than 18 years or older than 75 years. BUN/Creatin March 16.3 12-20 [facility], [address] ine Ratio 2019 [place] 28526414 4:30am Sodium March 132 135-145 [facility], [address] Level 2019 [place] [address] 4:30am Potassium Lin 4.2 3.5-5.2 [facility], [address] [facility] Level 2019 [place] [address] 4:30am Chloride March 95 98-108 [facility], [address] [facility] Level 2019 [place] [address] 4:30am Carbon March 29 21-32 [facility], [address] [facility] Dioxide 2019 [place] [address] Level 4:30am Anion Gap Lin 12.2 12-20 [facility], [address] [facility] 2019 [place] [address] 4:30am Calcium Lin 9.3 8.8-10.2 [facility], [address] [facility] Level 2019 [place] [address] 4:30am Phosphorus Lin 2.9 2.5-4.5 [facility], [address] [facility] Level 2019 [place] [address] 3:25am Magnesium Lin 1.5 1.6-2.4 [facility], [address] [facility] Level 2019 [place] [address] 3:25am Total Lin 6.1 6.6-8.7 [facility], [address] [facility] Protein 2019 [place] [address] 3:25am Albumin Lin 3.2 3.5-5.2 [facility], [address] [place] [address] ST 2019 [place] [address] 3:25am Globulin Lin 2.9 [facility], [address] [place] [address] 2019 [place] [address] 3:25am Albumin/Angelina Lin 1.1 >1.0 [facility], [address] bulin Ratio 2019 [place] [id number] 3:25am Total Lni < 0.3 0.0-1.2 [facility], [address] [facility] Bilirubin 2019 [place] [address] 3:25am Direct Lin < 0.20 0.0-0.3 [facility], [address] [facility] Bilirubin 2019 [place] [address] 4:30am Aspartate March 13 15-40 [facility], [address] [facility] Amino 2019 [place] [address] Transf 3:25am (AST/SGOT) Alanine March 10 0-41 [facility], [address] [facility] Aminotransf 2019 [place] 848274 erase 3:25am (ALT/SGPT) Lipase March 16 13-60 [facility], [address] 2019 [facility] 90197 3:44pm Lactate March 122 135-225 [facility], [address] Dehydrogena 2019 [facility] 99146 se 4:30am Ammonia Lin < 10.0 16-60 [facility], [address] [facility] 2019 [facility] 05028 4:25pm Hemoglobin March 5.4 4.0-6.0 [facility], [address] A1c 2019 [facility] 16673 4:30am NT-Pro-B-Ty March 125 0-125 [facility], [address] pe 2019 [facility] 42636 Natriuretic 3:25am Peptide C-Reactive March 66.3 0.0-5.0 High [facility], [address] Protein 2019 Sensitivity [facility] 88038 High 4:30am C-Reactive Sensitivity Protein (CCRP) Expected Values: < 1.0 mg/L Low risk1.0 - 3.0 mg/L Moderate risk> 3.0 mg/L High riskTo convert CCRP to CRP for use as an inflammatory marker, divide the CCRP by 10Normal range for CRP 0.0 - 0.7 mg/dL Total March 88 40-130 [facility], [address] Alkaline 2019 [facility] 84351 Phosphatase 3:25am Cholesterol March 156 150-200 [facility], [address] Level 2019 [facility] 01239 4:30am Triglycerid March 139 <150 [facility], [address] Level 2019 [facility] 61986 4:30am HDL March 46 >55 HDL EXPECTED [facility], 04 [facility] Cholesterol 2019 VALUES:FEMALES [facility] 84087 4:30am : >65 mg/dL NO RISK 45-65 mg/dL MODERATE RISK <45 mg/dL HIGH RISKMALES: >55 mg/dL NO RISK 35-55 mg/dL MODERATE RISK <35 mg/dL HIGH RISK LDL March <100 LDL Expected [facility], 07 [facility] Cholesterol 2019 Values:Optimal [facility] 47842 4:30am <100 mg/dLNear optimal/above optimal 100-129 mg/dLBorderlin e high 130-159 mg/dLHigh 160-189 mg/dLVery high >190 mg/dL Coronary Lin 3.391 [facility], [address] [place] [address] 2019 [facility] 91018 Disease 4:30am CHOLESTEROL Risk Ratio [employer] [...] 11.0 Ferritin Lin 216.9 30-400 [facility], [address] [facility] 2019 [facility] 81568 4:30am Thyroid Lin 1.41 0.36-3.74 [facility], [address] [place] [address] 2019 [facility] 27796 Hormone 6:40am (TSH) Rheumatoid Lin < 10 0-14 [facility], [address] [place] [address] 2019 [facility] 28544 7:17pm TB Test March . The [facility] A# [id number], [address] [place] [address] (QFT) 2019 QuantiFERON-TB [facility] [address] Positive 7:17pm Gold Plus Criteria result is determined bysubtracting the Nil value from either TB antigen (Ag) tube.The mitogen tube serves as a control for the test. TB Test March 0.04 . [facility] A# [id number], [address] [facility] (QFT) 2019 [facility] [address] Antigen 7:17pm TB Test March 0.04 . [facility] A# [id number], [address] [place] [address] (QFT) 2019 [facility] [address] Antigen 2 7:17pm TB Test March 0.03 . [facility] A# [id number], [address] [facility], [address] (QFT) Nil 2019 [place] [address] 7:17pm TB Test March >10.00 . [facility] A# [id number], [address] [facility], [address] (QFT) 2019 [place] [address] Mitogen 7:17pm TB Test March Negative Negative The specimen [facility] A# [id number], [address] [facility], [address] (QFT) 2019 [place] [address] Interpretat 7:17pm QuantiFERON ion testing was incubatedby the ordering institution. Specific procedures outlinedin our Directory of Services and in the package insert forthe QuantiFERON Gold (In Tube) test must be followed toenable for proper stimulation of cells for the productionof interferon gamma.Performe d at: [facility] [id number] [id number] Director: Darion Baird MD, Phone: [phone] Rapid March NONREACTIVE NONREACTIVE [facility] [address] Plasma 2019 [facility] [address]455 Reagin 9:13am Body Fluid March 197 NO ESTABLISHED [facility] , [address] Lactate 2019 [facility] [place] [address] Dehydrogena 5:09pm se Urine March Negative Negative Presumptive [facility] A# [id number], [address] [facility], [address] Legionella 2019 [place] [address] Antigen 5:47pm L. pneumophila serogroup 1 antigenin urine, suggesting no recent or current infection.Legi onnaires' disease cannot be ruled out since otherserogroup s and species may also cause disease.Perfor med at: - [facility] [id number] [place], [place] [id number] Director: Jose Vogt MD, Phone: [phone] Creatine March 79 20-200 [facility], [address] Kinase 2019 [facility] 73877 3:44pm Troponin I March < 0.30 0.0-0.5 Published [facility], [address] 2019 clinical [facility] 21223 3:44pm studies have shown elevations of cTnI in patients with myocardial injury, as seen in unstable angina pectoris, cardiac contusions, and heart transplants. Elevations have also been seen in patients with rhabdomyolysis and polymyositis.E levated troponin levels point to myocardial injury, but are not necessarily indicative of an ischemic mechanism. The term MO should be used when there is evidence [...] Comment Site Blood Culture BLOOD FINAL March [facility], [address] REPORT. 2019 [facility] 31673 4:25pm 4:27pm Diagnostic Imaging Reports Report Dictated Date/Time Dictated By Status April 10, 2020 MARTY TAO MD completed 4:06pm Patient: [place] RAYO MR#: [id number] 92 : 1950 Ordering DrPrieto: DAWN HACKETT [facility] Pt Location: ER Date/Time: 04/10/20 1544 Primary Care Physician: SIGRID ONEILL DO Technologist(s): GRACE PECK Procedure(s): [id number] RAD/CHEST 1 VIEW Signed EXAMINATION: XR CHEST [...] MD completed 5:53pm Patient: [place] RAYO MR#: [id number] 92 : 1950 Order[address] DrPrieto: DAWN HACKETT Pt Status: REG ER Pt Location: M ER Date/Time: 04/10/20 1640 Primary Care Physician: SIGRID ONEILL DO Technologist(s): MIKA GALAVIZ Procedure(s): [id number] CT/CT ABD & PELVIS W Signed EXAM [...] MD 04/10/2020 5:53 PM CDT Transcribed By: RTUHIE MONTEIRO SIGNED < electronically signed by MARY LY MD> 52 53 MARY LY MD April 10, 2020 ZION BONNER MD completed 7:57pm Patient: [place] RAYO MR#: [id number] 92 : 1950 Order[address] DrPrieto: DAWN HACKETT Pt Status: ADM IN Pt Location: M M2 Date/Time: 04/10/201849 Primary Care Physician: SIGRID ONEILL DO Technologist(s): CALIN BRADLEY Procedure(s): [id number] CT/CT HEAD W/O CONTRAST Signed CT HEAD WITHOUT IV CONTRAST HISTORY: Altered mental status. COMPARISON: None. TECHNIQUE: CT scan of the brain was per formed without IV contrast. This exam was performed according to our [facility] dose-optimization program, which includes automated exposure control, [...] Bonner MD 04/10/2020 7:57 PM CDT - 8134 Transcribed By: RUTHIE MONTEIRO SIGNED < electronically signed by ZINO BONNER MD> 56 57 ZION BONNER MD April 11, 2020 MARTY TAO MD completed 1:58pm Patient: [place] R[place] MR#: [id number] 92 : [address] ROHINI GRANT MD Pt Status: ADM IN Pt Location: M M2 Date/Time: 04/11/20 1321 Primary Care Physician: SIGRID ONEILL DO Technologist(s): TERESA SCHILLING Procedure(s): [id number] US/U/S GUIDANCE FOR THORACENTE SIS Signed EXAMINATION: US THORACENTESIS. INDICATION: 70-year-old male with pleur al effusion. COMPARISON: CT chest dated 04/10/2020. FINDINGS: Limited grayscale ultrasound of the treri ateral chest was performed. This demonstrates a [...] MD completed 12:04am Patient: [place] RAY[place] MR#: [id number] 92 : [address] STEPHANIE VELÁSQUEZ MD Pt Status: ADM IN [facility]#: [id number] Pt Location: M2 Date/Time: 04/11/20 1709 Primary Care Physician: SIGRID ONEILL DO Technologist(s): MIKA GALAVIZ Procedure(s): [id number] RAD/CHEST 1 VIEW Signed EXAM DESCRIPTION: CHEST [...] MD completed 3:28pm Patient: [place] R[place] MR#: [id number] 92 : 1950 Order[address] DrPrieto: AIMEE FRYE Pt Status: ADM IN Pt Location: M M2 Date/Time: 04/12/20 1117 Primary Care Physician: SIGRID ONEILL DO Technologist(s): MRI OPERATIONS Procedure(s): [id number] MRI/MRI BRAIN WITHOUT CONTRAST Signed EXAM: MRI BRAIN WITHOUT CONTRAST HISTORY: dizziness, unsteady gait. COMPARISON: Head CT from 04/10/2020. TECHNIQUE: Multiplanar, multi-sequence MR imaging of the brain without contrast was performed. FINDINGS: Parenchyma: No mass, hemorrhage or acu te vascular insults. Mild periventri cular and deep white matter T2/FLAIR hyp erintensities are likely due to chronic small vessel ischemic changes. Mild power lineman marcos small vessel ischemic changes in the [...] Location(s) Arrival/Admit Date Discharge/Depart Date Provider(s) Discharged [place] April 10, April 15, 2020 ELLIE Brooks , [place] [address] 6:37pm 6:02pm ZENAIDA Johnson MD Ctr Recent [...] IF symptoms worsen -CALL DR. FULLER AT [phone] IF ANY QU ESTIONS REGARDING HOSPITAL STAY -PLEASE CALL THE FLOOR AT [phone] I F ANY MEDICATION OR NURSING QUESTIONS Immunizations No Immunization Information Available Mental Status No Mental Status Information Available Medical Equipment No Medical Equipment Information available Insurance Providers Guarantor [employer] Address [address] [place] [address] Contact Info. Home Phone: Payer Policy Id Coverage Id Subscriber's Subscriber Id Effective E xpiration Name Date Date Medicare [id number] [place] [id number] 44 Plan of Treatment Future Tests Future [...] have any questions or concerns, please contact [phone] and ask for the hospitalist on duty. [...]
--- OUTSIDE RECORDS SUMMARY | 2020-06-07 14:59 | XMS REPORT | Summary of Care ---
:1950 Author Organization [facility] [place] [address] Care Team Providers Name Role Phone Andres Avendaño MD OTHER Reason for Visit Reason Comments Post-op Follow-up Encounter Details Date Type Department Care Team Description 05/27/2020 Office Visit [facility] Emmett Burnette M D Post-op Follow-up Medicine Thoracic [place] [address], [address] [address] [phone] Allergies Active Allergy Reactions Severity Noted Date Comments Codeine Rash Medium 05/02/2020 documented as of this encounter (statuses as of 05/31/2020) Medications Medication Sig Dispensed Refills Start End Date Status Date Dapagliflozin Take 10 mg by 0 Ac tive Propanediol 10 MG mouth daily. TABS insulin detemir Inject 5 Units 0 Active (LEVEMIR) 100 into the skin UNIT/ML injection nightly. metformin Take 500 mg by 0 Activ e (GLUCOPHAGE) 1000 mouth two times 0 MG tablet daily. pioglitazone TAKE 1 TABLET BY 0 Active (ACTOS) 45 MG MOUTH EVERY DAY 0 tablet losartan (COZAAR) TAKE 1 TABLET BY 0 Active 25 MG tablet MOUTH TWICE A DAY 0 FOR HYPERTENSION docusate sodium Take 100 mg by 0 Active (COLACE) 100 MG mouth daily as 0 capsule needed. nicotine (NICODERM Place 1 Patch 0 Active CQ) 21 MG/24HR onto the skin patch every 24 hours. Dulaglutide Trulicity 1.5 0 Acti ve (TRULICITY) 1.5 mg/0.5 mL MG/0.5ML SOPN subcutaneous pen injector testosterone testosterone cypionate 200 mg/mL intramuscular oil 0 Active cypionate INJECT 1 ML EVERY MONTH BY INTRAMUSCULAR ROUTE DIRECTED FOR 30 DAYS. (DEPOTESTOTERONE CYPIONATE) 200 MG/ML injection potassium chloride potassium 0 A ctive SA (K-DUR, chloride ER 20 KLOR-CON M20) 20 mEq MEQ tablet tablet,extended release tramadol (ULTRAM) Take 2 Tablets by 50 Tablet 0 Active 50 MG mouth every 8 0 tabletIndications: hours as needed Metastatic for Pain. adenocarcinoma (HCCode) tramadol (ULTRAM) Take 50 mg by 0 05/27/20 Discontinued 50 MG tablet mouth. 0 20 (Dose adjustment ) FREESTYLE LITE daily. 0 05/27/20 Disco ntinued 0 20 (*Therapy completed) Blood Glucose daily. 0 05/27/20 Discon tinued Monitoring Suppl 0 20 (Me d List Clean (FREESTYLE FREEDOM U p) LITE) w/Device KIT documented as of this encounter (statuses as of 05/31/2020) Active Problems Problem Noted Date Fluid overload 05/11/2020 Hypomagnesemia 05/10/2020 Hypokalemia 05/10/2020 Anxiety 05/10/2020 Acute post-operative pain 05/10/2020 Acute blood loss anemia 05/10/2020 Acute respiratory insufficiency 05/09/2020 Acute respiratory acidosis 05/09/2020 Empyema (HCCode) 05/02/2020 Hyperlipidemia 05/29/2019 Abdominal bloating 06/04/2016 Urinary tract infectious disease 03/27/2016 Cholecystitis 02/24/2016 Tobacco dependence syndrome 02/17/2016 Hypertensive disorder 02/17/2016 Gastroesophageal reflux disease 02/17/2016 Diabetes mellitus (HCCode) 02/17/2016 documented as of this encounter (statuses as of 05/31/2020) Social History Tobacco Use Types Packs/Day Years Used Date Former Smoker Cigarettes 1 50 Quit: 04/2020 Smokeless Tobacco: Never Used Alcohol Use Drinks/Week oz/Week Comments Not Currently Sex Assigned at Date Recorded Not on file documented as of this encounter Last Filed Vital Signs Vital Sign Reading Time Taken Comments Blood Pressure 144/92 05/27/2020 11:01 AM EXPERIMENTAL MECHANIC Pulse 114 05/27/2020 11:01 AM EXPERIMENTAL MECHANIC Temperature 36.4 C (97.6 F) 05/27/2020 11:01 AM EXPERIMENTAL MECHANIC Respiratory Rate - - Oxygen Saturation - - Inhaled Oxygen Concentration - - Weight 71.2 kg (157 lb) 05/27/2020 11:01 AM EXPERIMENTAL MECHANIC Height 175.3 cm (5' 9") 05/27/2020 11:01 AM EXPERIMENTAL MECHANIC Body Mass Index 23.18 05/27/2020 11:01 AM EXPERIMENTAL MECHANIC documented in this encounter Progress Notes Emmett Burnette MD - 05/27/2020 10:15 AM CSTI, Emmett Burnette MD, personally performed the services described in this documentation, ascribed by the Advanced Practice Provider (LORNA) in my presence, and it is both accurate and complete. I was personally involved in reviewing and conducting elements of the history, physical exam and/or medical decision making. 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 malewho presented to OSH with SOB ED on 05/01/2020 with a medical history HTN and DM. He has history of pneumonia 3 weeks ago which required hospitalization for 6 days. Since his discharge from that hospital he stated that he never felt well. During hospitalization he mentioned that his right chest accumulated fluid and they drained that fluid for couple of times. When he present with SOB and right chest pain and with cough, CT chest obtained at OSH ED which showed recurrent right sided pleural effusion. The patient transferred to [facility] with concern of empyema for high level of care. He reports 30 pounds lost in 3 weeks and after hospitalization he developed right lower abdominal pain, therefore he scheduled for endoscopy procedure next Wednesday.He is smoker for 50 years pack a day. He also history of alcohol abuse half a gallon for 50 years however quitted in December. Per his whoaccompanied us on phone, he had 3 COVID tests which were all negative and last one was last Wednesday. He is afebrile, comfortable, O2 Sat 94 on room air. He denies SOB, nausea, vomiting currently.No respiratory distress. No Wheeze, hisbreath soundsdiminished at right side. Patient underwent FB, Right thoracoscopic total parietal pleurectomy, total visceral pulmonary decortication on 05/09. He tolerated the procedure well and was transferred to ICU for postop care. He was extubated on POD 1 to NV. He had three chest tubes, all of which were removed without complications. He was diuresed with lasix and sent home with a prescription for lasix and potassium replacement. His pain was controlled with IV pain medications immediately postop and eventually transitioned to PO.His oxygen was weaned down to 2-3L NC, but he desaturated with activity on RA so he was discharged with home O2. By day of discharge, patient was afebrile/vital signs stable, tolerating regular diet, vo iding freely, passing flatus, ambulating, and pain was controlled with po pain meds. Today he returns to clinic for post-op follow up. Patient's reports that he continues to have abdominal pain. He is taking tramadol and tylenol every 5 hours for pain and has lost 50 pounds since November 2019. He was noted to have bleeding duodenal ulcer in March by his local GI and had precancerous lesions noted in Colonoscopy which was done at the same time. He is using oxygen 3L per NC at home, has SOB with slight exertion. ECO ZUBROD:1 REVIEW OF SYSTEMS: 14 point review of symptoms is negative except for the complaints noted above. PHYSICAL EXAM: Blood pressure (!) 144/92, pulse 114, temperature 97.6 F (36.4 C), temperature source Oral, height 5' 9" (1.753 m), weight 157 lb (71.2 kg). Body mass index is 23.18 kg/m. Overall well-appearing, comfortable, and in no distress. No difficulty in climbing upon the exam room table. Sclera are anicteric and mucous membrane are moist. No evidence of cervical, supraclavicular, or axillary lymphadenopathy. Symmetric bilateral chest excursion, with no chest wall tenderness. Decreased breath sounds in all posterior right lung field. Uses O2-3LNC. Normal cardiac examination without murmurs or rubs. Right thoracoscopic incisions well approximated and healed. Abdomen is soft, nontender, and non distended. No upper extremity swelling or clubbing. No lower extremity edema. Skin exam is normal. Neurologic exam is nonfocal and gait is normal. PROCEDURE: 05/09/2020 PROCEDURES: 1. Flexible bronchoscopy. 2. Right thoracoscopic total parietal pleurectomy. 3. Right thoracoscopic total visceral pulmonary decortication. PATHOLOGY: 05/09/20: ADDENDUM REASON FOR ADDENDUM: TO REPORT IMMUNOSTAIN PERFORMED AT [facility] RESULT: NAPSIN-A: NEGATIVE. The diagnosis remains unchanged. Addendum electronically signed by Omkar Castellanos MD on 05/22/2020 at 1111 DIAGNOSIS A. PARIETAL PLEURA, RIGHT, PLEURECTOMY: - METASTATIC ADENOCARCINOMA, PRIMARY SITE UNDETERMINED (SEE COMMENT) B. PARIETAL PLEURA, RIGHT#2, PLEURECTOMY: - METASTATIC ADENOCARCINOMA, PRIMARY SITE UNDETERMINED (SEE COMMENT) C. VISCERAL PLEURA, DECORTICATION: - METASTATIC ADENOCARCINOMA, PRIMARY SITE UNDETERMINED (SEE COMMENT) Signing Pathologist Direct Phone Line: [phone] INTERIM STUDIES: Chest X-Ray (05/27/20): Stable airspace opacities in both lungs, greater on the right. Small right pleural effusion is increased since last exam. No pneumothorax. Signed: Eriberto Junior MD Report Verified Date/Time: 05/27/2020 12:06:04 IMPRESSION & RECOMMENDATIONS: Vega Rayo is a 70 y.o. male s/p FB, Right thoracoscopic total parietal pleurectomy, total visceral pulmonary decortication on 05/09/20 for right sided pleural effusion. Final path consistent with metastatic adenocarcinoma. Vega Rayo was seen and assessed today in clinic. Reviewed his chest xray results and path results. Discussed need for PET/CT for staging and systemic therapy for treatment. We will refer him to for oncologic care. has discussed with . Advised him to increase tramadol to 100mg at night, prescription provided. Talked with [employer] rep, stated that it would take 45mts to 1 hour for oxygen tank to be delivered to clinic. Patient didn't want to wait to oxygen tank to be delivered. He stated that he will just have to take chance and drive back to [place]. He left clinic at 12:20pm. The patient was given ample amount of time to ask all of their questions and they were all thoroughly answered by Dr. Burnette. Patient verbalizes understanding and has no further questions at this time. MADINA Ramos Thoracic Surgery RIMENTAL MECHANIC documented in this encounter Plan of Treatment Health Maintenance Due Date Last Done Comments COLON CANCER SCREENIN1950 COLONOSCOPY TETANUS SHOT (ADULT) 1965 ANNUAL DIABETIC FOOT EXAM 1968 ANNUAL DIABETIC RETINOPATHY 1968 SCREENING HEPATITIS C SCREENING 1968 ZOSTER VACCINE (1 of 2) 2000 MEDICARE AWV (Initial) 03/19/2015 AAA Screen 2015 PNEUMOVAX >=65 (PPSV23) 2015 FLU VACCINE > 6 MONTHS 02/17/2020 FALL SCREEN 05/28/2021 05/28/2020 HPV VACCINE Aged Out No longer eligib deejay based on patient's age to complete this topic documented as of this encounter Results Not on filedocumented in this encounter Visit Diagnoses Diagnosis Metastatic adenocarcinoma (HCCode) - Violeta anum Other malignant neoplasm without specifi cation of site documented in this encounter Insurance Payer Benefit Plan Subscriber ID Effective Phone Address Typ e / Group Dates MEDICARE MEDICARE PART [id number] 2015-Prese [address] - [id number] [place] [address] [employer] - [id number] 2019-Prese [phone] [address] Medicare [place] [id number] [employer] - [id number] 2019-Prese [phone] [address] Medicare [place] [place] [address] [place] [id number] documented as of this encounter
[2020-06-07] MEDS ORDERED: NA CHLORIDE 0.9% 1,000 ML ONE (15:19)
[2020-06-07] MEDS ORDERED: Phenylephrine HCl 10 MG/ML 1 ML VIAL ONE (16:16)
[2020-06-07] MEDS ORDERED: propofoL 200 MG/20 ML VIAL IV ONE (16:16)
[2020-06-07] MEDS ORDERED: LIDOCAINE 1% MPF 5 ML VIAL ONE (16:18)
[2020-06-07 17:27] VITALS: BP 138/89; TEMP 97; O2SAT 99
--- NOTE | 2020-08-09 15:28 | OP ---
Surgeon: Richy Pinzon MD Procedure Performed: Colonoscopy. Indications For Procedure: History of colon polyps, staged colonoscopy due to the large ascending co venkatesh polyp as well as abnormal imaging in regard to PET scan that proximal transverse versu s hepatic flexure polyp. Plan For Anesthesia: Monitored anesthesia care. Complexity: Average. Technique: After obtaining informed consent from the patient explaining risks and complications, whi ch include, but are not limited to bleeding, infection, perforation, and anesthesia complication, pat ient was placed in the left lateral position and sedation was given. From then on, a digital rectal exam was performed and the scope was advanced into the rectum and carefully guided up till the cecum as well as the terminal ileum. The cecum was identified by the appendiceal orifice and ileocecal monica ve. Quality of prep was fair. Scope withdrawal time was 16 minutes. Findings: In the descending colon, 2 sessile polyps from 4-5 mm in size were seen. These were remov ed with hot biopsy polypectomy. In the proximal to mid ascending colon, residual polyp was seen arou nd as well near the tattoo site. This polyp appeared to be around 1.5 x 2 cm in size. First, the po lyp was injected by saline for adequate lift and then with the help of snare piecemeal polypectomy wa s performed. Also, residual tissue was ablated with cautery, by this I believe, a significant portio n of the polyp and maybe complete portion of the polyp has been removed. The polyps fragments were r etrieved and sent to Pathology for biopsy. No other significant findings were seen in the colon. I have performed retroflexion in the ascending colon beyond hepatic flexure, as well as multiple views in the transverse colon going back and forth. No other lesion was found in the right and mid colon t hat would coincide with the findings on the PET scan. Retroflexion revealed grade 1 internal hemorrh oids. Complications: None. Tolerance To Anesthesia: Excellent. Postoperative Diagnoses: Large ascending colon polyp, status post piecemeal removal, descending colo n polyps. Plan: 1.Await pathology results. 2.Follow up with Oncology for further management. 3.Repeat colonoscopy in 6-12 months for followup on the ascending colon polyp. US/MODL Voice ID: [id number] Report ID: [id number]
== END 2020-06-07 18:12 | disposition home or self-care (01) ==
LOC: OR 14:50
PROVIDERS: ATTEND Internal Medicine Gastroenterology
PROC: 0DBM8ZX Excision of Descending Colon, Via Natural or Artificial Opening Endoscopic, Diagnostic (ICD-10-PCS; 2020-06-07)
PROC: 0DBK8ZX Excision of Ascending Colon, Via Natural or Artificial Opening Endoscopic, Diagnostic (ICD-10-PCS; principal; 2020-06-07 14:15)
DX: D12.2 Benign neoplasm of ascending colon (principal); D12.4 Benign neoplasm of descending colon; I10 Essential (primary) hypertension; E11.9 Type 2 diabetes mellitus without complications; F32.9 Major depressive disorder, single episode, unspecified; F17.210 Nicotine dependence, cigarettes, uncomplicated; K21.9 Gastro-esophageal reflux disease without esophagitis; K29.70 Gastritis, unspecified, without bleeding; R19.7 Diarrhea, unspecified; R10.84 Generalized abdominal pain; K57.30 Diverticulosis of large intestine without perforation or abscess without bleeding
CPT/HCPCS: 82947; 88305; 45385; 45384; J2704; J7030; J2370